=== PATIENT | male | born 1960 | race Caucasian/White ===

== ENCOUNTER 2019-06-24 10:57 | Inpatient (IN) | payer MEDICARE ==
[2019-06-24] MEDS ORDERED: Lorazepam PYXIS KEY ONE ×3 (10:59→13:11)
[2019-06-24] MEDS ORDERED: LORazepam INJ* 2 MG/ML 1 ML VIAL ONE ×5 (10:59→13:51)
[2019-06-24] MEDS ORDERED: Rocuronium* 10 MG/ML VIAL ONE (11:04)
[2019-06-24] MEDS ORDERED: Etomidate* 2 MG/ML 20 ML VIAL (40 MG) ONE (11:05)
[2019-06-24] MEDS ORDERED: fentaNYL* 50 MCG/ML 2 ML VIAL (100 MCG VIAL) IV SLOW PU ONE (11:15)
[2019-06-24] MEDS ORDERED: Midazolam* 1 MG/ML 5 ML VIAL (5 MG) IV SLOW PU ONE (11:15)
[2019-06-24 11:34] LABS: ABS Eosinophils 0.1 10^3/ul (0-0.6); ABS Lymphocytes 1.1 10^3/ul (1.0-4.8); ABS Monocytes 1.3 10^3/ul (0-0.8); ABS Neutrophils 8.7 10^3/ul (1.5-7.7); Eosinophil % 0.5 %; Hematocrit 45 % (42-52); Hemoglobin 14.9 g/dL (14.0-18.0); Lymphocyte % 9.8 %; Mean Corpuscular HGB Conc 33 g/dL (31-36); Mean Corpuscular Hemoglobin 30 pg (27-31); Mean Corpuscular Volume 90 fL (80-94); Mean Platelet Volume 7.9 fL (7.4-10.4); Platelet Count 291 10^3/uL (150-450); Red Blood Count 4.94 10^6 /uL (4.18-5.48); Red Cell Distribution Width 19 % (10-15); White Blood Count 11.2 10^3/uL (3.5-10.8)
[2019-06-24 11:52] LABS: ALT 19 U/L (7-52); AST 28 U/L (13-39); Albumin 3.9 g/dL (3.2-5.2); Albumin/Globulin Ratio 1.1 (1-3); Alkaline Phosphatase 103 U/L (34-104); Blood Urea Nitrogen 9 mg/dL (6-24); Calcium 9.6 mg/dL (8.6-10.3); Chloride 92 mmol/L (101-111); Cholesterol 146 mg/dL; EGFR African American 116.4 (>60); EGFR Non-African American 96.2 (>60); Globulin 3.6 g/dL (2-4); Glucose 184 mg/dL (70-100); HDL Cholesterol 67.1 mg/dL; LDL Cholesterol 63 mg/dL; Potassium 3.1 mmol/L (3.5-5.0); Total Protein 7.5 g/dL (6.4-8.9); Triglycerides 78 mg/dL
[2019-06-24 11:53] LABS: Activated Partial Thrombo Time 33.5 seconds (26.0-38.0); INR 1.09 (0.82-1.09)
[2019-06-24 12:00] LABS: Sodium 129 mmol/L (135-145)
[2019-06-24] MEDS ORDERED: Midazolam IV for DRIP* 100 MG in NS 0.9% 100 ML* 80 ML IV SCH ×2 (12:00→14:20)
[2019-06-24] MEDS ORDERED: KCL 20 MEQ/100 ML IVPREMIX* 20 MEQ/100 ML BAG IV ONE (12:00)
[2019-06-24] MEDS ORDERED: fentaNYL INFUSION 50 MCG/ML* 2,500 MCG/50 ML BAG IV SCH ×2 (12:00)
[2019-06-24 12:02] LABS: Anion Gap 23 mmol/L (2-11); CO2 Carbon Dioxide 14 mmol/L (22-32); Troponin I 0.04 ng/mL (<0.04)
[2019-06-24] MEDS ORDERED: NS 0.9% IV ONE (12:15)
--- NOTE | 2019-06-24 13:13 | ED ---
Neurological HPI - HPI Summary HPI Summary: The pt is a 58 yr old male presenting to [facility] vis EMS c/o seizure beginning [address] [employer]. Per the EMS, the pt fell at home at 0950, became unresponsive, and had a seizure. Per the the pt had not spoken for the whole day yesterday. He also seized while in the EMS on the way to the ED, for which 5mg versed was given by EMS. Pt had a seizure at bedside. LEVEL 5 CAVEAT. Pt cannot provide full history due to active seizure and unresponsiveness in the ED. - History of Current Complaint Chief Complaint: EDSeizure Stated Complaint: STROKE PER EMS Time Seen by Provider: 06/24/19 11:09 Hx Obtained From: EMS Hx From Patient Unobtainable Due To: Other - LEVEL 5 CAVEAT. Active seizure in the ED. Onset/Duration: Sudden Onset, Started hours ago, Still Present Timing: Sudden Onset Seizure Severity: Moderate Number of Seizures: 3 Pain Intensity: 0 Seizure Character: Generalized Aggravating: Unknown Alleviating: Unknown Associated Signs and Symptoms: Positive: Seizure - Seizure at home after fall @ 0950, seizure in the EMS, and seizure again in the ED., Incontinent Bladder/ Bowel - Allergy/Home Medications Allergies/Adverse Reactions: Allergies Allergy/AdvReac Type Severity Reaction Status Date / Time Penicillins Allergy Rash Verified 06/24/19 13:44 Home Medications: Home Medications Albuterol 2.5MG/3ML (0.083%)* [Ventolin 2.5 MG/3 ML NEB.ZULLY*] 2.5 mg INH Q6H PRN 06/24/19 [History Confirmed 06/24/19] Albuterol inh POWDER (NF) [Proair Respiclick] 2 puff INH Q4HR PRN 06/24/19 [ History Confirmed 06/24/19] Fluticasone-Salmeterol 250-50* [Advair Diskus 250-50*] 1 puff INH BID 06/24/19 [ History Confirmed 06/24/19] Furosemide TAB* [Lasix TAB*] 40 mg PO BID 06/24/19 [History Confirmed 06/24/19] Hydrocortisone 2.5% CREAM(NF) 1 applic TOPICAL TID PRN 06/24/19 [History Confirmed 06/24/19] Tiotropium [place] [Spiriva Respimat] 4 gm INH DAILY 06/24/19 [History Confirmed 06/24/19] clonazePAM TAB(*) [KlonoPIN TAB(*)] 1 mg PO TID PRN 06/24/19 [History Confirmed 06/24/19] oxyCODONE SR TAB(*) [Oxycontin 40 mg (*)] 80 mg PO Q12HR 06/24/19 [History Confirmed 06/24/19] PMH/Surg Hx/FS Hx/Imm Hx Previously Healthy: No - Level 5 Caveat. Sensory History: Denies: Hx Legally Blind, Hx Deafness Opthamlomology History: Denies: Hx Legally Blind EENT History: Denies: Hx Deafness Neurological History: Reports: Hx Seizures Infectious Disease History: No Infectious Disease History: Denies: Traveled Outside the [place] in Last 30 Days - Family History Family History: LEVEL 5 CAVEAT: Pt is unresponsive and unable to give hx. - Social History Alcohol Use: unk: LEVEL 5 CAVEAT Smoking Status (MU): Unknown if Ever Smoked - LEVEL 5 CAVEAT Review of Systems Positive: Other - Positive - incontinent bowel Neurological: Other - Positive - Seizure All Other Systems Reviewed And Are Negative: No - Comments Additional Review of Systems Comments: LEVEL 5 CAVEAT Physical Exam - Summary Physical Exam Summary: Constitutional: Well-developed, Well-nourished, Alert. (-) Distressed Skin: Warm, Dry HENT: Normocephalic; Atraumatic Eyes: Conjunctiva normal, eyes twitching, pupils are 4mm and fixed Neck: Musculoskeletal ROM normal neck. (-) JVD, (-) Stridor, (-) Tracheal deviation, neck is supple, no JVD. Cardio: Rhythm regular, rate normal, Heart sounds normal; Intact distal pulses; The pedal pulses are 2+ and symmetric. Radial pulses are 2+ and symmetric. (-) Murmur Pulmonary/Chest wall: Effort normal. (-) Respiratory distress, (-) Wheezes, (-) Rales, lungs are clear bilaterally Abd: Soft, (-) tenderness, (-) Distension, (-) Guarding, (-) Rebound, periumbilical hernia, Musculoskeletal: Extremeties have edema bilaterally Lymph: (-) Cervical adenopathy Neuro: un-responsive to painful or external stimuli, is moving all extremities un-purposefully, eyes open/close spontaneously, GCS of 8 (See scale) Psych: Mood and affect minimally responsive Triage Information Reviewed: Yes Vital Signs On Initial Exam: Initial Vitals Temp Pulse Resp BP Pulse Ox 98.9 F 100 0 158/81 100 06/24/19 11:01 06/24/19 11:01 06/24/19 11:01 06/24/19 11:01 06/24/19 11:01 Vital Signs Reviewed: Yes Completion Of Physical Exam Limited Due To: Level 5 - Lanny Coma Scale Best Eye Response: 4 - Spontaneous Best Motor Response: 1 - None Best Verbal Response: 3 - Inappropriate Words Coma Scale Total: 8 Procedures - Intubation Intubation Method: orotracheal Tube Size (cm): 7.5 Medications: Versed - and fentanyl Breath Sounds after Intubation: equal Intubation Complications: no complications Post Intubation Xray: Yes Diagnostics - Vital Signs Vital Signs Temp Pulse Resp BP Pulse Ox 06/24/19 13:02 20 06/24/19 12:01 105 97 06/24/19 11:46 109 191/107 96 06/24/19 11:42 108 98 06/24/19 11:26 97 185/99 97 06/24/19 11:01 98.9 F 100 0 158/81 100 - Laboratory Lab Results: Lab Results 06/24/19 06/24/19 06/24/19 Range/Units 11:05 11:05 11:05 WBC 11.2 H (3.5-10.8) 10^3/uL RBC 4.94 (4.18-5.48) 10^6 /uL Hgb 14.9 (14.0-18.0) g/dL Hct 45 (42-52) % MCV 90 (80-94) fL MCH 30 (27-31) pg MCHC 33 (31-36) g/dL RDW 19 H (10-15) % Plt Count 291 (150-450) 10^3/uL MPV 7.9 (7.4-10.4) fL Neut % (Auto) 77.7 % Lymph % (Auto) 9.8 % Lyon % (Auto) 11.8 % Eos % (Auto) 0.5 % Baso % (Auto) 0.2 % Absolute Neuts (auto) 8.7 H (1.5-7.7) 10^3/ul Absolute Lymphs (auto) 1.1 (1.0-4.8) 10^3/ul Absolute Monos (auto) 1.3 H (0-0.8) 10^3/ul Absolute Eos (auto) 0.1 (0-0.6) 10^3/ul Absolute Basos (auto) 0.0 (0-0.2) 10^3/ul Absolute Nucleated RBC 0.0 10^3/ul Nucleated RBC % 0.0 INR (Anticoag Therapy) 1.09 (0.82-1.09) APTT 33.5 (26.0-38.0) seconds Patient Temperature ABG pH (7.35-7.45) ABG pH (Temp Correct) ABG pCO2 (35-45) mmHg ABG pCO2 (Temp Corrct ABG pO2 (80-100) mmHg ABG pO2 (Temp Correct ABG HCO3 (19-31) mmol/L ABG O2 Saturation (94.0-98.0) % ABG Base Excess (-2.0-2.0) mmol/L Respiration Rate O2 Delivery Device Ventilator Type Vent Mode FiO2 Inspiratory Time PEEP Pressure Support Pressure Control EPAP IPAP BiPAP Sodium 129 L (135-145) mmol/L Potassium 3.1 L (3.5-5.0) mmol/L Chloride 92 L (101-111) mmol/L Carbon Dioxide 14 L* (22-32) mmol/L Anion Gap 23 H (2-11) mmol/L BUN 9 (6-24) mg/dL Creatinine 0.82 (0.67-1.17) mg/dL Est GFR ( Amer) 116.4 (>60) Est GFR (Non-Af Amer) 96.2 (>60) BUN/Creatinine Ratio 11.0 (8-20) Glucose 184 H (70-100) mg/dL Lactic Acid (0.5-2.0) mmol/L Calcium 9.6 (8.6-10.3) mg/dL Total Bilirubin 0.90 (0.2-1.0) mg/dL AST 28 (13-39) U/L ALT 19 (7-52) U/L Alkaline Phosphatase 103 (34-104) U/L Troponin I 0.04 H* (<0.04) ng/mL Total Protein 7.5 (6.4-8.9) g/dL Albumin 3.9 (3.2-5.2) g/dL Globulin 3.6 (2-4) g/dL Albumin/Globulin Ratio 1.1 (1-3) Triglycerides 78 mg/dL Cholesterol 146 mg/dL LDL Cholesterol 63 mg/dL HDL Cholesterol 67.1 mg/dL 06/24/19 06/24/19 Range/Units 11:05 11:36 WBC (3.5-10.8) 10^3/uL RBC (4.18-5.48) 10^6 /uL Hgb (14.0-18.0) g/dL Hct (42-52) % MCV (80-94) fL MCH (27-31) pg MCHC (31-36) g/dL RDW (10-15) % Plt Count (150-450) 10^3/uL MPV (7.4-10.4) fL Neut % (Auto) % Lymph % (Auto) % Lyon % (Auto) % Eos % (Auto) % Baso % (Auto) % Absolute Neuts (auto) (1.5-7.7) 10^3/ul Absolute Lymphs (auto) (1.0-4.8) 10^3/ul Absolute Monos (auto) (0-0.8) 10^3/ul Absolute Eos (auto) (0-0.6) 10^3/ul Absolute Basos (auto) (0-0.2) 10^3/ul Absolute Nucleated RBC 10^3/ul Nucleated RBC % INR (Anticoag Therapy) (0.82-1.09) APTT (26.0-38.0) seconds Patient Temperature Not Reportable ABG pH 7.30 L (7.35-7.45) ABG pH (Temp Correct) Not Reportable ABG pCO2 56 H (35-45) mmHg ABG pCO2 (Temp Corrct Not Reportable ABG pO2 117 H (80-100) mmHg ABG pO2 (Temp Correct Not Reportable ABG HCO3 25.0 (19-31) mmol/L ABG O2 Saturation 99.4 H (94.0-98.0) % ABG Base Excess 0.1 (-2.0-2.0) mmol/L Respiration Rate 16 O2 Delivery Device Ventilator Ventilator Type 500 Vent Mode Cmv FiO2 80 Inspiratory Time 1.0 PEEP 5 Pressure Support Not Reportable Pressure Control Not Reportable EPAP Not Reportable IPAP Not Reportable BiPAP Not Reportable Sodium (135-145) mmol/L Potassium (3.5-5.0) mmol/L Chloride (101-111) mmol/L Carbon Dioxide (22-32) mmol/L Anion Gap (2-11) mmol/L BUN (6-24) mg/dL Creatinine (0.67-1.17) mg/dL Est GFR ( Amer) (>60) Est GFR (Non-Af Amer) (>60) BUN/Creatinine Ratio (8-20) Glucose (70-100) mg/dL Lactic Acid 9.2 H* (0.5-2.0) mmol/L Calcium (8.6-10.3) mg/dL Total Bilirubin (0.2-1.0) mg/dL AST (13-39) U/L ALT (7-52) U/L Alkaline Phosphatase (34-104) U/L Troponin I (<0.04) ng/mL Total Protein (6.4-8.9) g/dL Albumin (3.2-5.2) g/dL Globulin (2-4) g/dL Albumin/Globulin Ratio (1-3) Triglycerides mg/dL Cholesterol mg/dL LDL Cholesterol mg/dL HDL Cholesterol mg/dL Result Diagrams: 06/24/19 11:05 06/24/19 11:05 Lab Statement: Any lab studies that have been ordered have been reviewed, and results considered in the medical decision making process. - Radiology CXR Radiology Interpretation Completed By: Radiologist Summary of Radiographic Findings: 1. LIMITED STUDY. 2. LINES AND TUBES ABOVE. 3. NO ACTIVE CARDIOPULMONARY DISEASE. ED physician has reviewed this report. - CT Brain CT CT Interpretation Completed By: Radiologist Summary of CT Findings: No acute intracranial pathology. ED physician has reviewed this report. C-spine CT CT Interpretation Completed By: Radiologist Summary of CT Findings: 1. No fracture or traumatic malalignment of the cervical spine. 2. Unchanged 2 mm anterolisthesis of C3 on C4. 3. Varying degrees of multilevel spondylosis does not result in severe osseous encroachment spinal canal or neural foramina. ED physician has reviewed this report. - EKG 1138 Cardiac Rate: Tachycardia - 108bpm EKG Rhythm: Sinus Tachycardia ST Segment: Normal Ectopy: PVCs Summary of EKG Findings: EKG 1138 sinus tachycardia rate 108 nml AR prolonged QRS, incomplete RBBB. Nml QTc. STs and Ts are nml. Frequent PVCs. Nonspecific ekg. Course/Dx - Course Course Of Treatment: The pt is a 58 yr old male presenting to [facility] vis EMS c/o seizure beginning [address] [employer]. Per the EMS, the pt fell at home at 0950, became unresponsive, and had a seizure. He also seized while in the EMS on the way to the ED, for which 5mg Versed was given in the EMS. LEVEL 5 CAVEAT. Pt cannot provide full history due to active seizure in the ED. The physical exam was only notable for twitching eyes, un-responsive to painful or external stimuli, is moving all extremities un-purposefully, eyes open/close spontaneously, GCS of 8, mood and affect minimally responsive. Test results without significant abnormalities except for WBC @ 11.2, RDW @ 19, Absolute Neuts @ 8.7, Absolute monos @ 1.3, ABG pH @ 7.3, ABG pCO2 @ 56, ABG pO2 @ 117, ABG )2 @ 99.4, Sodium @ 129, Potassium @ 3.1, CO2 @ 14, Anion Gap @ 23, Glucose @ 184, Lactic Acid @ 9.2, and Troponin @ 0.04. A CXR reveals: 1. LIMITED STUDY. 2. LINES AND TUBES ABOVE. 3. NO ACTIVE CARDIOPULMONARY DISEASE. A Brain CT Reveals: No acute intracranial pathology. A C-spine CT reveals: 1. No fracture or traumatic malalignment of the cervical spine. 2. Unchanged 2 mm anterolisthesis of C3 on C4. 3. Varying degrees of multilevel spondylosis does not result in severe osseous encroachment spinal canal or neural foramina. An EKG reveals: EKG 1138 sinus tachycardia rate 108 nml AR prolonged QRS, incomplete RBBB. Nml QTc. STs and Ts are nml. Frequent PVCs. Nonspecific ekg. The pt was diagnosed with status epilepticus and alcohol withdrawal, and admitted to [facility]. - Diagnoses Provider Diagnoses: Status epilepticus, Alcohol withdrawal - Critical Care Time Critical Care Time: 75-104 min - 75 min Discharge - Sign-Out/Discharge Documenting (check all that apply): Patient Departure - Admit - Discharge Plan Condition: Stable Disposition: ADMITTED TO [facility] - Billing Disposition and Condition Condition: STABLE Disposition: Admitted to [facility] - Attestation Statements Document Initiated by Amayaibe: Yes Documenting Scribe: Earnest Bear Provider For Whom Pricilla is Documenting (Include Credential): Tosin Alcocer MD. Scribe Attestation: I, Earnest Bear, scribed for Tosin Mcduffie MD. on 06/24/19 at 1857. Scribe Documentation Reviewed: Yes Provider Attestation: The documentation as recorded by the scribe, Earnest Bear accurately reflects the service I personally performed and the decisions made by me, Tosin Alcocer MD. Status of Scribe Document: Viewed
[2019-06-24] MEDS ORDERED: Lorazepam PYXIS KEY PRN ×2 (13:14→14:24)
[2019-06-24] MEDS ORDERED: LORazepam INJ* 2 MG/ML 1 ML VIAL IV PUSH ONE ×4 (13:14→18:45)
[2019-06-24] MEDS: LORazepam INJ* 2 MG/ML 1 ML VIAL IV PUSH ONE ×3 (13:25→13:52)
[2019-06-24] MEDS ORDERED: Fosphenytoin(*) 1,500 MG in NS 0.9% 100 ML* 100 ML IVPB ONE (13:30)
[2019-06-24] MEDS ORDERED: Propofol* 100 ML ONE (13:50)
[2019-06-24 13:54] LABS: Acetaminophen < 15 mcg/mL; Alcohol < 10 mg/dL (<10); Salicylate < 2.50 mg/dL (<30)
--- NOTE | 2019-06-24 14:02 | CONS ---
NEUROLOGY CONSULTATION: ADDENDUM: DATE OF CONSULTATION: 06/24/19 REFERRING PROVIDER: Dr. Tadeo. The patient is in the emergency room, to be admitted to the intensive care unit. Quinten Lam started to have some seizures again and so he has been given some extra lorazepam. He is on midazolam and fentanyl. I have put in orders for a fosphenytoin load. TIME SPENT: Over 90 minutes were spent in the intensive care in direct care of Mr. Lam and in communication with his daughter and with the other providers, including Dr. Tadeo, involved in his care. [id number]/[facility] #: [id number] MTDD
--- NOTE | 2019-06-24 14:10 | CONS ---
ADDENDUM NOW INCLUDED ON THIS REPORT NEUROLOGY CONSULTATION: DATE OF CONSULT: 06/24/19 LOCATION: He is in the emergency room, to be admitted. REFERRING PROVIDER: Dr. Tadeo. CHIEF COMPLAINT: Seizures. HISTORY OF PRESENT ILLNESS: Quinten Lam is a 58-year-old man who was brought in by ambulance when his family called 911 because of seizures at home. He had observed seizures by the ambulance crew by verbal report and he was given 5 mg of Versed in the field. He was intubated either in the field or upon immediate arrival in the emergency room. He had another seizure in the emergency room and was given 2 mg of lorazepam. Subsequently, his daughter arrived and I was able to obtain history. He has no prior history of seizures. He has history of chronic neck and back pain and is on chronic opioid therapy. He was just recently started on a new extended release oxycodone by his pain paid search specialist. In addition, she says he is on lorazepam, she believes on a regular basis, although she does not know the dose, and she also says he is an active alcoholic. He has several inhalers for COPD. She says he started a new extended release oxycodone just a couple of days ago. She said yesterday when she was with him he was acting very confused. She said that her grandparents reported that last night he was "ranting and raving." Subsequently, this morning, he had his first seizure. PAST MEDICAL HISTORY: From the patient's daughter and minimal medical records in the EMR. There are 2 Quinten Lindo in the electronic medical record, 1 Quinten Lam and 1 Quinten Lam, but both with the same date. From reviewing those records, he was admitted for alcohol detox in 2004. He was evaluated for an enlarged liver. He has a history of chronic low back pain secondary to a work- related injury, prior back surgery, history of anxiety and depression, history of gastroesophageal reflux, history of COPD. MEDICATIONS: Medications at home which have not been validated include: 1. Clonazepam 1 mg p.o. t.i.d. as needed. 2. Furosemide 40 mg p.o. b.i.d. 3. Albuterol inhaler 2 puffs every 4 hours as needed. 4. Oxycodone SR 40 mg 2 tablets orally every 12 hours. ALLERGIES: There are no allergies recorded. SOCIAL HISTORY: He apparently lives with his parents. He according to his daughter still drinks alcohol. He used to smoke and I am not sure if he is still an active smoker. PHYSICAL EXAM: On examination several times in the emergency room, he is intubated and sedated initially. Over time, he starts to move his left hand and right leg. When I reevaluated him about an hour to an hour and 15 minutes after the initial evaluation, he was moving his arms and legs to some extent and subsequently was reaching up towards the ET tube. His background rhythm on his EEG at that point showed diffuse theta and beta rhythms fairly symmetrically , but not epileptiform discharges. I left the room and was called back and he was having generalized clonic jerking of his extremities with fairly continuous high voltage spikes with some high voltage delta activity superimposed. He stopped spontaneously and a Versed drip was started after 2 mg of IV lorazepam. At that point, he was again unresponsive. When examined earlier, he had normal pupillary responses reacting from about 4 down to 2.5 mm. His fundi showed sharp discs. There were no spontaneous eye movements and he was in a cervical collar and so I did not do vestibulo-ocular reflexes. He had no response to corneal stimulation, but he did have response to nasal tickle with some movement of his left hand. His limb tone was decreased. His facial musculature was symmetric. LABORATORY DATA: Notable for a CBC with a mildly elevated white blood cell count at 11.2 and otherwise a fairly unremarkable CBC. His INR is normal at 1.09 and PTT at 33.5. Arterial blood gas notable for pH 7.30, pCO2 56, pO2 117. His chemistry is notable for lactic acid of 9.2, glucose 184, carbon dioxide 14, anion gap 23, sodium of 129, and potassium of 3.1. His first troponin is elevated at 0.04. His liver enzymes are normal. IMPRESSION AND PLAN: Impression is that of new-onset seizures in a patient on multiple medications and active alcoholism. Currently, he is still having intermittent seizures and I put in orders for 1500 mg of IV fosphenytoin load. He just started a Versed drip and he is getting periodic doses of lorazepam. His initial EEG showed diffuse beta and theta rhythms, but then he had seizures with generalized high voltage spike and slow activity. Subsequently, he would have suppression of background rhythms and then diffuse slowing again. I will just load him with fosphenytoin at this point and see how he does. We will do periodic EEGs on him and currently we will leave the headset intact. I put in for a magnesium level on blood that is already drawn. He will need his electrolytes monitored and corrected. At some point, we may opt to get an MRI scan of his brain, but for now, the immediate need is cessation and control of all seizures. I will continue to follow him along with you. ADDENDUM: DATE OF CONSULTATION: 06/24/19 REFERRING PROVIDER: Dr. Tadeo. The patient is in the emergency room, to be admitted to the intensive care unit. Quinten Lam started to have some seizures again and so he has been given some extra lorazepam. He is on midazolam and fentanyl. I have put in orders for a fosphenytoin load. TIME SPENT: Over 90 minutes were spent in the intensive care in direct care of Mr. Lam and in communication with his daughter and with the other providers, including Dr. Tadeo, involved in his care. [id number]/[facility] #: [id number] - [id number]/[facility] #: [id number] HOME
[2019-06-24] MEDS ORDERED: Magnesium Sulfate 2 GM IV* 2 GM/50 ML BAG IVPB ONE (14:26)
[2019-06-24 14:52] LABS: Magnesium 1.7 mg/dL (1.9-2.7)
--- NOTE | 2019-06-24 14:58 | HP ---
H&P (Free Text) History and Physical: History and Physical -- Critical Care Limitations in history/physical: intubated HPI: 58y M w/pmhx of COPD, Alcohol abuse, CHF?, GERD, Anxiety/depression; patient brought in by EMS 06/24 after a fall and unresponsiveness at home. As per patients mother and daughter he was confused yesterday 06/23, not talking much, but awake and walking around. Today he was still disoriented appearing all day. Then in front of his mother he hit his head into a door and fell, not awake or repsonsive and appeared to be rigid. EMS called and on their arrival he started to awaken but they noted GTC seizures, given versed IV. On ER arrival he was poorly responsive, poor respiratory effort and so intubated for airway protection by physician. He had 2-3 more episodes of Generalized seizures , given ativan IV push, neurology ordered fosphenytoin IV load. He is intubated , breathing over the vent, noted to have 1 more seizure episode in front of me and broke with ativan, while EEG ongoing. Started on propofol infusion, already on fentnayl and versed infusions. Admitted to ICU. Noted to have started on a new longer acting opioid for back pain at home ~1-2 weeks back and had some spasms from it. ROS: ROS unable to obtain due to intubated/sedated state and due to change in mental status and respiratory failure PMHx: COPD, Alcohol abuse, CHF?, GERD, Anxiety/depression PSHx: back surgery Family History: unable to obtain Social History: Alcohol-active daily 12-24oz per day, Smoking-none, Drug use- none; Job-not working; family-lives with mother, has a daughter Allergies: Allergies Allergy/AdvReac Type Severity Reaction Status Date / Time Penicillins Allergy Rash Verified 06/24/19 13:44 Home Medications: Albuterol 2.5MG/3ML (0.083%)* [Ventolin 2.5 MG/3 ML NEB.ZULLY*] 2.5 mg INH Q6H PRN 06/24/19 [History Confirmed 06/24/19] Albuterol inh POWDER (NF) [Proair Respiclick] 2 puff INH Q4HR PRN 06/24/19 [ History Confirmed 06/24/19] Fluticasone-Salmeterol 250-50* [Advair Diskus 250-50*] 1 puff INH BID 06/24/19 [ History Confirmed 06/24/19] Furosemide TAB* [Lasix TAB*] 40 mg PO BID 06/24/19 [History Confirmed 06/24/19] Hydrocortisone 2.5% CREAM(NF) 1 applic TOPICAL TID PRN 06/24/19 [History Confirmed 06/24/19] Tiotropium [place] [Spiriva Respimat] 4 gm INH DAILY 06/24/19 [History Confirmed 06/24/19] clonazePAM TAB(*) [KlonoPIN TAB(*)] 1 mg PO TID PRN 06/24/19 [History Confirmed 06/24/19] oxyCODONE SR TAB(*) [Oxycontin 40 mg (*)] 80 mg PO Q12HR 06/24/19 [History Confirmed 06/24/19] Tele: NSR Vitals: Vital Signs Temp 98.1 F 06/24/19 16:00 Pulse 84 06/24/19 16:00 Resp 28 06/24/19 15:00 BP 136/74 06/24/19 16:00 Pulse Ox 92 06/24/19 16:00 Intake & Output 06/23/19 06/24/19 06/24/19 18:59 06:59 18:59 Output Total 525 Balance -525 Weight 125.6 kg Output: Loja 525 O2/Vent: AC 20/500/+8/100% Infusions: propofol, versed, NS Current Medications: Acetaminophen (Tylenol Adult Liq*) 650 mg PO Q4H PRN PRN Reason: fever or pain Albuterol (Ventolin 2.5 Mg/3 Ml Neb.Zully*) 2.5 mg INH Q4H PRN PRN Reason: SOB/WHEEZING Chlorhexidine Gluconate (Peridex Mouth Wash 0.12%*) 15 ml TOPICAL Q4H RONALDO Last Admin: 06/24/19 15:16 Dose: Not Given Famotidine (Pepcid Iv*) 20 mg IV SLOW PU BID RONALDO Folic Acid (Folvite Tab*) 1 mg FEED TUBE DAILY RONALDO Propofol (Diprivan*) 100 mls @ 20.412 mls/hr IV .(Initial Rate) RONALDO; Protocol Last Admin: 06/24/19 15:17 Dose: 20.5 mls/hr Midazolam HCl 100 mg/ Sodium (Chloride) 100 mls @ 2 mls/hr IV Q24H RONALDO; Protocol Last Admin: 06/24/19 15:18 Dose: Not Given Multivitamins 10 ml/ Potassium Chloride 60 meq/ Sodium Chloride 1,040 mls @ 100 mls/hr IV ONCE ONE Stop: 06/25/19 03:23 Last Admin: 06/24/19 15:27 Dose: 100 mls/hr Fosphenytoin Sodium 100 mg/ (Sodium Chloride) 52 mls @ 208 mls/hr IVPB Q8H RONALDO ; Protocol Ceftriaxone Sodium 2 gm/ (Sodium Chloride) 100 mls @ 200 mls/hr IVPB Q24H RONALDO Vancomycin HCl 1,500 mg/ (Sodium Chloride) 250 mls @ 166.667 mls/hr IVPB ONCE ONE; Protocol Stop: 06/24/19 16:44 Acyclovir Sodium 1,200 mg/ (Sodium Chloride) 274 mls @ 0 mls/hr IVPB Q8H RONALDO Vancomycin HCl 1,250 mg/ (Sodium Chloride) 250 mls @ 166.667 mls/hr IVPB Q12H RONALDO Miscellaneous (Ativan Pyxis [place]) 2 ea N/A Q2H PRN PRN Reason: SEIZURES Pharmacy Consult (Vancomycin Per Pharmacy*) 1 note FOLLOW UP .VANC PER PHARMACY RONALDO; Protocol Pharmacy Profile Note (Vancomycin Trough Check) 1 note FOLLOW UP 1630 ONE Stop: 06/25/19 16:31 Physical Exam: Constitutional: intubated, sedated, no distress, no diaphoresis Head: normocephalic, atraumatic Eyes: no pallor, no icterus ENT: moist mucous membranes Neck: soft, supple, no jvd CVS: normal rate, regular, no murmur Resp: bilateral air entry but distant breath sounds, no rhales, no wheeze, no rhonchi, no acc muscle use Abdomen/GI: soft, nondistended, BS+ Ext/Msk: warm, pulses+, no edema Skin: intact, warm Neuro: sedated, pupils bilaterally reactive Labs: Laboratory Results - last 24 hr 06/24/19 06/24/19 06/24/19 11:05 11:05 11:05 WBC 11.2 H RBC 4.94 Hgb 14.9 Hct 45 MCV 90 MCH 30 MCHC 33 RDW 19 H Plt Count 291 MPV 7.9 Neut % (Auto) 77.7 Lymph % (Auto) 9.8 [place] % (Auto) 11.8 Eos % (Auto) 0.5 Baso % (Auto) 0.2 Absolute Neuts (auto) 8.7 H Absolute Lymphs (auto) 1.1 Absolute Monos (auto) 1.3 H Absolute Eos (auto) 0.1 Absolute Basos (auto) 0.0 Absolute Nucleated RBC 0.0 Nucleated RBC % 0.0 INR (Anticoag Therapy) 1.09 APTT 33.5 Patient Temperature ABG pH ABG pH (Temp Correct) ABG pCO2 ABG pCO2 (Temp Corrct ABG pO2 ABG pO2 (Temp Correct ABG HCO3 ABG O2 Saturation ABG Base Excess Respiration Rate O2 Delivery Device Ventilator Type Vent Mode FiO2 Inspiratory Time PEEP Pressure Support Pressure Control EPAP IPAP BiPAP Sodium 129 L Potassium 3.1 L Chloride 92 L Carbon Dioxide 14 L* Anion Gap 23 H BUN 9 Creatinine 0.82 Est GFR ( Amer) 116.4 Est GFR (Non-Af Amer) 96.2 BUN/Creatinine Ratio 11.0 Glucose 184 H Serum Osmolality Lactic Acid Calcium 9.6 Magnesium 1.7 L Total Bilirubin 0.90 AST 28 ALT 19 Alkaline Phosphatase 103 Troponin I 0.04 H* Total Protein 7.5 Albumin 3.9 Globulin 3.6 Albumin/Globulin Ratio 1.1 Triglycerides 78 Cholesterol 146 LDL Cholesterol 63 HDL Cholesterol 67.1 TSH Cancelled Cortisol 34.53 Salicylates Acetaminophen Serum Alcohol 06/24/19 06/24/19 06/24/19 11:05 11:05 11:05 WBC RBC Hgb Hct MCV MCH MCHC RDW Plt Count MPV Neut % (Auto) Lymph % (Auto) Nicol[place] % (Auto) Eos % (Auto) Baso % (Auto) Absolute Neuts (auto) Absolute Lymphs (auto) Absolute Monos (auto) Absolute Eos (auto) Absolute Basos (auto) Absolute Nucleated RBC Nucleated RBC % INR (Anticoag Therapy) APTT Patient Temperature ABG pH ABG pH (Temp Correct) ABG pCO2 ABG pCO2 (Temp Corrct ABG pO2 ABG pO2 (Temp Correct ABG HCO3 ABG O2 Saturation ABG Base Excess Respiration Rate O2 Delivery Device Ventilator Type Vent Mode FiO2 Inspiratory Time PEEP Pressure Support Pressure Control EPAP IPAP BiPAP Sodium Potassium Chloride Carbon Dioxide Anion Gap BUN Creatinine Est GFR ( Amer) Est GFR (Non-Af Amer) BUN/Creatinine Ratio Glucose Serum Osmolality 276 Lactic Acid 9.2 H* Calcium Magnesium Total Bilirubin AST ALT Alkaline Phosphatase Troponin I Total Protein Albumin Globulin Albumin/Globulin Ratio Triglycerides Cholesterol LDL Cholesterol HDL Cholesterol TSH 1.50 Cortisol Salicylates < 2.50 Acetaminophen < 15 Serum Alcohol < 10 06/24/19 06/24/19 11:36 12:22 WBC RBC Hgb Hct MCV MCH MCHC RDW Plt Count MPV Neut % (Auto) Lymph % (Auto) [place] % (Auto) Eos % (Auto) Baso % (Auto) Absolute Neuts (auto) Absolute Lymphs (auto) Absolute Monos (auto) Absolute Eos (auto) Absolute Basos (auto) Absolute Nucleated RBC Nucleated RBC % INR (Anticoag Therapy) APTT Patient Temperature Not Reportable ABG pH 7.30 L ABG pH (Temp Correct) Not Reportable ABG pCO2 56 H ABG pCO2 (Temp Corrct Not Reportable ABG pO2 117 H ABG pO2 (Temp Correct Not Reportable ABG HCO3 25.0 ABG O2 Saturation 99.4 H ABG Base Excess 0.1 Respiration Rate 16 O2 Delivery Device Ventilator Ventilator Type 500 Vent Mode Cmv FiO2 80 Inspiratory Time 1.0 PEEP 5 Pressure Support Not Reportable Pressure Control Not Reportable EPAP Not Reportable IPAP Not Reportable BiPAP Not Reportable Sodium Potassium Chloride Carbon Dioxide Anion Gap BUN Creatinine Est GFR ( Amer) Est GFR (Non-Af Amer) BUN/Creatinine Ratio Glucose Serum Osmolality Lactic Acid Calcium Magnesium TNP Total Bilirubin AST ALT Alkaline Phosphatase Troponin I Total Protein Albumin Globulin Albumin/Globulin Ratio Triglycerides Cholesterol LDL Cholesterol HDL Cholesterol TSH Cortisol Salicylates Acetaminophen Serum Alcohol Imaging: CT brain 06/24 - no acute process noted CT neck 06/24 - no acute process CXR 06/24 - hyperinfalted appearing; ett high up, no infiltrates but ?left retrocardiac infiltrate may be present Assessment: 58y M w/pmhx of COPD, Alcohol abuse, CHF?, GERD, Anxiety/depression ; patient brought in by EMS 06/24 after a fall and unresponsiveness at home. As per patients mother and daughter he was confused yesterday 06/23, not talking much, but awake and walking around. Today he was still disoriented appearing all day. Then in front of his mother he hit his head into a door and fell, not awake or repsonsive and appeared to be rigid. EMS called and on their arrival he started to awaken but they noted GTC seizures, given versed IV. On ER arrival he was poorly responsive, poor respiratory effort and so intubated for airway protection by physician. He had 2-3 more episodes of Generalized seizures , given ativan IV push, neurology ordered fosphenytoin IV load. He is intubated , breathing over the vent, noted to have 1 more seizure episode in front of me and broke with ativan, while EEG ongoing. Started on propofol infusion, already on fentnayl and versed infusions. Admitted to ICU 06/24 - admitted, intubated -Status Epilepticus -Encephalopathy; r/o encephalitis/meningitis -acute hypoxic and hypercapneic respiratory failure; intubated 06/24 -r/o aspiration pneumonia of LLL -hyponatremia -metabolic acidosis h/o alcohol abuse Plan: Neuro- -progressive encephalopathy x 24-48 hours, then ?syncope with trauma or did he hit his head and then have seizure -CT brain neg for acute pathology -Status epilepticus, broke after multiple ativan, then fospheny, now on propofol and versed infusion -EEG in ER and ICU with no further seizures noted; but they were apperaing to start right hemisphere and then generalized. -MRI brain w/o contrast next 24 hours -no fever, wbc 11-12 only; given this sudden change, discussed with daughter about r/o for encephalitis/meningitis. Will start empiric CTX 2gm, acyclovir 1200mg q8h, vanco 1gm x1 now and then prep for diagnostic LP today, she agrees -[facility] deep sedation for now -cont phenytoin 100mg iv q8h tomorrow -ativan 2mg iv q2 prn for breakthru seizure -too early for alcohol withdrawal seizures and mother states last drink yesterday when symptoms already started; [facility] urine drug screen -administer thiamine 500mg IV x1 now; then will start 200mg IV daily tomorrow for 7 days -check ammonia level -asp prec, neurochecks q2h -Delirium prec; avoid BDZ CVS- -BP and HR stable -NS infusion -trend LA; elevated LA may be from seizures as well as hypoperfusion/resp failure -hold diuretics for now; follow BMP for Na level -Maintain MAP>65 Resp- -intubated for respiratory failure likley induced by seizures -now on AC 20/500/+08/1005 -CXR 06/24 with likely some LLL infiltrate noted -may need CT chest w/o contrast -IV abx CTX started -no wheezing -Wean Fio2 to keep sat>92% -Bronchodilators PRN, Aspiration prec, Pulmonary Toilet -VAP bundle ID- afebrile. wbc 11. LA 9 -posible aspiration givne LLL infiltrate from encephalopathy -plan for r/o of meningitis/enceph -start CTX 2gm daiily (day#1), acyclovir 1200mg iv q8h (day#1), vanco 1gm with pharmacy dosing (day#1) GI- -NPO -GI prophylaxis Renal- -normal Cr -IVF hydration -hyponatremia 129; but not markedly low; was on diuretics also for CHF -mild edema LE; hold IV diuretics; IVF NS infusion -check BMP at 8pm -Metabolic acidosis from elevated LA, likley from seizures -trend LA; IVF hydration -replete KCL IV 60meq in NS infusion bag -strict I/O, replete to keep K>4, Mg>2 -loja as indicated Heme- hg stable, plt stable Endo- Maintain BG<200, insulin protocol as needed Musculsk- pressure ulcer prophylaxis. Bedrest. Wounds- none Nutrition- NPO DVT prophylaxis: SCD; hold chemical for today GI prophylaxis: h2b Central Line: no Arterial Line: no Loja Cathetor: yes Disposition: Admit to ICU; expected LOS>2 midnights; Patient requires Critical Care/ICU for respiratory failure, intubated, status epilepticus Patient Clinical Status: guarded, critical Code Status: full code Total Critical Care time is 60 minutes, excluding procedures/teaching Rafael Lloyd MD Police Liaison Officer (Electronically Signed)
[2019-06-24] MEDS ORDERED: NS 0.9% ONE ×2 (15:00)
[2019-06-24] MEDS ORDERED: Thiamine INJ* 500 MG in NS 0.9% 250 ML* 250 ML IV ONE (15:00)
[2019-06-24] MEDS ORDERED: POTASSIUM CHLORIDE TPN ONE ×2 (15:00)
[2019-06-24] MEDS ORDERED: Vancomycin(*) 1,500 MG in NS 0.9% 250 ML* 250 ML IVPB ONE (15:15)
[2019-06-24] MEDS: Chlorhexidine MOUTHWASH 0.12%* 15 ML UDC TOPICAL SCH ×2 (15:16→21:36)
[2019-06-24] MEDS: Propofol* 100 ML IV SCH ×4 (15:17→22:46)
[2019-06-24] MEDS ORDERED: Folic Acid IV* 1 MG/0.2 ML SYRINGE IV PUSH ONE (16:00)
[2019-06-24] MEDS ORDERED: Vancomycin per Pharmacy* NOTE FOLLOW UP SCH (16:00)
[2019-06-24] MEDS ORDERED: cefTRIAXone(*) 2 GM in NS 0.9% 100 ML* 100 ML IVPB SCH (16:00)
[2019-06-24 16:37] LABS: Urine Appearance Clear; Urine Bacteria 1+ (Absent); Urine Bilirubin Negative (Negative); Urine Blood 3+ (Negative); Urine Color Yellow; Urine Glucose Negative (Negative); Urine Ketones Trace (Negative); Urine Nitrite Negative (Negative); Urine Protein 1+(30 mg/dL) (Negative); Urine Red Blood Cell 3+(>10/hpf) (Absent); Urine Specific Gravity 1.011 (1.010-1.030); Urine Urobilinogen Negative (Negative); Urine White Blood Cell Trace(0-5/hpf) (Absent)
[2019-06-24 16:52] LABS: Creatine Kinase 158 U/L (10-223)
[2019-06-24 16:54] LABS: Urine Potassium Concentration 27.7 mmol/L
[2019-06-24 16:56] LABS: Urine Benzodiazepine Screen Presumptive Positive (None Detect); Urine Opiates Screen None Detected (None Detect)
[2019-06-24] MEDS ORDERED: MULTIPLE VITAMIN IV ONE ×4 (17:00)
[2019-06-24] MEDS ORDERED: [UNRECOGNIZED DRUG - OTHER] IV ONE ×4 (17:00)
[2019-06-24] MEDS ORDERED: POTASSIUM CHLORIDE IV ONE ×4 (17:00)
[2019-06-24 17:36] LABS: Magnesium 1.7 mg/dL (1.9-2.7)
[2019-06-24] MEDS: Midazolam IV for DRIP* 100 MG in NS 0.9% 100 ML* 80 ML IV SCH (17:52)
[2019-06-24] MEDS: ACYCLOVIR IVPB SCH (18:44)
[2019-06-24] MEDS: NS 0.9% IVPB SCH (18:44)
[2019-06-24] MEDS ORDERED: Folic Acid TAB* 1 MG FEED TUBE SCH (19:00)
[2019-06-24 20:05] LABS: Blood Urea Nitrogen 6 mg/dL (6-24); CO2 Carbon Dioxide 23 mmol/L (22-32); Calcium 7.3 mg/dL (8.6-10.3); Chloride 103 mmol/L (101-111); EGFR African American 245.1 (>60); EGFR Non-African American 202.6 (>60); Glucose 108 mg/dL (70-100); Sodium 128 mmol/L (135-145)
[2019-06-24 20:07] LABS: Anion Gap 2 mmol/L (2-11)
[2019-06-24] MEDS ORDERED: Norepinephrine 16MCG/ML IVPRE* 4,000 MCG/250 ML BAG IV ONE (20:27)
--- NOTE | 2019-06-24 20:33 | OP ---
Operative Report - Blank - Operative Report Date of Operation: 06/24/19 Note: Central Line Procedure Note Indication: venous access Diagnosis: status epilepticus, shock Performed by: Rafael Lloyd MD Consent: Informed ; placed in bedside chart Risks of procedure were explained if possible, all risks of pain/discomfort, bleeding, infection, PTX, Hemotx, need for chest tube, air/wire embolism, vessel injury, , and failed procedure disclosed and understanding verbalized [place] Protocol: Time-out was performed and the correct patient and site were verified - Prior labs/history was reviewed prior to procedure - Full sterile precautions with chlorhexidine/full drapes/gowns/gloves utilized - Right Internal Jugular vein visualized with ultrasound - Vessel accessed under ultrasound guidance with return of nonpulsatile blood. A guidewire was passed into vessel and confirmed in vessel with ultrasound. 1 attempt was made to access vessel. Vessel was dilated and cathetor was passed over wire into vessel. All ports demonstrated good blood return and flushed. Catheter was sutured to site and dressing applied. Adequate hemostasis was achieved EBL <5 cc No immediate complications noted, patient tolerated procedure well. Post Procedure CXR: Pending Rafael Lloyd MD Awning Erector (Electronically Signed)
--- NOTE | 2019-06-24 21:35 | OP ---
Operative Report - Blank - Operative Report Date of Operation: 06/24/19 Note: Arterial Line Procedure Note Indication: frequent arterial blood gases , invasive hemodynamic monitoring Diagnosis: shock, respiratory failure Performed by: Rafael Lloyd MD Consent: Emergent [place] Protocol: Time-out was performed and the correct patient and site were verified - Prior labs/history was reviewed prior to procedure - Full sterile precautions with chlorhexidine/full drapes/gowns/gloves utilized - left radial artery visualized with US - Vessel accessed with return of pulsatile blood. One attempt was made to access vessel. A cathetor was threaded over wire into vessel. Good arterial waveform was observed on monitor. - Arterial Catheter was sutured to site; dressing applied to site. EBL <5 cc No immediate complications noted, patient tolerated procedure well. Rafael Lloyd MD Window Glazier Helper (Electronically Signed)
[2019-06-24] MEDS: Famotidine IV* 10 MG/ML 2 ML (20 mg) IV SLOW PU SCH (21:36)
[2019-06-24] MEDS: Folic Acid TAB* 1 MG FEED TUBE SCH (21:36)
--- NOTE | 2019-06-24 21:38 | OP ---
Operative Report - Blank - Operative Report Date of Operation: 06/24/19 Note: Lumbar Puncture Note Indication: encephalopathy, r/o meningitis/encephalitis Diagnosis: encephalopathy, status epilepticus Performed by: Dr Rafael Lloyd Consent: Informed ; placed in bedside chart Risk/Benefits of procedure explained [place] Protocol: Time-out was performed and the correct patient and site were verified -Previous imaging and lab work (coags/platelets), medications were reviewed. -Full sterile precautions with Chlorhexidine/full drapes/gowns/gloves were utilized. -Patient was positioned in right lateral decubitus position -Lower lumbar intervertebral space (L4-L5) was marked; noted to have previous upper lumbar surgical scare -SC lidocaine used for local anesthesia. -18 gauge needle was used to enter intervertebral space. Multiple attempts as well as a space higher to access spinal space but unable to even with entire needle through. He is a large person and so either altered surgical anatomy or body habitus has limited ability to get sample Will refer to IR tomorrow for Lumbar Puncture under fluoroscopy or CT guidance for sampling Patient tolerated procedure well, no immediate complications noted. EBL - none Rafael Lloyd MD Rehanger (Electronically Signed)
[2019-06-25] MEDS: Norepinephrine 16MCG/ML IVPRE* 4,000 MCG/250 ML BAG IV SCH ×3 (00:02→04:30)
[2019-06-25] MEDS: Vancomycin(*) 1,250 MG in NS 0.9% 250 ML* 250 ML IVPB SCH ×3 (00:04→22:47)
[2019-06-25] MEDS: NS 0.9% IVPB SCH ×3 (00:04→17:59)
[2019-06-25] MEDS: ACYCLOVIR IVPB SCH ×3 (00:04→17:59)
[2019-06-25] MEDS: Chlorhexidine MOUTHWASH 0.12%* 15 ML UDC TOPICAL SCH ×7 (00:16→23:22)
[2019-06-25] MEDS: Meropenem(*) 2 GM in NS 0.9% 100 ML* 100 ML IVPB SCH ×4 (00:17→23:21)
[2019-06-25] MEDS: Propofol* 100 ML IV SCH ×6 (01:42→22:10)
[2019-06-25] MEDS ORDERED: Vasopressin* 100 UNITS in D5W 250 ML BAG IV SCH (01:45)
[2019-06-25] MEDS: Albuterol 2.5 MG/3 ML NEB.SOL* (0.083%) INH PRN (01:46)
[2019-06-25 05:35] LABS: Hematocrit 49 % (42-52); Hemoglobin 15.5 g/dL (14.0-18.0); Mean Corpuscular HGB Conc 32 g/dL (31-36); Mean Corpuscular Hemoglobin 29 pg (27-31); Mean Corpuscular Volume 91 fL (80-94); Mean Platelet Volume 7.4 fL (7.4-10.4); Platelet Count 327 10^3/uL (150-450); Red Blood Count 5.33 10^6 /uL (4.18-5.48); Red Cell Distribution Width 19 % (10-15); White Blood Count 24.2 10^3/uL (3.5-10.8)
[2019-06-25] MEDS: FOSPHENYTOIN 100 MG IVPB SCH ×6 (05:47→22:44)
[2019-06-25] MEDS: INFUSION IVPB SCH ×6 (05:47→22:44)
[2019-06-25 05:51] LABS: Albumin 2.9 g/dL (3.2-5.2); BUN/Creatinine Ratio 9.5 (8-20); Calcium 7.6 mg/dL (8.6-10.3); EGFR African American 157.7 (>60); EGFR Non-African American 130.4 (>60); Indirect Bilirubin 0.4 mg/dL (0.3-1.0); Magnesium 1.6 mg/dL (1.9-2.7); Phosphorus 4.2 mg/dL (2.5-5.0); Potassium 4.2 mmol/L (3.5-5.0); Total Bilirubin 0.7 mg/dL (0.2-1.0); Total Protein 5.9 g/dL (6.4-8.9)
[2019-06-25] MEDS ORDERED: Phenytoin IV(*) 100 MG in NS 0.9% 50 ML* 18 ML IV SCH (06:00)
[2019-06-25] MEDS: Norepinephrine VIAL* 8 MG in NS 0.9% 500 ML* 492 ML IV SCH ×5 (06:43→23:19)
[2019-06-25] MEDS: Folic Acid TAB* 1 MG FEED TUBE SCH (08:33)
[2019-06-25] MEDS: Famotidine IV* 10 MG/ML 2 ML (20 mg) IV SLOW PU SCH ×2 (08:33→21:00)
[2019-06-25] MEDS: Midazolam IV for DRIP* 100 MG in NS 0.9% 100 ML* 80 ML IV SCH ×2 (08:55→14:50)
[2019-06-25] MEDS ORDERED: Magnesium Sulf 4 GM/100 ML IV* 4,000 MG/100 ML BAG IVPB ONE (09:00)
[2019-06-25] MEDS ORDERED: NS 0.45% 1000 ML BAG* 925 ML with Sodium Bicarbonate 8.4% IV* 75 MEQ IV SCH ×2 (11:00)
[2019-06-25] MEDS ORDERED: NS 0.9% 100 ML* 100 ML ONE (11:08)
--- NOTE | 2019-06-25 11:53 | PN ---
Progress Note - Progress Note Date of Service: 06/25/19 Note: Progress Note -- Critical Care 24 hour events -remains intubated -EEG on overnight but not recording; no further seizures noted after yesterday afternoon clinically or by EEG while i was in ICU -tmax 100 -drop in BP yesterday, required central line/art line; started levophed and more IVF boluses; overnight added vasopressin -increased fio2 and peep requirements on vent due to new left sided diffuse consolidation/pneumonia -remains on propofol and versed 5mg/hr infusions for sedation -no further ativan pushes given overnight; no visible seizures/spasms/shaking noted -Patients mother at bedside, updated progress and events Tele: NSR Vitals: Vital Signs Temp 99.3 F 06/25/19 11:20 Pulse 79 06/25/19 11:20 Resp 22 06/25/19 10:58 BP 119/74 06/25/19 11:15 Pulse Ox 94 06/25/19 11:20 Intake & Output 06/24/19 06/25/19 06/25/19 18:59 06:59 18:59 Intake Total 310 3519 Output Total 745 730 110 Balance -435 2789 -110 Weight 125.6 kg 129.818 kg Intake: IV Fluids 1406 ACYCLOVIR 250 FOSPHENYTOIN 52 MERREM 100 NS (0.9%) 754 Vanco 250 IVPB 310 NS (0.9%) 50 Vanco 260 Medicated IV 2022 LEVOPHED 832 banana bag 670 propofol 521 Tube Feeding Flush Amount 90 Output: Loja 745 730 110 O2/Vent: changed to PCV 22/+12/90%, pHigh 32; current TV ~700, peak pre 32, compliance ~50-55 Infusions: propofol 50, versed 2.5mg/hr, levophed, vasopressin, versed, 1/2 NS + 75meq bicarb Current Medications: Acetaminophen (Tylenol Adult Liq*) 650 mg PO Q4H PRN PRN Reason: fever or pain Albuterol (Ventolin 2.5 Mg/3 Ml Neb.Serenity*) 2.5 mg INH Q4H PRN PRN Reason: SOB/WHEEZING Last Admin: 06/25/19 01:46 Dose: 2.5 mg Chlorhexidine Gluconate (Peridex Mouth Wash 0.12%*) 15 ml TOPICAL Q4H [facility] Last Admin: 06/25/19 11:16 Dose: 15 ml Famotidine (Pepcid Iv*) 20 mg IV SLOW PU BID [facility] Last Admin: 06/25/19 08:33 Dose: 20 mg Folic Acid (Folvite Tab*) 1 mg FEED TUBE 0900 [facility] Last Admin: 06/25/19 08:33 Dose: 1 mg Propofol (Diprivan*) 100 mls @ 20.412 mls/hr IV .(Initial Rate) [facility]; Protocol Last Admin: 06/25/19 09:40 Dose: 34.2 mls/hr Fosphenytoin Sodium 100 mg/ (Sodium Chloride) 52 mls @ 208 mls/hr IVPB Q8H [facility] ; Protocol Last Admin: 06/25/19 05:47 Dose: 208 mls/hr Vancomycin HCl 1,250 mg/ (Sodium Chloride) 250 mls @ 166.667 mls/hr IVPB Q12H [facility] Last Admin: 06/25/19 00:04 Dose: 166.667 mls/hr Thiamine HCl 200 mg/ Sodium (Chloride) 102 mls @ 204 mls/hr IV Q24H [facility] Stop: 07/02/19 11:59 Last Admin: 06/25/19 12:05 Dose: 204 mls/hr Midazolam HCl 100 mg/ Sodium (Chloride) 100 mls @ 5 mls/hr IV Q20H [facility]; Protocol Last Admin: 06/25/19 08:55 Dose: 5 mls/hr Meropenem 2 gm/ Sodium (Chloride) 140 mls @ 280 mls/hr IVPB Q8H [facility]; Protocol Last Admin: 06/25/19 09:37 Dose: 280 mls/hr Vasopressin 100 units/ (Dextrose) 250 mls @ 6 mls/hr IV Q40H [facility]; Protocol Last Admin: 06/25/19 02:07 Dose: 6 mls/hr Norepinephrine Bitartrate 8 mg (/ Sodium Chloride) 500 mls @ 112.5 mls/hr IV Q4H [facility]; Protocol Last Admin: 06/25/19 11:17 Dose: Not Given Acyclovir Sodium 1,000 mg/ (Sodium Chloride) 270 mls @ 270 mls/hr IVPB Q8H [facility] Sodium Bicarbonate 75 meq/ (Sodium Chloride) 1,000 mls @ 75 mls/hr IV PER RATE [facility] Stop: 06/27/19 00:19 Miscellaneous (Ativan Pyxis Smith) 2 ea N/A Q2H PRN PRN Reason: SEIZURES Pharmacy Consult (Vancomycin Per Pharmacy*) 1 note FOLLOW UP .VANC PER PHARMACY [facility]; Protocol Pharmacy Profile Note (Vancomycin Trough Check) 1 note FOLLOW UP 1630 ONE Stop: 06/25/19 16:31 Physical Exam: Constitutional: intubated, sedated, no distress, no diaphoresis Head: normocephalic, atraumatic Eyes: no pallor, no icterus ENT: moist mucous membranes Neck: soft, supple, no jvd CVS: normal rate, regular, no murmur Resp: bilateral air entry but distant breath sounds, no rhales, no wheeze, no rhonchi, no acc muscle use Abdomen/GI: soft, nondistended, BS+ Ext/Msk: warm, pulses+, no edema Skin: intact, warm Neuro: sedated, pupils bilaterally reactive Labs: Laboratory Results - last 24 hr 06/24/19 06/24/19 06/24/19 11:05 11:05 11:05 WBC RBC Hgb Hct MCV MCH MCHC RDW Plt Count MPV Patient Temperature ABG pH ABG pH (Temp Correct) ABG pCO2 ABG pCO2 (Temp Corrct ABG pO2 ABG pO2 (Temp Correct ABG HCO3 ABG O2 Saturation ABG Base Excess Respiration Rate O2 Delivery Device Ventilator Type Vent Mode FiO2 Inspiratory Time PEEP Pressure Support Pressure Control EPAP IPAP BiPAP Sodium 129 L Potassium 3.1 L Chloride 92 L Carbon Dioxide 14 L* Anion Gap 23 H BUN 9 Creatinine 0.82 Est GFR ( Amer) 116.4 Est GFR (Non-Af Amer) 96.2 BUN/Creatinine Ratio 11.0 Glucose 184 H Hemoglobin A1c Serum Osmolality Lactic Acid 9.2 H* Calcium 9.6 Phosphorus Magnesium 1.7 L 1.7 L Total Bilirubin 0.90 Direct Bilirubin Indirect Bilirubin AST 28 ALT 19 Alkaline Phosphatase 103 Ammonia Total Creatine Kinase Troponin I 0.04 H* Total Protein 7.5 Albumin 3.9 Globulin 3.6 Albumin/Globulin Ratio 1.1 Triglycerides 78 Cholesterol 146 LDL Cholesterol 63 HDL Cholesterol 67.1 Vitamin B12 TSH Cancelled 1.50 Cortisol 34.53 Urine Color Urine Appearance Urine pH Ur Specific [place] Urine Protein Urine Ketones Urine Blood Urine Nitrate Urine Bilirubin Urine Urobilinogen Ur Leukocyte Esterase Urine WBC (Auto) Urine RBC (Auto) Urine Bacteria Urine Osmolality U Sodium Concentration Urine Potassium Urine Glucose Salicylates < 2.50 Urine Opiates Screen Acetaminophen < 15 Ur Barbiturates Screen Ur Phencyclidine Scrn Ur Amphetamines Screen U Benzodiazepines Scrn Urine Cocaine Screen U Cannabinoids Screen Serum Alcohol < 10 06/24/19 06/24/19 06/24/19 11:05 11:05 11:36 WBC RBC Hgb Hct MCV MCH MCHC RDW Plt Count MPV Patient Temperature Not Reportable ABG pH 7.30 L ABG pH (Temp Correct) Not Reportable ABG pCO2 56 H ABG pCO2 (Temp Corrct Not Reportable ABG pO2 117 H ABG pO2 (Temp Correct Not Reportable ABG HCO3 25.0 ABG O2 Saturation 99.4 H ABG Base Excess 0.1 Respiration Rate 16 O2 Delivery Device Ventilator Ventilator Type 500 Vent Mode Cmv FiO2 80 Inspiratory Time 1.0 PEEP 5 Pressure Support Not Reportable Pressure Control Not Reportable EPAP Not Reportable IPAP Not Reportable BiPAP Not Reportable Sodium Potassium Chloride Carbon Dioxide Anion Gap BUN Creatinine Est GFR ( Amer) Est GFR (Non-Af Amer) BUN/Creatinine Ratio Glucose Hemoglobin A1c 5.7 H Serum Osmolality 276 Lactic Acid Calcium Phosphorus Magnesium Total Bilirubin Direct Bilirubin Indirect Bilirubin AST ALT Alkaline Phosphatase Ammonia Total Creatine Kinase Troponin I Total Protein Albumin Globulin Albumin/Globulin Ratio Triglycerides Cholesterol LDL Cholesterol HDL Cholesterol Vitamin B12 TSH Cortisol Urine Color Urine Appearance Urine pH Ur Specific [place] Urine Protein Urine Ketones Urine Blood Urine Nitrate Urine Bilirubin Urine Urobilinogen Ur Leukocyte Esterase Urine WBC (Auto) Urine RBC (Auto) Urine Bacteria Urine Osmolality U Sodium Concentration Urine Potassium Urine Glucose Salicylates Urine Opiates Screen Acetaminophen Ur Barbiturates Screen Ur Phencyclidine Scrn Ur Amphetamines Screen U Benzodiazepines Scrn Urine Cocaine Screen U Cannabinoids Screen Serum Alcohol 06/24/19 06/24/19 06/24/19 12:22 15:07 15:07 WBC RBC Hgb Hct MCV MCH MCHC RDW Plt Count MPV Patient Temperature ABG pH ABG pH (Temp Correct) ABG pCO2 ABG pCO2 (Temp Corrct ABG pO2 ABG pO2 (Temp Correct ABG HCO3 ABG O2 Saturation ABG Base Excess Respiration Rate O2 Delivery Device Ventilator Type Vent Mode FiO2 Inspiratory Time PEEP Pressure Support Pressure Control EPAP IPAP BiPAP Sodium Potassium Chloride Carbon Dioxide Anion Gap BUN Creatinine Est GFR ( Amer) Est GFR (Non-Af Amer) BUN/Creatinine Ratio Glucose Hemoglobin A1c Serum Osmolality Lactic Acid Calcium Phosphorus Magnesium Cancelled Total Bilirubin Direct Bilirubin Indirect Bilirubin AST ALT Alkaline Phosphatase Ammonia Total Creatine Kinase Troponin I Total Protein Albumin Globulin Albumin/Globulin Ratio Triglycerides Cholesterol LDL Cholesterol HDL Cholesterol Vitamin B12 TSH Cortisol Urine Color Yellow Urine Appearance Clear Urine pH 5.0 Ur Specific [place] 1.011 Urine Protein 1+(30 mg/dl) A Urine Ketones Trace A Urine Blood 3+ A Urine Nitrate Negative Urine Bilirubin Negative Urine Urobilinogen Negative Ur Leukocyte Esterase Negative Urine WBC (Auto) Trace(0-5/hpf) Urine RBC (Auto) 3+(>10/hpf) A Urine Bacteria 1+ A Urine Osmolality U Sodium Concentration Urine Potassium Urine Glucose Negative Salicylates Urine Opiates Screen None detected Acetaminophen Ur Barbiturates Screen None detected Ur Phencyclidine Scrn None detected Ur Amphetamines Screen None detected U Benzodiazepines Scrn Presumptive positive A Urine Cocaine Screen None detected U Cannabinoids Screen None detected Serum Alcohol 06/24/19 06/24/19 06/24/19 15:07 15:07 15:57 WBC RBC Hgb Hct MCV MCH MCHC RDW Plt Count MPV Patient Temperature ABG pH ABG pH (Temp Correct) ABG pCO2 ABG pCO2 (Temp Corrct ABG pO2 ABG pO2 (Temp Correct ABG HCO3 ABG O2 Saturation ABG Base Excess Respiration Rate O2 Delivery Device Ventilator Type Vent Mode FiO2 Inspiratory Time PEEP Pressure Support Pressure Control EPAP IPAP BiPAP Sodium Potassium Chloride Carbon Dioxide Anion Gap BUN Creatinine Est GFR ( Amer) Est GFR (Non-Af Amer) BUN/Creatinine Ratio Glucose Hemoglobin A1c Serum Osmolality Lactic Acid Calcium Phosphorus Magnesium TNP Total Bilirubin Direct Bilirubin Indirect Bilirubin AST ALT Alkaline Phosphatase Ammonia Total Creatine Kinase 158 Troponin I Total Protein Albumin Globulin Albumin/Globulin Ratio Triglycerides Cholesterol LDL Cholesterol HDL Cholesterol Vitamin B12 > 1450 H TSH Cortisol Urine Color Urine Appearance Urine pH Ur Specific [place] Urine Protein Urine Ketones Urine Blood Urine Nitrate Urine Bilirubin Urine Urobilinogen Ur Leukocyte Esterase Urine WBC (Auto) Urine RBC (Auto) Urine Bacteria Urine Osmolality 443 U Sodium Concentration 114 Urine Potassium 27.7 Urine Glucose Salicylates Urine Opiates Screen Acetaminophen Ur Barbiturates Screen Ur Phencyclidine Scrn Ur Amphetamines Screen U Benzodiazepines Scrn Urine Cocaine Screen U Cannabinoids Screen Serum Alcohol 06/24/19 06/24/19 06/24/19 16:00 16:04 17:05 WBC RBC Hgb Hct MCV MCH MCHC RDW Plt Count MPV Patient Temperature Not Reportable ABG pH 7.36 ABG pH (Temp Correct) Not Reportable ABG pCO2 45 ABG pCO2 (Temp Corrct Not Reportable ABG pO2 103 H ABG pO2 (Temp Correct Not Reportable ABG HCO3 24.6 ABG O2 Saturation 98.6 H ABG Base Excess -0.4 Respiration Rate 20 O2 Delivery Device vent Ventilator Type 500 Vent Mode cmv FiO2 100 Inspiratory Time Not Reportable PEEP 10 Pressure Support Not Reportable Pressure Control Not Reportable EPAP Not Reportable IPAP Not Reportable BiPAP Not Reportable Sodium Potassium Chloride Carbon Dioxide Anion Gap BUN Creatinine Est GFR ( Amer) Est GFR (Non-Af Amer) BUN/Creatinine Ratio Glucose Hemoglobin A1c Serum Osmolality Lactic Acid 1.6 Calcium Phosphorus Magnesium Total Bilirubin Direct Bilirubin Indirect Bilirubin AST ALT Alkaline Phosphatase Ammonia TNP Total Creatine Kinase Troponin I Total Protein Albumin Globulin Albumin/Globulin Ratio Triglycerides Cholesterol LDL Cholesterol HDL Cholesterol Vitamin B12 TSH Cortisol Urine Color Urine Appearance Urine pH Ur Specific [place] Urine Protein Urine Ketones Urine Blood Urine Nitrate Urine Bilirubin Urine Urobilinogen Ur Leukocyte Esterase Urine WBC (Auto) Urine RBC (Auto) Urine Bacteria Urine Osmolality U Sodium Concentration Urine Potassium Urine Glucose Salicylates Urine Opiates Screen Acetaminophen Ur Barbiturates Screen Ur Phencyclidine Scrn Ur Amphetamines Screen U Benzodiazepines Scrn Urine Cocaine Screen U Cannabinoids Screen Serum Alcohol 06/24/19 06/24/19 06/24/19 17:24 17:24 19:45 WBC RBC Hgb Hct MCV MCH MCHC RDW Plt Count MPV Patient Temperature ABG pH ABG pH (Temp Correct) ABG pCO2 ABG pCO2 (Temp Corrct ABG pO2 ABG pO2 (Temp Correct ABG HCO3 ABG O2 Saturation ABG Base Excess Respiration Rate O2 Delivery Device Ventilator Type Vent Mode FiO2 Inspiratory Time PEEP Pressure Support Pressure Control EPAP IPAP BiPAP Sodium 128 L Potassium TNP Chloride 103 Carbon Dioxide 23 Anion Gap 2 BUN 6 Creatinine 0.43 L Est GFR ( Amer) 245.1 Est GFR (Non-Af Amer) 202.6 BUN/Creatinine Ratio 14.0 Glucose 108 H Hemoglobin A1c Serum Osmolality Lactic Acid Calcium 7.3 L Phosphorus Magnesium 3.9 H Total Bilirubin Direct Bilirubin Indirect Bilirubin AST ALT Alkaline Phosphatase Ammonia 45 Total Creatine Kinase Troponin I Total Protein Albumin Globulin Albumin/Globulin Ratio Triglycerides Cholesterol LDL Cholesterol HDL Cholesterol Vitamin B12 TSH Cortisol Urine Color Urine Appearance Urine pH Ur Specific [place] Urine Protein Urine Ketones Urine Blood Urine Nitrate Urine Bilirubin Urine Urobilinogen Ur Leukocyte Esterase Urine WBC (Auto) Urine RBC (Auto) Urine Bacteria Urine Osmolality U Sodium Concentration Urine Potassium Urine Glucose Salicylates Urine Opiates Screen Acetaminophen Ur Barbiturates Screen Ur Phencyclidine Scrn Ur Amphetamines Screen U Benzodiazepines Scrn Urine Cocaine Screen U Cannabinoids Screen Serum Alcohol 06/24/19 06/24/19 06/25/19 19:45 22:10 01:00 WBC RBC Hgb Hct MCV MCH MCHC RDW Plt Count MPV Patient Temperature 37.5 ABG pH 7.21 L ABG pH (Temp Correct) Not Reportable ABG pCO2 57 H ABG pCO2 (Temp Corrct Not Reportable ABG pO2 95 ABG pO2 (Temp Correct Not Reportable ABG HCO3 20.3 ABG O2 Saturation 97.0 ABG Base Excess -5.8 L Respiration Rate 20 O2 Delivery Device Ventilator Type 500 Vent Mode Apv FiO2 50 Inspiratory Time Not Reportable PEEP 12 Pressure Support Not Reportable Pressure Control Not Reportable EPAP Not Reportable IPAP Not Reportable BiPAP Not Reportable Sodium Potassium Chloride Carbon Dioxide Anion Gap BUN Creatinine Est GFR ( Amer) Est GFR (Non-Af Amer) BUN/Creatinine Ratio Glucose Hemoglobin A1c Serum Osmolality Lactic Acid 1.8 1.0 Calcium Phosphorus Magnesium Total Bilirubin Direct Bilirubin Indirect Bilirubin AST ALT Alkaline Phosphatase Ammonia Total Creatine Kinase Troponin I Total Protein Albumin Globulin Albumin/Globulin Ratio Triglycerides Cholesterol LDL Cholesterol HDL Cholesterol Vitamin B12 TSH Cortisol Urine Color Urine Appearance Urine pH Ur Specific [place] Urine Protein Urine Ketones Urine Blood Urine Nitrate Urine Bilirubin Urine Urobilinogen Ur Leukocyte Esterase Urine WBC (Auto) Urine RBC (Auto) Urine Bacteria Urine Osmolality U Sodium Concentration Urine Potassium Urine Glucose Salicylates Urine Opiates Screen Acetaminophen Ur Barbiturates Screen Ur Phencyclidine Scrn Ur Amphetamines Screen U Benzodiazepines Scrn Urine Cocaine Screen U Cannabinoids Screen Serum Alcohol 06/25/19 06/25/19 06/25/19 01:00 05:00 05:25 WBC RBC Hgb Hct MCV MCH MCHC RDW Plt Count MPV Patient Temperature Not Reportable Not Reportable ABG pH 7.20 L 7.20 L ABG pH (Temp Correct) Not Reportable Not Reportable ABG pCO2 56 H 52 H ABG pCO2 (Temp Corrct Not Reportable Not Reportable ABG pO2 105 H 203 H ABG pO2 (Temp Correct Not Reportable Not Reportable ABG HCO3 19.7 18.7 L ABG O2 Saturation 99.2 H 100.0 H ABG Base Excess -6.7 L -8.0 L Respiration Rate 26 26 O2 Delivery Device Ventilator Type 500 600 Vent Mode Not Reportable Not Reportable FiO2 90 90 Inspiratory Time Not Reportable Not Reportable PEEP 12 12 Pressure Support Not Reportable Not Reportable Pressure Control Not Reportable Not Reportable EPAP Not Reportable Not Reportable IPAP Not Reportable Not Reportable BiPAP Not Reportable Not Reportable Sodium 133 L Potassium 4.2 Chloride 104 Carbon Dioxide 20 L Anion Gap 9 BUN 6 Creatinine 0.63 L Est GFR ( Amer) 157.7 Est GFR (Non-Af Amer) 130.4 BUN/Creatinine Ratio 9.5 Glucose 140 H Hemoglobin A1c Serum Osmolality Lactic Acid Calcium 7.6 L Phosphorus 4.2 Magnesium 1.6 L Total Bilirubin 0.70 Direct Bilirubin 0.30 H Indirect Bilirubin 0.4 AST 26 ALT 16 Alkaline Phosphatase 92 Ammonia Total Creatine Kinase Troponin I Total Protein 5.9 L Albumin 2.9 L Globulin 3.0 Albumin/Globulin Ratio 1.0 Triglycerides Cholesterol LDL Cholesterol HDL Cholesterol Vitamin B12 TSH Cortisol Urine Color Urine Appearance Urine pH Ur Specific [place] Urine Protein Urine Ketones Urine Blood Urine Nitrate Urine Bilirubin Urine Urobilinogen Ur Leukocyte Esterase Urine WBC (Auto) Urine RBC (Auto) Urine Bacteria Urine Osmolality U Sodium Concentration Urine Potassium Urine Glucose Salicylates Urine Opiates Screen Acetaminophen Ur Barbiturates Screen Ur Phencyclidine Scrn Ur Amphetamines Screen U Benzodiazepines Scrn Urine Cocaine Screen U Cannabinoids Screen Serum Alcohol 06/25/19 06/25/19 05:25 10:24 WBC 24.2 H RBC 5.33 Hgb 15.5 Hct 49 MCV 91 MCH 29 MCHC 32 RDW 19 H Plt Count 327 MPV 7.4 Patient Temperature Not Reportable ABG pH 7.23 L ABG pH (Temp Correct) Not Reportable ABG pCO2 41 ABG pCO2 (Temp Corrct Not Reportable ABG pO2 204 H ABG pO2 (Temp Correct Not Reportable ABG HCO3 17.2 L ABG O2 Saturation 99.8 H ABG Base Excess -9.9 L Respiration Rate 22 O2 Delivery Device vent Ventilator Type Not Reportable Vent Mode pvc FiO2 80 Inspiratory Time Not Reportable PEEP 12 Pressure Support Not Reportable Pressure Control 32 EPAP Not Reportable IPAP Not Reportable BiPAP Not Reportable Sodium Potassium Chloride Carbon Dioxide Anion Gap BUN Creatinine Est GFR ( Amer) Est GFR (Non-Af Amer) BUN/Creatinine Ratio Glucose Hemoglobin A1c Serum Osmolality Lactic Acid Calcium Phosphorus Magnesium Total Bilirubin Direct Bilirubin Indirect Bilirubin AST ALT Alkaline Phosphatase Ammonia Total Creatine Kinase Troponin I Total Protein Albumin Globulin Albumin/Globulin Ratio Triglycerides Cholesterol LDL Cholesterol HDL Cholesterol Vitamin B12 TSH Cortisol Urine Color Urine Appearance Urine pH Ur Specific [place] Urine Protein Urine Ketones Urine Blood Urine Nitrate Urine Bilirubin Urine Urobilinogen Ur Leukocyte Esterase Urine WBC (Auto) Urine RBC (Auto) Urine Bacteria Urine Osmolality U Sodium Concentration Urine Potassium Urine Glucose Salicylates Urine Opiates Screen Acetaminophen Ur Barbiturates Screen Ur Phencyclidine Scrn Ur Amphetamines Screen U Benzodiazepines Scrn Urine Cocaine Screen U Cannabinoids Screen Serum Alcohol Imaging: CT brain 06/24 - no acute process noted CT neck 06/24 - no acute process CXR 06/24 - hyperinfalted appearing; ett high up, no infiltrates but ?left retrocardiac infiltrate may be present CXR reviewed CXR 06/25 - left sided diffuse consolidation+, RIJ TLC+, no ptx, ETT above judah Assessment: 58y M w/pmhx of COPD, Alcohol abuse, CHF?, GERD, Anxiety/depression ; patient brought in by EMS 06/24 after a fall and unresponsiveness at home. As per patients mother and daughter he was confused yesterday 06/23, not talking much, but awake and walking around. Today he was still disoriented appearing all day. Then in front of his mother he hit his head into a door and fell, not awake or repsonsive and appeared to be rigid. EMS called and on their arrival he started to awaken but they noted GTC seizures, given versed IV. On ER arrival he was poorly responsive, poor respiratory effort and so intubated for airway protection by physician. He had 2-3 more episodes of Generalized seizures , given ativan IV push, neurology ordered fosphenytoin IV load. He is intubated , breathing over the vent, noted to have 1 more seizure episode in front of me and broke with ativan, while EEG ongoing. Started on propofol infusion, already on fentnayl and versed infusions. Admitted to ICU 06/24 - admitted, intubated -Status Epilepticus -Acute Encephalopathy; r/o encephalitis/meningitis -acute hypoxic and hypercapneic respiratory failure; intubated 06/24 -Diffuse Left sided aspiration pneumonia -Severe Sepsis with SHock 2/2 to aspiration pneumonia -hyponatremia -metabolic acidosis h/o alcohol abuse Plan: Neuro- -progressive encephalopathy prior to admission; CT brain negative -?nonconvulsive partial vs absent seizures, then devloping to GTC and status on 06/24 -attempted LP by me 06/24 but unable to obtain sample; asked anesthesia today or may need IR if they cannot -Empiric Merrem/vanco/acyclovir coverage till LP done; overall suspicion is low for infectious etiology when discussed with neurology but we will be complete and rule out the possibility of this causing new onset seizures -needs MRI brain when able -no further clinical seizures or spikes noted; some burst suppression now on EEG -dec versed to 2.5, now holding -will start to cut back propofol later today -cont dilantin 100mg tid; check level tomorrow -ativan PRN for breakthru -last drink 06/23 when symptoms already started; not likely withdrawal; given sig alcohol history; started thiamine tx; already on sedation but will monitor for withdrawal if he is taken off prop/sedatives -ammonia normal 06/24 -asp prec, neurochecks q2h -Delirium prec; avoid BDZ CVS- -shock, suspect from SIRS/Sepsis from acute aspiration -on levo and vaso now; weaning down levo -4L+ in but made urine; some mild puffiness -start bicarb infusion for metabolic acidosis -holding diuretics -Titrate fio2 to Maintain MAP>65 Resp- -Intubated ; ABGs with mild resp adn developing metabolic acidosis -changed to PCV mode and tolerating better; peak pr 32, unable to obtain plateau ; peep 12 now, fiow weaning slowly -tx for metabolic acidosis now -CXR 06/25 with some improved left consolidation -pending sputum culture if able -IV abx for aspiration pneumonitis -no wheezing; holding off steroids -Wean Fio2 to keep sat>92% -Bronchodilators PRN, Aspiration prec, Pulmonary Toilet -VAP bundle ID- afebrile, tmax 100. wbc 11-24. LA normalized -CXR 06/24 and 06/25 with diffuse left consolidation -LP pending if able -sputum culture if able; other cultures pending -Aspiration pneumonitis and Meningitis/encephalitis coverage; changed CTX(1dose ) to Merrem (day#1), acyclovir 1000mg iv q8h (day#2), vanco 1gm with pharmacy dosing (day#2); re-eval abx if LP obtained for narrower coverage GI- -NPO; may start TF later today with jevity 1.2 at 10cc/hr -GI prophylaxis Renal- -normal Cr -mild metabolic acidosis; LA improved -started 1/2 NS + 75meq bicarb at 75cc/hr -K okay; replete MgSulfate 2gm IV x1 -Hyponatremia improved with NS infusion -holding diuretics -strict I/O, replete to keep K>4, Mg>2 -loja as indicated Heme- hg stable, plt stable -DVT proph with SCD; start chemical if no further procedures today Endo- Maintain BG<200, insulin protocol as needed Musculsk- pressure ulcer prophylaxis. Bedrest. Wounds- none Nutrition- NPO; TF later today DVT prophylaxis: SCD; hold chemical for today pending procedures GI prophylaxis: h2b Central Line: RIJ TLC 06/24 Arterial Line: Left Rad 06/24 Loja Cathetor: yes Disposition: Patient requires Critical Care/ICU for respiratory failure, intubated, status epilepticus for neurochecks, sedated and septic shock req pressors Patient Clinical Status: guarded, critical Code Status: full code Total Critical Care time is 60 minutes, excluding procedures/teaching Rafael Lloyd MD [employer] (Electronically Signed)
[2019-06-25] MEDS: THIAMINE IV SCH (12:05)
[2019-06-25] MEDS: NS 0.9% IV SCH (12:05)
[2019-06-25] MEDS: Sodium Bicarbonate 8.4% IV* 75 MEQ in NS 0.45% 1000 ML BAG* 925 ML IV SCH (13:50)
[2019-06-25] MEDS ORDERED: Vasopressin* 100 UNITS in D5W 250 ML BAG* 245 ML IV SCH (14:00)
[2019-06-25] MEDS: Heparin VIAL(*) 5000 UNITS/ML VIAL (FIVE THOUSAND) SUBCUT SCH ×2 (17:26→22:53)
[2019-06-26] MEDS: ACYCLOVIR IVPB SCH ×3 (00:25→17:46)
[2019-06-26] MEDS: NS 0.9% IVPB SCH ×3 (00:25→17:46)
[2019-06-26] MEDS: Chlorhexidine MOUTHWASH 0.12%* 15 ML UDC TOPICAL SCH ×6 (02:46→23:00)
[2019-06-26] MEDS: Sodium Bicarbonate 8.4% IV* 75 MEQ in NS 0.45% 1000 ML BAG* 925 ML IV SCH (02:46)
[2019-06-26] MEDS: Norepinephrine VIAL* 8 MG in NS 0.9% 500 ML* 492 ML IV SCH ×3 (03:09→10:39)
[2019-06-26 04:41] LABS: Hematocrit 41 % (42-52); Hemoglobin 13.4 g/dL (14.0-18.0); Mean Corpuscular HGB Conc 33 g/dL (31-36); Mean Corpuscular Hemoglobin 29 pg (27-31); Mean Corpuscular Volume 89 fL (80-94); Mean Platelet Volume 7.6 fL (7.4-10.4); Platelet Count 262 10^3/uL (150-450); Red Blood Count 4.61 10^6 /uL (4.18-5.48); Red Cell Distribution Width 19 % (10-15)
[2019-06-26 04:57] LABS: Activated Partial Thrombo Time 33.2 seconds (26.0-38.0); INR 1.17 (0.82-1.09)
[2019-06-26 05:01] LABS: Albumin 2.7 g/dL (3.2-5.2); BUN/Creatinine Ratio 17.9 (8-20); Calcium 7.5 mg/dL (8.6-10.3); EGFR African American 98.2 (>60); EGFR Non-African American 81.1 (>60); Globulin 2.6 g/dL (2-4); Indirect Bilirubin 0.3 mg/dL (0.3-1.0); Magnesium 2.4 mg/dL (1.9-2.7); Phosphorus 2.3 mg/dL (2.5-5.0); Potassium 3.8 mmol/L (3.5-5.0); Total Bilirubin 0.6 mg/dL (0.2-1.0); Total Protein 5.3 g/dL (6.4-8.9)
[2019-06-26 05:12] LABS: Vancomycin Random 18.9 mcg/mL
[2019-06-26] MEDS: INFUSION IVPB SCH ×6 (05:25→21:50)
[2019-06-26] MEDS: FOSPHENYTOIN 100 MG IVPB SCH ×6 (05:25→21:50)
[2019-06-26] MEDS ORDERED: Vancomycin Trough Check NOTE FOLLOW UP ONE (05:30)
[2019-06-26] MEDS: Vancomycin(*) 1,250 MG in NS 0.9% 250 ML* 250 ML IVPB SCH ×3 (06:18→23:00)
[2019-06-26] MEDS: Propofol* 100 ML IV SCH ×4 (07:28→20:42)
[2019-06-26] MEDS: Meropenem(*) 2 GM in NS 0.9% 100 ML* 100 ML IVPB SCH ×3 (08:01→23:44)
[2019-06-26] MEDS: Folic Acid TAB* 1 MG FEED TUBE SCH (08:01)
[2019-06-26] MEDS: Famotidine IV* 10 MG/ML 2 ML (20 mg) IV SLOW PU SCH ×2 (08:02→21:50)
[2019-06-26] MEDS ORDERED: Norepinephrine 16MCG/ML IVPRE* 4,000 MCG/250 ML BAG IV SCH (11:00)
[2019-06-26] MEDS: NS 0.9% IV SCH (12:17)
[2019-06-26] MEDS: THIAMINE IV SCH (12:17)
[2019-06-26] MEDS ORDERED: Potassium Phosphate IV* 30 MMOLE in NS 0.9% 250 ML* 250 ML IVPB ONE (12:34)
--- NOTE | 2019-06-26 13:01 | PN ---
Progress Note - Progress Note Date of Service: 06/26/19 Note: Progress Note -- Critical Care 24 hour events -taken off versed yesterday; overnight on 20 propofol only -off pressors this morning now -making urine -taken off prop at bedside with neuro and moving all ext but not lucid yet and following -remains on high peep and fio2 for aspiration pneumonia -afebrile Tele: NSR Vitals: Vital Signs Temp 98.6 F 06/26/19 10:15 Pulse 90 06/26/19 10:15 Resp 22 06/26/19 11:00 BP 108/59 06/26/19 10:00 Pulse Ox 95 06/26/19 10:15 Intake & Output 06/25/19 06/26/19 06/26/19 18:59 06:59 18:59 Intake Total 2211 2476 80 Output Total 327 460 284 Balance 1883 Weight 134.3 kg Intake: IV Fluids 1102 764 ACYCLOVIR 270 FOSPHENYTOIN 1102 104 MERREM 140 Vanco 250 IVPB 116 FOSPHENYTOIN 116 Medicated IV 993 1546 BICARB 922 LEVOPHED 615 466 propofol 299 158 vasopressin 79 IV Narcotic Infusion 6 Versed 6 Tube Feeding 160 Tube Feeding Flush Amount 80 Output: Urine 25 Ljoa 327 435 284 O2/Vent: PCV 22/+12/70%, pHigh 32; current TV ~750, peak pre 35 Infusions: propofol 10, levophed off, 1/2NS + 75meq bicarb Current Medications: Acetaminophen (Tylenol Adult Liq*) 650 mg PO Q4H PRN PRN Reason: fever or pain Albuterol (Ventolin 2.5 Mg/3 Ml Neb.Serenity*) 2.5 mg INH Q4H PRN PRN Reason: SOB/WHEEZING Last Admin: 06/25/19 01:46 Dose: 2.5 mg Chlorhexidine Gluconate (Peridex Mouth Wash 0.12%*) 15 ml TOPICAL Q4H [facility] Last Admin: 06/26/19 10:52 Dose: 15 ml Famotidine (Pepcid Iv*) 20 mg IV SLOW PU BID [facility] Last Admin: 06/26/19 08:02 Dose: 20 mg Folic Acid (Folvite Tab*) 1 mg FEED TUBE 0900 [facility] Last Admin: 06/26/19 08:01 Dose: 1 mg Fosphenytoin Sodium 100 mg/ (Sodium Chloride) 52 mls @ 208 mls/hr IVPB Q8H [facility] ; Protocol Last Admin: 06/26/19 05:25 Dose: 208 mls/hr Thiamine HCl 200 mg/ Sodium (Chloride) 102 mls @ 204 mls/hr IV Q24H [facility] Stop: 07/02/19 11:59 Last Admin: 06/26/19 12:17 Dose: 204 mls/hr Meropenem 2 gm/ Sodium (Chloride) 140 mls @ 280 mls/hr IVPB Q8H [facility]; Protocol Last Admin: 06/26/19 08:01 Dose: 280 mls/hr Acyclovir Sodium 1,000 mg/ (Sodium Chloride) 270 mls @ 270 mls/hr IVPB Q8H [facility] Last Admin: 06/26/19 09:14 Dose: 270 mls/hr Vancomycin HCl 1,250 mg/ (Sodium Chloride) 250 mls @ 166.667 mls/hr IVPB Q8H [facility] Last Admin: 06/26/19 06:18 Dose: 166.667 mls/hr Norepinephrine Bitartrate (Levophed 16 Mcg/Ml Premix*) 4,000 mcg in 250 mls @ 7.5 mls/hr IV .PER PROTOCOL [facility]; Protocol Last Admin: 06/26/19 10:51 Dose: 7.5 mls/hr Potassium Phosphate 30 mmole/ (Sodium Chloride) 260 mls @ 42 mls/hr IVPB ONCE ONE Stop: 06/26/19 18:45 Propofol (Diprivan*) 100 mls @ 6.804 mls/hr IV .(Initial Rate) [facility]; Protocol Miscellaneous (Ativan Pyxis Smith) 2 ea N/A Q2H PRN PRN Reason: SEIZURES Pharmacy Consult (Vancomycin Per Pharmacy*) 1 note FOLLOW UP .VANC PER PHARMACY [facility]; Protocol Pharmacy Profile Note (Vancomycin Trough Check) 1 note FOLLOW UP ONCE ONE Stop: 06/28/19 05:31 Physical Exam: Constitutional: intubated, sedated, opens eyes to verbal commands on less sedation this morning, restless when off sedation, no distress, no diaphoresis Head: normocephalic, atraumatic Eyes: no pallor, no icterus ENT: moist mucous membranes Neck: soft, supple, no jvd CVS: normal rate, regular, no murmur Resp: bilateral air entry but distant breath sounds, Left rhales+, no wheeze, no rhonchi, no acc muscle use Abdomen/GI: soft, nondistended, BS+ Ext/Msk: warm, pulses+, no edema Skin: intact, warm Neuro: sedated, pupils bilaterally reactive, moves all ext equally on sedation hold but not lucid/oriented/alert Labs: Laboratory Results - last 24 hr 06/25/19 06/26/19 06/26/19 19:55 00:35 04:19 WBC RBC Hgb Hct MCV MCH MCHC RDW Plt Count MPV INR (Anticoag Therapy) APTT Patient Temperature Not Reportable Not Reportable ABG pH 7.30 L 7.32 L ABG pH (Temp Correct) Not Reportable Not Reportable ABG pCO2 39 41 ABG pCO2 (Temp Corrct Not Reportable Not Reportable ABG pO2 74 L 140 H ABG pO2 (Temp Correct Not Reportable Not Reportable ABG HCO3 19.6 21.2 ABG O2 Saturation 96.7 100.0 H ABG Base Excess -6.7 L -4.8 L Respiration Rate 22 22 Ventilator Type Not Reportable Not Reportable Vent Mode pcv pcv FiO2 60 100 Inspiratory Time Not Reportable Not Reportable PEEP 12 12 Pressure Support Not Reportable Not Reportable Pressure Control 32 32 EPAP Not Reportable Not Reportable IPAP Not Reportable Not Reportable BiPAP Not Reportable Not Reportable Sodium 135 Potassium 3.8 Chloride 105 Carbon Dioxide 22 Anion Gap 8 BUN 17 Creatinine 0.95 Est GFR ( Amer) 98.2 Est GFR (Non-Af Amer) 81.1 BUN/Creatinine Ratio 17.9 Glucose 163 H Calcium 7.5 L Phosphorus 2.3 L Magnesium 2.4 Total Bilirubin 0.60 Direct Bilirubin 0.30 H Indirect Bilirubin 0.3 AST 16 ALT 14 Alkaline Phosphatase 95 Total Protein 5.3 L Albumin 2.7 L Globulin 2.6 Albumin/Globulin Ratio 1.0 Random Vancomycin 18.9 06/26/19 06/26/19 06/26/19 04:19 04:19 05:00 WBC 20.0 H RBC 4.61 Hgb 13.4 L Hct 41 L MCV 89 MCH 29 MCHC 33 RDW 19 H Plt Count 262 MPV 7.6 INR (Anticoag Therapy) 1.17 H APTT 33.2 Patient Temperature Not Reportable ABG pH 7.40 ABG pH (Temp Correct) Not Reportable ABG pCO2 34 L ABG pCO2 (Temp Corrct Not Reportable ABG pO2 79 L ABG pO2 (Temp Correct Not Reportable ABG HCO3 22.6 ABG O2 Saturation 98.7 H ABG Base Excess -3.0 L Respiration Rate 22 Ventilator Type Not Reportable Vent Mode pcv FiO2 80 Inspiratory Time Not Reportable PEEP 12 Pressure Support Not Reportable Pressure Control 32 EPAP Not Reportable IPAP Not Reportable BiPAP Not Reportable Sodium Potassium Chloride Carbon Dioxide Anion Gap BUN Creatinine Est GFR ( Amer) Est GFR (Non-Af Amer) BUN/Creatinine Ratio Glucose Calcium Phosphorus Magnesium Total Bilirubin Direct Bilirubin Indirect Bilirubin AST ALT Alkaline Phosphatase Total Protein Albumin Globulin Albumin/Globulin Ratio Random Vancomycin Imaging: CT brain 06/24 - no acute process noted CT neck 06/24 - no acute process CXR 06/24 - hyperinfalted appearing; ett high up, no infiltrates but ?left retrocardiac infiltrate may be present CXR reviewed CXR 06/25 - left sided diffuse consolidation+, RIJ TLC+, no ptx, ETT above judah Assessment: 58y M w/pmhx of COPD, Alcohol abuse, CHF?, GERD, Anxiety/depression ; patient brought in by EMS 06/24 after a fall and unresponsiveness at home. As per patients mother and daughter he was confused yesterday 06/23, not talking much, but awake and walking around. Today he was still disoriented appearing all day. Then in front of his mother he hit his head into a door and fell, not awake or repsonsive and appeared to be rigid. EMS called and on their arrival he started to awaken but they noted GTC seizures, given versed IV. On ER arrival he was poorly responsive, poor respiratory effort and so intubated for airway protection by physician. He had 2-3 more episodes of Generalized seizures , given ativan IV push, neurology ordered fosphenytoin IV load. He is intubated , breathing over the vent, noted to have 1 more seizure episode in front of me and broke with ativan, while EEG ongoing. Started on propofol infusion, already on fentnayl and versed infusions. Admitted to ICU 06/24 - admitted, intubated 06/24- admitted for status, prop/versed, intubated, fospheny; pressors for hypoxia, high fio2 and peep for aspiration pneumonia 06/25 - taken off versed, down on propofol 06/26 - sedation holiday, slow improvement; attempt MRI brain; off pressors -Status Epilepticus -Acute Encephalopathy -acute hypoxic and hypercapneic respiratory failure; intubated 06/24 -Diffuse Left sided aspiration pneumonia -Severe Sepsis with SHock 2/2 to aspiration pneumonia -hyponatremia -metabolic acidosis h/o alcohol abuse Plan: Neuro- -progressive encephalopathy prior to admission; CT brain negative -?nonconvulsive partial vs absent seizures, then devloping to GTC and status on 06/24 -attempted LP by me 06/24 but unable to obtain sample; discussed with neuro, low suspicion but if not waking will have anesthesia do LP today; they awaited to have culture neg first yesterday -MRI brain w/o contrast today if able since he is not able to be weaned yet from vent -Propofol 10 and increase as needed for MRI and continued weaning for neuro assessment -Empiric Merrem/vanco/acyclovir coverage -no further clinical seizures noted; EEG as needed -cont fosphenytoin 100mg q8h; check level today -ativan PRN for breakthru -last drink 06/23 when symptoms already started; not likely withdrawal; given sig alcohol history; started thiamine tx; already on sedation but will monitor for withdrawal if he is taken off prop/sedatives -asp prec, neurochecks q2h -Delirium prec; avoid BDZ CVS- -shock resolved, suspect from SIRS/Sepsis from acute aspiration; now off pressors -d/c IVF; lasix 20mg x1 later today -repelte K and Phos -Titrate pressors to Maintain MAP>65 Resp- -Intubated for airway protection and now severe aspiration pneumonitis -Tolerating PC mode well; on ; ABGs with mild resp adn developing metabolic acidosis -changed to PCV mode and tolerating better; PCV 22/+12/70%, pHigh 32; current TV ~700, peak pre 30 -ABG reviewed; still with PO2 on 70s; check repeat now -CXR tomorrow -pending sputum culture if able -IV abx for aspiration pneumonitis -no wheezing; holding off steroids -Wean Fio2 to keep sat>92% -Bronchodilators PRN, Aspiration prec, Pulmonary Toilet -VAP bundle ID- afebrile now . wbc 11-24-20. LA normalized -CXR 06/24 and 06/25 with diffuse left consolidation -LP may be held off -sputum culture if able -blood cx 1 of 2 sets; staph epi; likely contaminant -Aspiration pneumonitis and Meningitis/encephalitis coverage; Merrem (day#2), acyclovir 1000mg iv q8h (day#3), vanco 1gm with pharmacy dosing (day#3) GI- -Increase TF jevity 1.2 at 30cc/hr -GI prophylaxis Renal- -normal Cr -mild metabolic acidosis resolved; d/c bicarb infusion -Kphos 30mmol for K and phos replacement -Hyponatremia improved -may give lasix 20mg IV x1 later today -strict I/O, replete to keep K>4, Mg>2 -loja as indicated Heme- hg stable, plt stable -DVT proph with SCD; start chemical if no further procedures today Endo- Maintain BG<200, insulin protocol as needed Musculsk- pressure ulcer prophylaxis. Bedrest. Wounds- none Nutrition- TF jevity 1.2 to 30cc/hr DVT prophylaxis: SCD; start heparin sq today GI prophylaxis: h2b Central Line: RIJ TLC 06/24 Arterial Line: Left Rad 06/24 Loja Cathetor: yes Disposition: Patient requires Critical Care/ICU for respiratory failure, intubated, status epilepticus for neurochecks, and septic shock req pressors on /off Patient Clinical Status: guarded, critical Code Status: full code Total Critical Care time is 50 minutes, excluding procedures/teaching Rafael Lloyd MD Fisheries Technical Officer (Electronically Signed)
--- NOTE | 2019-06-26 14:55 | CONS ---
NEUROLOGY FOLLOWUP CONSULTATION: DATE OF FOLLOWUP: 06/26/19 LOCATION: He is an inpatient in ICU bed 8. COMMUNITY HEALTH NAVIGATOR: Dr. Lloyd. CHIEF COMPLAINT: Seizures. INTERVAL HISTORY: Since yesterday, Quinten has not had anymore clinical seizures. He is still intubated. His daughter, Ofelia, is at his bedside this afternoon. I also evaluated him early this morning at around 0830 hours. When propofol is decreased, he becomes responsive. He nodded to his daughter, Ofelia, when he was less sedated that he wanted to come off the ventilator. He apparently responded appropriately. However, he was trying to self-extubate himself and so sedation has been continued. Also, it is felt from a pulmonary standpoint that he is not able to come off ventilator yet. MEDICATIONS: Reviewed and he remains on: 1. Fosphenytoin 100 mg IV q.8 hours. 2. Meropenem 2 g IV q.8 hours. 3. Folic acid 1 mg daily per NG tube. 4. Acyclovir 1000 mg IV q.8 hours. 5. Famotidine 2 mg IV b.i.d. 6. Thiamine 200 mg IV q.24 hours. 7. Vancomycin 1250 mg IV q.8 hours. PHYSICAL EXAMINATION: On examination, he is sedated and intubated. Temperature most recently 98.6 by Bailey, blood pressure 90/51, heart rate 90. Heart tones are distant, but seem regular. Neck is supple. When he was less sedated earlier this morning, pupils reacted from 3 to 2 mm. There are no spontaneous eye movements and I did not do vestibuloocular reflexes. Facial grimace was symmetric. Muscle tone in the limbs was diminished. He had withdrawal to deep pain stimulation of all 4 limbs. He was reaching for the endotracheal tube as he became less sedated. Sedation was resumed. DIAGNOSTIC STUDIES/LAB DATA: Laboratory data includes a CBC today with a white blood cell count down a little bit to 20,000, hematocrit is down to 41, platelet count normal at 262,000. Chemistries today unremarkable, glucose 163. Phosphorus is down to 2.3 and calcium to 7.5. Albumin is down to 2.7. Liver enzymes are normal. Phenytoin level is pending. INR is up a little bit at 1.17. MRI of the brain is pending for later today. IMPRESSION: Impression is that of stable encephalopathy and seizures, currently under control. His last EEG did not show any epileptiform discharges. When he is less sedated, he is responding to questions and moving all limbs purposely. I believe it is felt by Dr. Lloyd that his pulmonary status is such that he requires continued intubation. The etiology of the seizures and encephalopathy was probably medications. His daughter, Ofelia, says she went back and looked at his pills and they were completely in disarray. He normally takes Klonopin 1 mg 3 times per day and has possibly stopped that or possibly mixed up other medications. I will check on his MRI after it is done today, I will continue phenytoin and we will make adjustments based on the level. I will continue to follow him along with you. [id number]/[facility] #: [id number] HOME
[2019-06-26 15:08] LABS: Phenytoin 7.4 mcg/mL (10-20)
[2019-06-26] MEDS: Heparin VIAL(*) 5000 UNITS/ML VIAL (FIVE THOUSAND) SUBCUT SCH (20:12)
--- NOTE | 2019-06-26 21:48 | EEG ---
ELECTROENCEPHALOGRAM REPORT: DATE OF STUDY: 06/25/19 DIRECT SERVICE PROFESSIONAL: Dr. Lloyd. LOCATION: He is in the emergency room to be admitted to the intensive care unit. CLINICAL PROBLEM: The patient presented on 06/24/19 with new onset seizures. The patient is on multiple medications and has a history of alcohol abuse disorder. MEDICATIONS: Include: 1. Propofol. 2. Lorazepam. 3. Vasopressin. 4. Versed. 5. Fosphenytoin. 6. Vancomycin. 7. Levophed. 8. Meropenem. 9. Acyclovir. REPORT: This 19-channel EEG is performed in the emergency room and also there is further recording done up in the intensive care unit. Background consist of disorganized mixed theta and alpha rhythms with intermittent bifrontal delta activity. Occasionally, there is focal slowing from the left frontal region independent of slowing from the right frontal region. The patient exhibits more generalized bifrontal slowing, which builds in amplitude and frequency until he has generalized convulsion with diffuse high voltage spikes and intermingled slow activity bilaterally. After about a 25-second ictal pattern, there is a suppression of background rhythms diffusely. Subsequently disorganized moderate voltage mixed theta, delta and alpha activity, again develops. There are occasionally bursts of higher voltage bifrontal or left frontal slow activity. The patient was given IV lorazepam 2 mg near the end of the convulsive event. He has another generalized convulsion approximately 40 minutes into recording, again consisting of high voltage spikes and interspersed slow activity with subsequent suppression of background rhythms. Near the end of the tracing, there is a more steady and symmetrical representation of moderate voltage mixed alpha and theta activity. INTERPRETATION: Abnormal EEG with disorganization of background rhythms as well as 2 ictal events consisting of generalized high voltage spikes and slow activity. There may be of left hemisphere predominance. This tracing is compatible with a convulsive disorder, which may have a left frontal focus, but appears to be either secondarily or primarily generalized otherwise. [id number]/[facility] #: [id number] [facility]
[2019-06-27] MEDS: Propofol* 100 ML IV SCH ×7 (00:31→21:40)
[2019-06-27] MEDS: ACYCLOVIR IVPB SCH ×4 (01:29→20:59)
[2019-06-27] MEDS: NS 0.9% IVPB SCH ×6 (01:29→21:48)
[2019-06-27] MEDS: fentaNYL* 50 MCG/ML 2 ML VIAL (100 MCG VIAL) IV SLOW PU PRN ×3 (02:24→18:19)
[2019-06-27] MEDS: Chlorhexidine MOUTHWASH 0.12%* 15 ML UDC TOPICAL SCH ×6 (03:04→23:41)
[2019-06-27] MEDS: Heparin VIAL(*) 5000 UNITS/ML VIAL (FIVE THOUSAND) SUBCUT SCH ×3 (03:04→17:37)
[2019-06-27] MEDS: INFUSION IVPB SCH ×2 (05:37)
[2019-06-27] MEDS: Vancomycin(*) 1,250 MG in NS 0.9% 250 ML* 250 ML IVPB SCH ×3 (05:37→21:49)
[2019-06-27] MEDS: FOSPHENYTOIN 100 MG IVPB SCH ×2 (05:37)
[2019-06-27 05:44] LABS: Hematocrit 35 % (42-52); Hemoglobin 11.7 g/dL (14.0-18.0); Mean Corpuscular HGB Conc 33 g/dL (31-36); Mean Corpuscular Hemoglobin 30 pg (27-31); Mean Corpuscular Volume 89 fL (80-94); Mean Platelet Volume 7.4 fL (7.4-10.4); Platelet Count 227 10^3/uL (150-450); Red Blood Count 3.94 10^6 /uL (4.18-5.48); Red Cell Distribution Width 19 % (10-15)
[2019-06-27 06:00] LABS: BUN/Creatinine Ratio 21.3 (8-20); Calcium 7.6 mg/dL (8.6-10.3); EGFR Non-African American 106.6 (>60); Magnesium 2.4 mg/dL (1.9-2.7); Phosphorus 1.8 mg/dL (2.5-5.0); Potassium 3.5 mmol/L (3.5-5.0)
[2019-06-27] MEDS: Meropenem(*) 2 GM in NS 0.9% 100 ML* 100 ML IVPB SCH ×3 (07:58→23:41)
[2019-06-27] MEDS: Famotidine IV* 10 MG/ML 2 ML (20 mg) IV SLOW PU SCH ×2 (08:04→21:09)
[2019-06-27] MEDS: Folic Acid TAB* 1 MG FEED TUBE SCH (08:10)
[2019-06-27] MEDS ORDERED: Potassium Phosphate IV* 30 MMOLE in NS 0.9% 250 ML* 250 ML IVPB ONE (09:30)
[2019-06-27] MEDS ORDERED: Fosphenytoin(*) 100 MG PE/2 ML VIAL IVPB ONE (10:42)
[2019-06-27] MEDS ORDERED: Furosemide IV* 10 MG/ML 2 ML VIAL (20 MG) IV ONE (10:49)
--- NOTE | 2019-06-27 10:50 | PN ---
Progress Note - Progress Note Date of Service: 06/27/19 Note: Progress Note -- Critical Care 24 hour events -afebrile, off pressors, HR stable/BP stable overnight -on propofol 20, opens eyes and can follow 1 or two commands, but gets very restless/agitated, so kept comfortable with propofol -still intubated on peep 12, 65% fio2 -making urine -minimla secretions from ett but thin/brown Tele: NSR Vitals: Vital Signs Temp 97.7 F 06/27/19 10:01 Pulse 65 06/27/19 10:01 Resp 18 06/27/19 10:01 BP 118/64 06/27/19 10:00 Pulse Ox 97 06/27/19 10:01 Intake & Output 06/26/19 06/27/19 06/27/19 18:59 06:59 18:59 Intake Total 80 3211 Output Total 649 690 290 Balance -569 2521 -290 Weight 135.6 kg Intake: IV Fluids 601 ACYCLOVIR 287 NS (0.9%) 199 Vanco 115 IVPB 991 ACYCLOVIR 280 FOSPHENYTOIN 55 KPhos 84 MERREM 149 Vanco 423 Medicated IV 1539 ABX w/NS 447 BICARB 581 propofol 511 Tube Feeding Flush Amount 80 80 Output: Loja 649 690 290 O2/Vent: PCV 18/+12/65%, pHigh 30; current TV ~600, peak pre 30 ; switched to AC 18/600/+12/65% for MRI brain Infusions: propofol 20, levophed off Current Medications: Acetaminophen (Tylenol Adult Liq*) 650 mg PO Q4H PRN PRN Reason: fever or pain Albuterol (Ventolin 2.5 Mg/3 Ml Neb.Serenity*) 2.5 mg INH Q4H PRN PRN Reason: SOB/WHEEZING Last Admin: 06/25/19 01:46 Dose: 2.5 mg Chlorhexidine Gluconate (Peridex Mouth Wash 0.12%*) 15 ml TOPICAL Q4H [facility] Last Admin: 06/27/19 08:11 Dose: 15 ml Famotidine (Pepcid Iv*) 20 mg IV SLOW PU BID [facility] Last Admin: 06/27/19 08:04 Dose: 20 mg Fentanyl Citrate (Fentanyl*) 25 mcg IV SLOW PU Q2H PRN PRN Reason: PAIN - MODERATE Last Admin: 06/27/19 07:28 Dose: 25 mcg Folic Acid (Folvite Tab*) 1 mg FEED TUBE 0900 [facility] Last Admin: 06/27/19 08:10 Dose: 1 mg Heparin Sodium (Porcine) (Heparin Vial(*)) 5,000 units SUBCUT Q8H [facility] Last Admin: 06/27/19 03:04 Dose: 5,000 units Thiamine HCl 200 mg/ Sodium (Chloride) 102 mls @ 204 mls/hr IV Q24H [facility] Stop: 07/02/19 11:59 Last Admin: 06/26/19 12:17 Dose: 204 mls/hr Meropenem 2 gm/ Sodium (Chloride) 140 mls @ 280 mls/hr IVPB Q8H [facility]; Protocol Last Admin: 06/27/19 07:58 Dose: 280 mls/hr Acyclovir Sodium 1,000 mg/ (Sodium Chloride) 270 mls @ 270 mls/hr IVPB Q8H [facility] Last Admin: 06/27/19 01:29 Dose: 270 mls/hr Vancomycin HCl 1,250 mg/ (Sodium Chloride) 250 mls @ 166.667 mls/hr IVPB Q8H [facility] Last Admin: 06/27/19 05:37 Dose: 166.667 mls/hr Norepinephrine Bitartrate (Levophed 16 Mcg/Ml Premix*) 4,000 mcg in 250 mls @ 7.5 mls/hr IV .PER PROTOCOL [facility]; Protocol Last Admin: 06/26/19 10:51 Dose: 7.5 mls/hr Propofol (Diprivan*) 100 mls @ 6.804 mls/hr IV .(Initial Rate) [facility]; Protocol Last Admin: 06/27/19 07:57 Dose: 49 mls/hr Potassium Phosphate 30 mmole/ (Sodium Chloride) 260 mls @ 42 mls/hr IVPB ONCE ONE Stop: 06/27/19 15:41 Fosphenytoin Sodium 150 mg/ (Sodium Chloride) 53 mls @ 208 mls/hr IVPB Q8H [facility] ; Protocol Miscellaneous (Ativan Pyxis Smith) 2 ea N/A Q2H PRN PRN Reason: SEIZURES Pharmacy Consult (Vancomycin Per Pharmacy*) 1 note FOLLOW UP .VANC PER PHARMACY [facility]; Protocol Pharmacy Profile Note (Vancomycin Trough Check) 1 note FOLLOW UP ONCE ONE Stop: 06/28/19 05:31 Physical Exam: Constitutional: intubated, sedated, opens eyes to verbal commands on less sedation, restless when off sedation, no distress, no diaphoresis Head: normocephalic, atraumatic Eyes: no pallor, no icterus ENT: moist mucous membranes Neck: soft, supple, no jvd CVS: normal rate, regular, no murmur Resp: bilateral air entry but distant breath sounds, Left rhonchi+, no wheeze, no acc muscle use Abdomen/GI: soft, nondistended, BS+ Ext/Msk: warm, pulses+, no edema Skin: intact, warm Neuro: sedated, pupils bilaterally reactive, moves all ext equally on sedation hold but not lucid/oriented/alert Labs: Laboratory Results - last 24 hr 06/26/19 06/26/19 06/27/19 04:19 17:11 05:30 WBC RBC Hgb Hct MCV MCH MCHC RDW Plt Count MPV Patient Temperature ABG pH 7.42 7.45 ABG pH (Temp Correct) ABG pCO2 39 37 ABG pCO2 (Temp Corrct ABG pO2 76 L 96 ABG pO2 (Temp Correct ABG HCO3 25.5 26.3 ABG O2 Saturation 97.2 99.3 H ABG Base Excess 0.8 1.8 Respiration Rate O2 Delivery Device Ventilator Type Vent Mode FiO2 Inspiratory Time PEEP Pressure Support Pressure Control EPAP IPAP BiPAP Sodium 135 Potassium 3.8 Chloride 105 Carbon Dioxide 22 Anion Gap 8 BUN 17 Creatinine 0.95 Est GFR ( Amer) 98.2 Est GFR (Non-Af Amer) 81.1 BUN/Creatinine Ratio 17.9 Glucose 163 H Calcium 7.5 L Phosphorus 2.3 L Magnesium 2.4 Total Bilirubin 0.60 Direct Bilirubin 0.30 H Indirect Bilirubin 0.3 AST 16 ALT 14 Alkaline Phosphatase 95 Total Protein 5.3 L Albumin 2.7 L Globulin 2.6 Albumin/Globulin Ratio 1.0 Random Vancomycin 18.9 Phenytoin 7.4 L 06/27/19 06/27/19 06/27/19 05:30 05:30 09:50 WBC 15.0 H RBC 3.94 L Hgb 11.7 L Hct 35 L MCV 89 MCH 30 MCHC 33 RDW 19 H Plt Count 227 MPV 7.4 Patient Temperature Not Reportable ABG pH 7.41 ABG pH (Temp Correct) Not Reportable ABG pCO2 35 ABG pCO2 (Temp Corrct Not Reportable ABG pO2 135 H ABG pO2 (Temp Correct Not Reportable ABG HCO3 23.5 ABG O2 Saturation 99.5 H ABG Base Excess -1.9 Respiration Rate 18 O2 Delivery Device vent Ventilator Type 600 Vent Mode cmv FiO2 65 Inspiratory Time Not Reportable PEEP 12 Pressure Support Not Reportable Pressure Control Not Reportable EPAP Not Reportable IPAP Not Reportable BiPAP Not Reportable Sodium 138 Potassium 3.5 Chloride 108 Carbon Dioxide 24 Anion Gap 6 BUN 16 Creatinine 0.75 Est GFR ( Amer) 129.0 Est GFR (Non-Af Amer) 106.6 BUN/Creatinine Ratio 21.3 H Glucose 99 Calcium 7.6 L Phosphorus 1.8 L Magnesium 2.4 Total Bilirubin Direct Bilirubin Indirect Bilirubin AST ALT Alkaline Phosphatase Total Protein Albumin Globulin Albumin/Globulin Ratio Random Vancomycin Phenytoin Imaging: CT brain 06/24 - no acute process noted CT neck 06/24 - no acute process CXR 06/24 - hyperinfalted appearing; ett high up, no infiltrates but ?left retrocardiac infiltrate may be present CXR reviewed CXR 06/25 - left sided diffuse consolidation+, RIJ TLC+, no ptx, ETT above judah Assessment: 58y M w/pmhx of COPD, Alcohol abuse, CHF?, GERD, Anxiety/depression ; patient brought in by EMS 06/24 after a fall and unresponsiveness at home. As per patients mother and daughter he was confused yesterday 06/23, not talking much, but awake and walking around. Today he was still disoriented appearing all day. Then in front of his mother he hit his head into a door and fell, not awake or repsonsive and appeared to be rigid. EMS called and on their arrival he started to awaken but they noted GTC seizures, given versed IV. On ER arrival he was poorly responsive, poor respiratory effort and so intubated for airway protection by physician. He had 2-3 more episodes of Generalized seizures , given ativan IV push, neurology ordered fosphenytoin IV load. He is intubated , breathing over the vent, noted to have 1 more seizure episode in front of me and broke with ativan, while EEG ongoing. Started on propofol infusion, already on fentnayl and versed infusions. Admitted to ICU 06/24- admitted for status, prop/versed, intubated, fospheny; pressors for hypoxia, high fio2 and peep for aspiration pneumonia 06/25 - taken off versed, down on propofol 06/26 - sedation holiday, slow improvement; off pressors -Status Epilepticus -Acute Encephalopathy -acute hypoxic and hypercapneic respiratory failure; intubated 06/24 -Diffuse Left sided aspiration pneumonia -Severe Sepsis with SHock 2/2 to aspiration pneumonia; shock resolved -hyponatremia -metabolic acidosis h/o alcohol abuse Plan: Neuro- -progressive encephalopathy prior to admission; CT brain negative -?nonconvulsive partial vs absent seizures, then devloping to GTC and status on 06/24 -discussed with neuro; hold off LP due to improvement -low dilantin level 7.4; additional 200mg fosphenytoin x1; increase fospheny 150mg IV q8h -MRI brain w/o contrast today -cont propofol to raas -3; bridge with precedex; no plan for extubation till improved resp status and less peep -Empiric Merrem/vanco/acyclovir coverage -no further clinical seizures noted -ativan PRN for breakthru -last drink 06/23 when symptoms already started; not likely withdrawal; given sig alcohol history; started thiamine tx; already on sedation but will monitor for withdrawal if he is taken off prop/sedatives -asp prec, neurochecks q2h -Delirium prec; avoid BDZ CVS- -shock resolved, suspect from SIRS/Sepsis from acute aspiration; off pressors -off ivf -Titrate pressors to Maintain MAP>65 Resp- -Intubated for airway protection and now severe aspiration pneumonitis -PCV 18/+12/65%, pHigh 30; current TV ~600, peak pre 30 -AC mode for MRI brain only, change back once in ICU -repeat ABG later today -CXR tomorrow -sputum cultrure -IV abx for aspiration pneumonitis -no wheezing -Wean Fio2 to keep sat>92% -Bronchodilators PRN, Aspiration prec, Pulmonary Toilet -VAP bundle ID- afebrile . wbc 11-24-20-15. -CXR 06/24 and 06/25 with diffuse left consolidation -LP held off -sputum culture if able -blood cx 1 of 2 sets; staph epi; likely contaminant -Aspiration pneumonitis and Meningitis/encephalitis coverage; Merrem (day#3), acyclovir 1000mg iv q8h (day#4), vanco 1gm with pharmacy dosing (day#4) GI- -TF jevity 1.2 at 30cc/hr -GI prophylaxis Renal- -normal Cr -metabolic acidosis resolved -off IVF -replete Kphos 30mmol and MgSulfate 2gm x1 -Hyponatremia improved -lasix 20mg IV x1 for positive balance -strict I/O, replete to keep K>4, Mg>2 -loja as indicated Heme- hg stable, plt stable -DVT proph with SCD; heparin sq Endo- Maintain BG<200, insulin protocol as needed Musculsk- pressure ulcer prophylaxis. Bedrest. Wounds- none Nutrition- TF jevity 1.2 to 30cc/hr DVT prophylaxis: SCD; heparin sq GI prophylaxis: h2b Central Line: RIJ TLC 06/24 Arterial Line: d/c'ed; replace later today if need be Loja Cathetor: yes Disposition: Patient requires Critical Care/ICU for respiratory failure, intubated, status epilepticus for neurochecks, and septic shock req pressors on /off Patient Clinical Status: guarded, critical Code Status: full code Total Critical Care time is 40 minutes, excluding procedures/teaching Rafael Lloyd MD Operator Control Room (Electronically Signed)
[2019-06-27] MEDS ORDERED: FOSPHENYTOIN IVPB ONE ×2 (11:00)
[2019-06-27] MEDS ORDERED: [UNRECOGNIZED DRUG - OTHER] IVPB ONE ×2 (11:00)
[2019-06-27] MEDS: THIAMINE IV SCH (13:55)
[2019-06-27] MEDS: NS 0.9% IV SCH (13:55)
[2019-06-27] MEDS: FOSPHENYTOIN IVPB SCH ×2 (14:52→21:48)
--- NOTE | 2019-06-27 16:44 | CONS ---
NEUROLOGY CONSULT FOLLOWUP NOTE: DATE OF FOLLOWUP: 06/27/19 LOCATION: He is in the ICU, bed 8. AERONAUTICAL ENGINEERING OFFICER: Dr. Lloyd. CHIEF COMPLAINT: Seizures. INTERVAL HISTORY: Since yesterday, Quinten has been maintained on sedation and intubated. He is requiring a fair amount of positive end-expiratory pressure and FiO2 to maintain oxygenation. When his sedation is lightened up, he does nod and indicate he wants to be extubated. MEDICATIONS: Reviewed and he is on: 1. Acyclovir 1000 mg IV q.8 hours. 2. Famotidine 20 mg IV b.i.d. 3. Folic acid 1 mg daily per feeding tube. 4. Fosphenytoin 150 mg IV q.8 hours. 5. Heparin 5000 units subcutaneous q.8 hours. 6. Meropenem 2 g IV q.8 hours. 7. Levophed. 8. Propofol infusion. 9. Thiamine 200 mg IV q.24 hours. 10. Vancomycin 1250 mg IV q.8 hours. PHYSICAL EXAM: He is sedated and intubated. Temperature by Bailye probe 97.2, blood pressure 135/78, heart rate is in the 60s and in sinus on the monitor. Oxygen saturation is 100% on 60% FiO2. Neurologically, pupils are about 2.5 mm and react to light at 2 mm. Eyes are divergent and there are no spontaneous eye movements. Earlier today, there was a brief nasal tickle response with symmetrical facial grimacing, but no corneal reflexes. I did not attempt to have his sedation decreased. There are no spontaneous movements. Muscle tone is diffusely decreased. LABORATORY DATA: Notable for a phenytoin level of 7.4 yesterday morning, dose has since been increased. Chemistries today are fairly stable, other than a drop in phosphorus to 1.8. Magnesium is up to normal at 2.4 and calcium is low at 7.6. Albumin yesterday was low at 2.7. CBC shows a drop in his white blood cell count this morning to 15 from 20 yesterday. Hemoglobin is down a little bit at 11.7 from 13.4 yesterday. Platelet count is normal. IMPRESSION AND PLAN: Impression is that of repetitive seizures, which have resolved. I suspect it is due to medication toxicities, unintentional misuse, and alcohol abuse. He had an MRI scan of the brain today, which I reviewed and which looks normal, other than some minor chronic white matter changes consistent with small-vessel disease. I agree with the increase in fosphenytoin. Once his lungs clear up, Dr. Lloyd plans to decrease his sedation and try to extubate him. At this point, he still requires intubation for his pulmonary status. Dr. John Ramires will be coming on service this evening and I will sign Mr. Lam's case over to him. [id number]/[facility] #: [id number] [facility]
[2019-06-27 19:03] LABS: Anaplasma phagocytophilum Negative (Negative); B. miyamotoi PCR, B Negative (Negative); Babesia divergens/MO-1 Negative (Negative); Babesia ducani Negative (Negative); Ehrlichia chaffeensis Negative (Negative); Ehrlichia ewingii/canis Negative (Negative); Ehrlichia muris eauclairensis Negative (Negative)
[2019-06-28] MEDS: fentaNYL* 50 MCG/ML 2 ML VIAL (100 MCG VIAL) IV SLOW PU PRN ×4 (00:06→17:11)
[2019-06-28] MEDS: Chlorhexidine MOUTHWASH 0.12%* 15 ML UDC TOPICAL SCH ×6 (02:00→22:48)
[2019-06-28] MEDS: Propofol* 100 ML IV SCH ×10 (02:01→23:23)
[2019-06-28] MEDS: Heparin VIAL(*) 5000 UNITS/ML VIAL (FIVE THOUSAND) SUBCUT SCH ×3 (02:01→17:11)
[2019-06-28] MEDS: ACYCLOVIR IVPB SCH ×3 (04:05→20:31)
[2019-06-28] MEDS: NS 0.9% IVPB SCH ×6 (04:05→22:31)
[2019-06-28 05:16] LABS: Hematocrit 35 % (42-52); Hemoglobin 11.7 g/dL (14.0-18.0); Mean Corpuscular HGB Conc 33 g/dL (31-36); Mean Corpuscular Hemoglobin 30 pg (27-31); Mean Corpuscular Volume 90 fL (80-94); Mean Platelet Volume 7.1 fL (7.4-10.4); Platelet Count 232 10^3/uL (150-450); Red Blood Count 3.92 10^6 /uL (4.18-5.48); Red Cell Distribution Width 19 % (10-15); White Blood Count 9.9 10^3/uL (3.5-10.8)
[2019-06-28] MEDS ORDERED: Vancomycin Trough Check NOTE FOLLOW UP ONE (05:30)
[2019-06-28 05:32] LABS: BUN/Creatinine Ratio 17.3 (8-20); EGFR Non-African American 106.6 (>60); Magnesium 2.1 mg/dL (1.9-2.7); Phosphorus 2.1 mg/dL (2.5-5.0); Potassium 3.3 mmol/L (3.5-5.0)
[2019-06-28 05:47] LABS: Vancomycin Trough 27.4 mcg/mL
[2019-06-28] MEDS: Vancomycin(*) 1,250 MG in NS 0.9% 250 ML* 250 ML IVPB SCH (05:52)
[2019-06-28] MEDS: FOSPHENYTOIN IVPB SCH ×3 (05:53→22:31)
[2019-06-28] MEDS ORDERED: Potassium Phosphate IV* 10 MMOLE in NS 0.9% 250 ML* 250 ML IVPB ONE (06:30)
[2019-06-28] MEDS: Folic Acid TAB* 1 MG FEED TUBE SCH (08:27)
[2019-06-28] MEDS: Famotidine IV* 10 MG/ML 2 ML (20 mg) IV SLOW PU SCH ×2 (08:27→20:28)
[2019-06-28] MEDS: Meropenem(*) 2 GM in NS 0.9% 100 ML* 100 ML IVPB SCH ×3 (09:03→23:16)
[2019-06-28] MEDS ORDERED: Potassium Phosphate IV* 15 MMOLE in NS 0.9% 250 ML* 250 ML IVPB ONE (09:28)
[2019-06-28] MEDS ORDERED: Magnesium Sulfate 2 GM IV* 2 GM/50 ML BAG IVPB ONE (09:28)
[2019-06-28] MEDS ORDERED: Potassium Chloride* LIQUID 20 MEQ/15 ML UDC PO ONE (09:59)
--- NOTE | 2019-06-28 10:15 | PN ---
Progress Note - Progress Note Date of Service: 06/28/19 Note: Progress Note -- Critical Care 24 hour events -afebrile, off pressors, HR stable/BP stable -on propofol 65, due to restless from vent/ett; otherwise noted to follow commands on lower doses -intubated on peep 12, 45% fio2; minimla secretions+ -making urine Tele: NSR Vitals: Vital Signs Temp 98.2 F 06/28/19 08:16 Pulse 72 06/28/19 08:16 Resp 20 06/28/19 08:55 BP 132/73 06/28/19 08:01 Pulse Ox 97 06/28/19 08:16 Intake & Output 06/27/19 06/28/19 06/28/19 18:59 06:59 18:59 Intake Total 857 3877 Output Total 1515 1050 250 Balance -658 2827 -250 Weight 135.8 kg Intake: IV Fluids 750 533 FOSPHENYTOIN 257 KPhos 493 278 NS (0.9%) 255 IVPB 107 1530 ACYCLOVIR 545 FOSPHENYTOIN 149 KPhos 107 MERREM 551 Vanco 285 Medicated IV 685 propofol 685 Tube Feeding 1129 Output: Loja 1515 1050 250 O2/Vent: AC 16/600/+12/45% Infusions: propofol 65, levophed off Current Medications: Acetaminophen (Tylenol Adult Liq*) 650 mg PO Q4H PRN PRN Reason: fever or pain Albuterol (Ventolin 2.5 Mg/3 Ml Neb.Serenity*) 2.5 mg INH Q4H PRN PRN Reason: SOB/WHEEZING Last Admin: 06/25/19 01:46 Dose: 2.5 mg Chlorhexidine Gluconate (Peridex Mouth Wash 0.12%*) 15 ml TOPICAL Q4H [facility] Last Admin: 06/28/19 05:53 Dose: 15 ml Famotidine (Pepcid Iv*) 20 mg IV SLOW PU BID [facility] Last Admin: 06/28/19 08:27 Dose: 20 mg Fentanyl Citrate (Fentanyl*) 25 mcg IV SLOW PU Q2H PRN PRN Reason: PAIN - MODERATE Last Admin: 06/28/19 08:55 Dose: 25 mcg Folic Acid (Folvite Tab*) 1 mg FEED TUBE 0900 [facility] Last Admin: 06/28/19 08:27 Dose: 1 mg Furosemide (Lasix Iv*) 40 mg IV ONCE ONE Stop: 06/28/19 12:01 Heparin Sodium (Porcine) (Heparin Vial(*)) 5,000 units SUBCUT Q8H [facility] Last Admin: 06/28/19 10:01 Dose: 5,000 units Thiamine HCl 200 mg/ Sodium (Chloride) 102 mls @ 204 mls/hr IV Q24H [facility] Stop: 07/02/19 11:59 Last Admin: 06/27/19 13:55 Dose: 204 mls/hr Meropenem 2 gm/ Sodium (Chloride) 140 mls @ 280 mls/hr IVPB Q8H [facility]; Protocol Last Admin: 06/28/19 09:03 Dose: 280 mls/hr Propofol (Diprivan*) 100 mls @ 6.804 mls/hr IV .(Initial Rate) [facility]; Protocol Last Admin: 06/28/19 09:57 Dose: 53 mls/hr Fosphenytoin Sodium 150 mg/ (Sodium Chloride) 53 mls @ 208 mls/hr IVPB Q8H [facility] ; Protocol Last Admin: 06/28/19 05:53 Dose: 208 mls/hr Acyclovir Sodium 1,000 mg/ (Sodium Chloride) 270 mls @ 270 mls/hr IVPB 0500, 1300,2100 [facility] Last Admin: 06/28/19 04:05 Dose: 270 mls/hr Magnesium Sulfate (Magnesium Sulfate 2 Gm Iv*) 2 gm in 50 mls @ 50 mls/hr IVPB ONCE ONE Stop: 06/28/19 10:27 Last Admin: 06/28/19 10:00 Dose: 50 mls/hr Potassium Chloride (Potassium Chloride 20 Meq/100 Ml Ivpremix*) 20 meq in 100 mls @ 50 mls/hr IV Q2H [facility] Stop: 06/28/19 13:59 Miscellaneous (Ativan Pyxis Smith) 2 ea N/A Q2H PRN PRN Reason: SEIZURES Pharmacy Consult (Vancomycin Per Pharmacy*) 1 note FOLLOW UP .VANC PER PHARMACY [facility]; Protocol Pharmacy Consult (Vancomycin Random Level*) 1 note FOLLOW UP 1300 ONE Stop: 06/28/19 13:01 Potassium Chloride (Potassium Chloride Liquid) 40 meq PO ONCE ONE Stop: 06/28/19 10:00 Physical Exam: Constitutional: intubated, sedated, restless when off sedation, no distress, no diaphoresis Head: normocephalic, atraumatic Eyes: no pallor, no icterus ENT: moist mucous membranes Neck: soft, supple, no jvd CVS: normal rate, regular, no murmur Resp: bilateral air entry but distant breath sounds, Left rhonchi+, no wheeze, no acc muscle use Abdomen/GI: soft, nondistended, BS+ Ext/Msk: warm, pulses+, no edema Skin: intact, warm Neuro: sedated, pupils bilaterally reactive, moves all ext equally on sedation hold but not lucid/oriented/alert Labs: Laboratory Results - last 24 hr 06/25/19 06/27/19 06/27/19 16:31 09:50 20:47 WBC RBC Hgb Hct MCV MCH MCHC RDW Plt Count MPV Patient Temperature Not Reportable ABG pH 7.41 7.41 ABG pH (Temp Correct) Not Reportable Not Reportable ABG pCO2 35 41 ABG pCO2 (Temp Corrct Not Reportable Not Reportable ABG pO2 135 H 109 H ABG pO2 (Temp Correct Not Reportable Not Reportable ABG HCO3 23.5 25.9 ABG O2 Saturation 99.5 H 99.6 H ABG Base Excess -1.9 1.2 Respiration Rate 18 O2 Delivery Device vent Ventilator Type 600 Vent Mode cmv FiO2 55 Inspiratory Time 0.8 PEEP 12 Pressure Support Not Reportable Pressure Control Not Reportable EPAP Not Reportable IPAP Not Reportable BiPAP Not Reportable Sodium Potassium Chloride Carbon Dioxide Anion Gap BUN Creatinine Est GFR ( Amer) Est GFR (Non-Af Amer) BUN/Creatinine Ratio Glucose Calcium Phosphorus Magnesium Vancomycin Trough Anaplasma DNA (PCR) Negative B. divergens/MO-1 PCR Negative Babesia duncani DNA PCR Negative Babesia microti DNA PCR Negative Borrelia miyamotoi (PCR) Negative E.chaffeensis DNA (PCR) Negative E. ewingii/canis (PCR) Negative E. muris-like DNA (PCR) Negative 06/28/19 06/28/19 06/28/19 05:02 05:02 05:02 WBC 9.9 RBC 3.92 L Hgb 11.7 L Hct 35 L MCV 90 MCH 30 MCHC 33 RDW 19 H Plt Count 232 MPV 7.1 L Patient Temperature ABG pH ABG pH (Temp Correct) ABG pCO2 ABG pCO2 (Temp Corrct ABG pO2 ABG pO2 (Temp Correct ABG HCO3 ABG O2 Saturation ABG Base Excess Respiration Rate O2 Delivery Device Ventilator Type Vent Mode FiO2 Inspiratory Time PEEP Pressure Support Pressure Control EPAP IPAP BiPAP Sodium 139 Potassium 3.3 L Chloride 108 Carbon Dioxide 27 Anion Gap 4 BUN 13 Creatinine 0.75 Est GFR ( Amer) 129.0 Est GFR (Non-Af Amer) 106.6 BUN/Creatinine Ratio 17.3 Glucose 107 H Calcium 8.0 L Phosphorus 2.1 L Magnesium 2.1 Vancomycin Trough 27.4 Anaplasma DNA (PCR) B. divergens/MO-1 PCR Babesia duncani DNA PCR Babesia microti DNA PCR Borrelia miyamotoi (PCR) E.chaffeensis DNA (PCR) E. ewingii/canis (PCR) E. muris-like DNA (PCR) 06/28/19 06:10 WBC RBC Hgb Hct MCV MCH MCHC RDW Plt Count MPV Patient Temperature Not Reportable ABG pH 7.43 ABG pH (Temp Correct) Not Reportable ABG pCO2 40 ABG pCO2 (Temp Corrct Not Reportable ABG pO2 73 L ABG pO2 (Temp Correct Not Reportable ABG HCO3 26.4 ABG O2 Saturation 96.5 ABG Base Excess 2.0 Respiration Rate 18 O2 Delivery Device vent Ventilator Type 600 Vent Mode apvcmv FiO2 45 Inspiratory Time Not Reportable PEEP 12 Pressure Support Not Reportable Pressure Control Not Reportable EPAP Not Reportable IPAP Not Reportable BiPAP Not Reportable Sodium Potassium Chloride Carbon Dioxide Anion Gap BUN Creatinine Est GFR ( Amer) Est GFR (Non-Af Amer) BUN/Creatinine Ratio Glucose Calcium Phosphorus Magnesium Vancomycin Trough Anaplasma DNA (PCR) B. divergens/MO-1 PCR Babesia duncani DNA PCR Babesia microti DNA PCR Borrelia miyamotoi (PCR) E.chaffeensis DNA (PCR) E. ewingii/canis (PCR) E. muris-like DNA (PCR) Imaging: CT brain 06/24 - no acute process noted CT neck 06/24 - no acute process CXR 06/24 - hyperinfalted appearing; ett high up, no infiltrates but ?left retrocardiac infiltrate may be present CXR reviewed CXR 06/25 - left sided diffuse consolidation+, RIJ TLC+, no ptx, ETT above judah MRI brain 06/27 - no acute abnormality cxr 06/27 - ett above judah, esophageal tube+; left side infiltrates slightly better; no ptx Assessment: 58y M w/pmhx of COPD, Alcohol abuse, CHF?, GERD, Anxiety/depression ; patient brought in by EMS 06/24 after a fall and unresponsiveness at home. As per patients mother and daughter he was confused yesterday 06/23, not talking much, but awake and walking around. Today he was still disoriented appearing all day. Then in front of his mother he hit his head into a door and fell, not awake or repsonsive and appeared to be rigid. EMS called and on their arrival he started to awaken but they noted GTC seizures, given versed IV. On ER arrival he was poorly responsive, poor respiratory effort and so intubated for airway protection by physician. He had 2-3 more episodes of Generalized seizures , given ativan IV push, neurology ordered fosphenytoin IV load. He is intubated , breathing over the vent, noted to have 1 more seizure episode in front of me and broke with ativan, while EEG ongoing. Started on propofol infusion, already on fentnayl and versed infusions. Admitted to ICU 06/24- admitted for status, prop/versed, intubated, fospheny; pressors for hypoxia, high fio2 and peep for aspiration pneumonia 06/25 - taken off versed, down on propofol 06/26 - sedation holiday; off pressors 06/27 - no change; MRI brain; follows commands; still on high peep 06/28 - decreasing vent support, sedation weaning as needed -Status Epilepticus -Acute Encephalopathy -acute hypoxic and hypercapneic respiratory failure; intubated 06/24 -Diffuse Left sided aspiration pneumonia -Severe Sepsis with SHock 2/2 to aspiration pneumonia; shock resolved -hyponatremia -metabolic acidosis h/o alcohol abuse Plan: Neuro- -progressive encephalopathy prior to admission; CT brain negative -?nonconvulsive partial vs absent seizures, then devloping to GTC and status on 06/24 -discussed with neuro; hold off LP at this time since he is improving -pending phenytoin level today -cont fospheny 150mg IV q8h; no further seizures noted -MRI brain 8/ without acute abnormality -cont propofol to raas -3 for comfort while resp status improves; will consider precedex bridge -Empiric Merrem/vanco/acyclovir coverage ; will plan for atleast 7 days of tx empiric -ativan PRN for breakthru -h/o alcohol withdrawal; may need to keep on some bdz post extubation, WAM but he is likely out of the window now and has been on sedatives the hwole time -asp prec, neurochecks as needed -Delirium prec; avoid BDZ CVS- -shock resolved, suspect from SIRS/Sepsis from acute aspiration -edema+; lasix 40mg IV x1 today -replete K and Mg -Maintain MAP>65 Resp- -Intubated for airway protection and now severe aspiration pneumonitis CXR 8/2 with some improvement -secretions mild -on AC 16/600/+12/45% ; dec peep to 10 now; ABG at 1pm -CXR tomorrow -IV abx for aspiration pneumonitis -no wheezing -Wean Fio2 to keep sat>92% -Bronchodilators PRN, Aspiration prec, Pulmonary Toilet -VAP bundle ID- afebrile . wbc [id number] -CXR 8/2 improving left infiltrates/consolidation -LP held off -sputum culture - stain with neutrophils but 1+ organisms -blood cx 1 of 2 sets; staph epi; likely contaminant -Aspiration pneumonitis and Meningitis/encephalitis coverage; Merrem (day#4), acyclovir 1000mg iv q8h (day#5), vanco 1gm with pharmacy dosing (day#5) GI- -TF jevity 1.2 at 30cc/hr; increase to 40 -GI prophylaxis Renal- -normal Cr -metabolic acidosis resolved -replete K IV and MgSulfate IV -lasix 40mg IV x1 today for edema -Hyponatremia improved -strict I/O, replete to keep K>4, Mg>2 -loja as indicated Heme- anemia; hgs 11-12s, plt stable -DVT proph with SCD; heparin sq Endo- Maintain BG<200, insulin protocol as needed Musculsk- pressure ulcer prophylaxis. Bedrest. Wounds- none Nutrition- TF jevity 1.2 to 40cc/hr DVT prophylaxis: SCD; heparin sq GI prophylaxis: h2b Central Line: RIJ TLC 06/24 Arterial Line: d/c'ed Loja Cathetor: yes Disposition: Patient requires Critical Care/ICU for respiratory failure, intubated, status epilepticus for neurochecks, aspiration pneumonia Patient Clinical Status: guarded, critical Code Status: full code Total Critical Care time is 40 minutes, excluding procedures/teaching Rafael Lloyd MD [employer] (Electronically Signed)
[2019-06-28] MEDS: NS 0.9% IV SCH (11:15)
[2019-06-28] MEDS: KCL 20 MEQ/100 ML IVPREMIX* 20 MEQ/100 ML BAG IV SCH ×3 (11:15→22:43)
[2019-06-28] MEDS: THIAMINE IV SCH (11:15)
[2019-06-28] MEDS ORDERED: Furosemide IV* 10 MG/ML VIAL (40 MG) IV ONE ×2 (12:00→19:40)
[2019-06-28 12:31] LABS: Phenytoin 7.2 mcg/mL (10-20)
[2019-06-28] MEDS ORDERED: Vancomycin Random Level* NOTE FOLLOW UP ONE (13:00)
[2019-06-28] MEDS: Vancomycin(*) 1,000 MG in NS 0.9% 250 ML* 250 ML IVPB SCH (18:08)
--- NOTE | 2019-06-28 19:43 | OP ---
Operative Report - Blank - Operative Report Date of Operation: 06/28/19 Note: Bronchoscopy with BAL - Procedure Note Indication: acute hypoxic respiratory failure, aspiration pneumonia, excess secretions Diagnosis: acute hypoxic respiratory failure, aspiration pneumonia Performed by: Dr Rafael Lloyd Consent: Informed ; placed in bedside chart Risk/Benefits of procedure explained. [place] Protocol: Time-out was performed and the correct patient and site were verified Prior labs/imaging reviewed before procedure. Patient oxygenated with 100% Fi02, placed on VC ventilation Patient already on propofol IV sedation Scope inserted via ETT tube through adapter. FINDINGS -ETT clear, in good position above judah -Excessive secretions bilaterally noted with multiple mucous plugs at lower lobes bilaterally -No endobronchial lesions noted in proximal segments. -BAL performed from AMY/LLL/RLL/RML/RUL segments with removall all mucous plugs Specimens: collected and sent for culture/analysis EBL: none significant Complications: No immediate complications during the procedure Rafael Lloyd MD [employer] Home [employer] (Electronically Signed)
[2019-06-28] MEDS: Acetylcysteine INHALATION SOL* 200 MG/ML NEB.SOLN 10 ML INH SCH (20:03)
[2019-06-28] MEDS: Albuterol 2.5 MG/3 ML NEB.SOL* (0.083%) INH PRN (20:03)
[2019-06-28] MEDS: Bisacodyl SUPP* 10 MG SUPP PR SCH (20:23)
[2019-06-28 20:39] LABS: BUN/Creatinine Ratio 16.2 (8-20); Calcium 8.3 mg/dL (8.6-10.3); EGFR Non-African American 108.3 (>60); Magnesium 2.1 mg/dL (1.9-2.7); Phosphorus 2.5 mg/dL (2.5-5.0); Potassium 3.7 mmol/L (3.5-5.0)
[2019-06-28] MEDS ORDERED: Magnesium Sulfate 2 GM IV (Premix) IVPB ONE (22:30)
[2019-06-28] MEDS: Dexmedetomidine* 1,000 MCG in NS 0.9% 250 ML* 240 ML IV SCH (23:12)
[2019-06-29] MEDS: Heparin VIAL(*) 5000 UNITS/ML VIAL (FIVE THOUSAND) SUBCUT SCH ×3 (01:00→17:19)
[2019-06-29] MEDS: KCL 20 MEQ/100 ML IVPREMIX* 20 MEQ/100 ML BAG IV SCH ×2 (01:00→03:13)
[2019-06-29] MEDS: Propofol* 100 ML IV SCH ×2 (01:17→04:14)
[2019-06-29] MEDS: Acetylcysteine INHALATION SOL* 200 MG/ML NEB.SOLN 10 ML INH SCH ×2 (02:48→07:39)
[2019-06-29] MEDS: Albuterol 2.5 MG/3 ML NEB.SOL* (0.083%) INH PRN ×2 (02:49→07:40)
[2019-06-29] MEDS: Chlorhexidine MOUTHWASH 0.12%* 15 ML UDC TOPICAL SCH ×4 (03:13→15:44)
[2019-06-29] MEDS: NS 0.9% IVPB SCH ×5 (05:01→22:12)
[2019-06-29] MEDS: FOSPHENYTOIN IVPB SCH ×2 (05:01→22:12)
[2019-06-29] MEDS: ACYCLOVIR IVPB SCH ×3 (05:02→20:22)
[2019-06-29] MEDS: Vancomycin(*) 1,000 MG in NS 0.9% 250 ML* 250 ML IVPB SCH ×2 (05:40→17:21)
[2019-06-29 05:42] LABS: Hematocrit 37 % (42-52); Hemoglobin 12.1 g/dL (14.0-18.0); Mean Corpuscular HGB Conc 33 g/dL (31-36); Mean Corpuscular Hemoglobin 29 pg (27-31); Mean Corpuscular Volume 90 fL (80-94); Mean Platelet Volume 7.2 fL (7.4-10.4); Platelet Count 250 10^3/uL (150-450); Red Blood Count 4.16 10^6 /uL (4.18-5.48); Red Cell Distribution Width 19 % (10-15); White Blood Count 8.4 10^3/uL (3.5-10.8)
[2019-06-29 06:03] LABS: BUN/Creatinine Ratio 16.4 (8-20); Calcium 8.3 mg/dL (8.6-10.3); EGFR African American 133.1 (>60); Magnesium 2.2 mg/dL (1.9-2.7); Phosphorus 2.8 mg/dL (2.5-5.0); Potassium 3.9 mmol/L (3.5-5.0)
[2019-06-29] MEDS: Meropenem(*) 2 GM in NS 0.9% 100 ML* 100 ML IVPB SCH ×3 (07:50→23:40)
[2019-06-29] MEDS ORDERED: NS 0.9% 500 ML* 500 ML IV ONE (08:00)
[2019-06-29] MEDS ORDERED: Norepinephrine 16MCG/ML IVPRE* 4,000 MCG/250 ML BAG IV SCH (08:00)
[2019-06-29] MEDS: Bisacodyl SUPP* 10 MG SUPP PR SCH (08:19)
[2019-06-29] MEDS: Famotidine IV* 10 MG/ML 2 ML (20 mg) IV SLOW PU SCH ×2 (08:20→20:22)
[2019-06-29] MEDS: Folic Acid TAB* 1 MG FEED TUBE SCH (08:20)
[2019-06-29] MEDS ORDERED: Potassium Chloride* LIQUID 20 MEQ/15 ML UDC PO ONE (09:24)
[2019-06-29] MEDS: fentaNYL* 50 MCG/ML 2 ML VIAL (100 MCG VIAL) IV SLOW PU PRN ×3 (11:00→20:37)
--- NOTE | 2019-06-29 11:49 | PN ---
Progress Note - Progress Note Date of Service: 06/29/19 Note: Progress Note -- Critical Care 24 hour events -afebrile, on and off pressors after diuresis -awake, alert, follows all commands; low dose propofol -on vent; stats 90s -s/p bronch 8/3 Tele: NSR Vitals: Vital Signs Temp 97.9 F 06/29/19 07:31 Pulse 60 06/29/19 07:31 Resp 25 06/29/19 06:00 BP 91/48 06/29/19 07:31 Pulse Ox 98 06/29/19 07:31 Intake & Output 06/28/19 06/29/19 06/29/19 18:59 06:59 18:59 Intake Total 1948 2881 Output Total 5035 2990 Balance -3087 -109 Weight 131 kg Intake: IV Fluids 90 155 NS (0.9%) 90 155 IVPB 1192 1462 ACYCLOVIR 285 431 FOSPHENYTOIN 125 KPhos 255 MERREM 265 248 PB - Magnesium Sulfate 60 61 PB - Thiamine 114 PB- KCL 213 325 Vanco 272 Medicated IV 402 780 CC - Dexmedetomidine/ 74 Precedex propofol 402 706 Tube Feeding 264 484 Output: Loja 5035 2990 O2/Vent: AC 16/600/+10/45% Infusions: propofol , levophed off Current Medications: Acetaminophen (Tylenol Adult Liq*) 650 mg PO Q4H PRN PRN Reason: fever or pain Acetylcysteine (Mucomyst Inhalation Serenity*) 400 mg INH Q6H [facility] Stop: 06/30/19 02:01 Last Admin: 06/29/19 07:39 Dose: 400 mg Albuterol (Ventolin 2.5 Mg/3 Ml Neb.Serenity*) 2.5 mg INH Q4H PRN PRN Reason: SOB/WHEEZING Last Admin: 06/29/19 07:40 Dose: 2.5 mg Bisacodyl (Dulcolax Supp*) 10 mg SD DAILY [facility] Stop: 06/30/19 09:01 Last Admin: 06/29/19 08:19 Dose: 10 mg Chlorhexidine Gluconate (Peridex Mouth Wash 0.12%*) 15 ml TOPICAL Q4H [facility] Last Admin: 06/29/19 06:00 Dose: 15 ml Famotidine (Pepcid Iv*) 20 mg IV SLOW PU BID [facility] Last Admin: 06/29/19 08:20 Dose: 20 mg Fentanyl Citrate (Fentanyl*) 25 mcg IV SLOW PU Q2H PRN PRN Reason: PAIN - MODERATE Last Admin: 06/28/19 17:11 Dose: 25 mcg Folic Acid (Folvite Tab*) 1 mg FEED TUBE 0900 [facility] Last Admin: 06/29/19 08:20 Dose: 1 mg Heparin Sodium (Porcine) (Heparin Vial(*)) 5,000 units SUBCUT Q8H [facility] Last Admin: 06/29/19 01:00 Dose: 5,000 units Thiamine HCl 200 mg/ Sodium (Chloride) 102 mls @ 204 mls/hr IV Q24H [facility] Stop: 07/02/19 11:59 Last Admin: 06/28/19 11:15 Dose: 204 mls/hr Meropenem 2 gm/ Sodium (Chloride) 140 mls @ 280 mls/hr IVPB Q8H [facility]; Protocol Last Admin: 06/29/19 07:50 Dose: 280 mls/hr Propofol (Diprivan*) 100 mls @ 6.804 mls/hr IV .(Initial Rate) [facility]; Protocol Last Admin: 06/29/19 04:14 Dose: 28.6 mls/hr Fosphenytoin Sodium 150 mg/ (Sodium Chloride) 53 mls @ 208 mls/hr IVPB Q8H [facility] ; Protocol Last Admin: 06/29/19 05:01 Dose: 208 mls/hr Acyclovir Sodium 1,000 mg/ (Sodium Chloride) 270 mls @ 270 mls/hr IVPB 0500, 1300,2100 [facility] Last Admin: 06/29/19 05:02 Dose: 270 mls/hr Vancomycin HCl 1,000 mg/ (Sodium Chloride) 250 mls @ 166.667 mls/hr IVPB Q12H [facility] Last Admin: 06/29/19 05:40 Dose: 166.667 mls/hr Norepinephrine Bitartrate (Levophed 16 Mcg/Ml Premix*) 4,000 mcg in 250 mls @ 18.75 mls/hr IV .PER RATE [facility]; Protocol Miscellaneous (Ativan Pyxis Smith) 2 ea N/A Q2H PRN PRN Reason: SEIZURES Pharmacy Consult (Vancomycin Per Pharmacy*) 1 note FOLLOW UP .VANC PER PHARMACY [facility]; Protocol Pharmacy Profile Note (Vancomycin Trough Check) 1 note FOLLOW UP 0600 ONE Stop: 06/30/19 06:01 Physical Exam: Constitutional: intubated, awake, alert, wants tube out , restless, no distress , no diaphoresis Head: normocephalic, atraumatic Eyes: no pallor, no icterus ENT: moist mucous membranes Neck: soft, supple, no jvd CVS: normal rate, regular, no murmur Resp: bilateral air entry but distant breath sounds, Left rhonchi+ mild, no wheeze, no acc muscle use Abdomen/GI: soft, nondistended, BS+ Ext/Msk: warm, pulses+, + edema Skin: intact, warm Neuro: awake, follows commands, pupils bilaterally reactive, moves all ext equally Labs: Laboratory Results - last 24 hr 06/28/19 06/28/19 06/28/19 05:02 12:50 13:20 WBC RBC Hgb Hct MCV MCH MCHC RDW Plt Count MPV Patient Temperature Not Reportable ABG pH 7.46 H ABG pH (Temp Correct) Not Reportable ABG pCO2 42 ABG pCO2 (Temp Corrct Not Reportable ABG pO2 75 L ABG pO2 (Temp Correct Not Reportable ABG HCO3 29.1 ABG O2 Saturation 97.5 ABG Base Excess 5.4 H Respiration Rate 16 O2 Delivery Device vent Ventilator Type 600 Vent Mode cmv FiO2 40 Inspiratory Time Not Reportable PEEP 10 Pressure Support Not Reportable Pressure Control Not Reportable EPAP Not Reportable IPAP Not Reportable BiPAP Not Reportable Sodium Potassium Chloride Carbon Dioxide Anion Gap BUN Creatinine Est GFR ( Amer) Est GFR (Non-Af Amer) BUN/Creatinine Ratio Glucose Calcium Phosphorus Magnesium Vancomycin Trough 27.4 Random Vancomycin 21.6 Phenytoin 7.2 L 06/28/19 06/29/19 06/29/19 20:16 05:20 05:20 WBC 8.4 RBC 4.16 L Hgb 12.1 L Hct 37 L MCV 90 MCH 29 MCHC 33 RDW 19 H Plt Count 250 MPV 7.2 L Patient Temperature ABG pH ABG pH (Temp Correct) ABG pCO2 ABG pCO2 (Temp Corrct ABG pO2 ABG pO2 (Temp Correct ABG HCO3 ABG O2 Saturation ABG Base Excess Respiration Rate O2 Delivery Device Ventilator Type Vent Mode FiO2 Inspiratory Time PEEP Pressure Support Pressure Control EPAP IPAP BiPAP Sodium 142 142 Potassium 3.7 3.9 Chloride 107 107 Carbon Dioxide 30 32 Anion Gap 5 3 BUN 12 12 Creatinine 0.74 0.73 Est GFR ( Amer) 131.0 133.1 Est GFR (Non-Af Amer) 108.3 110.0 BUN/Creatinine Ratio 16.2 16.4 Glucose 129 H 133 H Calcium 8.3 L 8.3 L Phosphorus 2.5 2.8 Magnesium 2.1 2.2 Vancomycin Trough Random Vancomycin Phenytoin 06/29/19 06:04 WBC RBC Hgb Hct MCV MCH MCHC RDW Plt Count MPV Patient Temperature Not Reportable ABG pH 7.46 H ABG pH (Temp Correct) Not Reportable ABG pCO2 44 ABG pCO2 (Temp Corrct Not Reportable ABG pO2 71 L ABG pO2 (Temp Correct Not Reportable ABG HCO3 30.0 ABG O2 Saturation 96.1 ABG Base Excess 6.6 H Respiration Rate 16 O2 Delivery Device vent Ventilator Type 600 Vent Mode cmv FiO2 40 Inspiratory Time Not Reportable PEEP 10 Pressure Support Not Reportable Pressure Control Not Reportable EPAP Not Reportable IPAP Not Reportable BiPAP Not Reportable Sodium Potassium Chloride Carbon Dioxide Anion Gap BUN Creatinine Est GFR ( Amer) Est GFR (Non-Af Amer) BUN/Creatinine Ratio Glucose Calcium Phosphorus Magnesium Vancomycin Trough Random Vancomycin Phenytoin Imaging: CT brain 06/24 - no acute process noted CT neck 06/24 - no acute process CXR 06/24 - hyperinfalted appearing; ett high up, no infiltrates but ?left retrocardiac infiltrate may be present CXR reviewed CXR 06/25 - left sided diffuse consolidation+, RIJ TLC+, no ptx, ETT above judah MRI brain 06/27 - no acute abnormality cxr 06/27 - ett above judah, esophageal tube+; left side infiltrates slightly better; no ptx cxr 06/29 - left > right infiltrates but stable/improved Assessment: 58y M w/pmhx of COPD, Alcohol abuse, CHF?, GERD, Anxiety/depression ; patient brought in by EMS 06/24 after a fall and unresponsiveness at home. As per patients mother and daughter he was confused yesterday 06/23, not talking much, but awake and walking around. Today he was still disoriented appearing all day. Then in front of his mother he hit his head into a door and fell, not awake or repsonsive and appeared to be rigid. EMS called and on their arrival he started to awaken but they noted GTC seizures, given versed IV. On ER arrival he was poorly responsive, poor respiratory effort and so intubated for airway protection by physician. He had 2-3 more episodes of Generalized seizures , given ativan IV push, neurology ordered fosphenytoin IV load. He is intubated , breathing over the vent, noted to have 1 more seizure episode in front of me and broke with ativan, while EEG ongoing. Started on propofol infusion, already on fentnayl and versed infusions. Admitted to ICU 06/24- admitted for status, prop/versed, intubated, fospheny; pressors for hypoxia, high fio2 and peep for aspiration pneumonia 06/25 - taken off versed, down on propofol 06/26 - sedation holiday; off pressors 06/27 - no change; MRI brain; follows commands; still on high peep 06/28 - decreasing vent support, sedation weaning as needed -Status Epilepticus -Acute Encephalopathy -acute hypoxic and hypercapneic respiratory failure; intubated 06/24 -Diffuse Left sided aspiration pneumonia -Severe Sepsis with SHock /2 to aspiration pneumonia; shock resolved -hyponatremia -metabolic acidosis h/o alcohol abuse Plan: Neuro- -progressive encephalopathy prior to admission; CT brain negative -?nonconvulsive partial vs absent seizures, then devloping to GTC and status on 06/24 -discussed with neuro; hold off LP at this time since he is improving -low pheny level 7; additional fospheny 200 x1, increas to 200 q8h -no further seizures noted -MRI brain 06/27 without acute abnormality -hold propofol; cont low dose precedex till extubated -Empiric Merrem/vanco/acyclovir coverage ; will plan for atleast 7 days of tx empiric -ativan PRN for breakthru -h/o alcohol withdrawal; may need to keep on some bdz post extubation, WAM but he is likely out of the window now and has been on sedatives the hwole time -asp prec, neurochecks as needed -Delirium prec; avoid BDZ CVS- -shock resolved, low BP post diurersis but responded to IVF bolus -start low dose lasix for diuresis today/tomorrow -replete K and Mg -Maintain MAP>65 Resp- -Intubated for airway protection and now severe aspiration pneumonitis -CXR 06/29 wtih improving infitlrates -s/p bronch 06/28 with mucous plugs removed -mild secretions only now -on AC 16/600/+10/40% ;' CPAP trial now -IV abx for aspiration pneumonitis -no wheezing -Wean Fio2 to keep sat>92% -Bronchodilators PRN, Aspiration prec, Pulmonary Toilet -VAP bundle ID- afebrile . wbc [id number] -CXR / improving left infiltrates/consolidation -LP held off -sputum culture - stain with neutrophils but 1+ organisms; staph -blood cx 1 of 2 sets; staph epi; likely contaminant -Aspiration pneumonitis and Meningitis/encephalitis coverage; Merrem (day#5), acyclovir 1000mg iv q8h (day#6), vanco 1gm with pharmacy dosing (day#5) GI- -TF jevity 1.2 at 40; hold for weaning -GI prophylaxis Renal- -normal Cr -metabolic acidosis resolved -diuretics at some point -Hyponatremia improved -strict I/O, replete to keep K>4, Mg>2 -loja as indicated Heme- anemia; hgs 11-12s, plt stable -DVT proph with SCD; heparin sq Endo- Maintain BG<200, insulin protocol as needed Musculsk- pressure ulcer prophylaxis. Bedrest. Wounds- none Nutrition- TF jevity 1.2 to 40cc/hr DVT prophylaxis: SCD; heparin sq GI prophylaxis: h2b Central Line: RIJ TLC 06/24 Arterial Line: d/c'ed Loja Cathetor: yes Disposition: Patient requires Critical Care/ICU for respiratory failure, intubated, status epilepticus for neurochecks, aspiration pneumonia Patient Clinical Status: guarded, critical Code Status: full code Total Critical Care time is 40 minutes, excluding procedures/teaching Rafael Lloyd MD [employer] (Electronically Signed)
[2019-06-29] MEDS ORDERED: NS 0.9% IVPB SCH (12:00)
[2019-06-29] MEDS ORDERED: Fosphenytoin(*) 400 MG in NS 0.9% 50 ML* 50 ML IVPB ONE (12:00)
[2019-06-29] MEDS ORDERED: FOSPHENYTOIN IVPB SCH (12:00)
--- NOTE | 2019-06-29 13:08 | PN ---
FOLLOWUP PROGRESS NOTE: DATE OF FOLLOWUP: 06/29/19 CURRENT LOCATION: ICU bed 8. 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 REASON FOR FOLLOWUP: Seizures. SUBJECTIVE: Overnight, the patient had no new issues. No further seizure activity. I did speak with Dr. Lloyd today and the nurse. He remains on propofol, but it has been decreased. He is also on Precedex now with the hope that he will be extubated soon. He had a bronchoscopy yesterday and Dr. Lloyd was able to remove multiple mucus plugs. He has been stable on the vent. He has been more awake. He does get agitated at times, pulls at his tubes. So, he has been kept comfortable on the medications, but he is following all commands, moving all extremities, responds to pain. Overall, he has been stable with no new issues. There has been no seizure activity reported. No stereotypical movements. MEDICATIONS: Currently, 1. Tylenol p.r.n. 2. Acetylcysteine/Mucomyst. 3. Acyclovir 1000 mg t.i.d. 4. Albuterol. 5. Dulcolax suppository. 6. Peridex mouth wash. 7. Pepcid IV. 8. Fentanyl 25 mcg q.2 hours p.r.n. for pain. 9. Folic acid. 10. Fosphenytoin 150 mg t.i.d. 11. Heparin, DVT prophylaxis. 12. Meropenem 2 g q.8 hours. 13. Ativan p.r.n. for seizures. 14. Norepinephrine as needed. 15. Propofol titration. 16. Thiamine. 17. Vancomycin. OBJECTIVE: Vital Signs: He has been afebrile; 97.9 currently, heart rate in the 50s to 60s, respiratory rate 19 to 28, blood pressures 79 to 91/51 to 48. Currently intubated. On examination, he is sedated. He is ventilated, comfortable in the hospital bed. He is clear to auscultation. I hear no significant rhonchi, wheezes, or crackles. Regular rhythm. Regular rate. No murmurs appreciated. Abdomen is distended, obese. Extremities: He has chronic venous changes in his legs with some 2+ edema in the arms and legs. On neurologic exam, he is sedated, but awakens. Propofol was reduced some and he does open his eyes. He is following commands. He gets agitated. He moves all extremities. He does move extremities to command as well and following some very simple commands. He withdraws to pain x4. He looks around. Pupils are equal, round, and reactive. I see no seizure- like activity. DIAGNOSTIC STUDIES/LAB DATA: Lab work today: White count of 8.4; which is improving, hemoglobin of 12.1, hematocrit of 37, platelet count of 250. Blood gases this morning, pH of 7.46, pCO2 of 44, pO2 of 71, O2 sat 96.1. His basic metabolic panel today significant for glucose of 133, calcium of 8.3. Previous vitamin B12 greater than 14.50. Previous TSH 1.50. Ammonia from 730 to 1945. His vancomycin level random yesterday 21.6. Dilantin level on 06/26/19 was 7.4. His dose was increased on 06/27/19 to 7.2 on Dilantin 150 mg t.i.d. His tick panel serum was negative. Studies: 1. A chest x-ray this morning showed overall improved aeration of the lungs. Mild left greater than right bibasilar airspace opacification. Supportive device is expected. 2. Brain MRI from 06/27/19, no acute intracranial abnormality. No clear epileptogenic focus, chronic vascular changes. 3. His EEG from 06/26/19 showed disorganization of the background rhythm as well as 2 ictal events consisting of generalized high-voltage spike and slow wave. There may be left hemispheric predominance. 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 ASSESSMENT AND PLAN: Mr. Lam is a 58-year-old gentleman who has a history of alcohol use, congestive heart failure, gastroesophageal reflux disease, chronic obstructive pulmonary disease, anxiety, depression who was found on 06/24/19 after a fall and unresponsive at home. Had been confused the day before. Remained disoriented on the day of admission. At one point, fell and hit his head and was unresponsive and was rigid. At that time, EMS was called and noted a generalized tonic-clonic seizure and was given IV Versed. He seemed to be postictal afterwards, but had several more episodes of generalized seizures and given Ativan. Fosphenytoin was ordered. He was intubated for airway protection. He had another seizure. EEG showed several seizures and he was started on propofol for additional sedation. Once he was started on Dilantin, he has had no further seizure activity. It was felt that he likely had an aspiration pneumonia as well. He has been hypoxic on pressors. Brain MRI showed no obvious acute changes. No evidence of stroke. It was felt that he likely developed a toxic metabolic encephalopathy, developed seizures, possibly nonconvulsive which is secondarily generalized. Since starting the Dilantin, he has been doing better. He is slowly waking up. He is responding. The plan at this point is to continue him on Dilantin. I am going to increase his dose, give him an extra dose of 200 now and then increase his dose to 200 mg IV t.i.d. of fosphenytoin and follow levels. I spoke with the ICU attending, who notes no further seizure activity. If there is something, he will continue to be monitored with frequent neuro checks. At this point, while there is some initial concern that he could have central nervous system infection, because he is improving, his white count has been normal, he has had no further seizure activity, it was felt that central nervous system infection was unlikely. Dr. Lloyd did attempt a lumbar puncture, but it was very difficult given his body habitus. The patient is now on broad coverage antibiotics including acyclovir for now and the plan is to treat him empirically for 7 days. We will continue to follow along. Once he wakes up, we will have a better idea of his complete neurologic status. For now, I defer to the investment specialist regarding his medical management. [id number]/[facility] #: [id number] [facility]
[2019-06-29] MEDS: THIAMINE IV SCH (14:32)
[2019-06-29] MEDS: NS 0.9% IV SCH (14:32)
[2019-06-29] MEDS: Dexmedetomidine* 1,000 MCG in NS 0.9% 250 ML* 240 ML IV SCH (16:13)
[2019-06-29] MEDS ORDERED: Lorazepam PYXIS KEY PRN (23:31)
[2019-06-29] MEDS: LORazepam INJ* 2 MG/ML 1 ML VIAL IV PUSH PRN (23:55)
[2019-06-30] MEDS: fentaNYL* 50 MCG/ML 2 ML VIAL (100 MCG VIAL) IV SLOW PU PRN ×2 (02:31→08:47)
[2019-06-30] MEDS: Heparin VIAL(*) 5000 UNITS/ML VIAL (FIVE THOUSAND) SUBCUT SCH ×3 (02:36→19:03)
[2019-06-30] MEDS: NS 0.9% IVPB SCH ×4 (04:36→21:20)
[2019-06-30] MEDS: ACYCLOVIR IVPB SCH (04:36)
[2019-06-30] MEDS: Dexmedetomidine* 1,000 MCG in NS 0.9% 250 ML* 240 ML IV SCH ×3 (04:41→23:44)
[2019-06-30 05:34] LABS: Hematocrit 38 % (42-52); Hemoglobin 12.7 g/dL (14.0-18.0); Mean Corpuscular HGB Conc 34 g/dL (31-36); Mean Corpuscular Hemoglobin 30 pg (27-31); Mean Corpuscular Volume 90 fL (80-94); Mean Platelet Volume 7.1 fL (7.4-10.4); Platelet Count 241 10^3/uL (150-450); Red Blood Count 4.22 10^6 /uL (4.18-5.48); Red Cell Distribution Width 19 % (10-15); White Blood Count 10.6 10^3/uL (3.5-10.8)
[2019-06-30 05:48] LABS: BUN/Creatinine Ratio 15.7 (8-20); Calcium 8.3 mg/dL (8.6-10.3); EGFR African American 139.7 (>60); EGFR Non-African American 115.4 (>60); Magnesium 1.6 mg/dL (1.9-2.7); Phosphorus 2.6 mg/dL (2.5-5.0); Potassium 3.3 mmol/L (3.5-5.0)
[2019-06-30 05:53] LABS: Vancomycin Trough 17.7 mcg/mL
[2019-06-30] MEDS ORDERED: Vancomycin Trough Check NOTE FOLLOW UP ONE (06:00)
[2019-06-30] MEDS: FOSPHENYTOIN IVPB SCH ×3 (06:15→21:20)
[2019-06-30] MEDS: Vancomycin(*) 1,000 MG in NS 0.9% 250 ML* 250 ML IVPB SCH (06:16)
[2019-06-30] MEDS: Meropenem(*) 2 GM in NS 0.9% 100 ML* 100 ML IVPB SCH ×2 (08:48→17:24)
[2019-06-30] MEDS: Bisacodyl SUPP* 10 MG SUPP PR SCH (08:48)
[2019-06-30] MEDS: Folic Acid TAB* 1 MG FEED TUBE SCH (08:49)
[2019-06-30] MEDS: Famotidine IV* 10 MG/ML 2 ML (20 mg) IV SLOW PU SCH ×2 (08:49→20:31)
[2019-06-30] MEDS: THIAMINE IV SCH (11:23)
[2019-06-30] MEDS: NS 0.9% IV SCH (11:23)
[2019-06-30] MEDS ORDERED: Magnesium Sulfate 4 GM IV IVPB ONE (12:00)
[2019-06-30] MEDS: KCL 20 MEQ/100 ML IVPREMIX* 20 MEQ/100 ML BAG IV SCH ×2 (12:29→14:43)
[2019-06-30] MEDS: LORazepam INJ* 2 MG/ML 1 ML VIAL IV PUSH PRN (12:37)
--- NOTE | 2019-06-30 14:06 | PN ---
Date of Service: 06/30/19 Critical Care Services: Tolerated extubation well. On HFNC on my arrival at bedside this AM. Vital Signs: Temp Pulse Resp BP SpO2 FiO2 38.2 C 92 21 148/77 93 80 06/30/19 12:45 06/30/19 12:45 06/30/19 12:45 06/30/19 12:00 06/30/19 12:45 06/30 08:04 Physical Exam: Gen: HEENT: Lungs: Cardiac: Abdomen: Extremities: Neuro: Fluid Balance (Past 24 Hours): I= O= Net Intake & Output 06/28/19 06/29/19 06/30/19 07/01/19 06:59 06:59 06:59 06:59 Intake Total 4734 4829 4855 Output Total 2565 8025 4615 1500 Balance 2169 -3196 240 -1500 Weight 135.8 kg 131 kg 133.5 kg Intake: IV Fluids 4661 631 4703 FOSPHENYTOIN 257 66 KPhos 771 NS (0.9%) 255 245 831 Vanco 250 IVPB 1637 2654 1638 ACYCLOVIR 545 716 842 FOSPHENYTOIN 149 125 77 KPhos 107 255 MERREM 551 513 289 NS (0.9%) 430 PB - Magnesium Sulfate 121 PB - Thiamine 114 PB- KCL 538 Vanco 285 272 Medicated IV 685 1182 590 CC - Dexmedetomidine/ 74 424 Precedex propofol 685 1108 166 Oral 1480 Tube Feeding 1129 748 Output: Bailey 2565 8025 4615 1500 Other: Date of Last Bowel 06/30/19 Movement # Bowel Movements 1 Estimated Stool Amount Small Small ADLs: Meal Record Start: 06/24/19 14: 03 Freq: Status: Active Protocol: Created 06/24/19 14:03 System (Rec: 06/24/19 14:03 System ICU-C06) Document 06/24/19 18:00 [id number] (Rec: 06/24/19 18:41 [id number] ICU-C06) Document 06/25/19 09:00 FPY5739 (Rec: 06/25/19 10:02 QMG5725 ICU-C06) Document 06/25/19 13:00 VEW8153 (Rec: 06/25/19 14:52 WWQ9355 ICU-M24) Document 06/25/19 18:00 JKE4535 (Rec: 06/25/19 18:06 LAR1628 ICU-M24) Intake and Output Start: 06/24/19 11: 27 Freq: Status: Active Protocol: Created 06/24/19 11:27 System (Rec: 06/24/19 11:27 System [id number]) Intake and Output Start: 06/24/19 14: 03 Freq: Q1HR Status: Active Protocol: Created 06/24/19 14:03 System (Rec: 06/24/19 14:03 System ICU-C06) Document 06/24/19 15:16 OCM0090 (Rec: 06/24/19 15:16 WVJ9872 ICU-M24) Document 06/24/19 16:00 EUP9278 (Rec: 06/24/19 16:13 WSG5685 ICU-M24) Document 06/24/19 17:00 IHY4239 (Rec: 06/24/19 17:15 RTW7694 ICU-M24) Document 06/24/19 17:57 UIG5617 (Rec: 06/24/19 17:57 NMM3412 ICU-C06) Document 06/24/19 19:00 WFB8876 (Rec: 06/24/19 19:18 WTC0200 ICU-M24) Document 06/24/19 20:00 MUP3424 (Rec: 06/24/19 20:57 HJW2221 ICU-M24) Document 06/24/19 20:57 KBA7661 (Rec: 06/24/19 20:58 WUH0985 ICU-M24) Document 06/24/19 22:00 PPO3947 (Rec: 06/24/19 22:18 BNK5511 ICU-M24) Document 06/24/19 23:00 ERI4412 (Rec: 06/24/19 23:23 DXI8847 ICU-C06) Document 06/25/19 00:00 MRJ4127 (Rec: 06/25/19 00:36 VCK7008 ICU-C06) Document 06/25/19 01:00 TEO2032 (Rec: 06/25/19 01:06 XUD6319 ICU-C06) Document 06/25/19 01:56 OOW8716 (Rec: 06/25/19 01:56 HGA2264 ICU-C06) Document 06/25/19 03:00 GNJ9787 (Rec: 06/25/19 03:05 BCN6928 ICU-M24) Document 06/25/19 04:00 IXI8485 (Rec: 06/25/19 04:09 AWN6269 ICU-M24) Document 06/25/19 04:57 PTE5274 (Rec: 06/25/19 04:57 JVK1487 ICU-C06) Document 06/25/19 06:00 PWJ7368 (Rec: 06/25/19 06:01 MHS3154 ICU-M24) Document 06/25/19 06:47 HHJ0900 (Rec: 06/25/19 06:47 HOW1230 ICU-M24) Document 06/25/19 08:00 UEQ5682 (Rec: 06/25/19 08:28 MLM1656 ICU-M24) Document 06/25/19 09:00 IYV2466 (Rec: 06/25/19 10:03 HHH5746 ICU-C06) Document 06/25/19 10:00 MLL9509 (Rec: 06/25/19 10:06 VRL9141 ICU-C06) Document 06/25/19 11:00 PCI7855 (Rec: 06/25/19 11:22 WGR1400 ICU-M24) Document 06/25/19 12:00 SFX7779 (Rec: 06/25/19 12:23 OWF0095 ICU-M24) Document 06/25/19 13:00 BEH1665 (Rec: 06/25/19 14:29 TQW5581 ICU-M24) Document 06/25/19 14:00 WEC2308 (Rec: 06/25/19 14:29 MNF8977 ICU-M24) Document 06/25/19 15:00 LWE4939 (Rec: 06/25/19 15:05 XMI4753 ICU-M24) Document 06/25/19 16:00 NNB0453 (Rec: 06/25/19 18:05 KYQ6394 ICU-M24) Document 06/25/19 17:00 CRF0202 (Rec: 06/25/19 18:05 KUC9208 ICU-M24) Document 06/25/19 18:00 NCB7985 (Rec: 06/25/19 18:05 BOK1286 ICU-M24) Document 06/25/19 19:00 PKH7460 (Rec: 06/25/19 20:09 AOF3779 ICU-C06) Document 06/25/19 20:00 LHD0203 (Rec: 06/25/19 20:10 VGN9201 ICU-C06) Document 06/25/19 21:00 ENP3701 (Rec: 06/25/19 21:10 SLZ4207 ICU-C06) Document 06/25/19 22:00 TPB6712 (Rec: 06/25/19 22:06 EDP7965 ICU-M24) Document 06/25/19 22:57 KTD3742 (Rec: 06/25/19 22:57 XIJ8927 ICU-M24) Document 06/26/19 00:00 NWS4546 (Rec: 06/26/19 00:08 NXW0855 ICU-C06) Document 06/26/19 01:00 AFE8672 (Rec: 06/26/19 01:31 MZH9064 ICU-C06) Document 06/26/19 01:55 YRC2375 (Rec: 06/26/19 01:55 JJB7787 ICU-C06) Document 06/26/19 02:47 VNX7480 (Rec: 06/26/19 02:47 LIK5299 ICU-M24) Document 06/26/19 04:00 NSY7510 (Rec: 06/26/19 04:24 NEF7929 ICU-C06) Document 06/26/19 04:58 APN2700 (Rec: 06/26/19 04:58 BVB1788 ICU-C06) Document 06/26/19 06:00 UZY4355 (Rec: 06/26/19 06:01 NWR1717 ICU-M24) Document 06/26/19 06:47 MFS0307 (Rec: 06/26/19 06:47 QLD2655 ICU-M24) Document 06/26/19 08:20 TQZ1325 (Rec: 06/26/19 08:42 BKE6726 ICU-C06) Document 06/26/19 09:00 LLE4869 (Rec: 06/26/19 11:15 HGW1595 ICU-C06) Document 06/26/19 10:00 HJN3610 (Rec: 06/26/19 11:15 PMC3460 ICU-C06) Document 06/26/19 11:00 XTP2975 (Rec: 06/26/19 11:15 LVM7394 ICU-C06) Document 06/26/19 12:00 JIU2012 (Rec: 06/26/19 12:04 AIR5296 ICU-C06) Document 06/26/19 13:00 SXX5729 (Rec: 06/26/19 13:28 VSM4415 ICU-M25) Document 06/26/19 14:00 INE6325 (Rec: 06/26/19 15:14 HNZ5052 ICU-C06) Document 06/26/19 15:00 NLH1036 (Rec: 06/26/19 15:14 ZFY5958 ICU-C06) Document 06/26/19 16:00 WXG2529 (Rec: 06/26/19 17:15 IOQ8472 ICU-C06) Document 06/26/19 17:00 CTE4714 (Rec: 06/26/19 17:15 GHH0945 ICU-C06) Document 06/26/19 18:00 IJF7079 (Rec: 06/26/19 19:34 YHX9397 ICU-C05) Document 06/26/19 20:00 BFT8331 (Rec: 06/26/19 20:03 MAO9922 ICU-M24) Document 06/26/19 21:00 ANM0193 (Rec: 06/26/19 21:42 KPE2907 ICU-M24) Document 06/26/19 22:00 JHZ7848 (Rec: 06/26/19 23:38 DAY2101 ICU-M24) Document 06/26/19 23:00 RQJ2435 (Rec: 06/26/19 23:39 BKS1245 ICU-M24) Document 06/27/19 00:00 RCY7724 (Rec: 06/27/19 01:20 SKT7040 ICU-M24) Document 06/27/19 02:00 YCJ2869 (Rec: 06/27/19 02:44 UZY8908 ICU-M24) Document 06/27/19 03:00 EKQ0845 (Rec: 06/27/19 03:03 IKC4756 ICU-M24) Document 06/27/19 03:57 KVZ5572 (Rec: 06/27/19 03:57 RPZ2562 ICU-M24) Document 06/27/19 05:00 ZJO7153 (Rec: 06/27/19 05:14 CYS7258 ICU-M24) Document 06/27/19 06:00 AEQ5170 (Rec: 06/27/19 06:17 XNT7497 ICU-M24) Document 06/27/19 07:00 VEJ0466 (Rec: 06/27/19 08:21 FDQ8532 ICU-C06) Document 06/27/19 08:00 HJV2112 (Rec: 06/27/19 08:32 NOR5777 ICU-C06) Document 06/27/19 09:00 HDS4526 (Rec: 06/27/19 10:08 MYJ2459 ICU-M24) Document 06/27/19 10:00 RRN8285 (Rec: 06/27/19 10:08 NAB8531 ICU-M24) Document 06/27/19 11:00 KFQ9901 (Rec: 06/27/19 14:06 HVK8396 ICU-M24) Document 06/27/19 12:00 RQE9412 (Rec: 06/27/19 14:11 OOA2987 ICU-M24) Document 06/27/19 13:00 QFV2521 (Rec: 06/27/19 14:11 QBY3677 ICU-M24) Document 06/27/19 14:00 KWH6830 (Rec: 06/27/19 14:11 NRN0782 ICU-M24) Document 06/27/19 14:56 NJD3513 (Rec: 06/27/19 14:56 WMZ1018 ICU-M24) Document 06/27/19 15:26 GMS2380 (Rec: 06/27/19 15:26 TCO0618 ICU-C06) Document 06/27/19 17:00 AMA5492 (Rec: 06/27/19 17:54 NKE2151 ICU-C06) Document 06/27/19 17:54 FTB3771 (Rec: 06/27/19 17:54 UKO5875 ICU-C06) Document 06/27/19 19:00 GUT8708 (Rec: 06/27/19 19:53 URH1311 ICU-M24) Document 06/27/19 19:54 BGA4218 (Rec: 06/27/19 19:55 LVH4957 ICU-M24) Document 06/27/19 22:00 GYD9491 (Rec: 06/27/19 22:04 LKY2407 ICU-M24) Document 06/27/19 23:00 DRU1923 (Rec: 06/27/19 23:17 GCF5628 ICU-M24) Document 06/28/19 00:00 RDX1436 (Rec: 06/28/19 00:17 MVI8902 ICU-M24) Document 06/28/19 01:00 EPY1919 (Rec: 06/28/19 01:09 EXD4844 ICU-C06) Document 06/28/19 02:00 QBX7363 (Rec: 06/28/19 02:08 KAM3468 ICU-M24) Document 06/28/19 03:00 ONW1987 (Rec: 06/28/19 03:05 WXA0778 ICU-C06) Document 06/28/19 04:00 RSQ9174 (Rec: 06/28/19 04:06 XAU3363 ICU-M24) Document 06/28/19 05:00 BZP1237 (Rec: 06/28/19 05:34 VVT8968 ICU-C06) Document 06/28/19 05:59 MFO1115 (Rec: 06/28/19 05:59 CZK6499 ICU-M24) Document 06/28/19 07:00 ZAR0623 (Rec: 06/28/19 08:22 VTQ1339 ICU-M24) Document 06/28/19 08:00 UPP4036 (Rec: 06/28/19 08:22 UVJ7963 ICU-M24) Document 06/28/19 08:58 KTZ8482 (Rec: 06/28/19 08:59 XJD6481 ICU-M24) Document 06/28/19 10:00 EEG0397 (Rec: 06/28/19 10:11 VBL5791 ICU-M24) Document 06/28/19 11:00 LBZ5424 (Rec: 06/28/19 11:14 TON0506 ICU-M24) Document 06/28/19 11:59 EPU6128 (Rec: 06/28/19 11:59 DQY9973 ICU-M24) Document 06/28/19 13:00 DDZ4423 (Rec: 06/28/19 13:31 ZUO4758 ICU-M24) Document 06/28/19 14:00 PSN7638 (Rec: 06/28/19 14:04 CJU3991 ICU-M24) Document 06/28/19 15:00 OWP1919 (Rec: 06/28/19 16:46 MVK9333 ICU-M24) Document 06/28/19 16:00 PTG8598 (Rec: 06/28/19 16:46 DKU6144 ICU-M24) Document 06/28/19 16:46 UNS8178 (Rec: 06/28/19 16:46 XGS6843 ICU-M24) Document 06/28/19 18:00 GVJ1008 (Rec: 06/28/19 18:13 ILH1210 ICU-M24) Document 06/28/19 18:56 LHQ5485 (Rec: 06/28/19 19:00 VET1016 ICU-M24) Co-Sign 06/28/19 18:56 ZJM3194 Document 06/28/19 20:00 SUZ7760 (Rec: 06/28/19 20:08 YZD6857 ICU-M24) Document 06/28/19 21:00 XEO1671 (Rec: 06/28/19 21:00 ABV0621 ICU-M24) Document 06/28/19 22:00 QYP0040 (Rec: 06/28/19 22:24 QRU5452 ICU-M24) Document 06/28/19 22:52 VXN4704 (Rec: 06/28/19 22:52 UHU0778 ICU-M24) Document 06/28/19 23:14 NNA9393 (Rec: 06/28/19 23:14 UIU4656 ICU-M24) Document 06/28/19 23:25 DMS8172 (Rec: 06/28/19 23:25 SNU2092 ICU-M24) Document 06/28/19 23:30 FXD5489 (Rec: 06/28/19 23:30 FXP2750 ICU-M24) Document 06/28/19 23:41 FAB9798 (Rec: 06/28/19 23:41 HUE3070 ICU-M24) Document 06/29/19 00:00 UKR7258 (Rec: 06/29/19 00:15 JEM1108 ICU-C06) Document 06/29/19 00:00 HOM5301 (Rec: 06/29/19 00:39 NWT2089 ICU-C06) Document 06/29/19 01:00 LMP9140 (Rec: 06/29/19 01:06 OZX9330 ICU-C06) Document 06/29/19 03:00 LFL8966 (Rec: 06/29/19 03:06 ZDP9758 ICU-C06) Document 06/29/19 03:33 CJU9047 (Rec: 06/29/19 03:34 BMN2611 ICU-M24) Document 06/29/19 04:00 QUZ8149 (Rec: 06/29/19 04:03 ZKJ4433 ICU-M24) Document 06/29/19 05:00 JHJ3399 (Rec: 06/29/19 05:14 FQW5190 ICU-M24) Document 06/29/19 06:00 TTG5159 (Rec: 06/29/19 06:01 XMO6797 ICU-M24) Document 06/29/19 07:00 XDT0872 (Rec: 06/29/19 11:53 FEG3261 ICU-M24) Document 06/29/19 08:00 CYF5751 (Rec: 06/29/19 11:53 EJJ1396 ICU-M24) Document 06/29/19 09:00 DJZ9834 (Rec: 06/29/19 11:53 ZFB5887 ICU-M24) Document 06/29/19 10:00 WUF6668 (Rec: 06/29/19 11:53 KMV9585 ICU-M24) Document 06/29/19 11:00 YED0784 (Rec: 06/29/19 11:53 FND3630 ICU-M24) Document 06/29/19 11:00 ZBF0982 (Rec: 06/29/19 14:12 KQA7747 ICU-C06) Document 06/29/19 12:00 LSM2372 (Rec: 06/29/19 13:56 MFR7937 ICU-M24) Document 06/29/19 12:00 NNG9735 (Rec: 06/29/19 14:12 TNG2792 ICU-C06) Document 06/29/19 13:00 CJX2083 (Rec: 06/29/19 13:56 SVO3840 ICU-M24) Document 06/29/19 13:00 UOT4570 (Rec: 06/29/19 14:12 VQE3577 ICU-C06) Document 06/29/19 13:56 HPZ7800 (Rec: 06/29/19 13:56 PEA3896 ICU-M24) Document 06/29/19 15:00 VMI5736 (Rec: 06/29/19 15:45 PHW9738 ICU-C06) Document 06/29/19 18:00 RZJ1512 (Rec: 06/29/19 18:22 GUE7048 ICU-M24) Document 06/29/19 21:00 JEA9065 (Rec: 06/29/19 21:13 AHW0561 ICU-C06) Document 06/29/19 22:00 PPM5914 (Rec: 06/29/19 22:14 QSN1270 ICU-M24) Document 06/29/19 22:54 KYS4814 (Rec: 06/29/19 22:54 FXY8365 ICU-C15) Document 06/29/19 23:03 ZXP2600 (Rec: 06/29/19 23:04 BWK8811 ICU-C06) Document 06/29/19 23:51 GCJ7929 (Rec: 06/29/19 23:51 QED9053 ICU-M24) Document 06/30/19 01:00 QSZ3997 (Rec: 06/30/19 01:21 JTH9905 ICU-C06) Document 06/30/19 02:00 IVA5593 (Rec: 06/30/19 02:24 TEH6101 ICU-M23) Document 06/30/19 03:00 VEC0611 (Rec: 06/30/19 03:12 KPS5113 ICU-C06) Document 06/30/19 05:00 XOW6664 (Rec: 06/30/19 05:03 JTZ7737 ICU-M24) Document 06/30/19 05:00 UQC3801 (Rec: 06/30/19 05:53 KCU7983 ICU-C06) Document 06/30/19 06:00 KKH9489 (Rec: 06/30/19 06:22 HWQ3574 ICU-M24) Document 06/30/19 07:00 GGW8493 (Rec: 06/30/19 08:52 QPX1982 ICU-M24) Document 06/30/19 08:00 OFD7159 (Rec: 06/30/19 08:52 LOB8482 ICU-M24) Document 06/30/19 09:42 LOV4319 (Rec: 06/30/19 09:42 POW9739 ICU-M24) Document 06/30/19 10:00 XVH7534 (Rec: 06/30/19 11:11 ZLS8275 ICU-C06) Document 06/30/19 11:00 HPH3777 (Rec: 06/30/19 11:11 PME9734 ICU-C06) Document 06/30/19 11:40 CQH4582 (Rec: 06/30/19 11:40 JXN6928 ICU-M24) Document 06/30/19 12:43 VLP4906 (Rec: 06/30/19 12:43 WWX7742 ICU-M24) Labs: Laboratory Results - last 24 hr 06/30/19 06/30/19 06/30/19 05:17 05:17 05:17 WBC 10.6 RBC 4.22 Hgb 12.7 L Hct 38 L MCV 90 MCH 30 MCHC 34 RDW 19 H Plt Count 241 MPV 7.1 L Sodium 140 Potassium 3.3 L Chloride 102 Carbon Dioxide 31 Anion Gap 7 BUN 11 Creatinine 0.70 Est GFR ( Amer) 139.7 Est GFR (Non-Af Amer) 115.4 BUN/Creatinine Ratio 15.7 Glucose 86 Calcium 8.3 L Phosphorus 2.6 Magnesium 1.6 L Vancomycin Trough 17.7 Phenytoin 9.0 L Studies: Imaging reviewed Nutrition: Swallow evaluation and hopefully take PO today. Impression: Acute hypoxic respiratory failure secondary to aspiration pneumonia in the setting of COPD and ETOH abuse +/- active seizure activity. Plan: Acute hypoxic respiratory failure - Improving, tolerated extubation well. HFNC on wean today, hope to get him to [facility]. Abx to complete 7 days of therapy for aspiration pneumonia. His nares are negative for MRSA, DC Vanco. No strong indication for Acyclovir, will DC as well. Both potentially nephrotoxic and little ongoing benefit at this time. Further, MRI negative for leptomeningeal enhancement. Continue COPD management and the balance of his medication regimen. Hoping to keep him on a PO and de-escalated narcotic regimen. OOB. PT.
[2019-06-30] MEDS: LORazepam PO 0-6 for WAM protocol PO SCH ×3 (16:27→22:34)
[2019-07-01] MEDS: Meropenem(*) 2 GM in NS 0.9% 100 ML* 100 ML IVPB SCH ×3 (01:03→16:33)
[2019-07-01] MEDS: LORazepam PO 0-6 for WAM protocol PO SCH (02:37)
[2019-07-01] MEDS: Heparin VIAL(*) 5000 UNITS/ML VIAL (FIVE THOUSAND) SUBCUT SCH ×4 (02:38→22:10)
[2019-07-01] MEDS: fentaNYL* 50 MCG/ML 2 ML VIAL (100 MCG VIAL) IV SLOW PU PRN ×2 (02:38→05:13)
[2019-07-01] MEDS: NS 0.9% IVPB SCH (05:26)
[2019-07-01] MEDS: FOSPHENYTOIN IVPB SCH (05:26)
[2019-07-01 06:15] LABS: Hematocrit 38 % (42-52); Hemoglobin 12.6 g/dL (14.0-18.0); Mean Corpuscular HGB Conc 33 g/dL (31-36); Mean Corpuscular Hemoglobin 29 pg (27-31); Mean Corpuscular Volume 89 fL (80-94); Mean Platelet Volume 7.2 fL (7.4-10.4); Platelet Count 256 10^3/uL (150-450); Red Blood Count 4.29 10^6 /uL (4.18-5.48); Red Cell Distribution Width 19 % (10-15); White Blood Count 8.4 10^3/uL (3.5-10.8)
[2019-07-01 06:18] LABS: Calcium 8.7 mg/dL (8.6-10.3); EGFR Non-African American 106.6 (>60); Potassium 3.1 mmol/L (3.5-5.0)
[2019-07-01] MEDS: Folic Acid TAB* 1 MG FEED TUBE SCH (09:26)
[2019-07-01] MEDS: Famotidine IV* 10 MG/ML 2 ML (20 mg) IV SLOW PU SCH (09:26)
[2019-07-01] MEDS: Dexmedetomidine* 1,000 MCG in NS 0.9% 250 ML* 240 ML IV SCH (10:33)
--- NOTE | 2019-07-01 10:53 | PN ---
Date of Service: 07/01/19 Critical Care Services: Uneventful night. OOB in chair on [place]. Ready for the floor. Vital Signs: Temp Pulse Resp BP SpO2 FiO2 38.0 C 97 26 170/88 92 80 07/01/19 09:45 07/01/19 10:02 07/01/19 10:02 07/01/19 10:02 07/01/19 10:02 06/30 08:04 Physical Exam: Gen: Awake and appropriate OOB in chair HEENT: NCAT, PERRL Lungs: Scant rhonchi that clear with cough Cardiac: S1S2 regular Abdomen: obese, soft, NT, ND, +BS Extremities: trace edema Neuro: Grossly non-focal Fluid Balance (Past 24 Hours): I= O= Net Intake & Output 06/29/19 06/30/19 07/01/19 07/02/19 06:59 06:59 06:59 06:59 Intake Total 4829 4855 907 0 Output Total 8025 4615 5069 800 Balance -3196 240 -4162 -800 Weight 131 kg 133.5 kg 128.9 kg Intake: IV Fluids 245 1147 133 FOSPHENYTOIN 66 NS (0.9%) 245 831 113 Vanco 250 20 IVPB 2654 1638 774 ACYCLOVIR 716 842 FOSPHENYTOIN 125 77 185 KPhos 255 MERREM 513 289 289 NS (0.9%) 430 PB - Magnesium Sulfate 121 100 PB - Thiamine 114 PB- KCL 538 200 Vanco 272 Medicated IV 1182 590 CC - Dexmedetomidine/ 74 424 Precedex propofol 1108 166 Oral 1480 0 Tube Feeding 748 Output: Bailey 8025 4615 5069 800 Other: Date of Last Bowel 06/30/19 07/01/19 Movement # Bowel Movements 1 1 Estimated Stool Amount Small Small Large ADLs: Meal Record Start: 06/24/19 14: 03 Freq: Status: Active Protocol: Created 06/24/19 14:03 System (Rec: 06/24/19 14:03 System ICU-C06) Document 06/24/19 18:00 MVW5685 (Rec: 06/24/19 18:41 IRV9685 ICU-C06) Document 06/25/19 09:00 DZD7576 (Rec: 06/25/19 10:02 NWH6568 ICU-C06) Document 06/25/19 13:00 MNH3685 (Rec: 06/25/19 14:52 YHH7277 ICU-M24) Document 06/25/19 18:00 PVD4284 (Rec: 06/25/19 18:06 WNG1531 ICU-M24) Intake and Output Start: 06/24/19 11: 27 Freq: Status: Complete Protocol: Created 06/24/19 11:27 System (Rec: 06/24/19 11:27 System [id number]-C14) Intake and Output Start: 06/24/19 14: 03 Freq: Q1HR Status: Inactive Protocol: Created 06/24/19 14:03 System (Rec: 06/24/19 14:03 System ICU-C06) Document 06/24/19 15:16 IZJ3732 (Rec: 06/24/19 15:16 EFI9403 ICU-M24) Document 06/24/19 16:00 QVG5228 (Rec: 06/24/19 16:13 SES7192 ICU-M24) Document 06/24/19 17:00 FDA7788 (Rec: 06/24/19 17:15 DQE4528 ICU-M24) Document 06/24/19 17:57 LGU7322 (Rec: 06/24/19 17:57 AWC9354 ICU-C06) Document 06/24/19 19:00 PPD2527 (Rec: 06/24/19 19:18 OSI2593 ICU-M24) Document 06/24/19 20:00 NMC8958 (Rec: 06/24/19 20:57 SLH2248 ICU-M24) Document 06/24/19 20:57 OXB8913 (Rec: 06/24/19 20:58 TRF4239 ICU-M24) Document 06/24/19 22:00 JMK7679 (Rec: 06/24/19 22:18 LWA1143 ICU-M24) Document 06/24/19 23:00 CSD5134 (Rec: 06/24/19 23:23 BQU5437 ICU-C06) Document 06/25/19 00:00 EAV6806 (Rec: 06/25/19 00:36 FYZ3727 ICU-C06) Document 06/25/19 01:00 YOK3313 (Rec: 06/25/19 01:06 GSE4116 ICU-C06) Document 06/25/19 01:56 VTC8574 (Rec: 06/25/19 01:56 XRM9021 ICU-C06) Document 06/25/19 03:00 AIT9030 (Rec: 06/25/19 03:05 OSK9827 ICU-M24) Document 06/25/19 04:00 JHY4707 (Rec: 06/25/19 04:09 KBH3001 ICU-M24) Document 06/25/19 04:57 SCB4215 (Rec: 06/25/19 04:57 TCJ1062 ICU-C06) Document 06/25/19 06:00 RYP5380 (Rec: 06/25/19 06:01 OSI9428 ICU-M24) Document 06/25/19 06:47 JES3449 (Rec: 06/25/19 06:47 LSJ7588 ICU-M24) Document 06/25/19 08:00 TTC6183 (Rec: 06/25/19 08:28 NPH3989 ICU-M24) Document 06/25/19 09:00 JEU5183 (Rec: 06/25/19 10:03 URA5569 ICU-C06) Document 06/25/19 10:00 DJD0555 (Rec: 06/25/19 10:06 GKJ4790 ICU-C06) Document 06/25/19 11:00 UFX9950 (Rec: 06/25/19 11:22 RMA4202 ICU-M24) Document 06/25/19 12:00 HHQ3057 (Rec: 06/25/19 12:23 KDA0862 ICU-M24) Document 06/25/19 13:00 ALI0118 (Rec: 06/25/19 14:29 EGU5534 ICU-M24) Document 06/25/19 14:00 NCH8300 (Rec: 06/25/19 14:29 HGL9754 ICU-M24) Document 06/25/19 15:00 UOL8529 (Rec: 06/25/19 15:05 LOO8757 ICU-M24) Document 06/25/19 16:00 YGL8364 (Rec: 06/25/19 18:05 BOS2066 ICU-M24) Document 06/25/19 17:00 GRJ9648 (Rec: 06/25/19 18:05 YWW1890 ICU-M24) Document 06/25/19 18:00 FAM8056 (Rec: 06/25/19 18:05 YYB2845 ICU-M24) Document 06/25/19 19:00 EOK1100 (Rec: 06/25/19 20:09 QRG1675 ICU-C06) Document 06/25/19 20:00 KTC6895 (Rec: 06/25/19 20:10 KSZ7965 ICU-C06) Document 06/25/19 21:00 WJJ9781 (Rec: 06/25/19 21:10 ZTQ3713 ICU-C06) Document 06/25/19 22:00 GBG1895 (Rec: 06/25/19 22:06 MMH8596 ICU-M24) Document 06/25/19 22:57 SYM0157 (Rec: 06/25/19 22:57 NKM1249 ICU-M24) Document 06/26/19 00:00 RJA5981 (Rec: 06/26/19 00:08 GOK7119 ICU-C06) Document 06/26/19 01:00 BQZ3945 (Rec: 06/26/19 01:31 QFG1508 ICU-C06) Document 06/26/19 01:55 CWL5718 (Rec: 06/26/19 01:55 SKB9659 ICU-C06) Document 06/26/19 02:47 EVM7368 (Rec: 06/26/19 02:47 HUK4644 ICU-M24) Document 06/26/19 04:00 QMS6669 (Rec: 06/26/19 04:24 ESX4935 ICU-C06) Document 06/26/19 04:58 SHE5176 (Rec: 06/26/19 04:58 SGH1387 ICU-C06) Document 06/26/19 06:00 HZY2711 (Rec: 06/26/19 06:01 MOA9661 ICU-M24) Document 06/26/19 06:47 HAK6454 (Rec: 06/26/19 06:47 VRM7277 ICU-M24) Document 06/26/19 08:20 YJU1606 (Rec: 06/26/19 08:42 UOM2229 ICU-C06) Document 06/26/19 09:00 PGR3792 (Rec: 06/26/19 11:15 NVG8658 ICU-C06) Document 06/26/19 10:00 TYQ2861 (Rec: 06/26/19 11:15 SEL3294 ICU-C06) Document 06/26/19 11:00 NIX9113 (Rec: 06/26/19 11:15 HUJ4035 ICU-C06) Document 06/26/19 12:00 KHD9961 (Rec: 06/26/19 12:04 DLT9939 ICU-C06) Document 06/26/19 13:00 WSE9907 (Rec: 06/26/19 13:28 KHA1926 ICU-M25) Document 06/26/19 14:00 DOV7247 (Rec: 06/26/19 15:14 MBM6598 ICU-C06) Document 06/26/19 15:00 LPH0694 (Rec: 06/26/19 15:14 MOT7233 ICU-C06) Document 06/26/19 16:00 EAH4785 (Rec: 06/26/19 17:15 GBZ8563 ICU-C06) Document 06/26/19 17:00 QRK0272 (Rec: 06/26/19 17:15 FHC7961 ICU-C06) Document 06/26/19 18:00 BWC4132 (Rec: 06/26/19 19:34 KDQ1334 ICU-C05) Document 06/26/19 20:00 SIC8036 (Rec: 06/26/19 20:03 ZKT1285 ICU-M24) Document 06/26/19 21:00 YKG8336 (Rec: 06/26/19 21:42 ZLT1978 ICU-M24) Document 06/26/19 22:00 CFN7964 (Rec: 06/26/19 23:38 ONJ6588 ICU-M24) Document 06/26/19 23:00 MCA0679 (Rec: 06/26/19 23:39 NKS7789 ICU-M24) Document 06/27/19 00:00 EVO1024 (Rec: 06/27/19 01:20 MTH9677 ICU-M24) Document 06/27/19 02:00 ZWN7519 (Rec: 06/27/19 02:44 BRN5317 ICU-M24) Document 06/27/19 03:00 EOL3247 (Rec: 06/27/19 03:03 QSS0900 ICU-M24) Document 06/27/19 03:57 ATL0659 (Rec: 06/27/19 03:57 GVK5141 ICU-M24) Document 06/27/19 05:00 IAT3071 (Rec: 06/27/19 05:14 CRX6317 ICU-M24) Document 06/27/19 06:00 KNQ2284 (Rec: 06/27/19 06:17 TIG5092 ICU-M24) Document 06/27/19 07:00 GDD8009 (Rec: 06/27/19 08:21 JFD9920 ICU-C06) Document 06/27/19 08:00 ZAE8824 (Rec: 06/27/19 08:32 SHV3988 ICU-C06) Document 06/27/19 09:00 TZF8965 (Rec: 06/27/19 10:08 CRI0550 ICU-M24) Document 06/27/19 10:00 ICH1454 (Rec: 06/27/19 10:08 ONL9421 ICU-M24) Document 06/27/19 11:00 JHR2372 (Rec: 06/27/19 14:06 PQW3207 ICU-M24) Document 06/27/19 12:00 ELT8263 (Rec: 06/27/19 14:11 HGK4624 ICU-M24) Document 06/27/19 13:00 TRV0281 (Rec: 06/27/19 14:11 GRS0920 ICU-M24) Document 06/27/19 14:00 QGM6532 (Rec: 06/27/19 14:11 RSS3133 ICU-M24) Document 06/27/19 14:56 EOL6832 (Rec: 06/27/19 14:56 PTP8488 ICU-M24) Document 06/27/19 15:26 PXI7717 (Rec: 06/27/19 15:26 QNU4021 ICU-C06) Document 06/27/19 17:00 TNB8824 (Rec: 06/27/19 17:54 HVR3510 ICU-C06) Document 06/27/19 17:54 KEM8619 (Rec: 06/27/19 17:54 YSE2256 ICU-C06) Document 06/27/19 19:00 WBW3270 (Rec: 06/27/19 19:53 OHV3274 ICU-M24) Document 06/27/19 19:54 AZN5778 (Rec: 06/27/19 19:55 SUQ1070 ICU-M24) Document 06/27/19 22:00 WTY5693 (Rec: 06/27/19 22:04 TOA7439 ICU-M24) Document 06/27/19 23:00 BTQ3371 (Rec: 06/27/19 23:17 DNP6961 ICU-M24) Document 06/28/19 00:00 UMP1576 (Rec: 06/28/19 00:17 QMG4448 ICU-M24) Document 06/28/19 01:00 PID6374 (Rec: 06/28/19 01:09 DNA9234 ICU-C06) Document 06/28/19 02:00 ZMA6865 (Rec: 06/28/19 02:08 LBP2685 ICU-M24) Document 06/28/19 03:00 OKH1629 (Rec: 06/28/19 03:05 KSW5311 ICU-C06) Document 06/28/19 04:00 NBZ5091 (Rec: 06/28/19 04:06 NNQ2560 ICU-M24) Document 06/28/19 05:00 OSH1111 (Rec: 06/28/19 05:34 WNO6537 ICU-C06) Document 06/28/19 05:59 BAK7018 (Rec: 06/28/19 05:59 FHV3594 ICU-M24) Document 06/28/19 07:00 ZXD6789 (Rec: 06/28/19 08:22 HFD0158 ICU-M24) Document 06/28/19 08:00 BUG7794 (Rec: 06/28/19 08:22 VWQ9732 ICU-M24) Document 06/28/19 08:58 FPZ4812 (Rec: 06/28/19 08:59 MXV5258 ICU-M24) Document 06/28/19 10:00 XYI9243 (Rec: 06/28/19 10:11 FNF6216 ICU-M24) Document 06/28/19 11:00 UEQ9821 (Rec: 06/28/19 11:14 VVX5971 ICU-M24) Document 06/28/19 11:59 SHF2752 (Rec: 06/28/19 11:59 QBA0451 ICU-M24) Document 06/28/19 13:00 EFT8032 (Rec: 06/28/19 13:31 NSY0485 ICU-M24) Document 06/28/19 14:00 BVR7150 (Rec: 06/28/19 14:04 UEP1242 ICU-M24) Document 06/28/19 15:00 CLG5421 (Rec: 06/28/19 16:46 HZE9535 ICU-M24) Document 06/28/19 16:00 ACC4487 (Rec: 06/28/19 16:46 NGH2371 ICU-M24) Document 06/28/19 16:46 PHV9237 (Rec: 06/28/19 16:46 JLC0880 ICU-M24) Document 06/28/19 18:00 CZS7497 (Rec: 06/28/19 18:13 JED5203 ICU-M24) Document 06/28/19 18:56 VFY3827 (Rec: 06/28/19 19:00 BZE6480 ICU-M24) Co-Sign 06/28/19 18:56 GGS6610 Document 06/28/19 20:00 YBS2506 (Rec: 06/28/19 20:08 LMQ1964 ICU-M24) Document 06/28/19 21:00 EZK2022 (Rec: 06/28/19 21:00 DOH1473 ICU-M24) Document 06/28/19 22:00 JXI9955 (Rec: 06/28/19 22:24 VLS4315 ICU-M24) Document 06/28/19 22:52 EYN6081 (Rec: 06/28/19 22:52 JTQ7142 ICU-M24) Document 06/28/19 23:14 JTN6971 (Rec: 06/28/19 23:14 NHX4580 ICU-M24) Document 06/28/19 23:25 IYZ8242 (Rec: 06/28/19 23:25 DGT7622 ICU-M24) Document 06/28/19 23:30 BVQ8605 (Rec: 06/28/19 23:30 VEE8017 ICU-M24) Document 06/28/19 23:41 XZQ9527 (Rec: 06/28/19 23:41 IFE5705 ICU-M24) Document 06/29/19 00:00 KNS6933 (Rec: 06/29/19 00:15 JMU2669 ICU-C06) Document 06/29/19 00:00 ITX0781 (Rec: 06/29/19 00:39 HER4633 ICU-C06) Document 06/29/19 01:00 OPF8176 (Rec: 06/29/19 01:06 DHT8547 ICU-C06) Document 06/29/19 03:00 ZYO0983 (Rec: 06/29/19 03:06 ZQZ4728 ICU-C06) Document 06/29/19 03:33 WMS5701 (Rec: 06/29/19 03:34 ZPD2039 ICU-M24) Document 06/29/19 04:00 NBK3464 (Rec: 06/29/19 04:03 KDV2555 ICU-M24) Document 06/29/19 05:00 GZD6906 (Rec: 06/29/19 05:14 DXQ5353 ICU-M24) Document 06/29/19 06:00 QIH5189 (Rec: 06/29/19 06:01 MCV1553 ICU-M24) Document 06/29/19 07:00 YTR5591 (Rec: 06/29/19 11:53 FAO0231 ICU-M24) Document 06/29/19 08:00 IOR0708 (Rec: 06/29/19 11:53 MVE1084 ICU-M24) Document 06/29/19 09:00 XIN4624 (Rec: 06/29/19 11:53 IZK2194 ICU-M24) Document 06/29/19 10:00 SMT0981 (Rec: 06/29/19 11:53 CUI1858 ICU-M24) Document 06/29/19 11:00 MLK4908 (Rec: 06/29/19 11:53 PJQ6992 ICU-M24) Document 06/29/19 11:00 ARU7655 (Rec: 06/29/19 14:12 UME4253 ICU-C06) Document 06/29/19 12:00 YSI6950 (Rec: 06/29/19 13:56 SCX9947 ICU-M24) Document 06/29/19 12:00 DDH8940 (Rec: 06/29/19 14:12 TQK5972 ICU-C06) Document 06/29/19 13:00 XPB4126 (Rec: 06/29/19 13:56 KYJ7264 ICU-M24) Document 06/29/19 13:00 VHZ3647 (Rec: 06/29/19 14:12 QOD2809 ICU-C06) Document 06/29/19 13:56 LQY0150 (Rec: 06/29/19 13:56 GDU2792 ICU-M24) Document 06/29/19 15:00 XYT7530 (Rec: 06/29/19 15:45 QLH9938 ICU-C06) Document 06/29/19 18:00 UDB6113 (Rec: 06/29/19 18:22 DFL4718 ICU-M24) Document 06/29/19 21:00 OEG4585 (Rec: 06/29/19 21:13 PRJ9534 ICU-C06) Document 06/29/19 22:00 RSC1375 (Rec: 06/29/19 22:14 YRM6050 ICU-M24) Document 06/29/19 22:54 ODQ3090 (Rec: 06/29/19 22:54 UGR0455 ICU-C15) Document 06/29/19 23:03 IZX3226 (Rec: 06/29/19 23:04 ABW3066 ICU-C06) Document 06/29/19 23:51 PRZ7314 (Rec: 06/29/19 23:51 AUL0398 ICU-M24) Document 06/30/19 01:00 ZZD8976 (Rec: 06/30/19 01:21 SDQ9757 ICU-C06) Document 06/30/19 02:00 ZPM6658 (Rec: 06/30/19 02:24 FPZ2303 ICU-M23) Document 06/30/19 03:00 DHF2067 (Rec: 06/30/19 03:12 AFE7427 ICU-C06) Document 06/30/19 05:00 IZB6675 (Rec: 06/30/19 05:03 KTY8626 ICU-M24) Document 06/30/19 05:00 IFD8855 (Rec: 06/30/19 05:53 FMJ4217 ICU-C06) Document 06/30/19 06:00 FCI9970 (Rec: 06/30/19 06:22 YTJ7455 ICU-M24) Document 06/30/19 07:00 AMF9195 (Rec: 06/30/19 08:52 GBS1422 ICU-M24) Document 06/30/19 08:00 UVT8589 (Rec: 06/30/19 08:52 TVQ0740 ICU-M24) Document 06/30/19 09:42 STM1024 (Rec: 06/30/19 09:42 EQN7750 ICU-M24) Document 06/30/19 10:00 FYS1894 (Rec: 06/30/19 11:11 DYE3120 ICU-C06) Document 06/30/19 11:00 THU5793 (Rec: 06/30/19 11:11 PXC5670 ICU-C06) Document 06/30/19 11:40 LYK1735 (Rec: 06/30/19 11:40 QAR4912 ICU-M24) Document 06/30/19 12:43 BDC8101 (Rec: 06/30/19 12:43 URT6007 ICU-M24) Document 06/30/19 13:00 JMN5355 (Rec: 06/30/19 14:19 FJK2269 ICU-C06) Document 06/30/19 14:00 WTG8601 (Rec: 06/30/19 14:19 ZVM5306 ICU-C06) Document 06/30/19 15:00 VJD7335 (Rec: 06/30/19 15:07 RYX9643 ICU-C06) Document 06/30/19 16:00 BZL7977 (Rec: 06/30/19 16:52 IWU7737 ICU-C06) Document 06/30/19 17:00 FPB8000 (Rec: 06/30/19 17:30 NCF4352 ICU-M24) Document 06/30/19 18:00 BQJ8546 (Rec: 06/30/19 18:08 FCM6534 ICU-C06) Document 06/30/19 20:00 NRW8573 (Rec: 06/30/19 20:22 ZCF4827 ICU-M24) Document 06/30/19 21:00 MBQ0258 (Rec: 06/30/19 21:14 UUD4791 ICU-M24) Document 06/30/19 22:00 XTS4441 (Rec: 06/30/19 22:28 NEB9656 ICU-M24) Document 07/01/19 00:00 YWO5213 (Rec: 07/01/19 00:36 QRM3509 ICU-M35) Document 07/01/19 01:00 ASI9370 (Rec: 07/01/19 01:09 ELJ8381 ICU-M24) Document 07/01/19 02:00 ILP1495 (Rec: 07/01/19 02:29 AEM1715 ICU-M24) Document 07/01/19 03:00 FPG2159 (Rec: 07/01/19 03:14 QXP0940 ICU-M35) Document 07/01/19 04:00 ODI2273 (Rec: 07/01/19 05:31 OBB9145 ICU-M24) Document 07/01/19 05:31 LQL6810 (Rec: 07/01/19 05:32 NMT5192 ICU-M24) Document 07/01/19 06:00 KVK2645 (Rec: 07/01/19 06:15 STK5987 ICU-M35) Document 07/01/19 07:00 KBH6538 (Rec: 07/01/19 07:38 YFH2839 ICU-C12) Document 07/01/19 08:00 MWL4616 (Rec: 07/01/19 10:02 GWZ4253 ICU-C12) Document 07/01/19 09:00 CMN3933 (Rec: 07/01/19 10:02 JEZ5180 ICU-C12) Document 07/01/19 10:00 AQU3385 (Rec: 07/01/19 10:02 YDH6580 ICU-C12) Document 07/01/19 10:00 SOT0645 (Rec: 07/01/19 10:03 PLB3563 ICU-C12) Document 07/01/19 10:35 UZC0151 (Rec: 07/01/19 10:36 BJW3038 ICU-C12) Labs: Laboratory Results - last 24 hr 07/01/19 07/01/19 05:24 05:24 WBC 8.4 RBC 4.29 Hgb 12.6 L Hct 38 L MCV 89 MCH 29 MCHC 33 RDW 19 H Plt Count 256 MPV 7.2 L Sodium 139 Potassium 3.1 L Chloride 99 L Carbon Dioxide 34 H Anion Gap 6 BUN 12 Creatinine 0.75 Est GFR ( Amer) 129.0 Est GFR (Non-Af Amer) 106.6 BUN/Creatinine Ratio 16.0 Glucose 93 Calcium 8.7 Phosphorus 3.0 Magnesium 2.0 Nutrition: Taking PO with good glycemic control. Impression: Improving respiratory failure and resolved pneumonia. Plan: 58 y/o male PMH COPD, ETOH, CHF, GERD admitted with Acute hypoxic respiratory failure secondary to aspiration pneumonia in the setting of status epilepticus. He was treated for pneumonia and seizures. 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 No LP. MRI brain OK. Meropenem completes today and then no Abx on board. He was extubated 06/29 and is OOB x 2 days with serially improving encephalopathy and respiratory status. remains on [place] at 10L. Participating with PT. Removing TLC with PIV in place. Medically clear for transfer to the floor.
[2019-07-01] MEDS: NS 0.9% IV SCH (11:52)
[2019-07-01] MEDS: THIAMINE IV SCH (11:52)
[2019-07-01] MEDS: Acetaminophen ADULT LIQ* 650 MG/20.3 ML UDC PO PRN (16:33)
[2019-07-01] MEDS ORDERED: Ketorolac INJ* 15 MG/ML 1 ML VIAL IV PUSH ONE (18:21)
[2019-07-01] MEDS ORDERED: Phenytoin CAP(*) 100 MG CAP.ER PO SCH (21:00)
[2019-07-01] MEDS: Phenytoin CAP(*) 100 MG CAP.ER PO SCH (22:11)
[2019-07-01] MEDS: Potassium Chlor TAB* 20 MEQ TAB.ER PO SCH (22:11)
[2019-07-01] MEDS: clonazePAM TAB(*) 1 MG PO PRN (22:11)
[2019-07-01] MEDS: oxyCODONE SR TAB(*) 40 MG TAB.SR PO SCH (22:12)
[2019-07-02] MEDS ORDERED: Benzonatate CAP* 100 MG PO PRN (03:35)
[2019-07-02 05:03] LABS: Hematocrit 38 % (42-52); Hemoglobin 12.6 g/dL (14.0-18.0); Mean Corpuscular HGB Conc 33 g/dL (31-36); Mean Corpuscular Hemoglobin 29 pg (27-31); Mean Corpuscular Volume 89 fL (80-94); Mean Platelet Volume 6.9 fL (7.4-10.4); Platelet Count 239 10^3/uL (150-450); Red Blood Count 4.31 10^6 /uL (4.18-5.48); Red Cell Distribution Width 19 % (10-15); White Blood Count 7.9 10^3/uL (3.5-10.8)
[2019-07-02 05:15] LABS: BUN/Creatinine Ratio 15.7 (8-20); Calcium 8.5 mg/dL (8.6-10.3); EGFR African American 139.7 (>60); EGFR Non-African American 115.4 (>60); Magnesium 1.8 mg/dL (1.9-2.7); Phosphorus 2.6 mg/dL (2.5-5.0); Potassium 2.9 mmol/L (3.5-5.0)
[2019-07-02] MEDS: Heparin VIAL(*) 5000 UNITS/ML VIAL (FIVE THOUSAND) SUBCUT SCH ×3 (05:46→20:56)
--- NOTE | 2019-07-02 08:50 | PN ---
Subjective Date of Service: 07/02/19 Interval History: Mr. Lam had an uneventful night. This morning his only complaint is that he hasn't been able to sleep. He has a cough that continues to be productive of thick sputum, no pain, no further seizures. He does not think he has been out of bed yet. He cannot recall any events of this hospitalization or events leading up to it. He does think he takes clonazepam at home and when I ask if he ran out recently , he says yes but then changes his mind and thinks he had them. He denies any history of any seizure disorder in his life. Objective Active Medications: Acetaminophen (Tylenol Adult Liq*) 650 mg PO Q4H PRN PRN Reason: fever or pain Last Admin: 07/01/19 16:33 Dose: 650 mg Albuterol (Ventolin 2.5 Mg/3 Ml Neb.Serenity*) 2.5 mg INH Q4H PRN PRN Reason: SOB/WHEEZING Last Admin: 06/29/19 07:40 Dose: 2.5 mg Benzonatate (Tessalon Cap*) 200 mg PO Q8H PRN PRN Reason: COUGH Clonazepam (Klonopin Tab(*)) 1 mg PO TID PRN PRN Reason: ANXIETY Last Admin: 07/01/19 22:11 Dose: 1 mg Famotidine (Pepcid Tab*) 20 mg PO DAILY [facility] Heparin Sodium (Porcine) (Heparin Vial(*)) 5,000 units SUBCUT Q8HR [facility] Last Admin: 07/02/19 05:46 Dose: 5,000 units Potassium Chloride (Potassium Chloride 20 Meq/100 Ml Ivpremix*) 20 meq in 100 mls @ 50 mls/hr IV Q2H [facility] Stop: 07/02/19 12:59 Lorazepam (Ativan Tab(*)) 0 - 6 mg PO .PER WAM [employer]AM[employer]ERS [facility]; Protocol Last Admin: 07/01/19 02:37 Dose: 2 mg Oxycodone HCl (Oxycontin(*)) 80 mg PO Q12HR [facility] Last Admin: 07/01/19 22:12 Dose: 80 mg Phenytoin Sodium (Dilantin Cap(*)) 300 mg PO BEDTIME RONALDO Last Admin: 07/01/19 22:11 Dose: 300 mg Potassium Chloride (Klor Con Er Tab*) 20 meq PO BID [facility] Last Admin: 07/01/19 22:11 Dose: 20 meq Vital Signs - 8 hr 07/02/19 07/02/19 07/02/19 01:00 02:00 03:00 Temperature Pulse Rate 84 86 Respiratory 19 22 23 Rate Blood Pressure 141/86 161/81 (mmHg) O2 Sat by Pulse 97 98 Oximetry 07/02/19 07/02/19 07/02/19 03:01 03:59 04:00 Temperature 98.5 F Pulse Rate 90 90 Respiratory 24 22 Rate Blood Pressure 150/100 149/89 (mmHg) O2 Sat by Pulse 97 98 Oximetry 07/02/19 07/02/19 07/02/19 04:01 05:00 06:00 Temperature Pulse Rate 91 86 94 Respiratory 16 25 23 Rate Blood Pressure 152/96 (mmHg) O2 Sat by Pulse 98 97 93 Oximetry 07/02/19 07/02/19 07/02/19 06:01 07:00 07:33 Temperature 98.8 F Pulse Rate 92 92 Respiratory 17 23 Rate Blood Pressure 150/91 153/94 (mmHg) O2 Sat by Pulse 92 99 Oximetry Oxygen Devices in Use Now: High Flow Nasal Cannula Appearance: alert, slow to respond but otherwise responds appropriately to questions and follows commands Eyes: No Scleral Icterus Ears/Nose/Mouth/Throat: - - dry mucosa Neck: NL Appearance and Movements; NL JVP Respiratory: - - diffusely rhonchorous; R>L Cardiovascular: NL Sounds; No Murmurs; No JVD Abdominal: - - umbilical hernia Lymphatic: No Cervical Adenopathy Extremities: No Edema Skin: - - chronic appearing venous stasis changes b/l shins. abrasion L knee. Neurological: NL Muscle Strength and Tone Result Diagrams: 07/02/19 04:50 07/02/19 04:50 Additional Lab and Data: Lab Results 06/24/19 06/24/19 06/24/19 Range/Units 11:05 11:05 11:05 WBC 11.2 H (3.5-10.8) 10^3/uL RBC 4.94 (4.18-5.48) 10^6 /uL Hgb 14.9 (14.0-18.0) g/dL Hct 45 (42-52) % MCV 90 (80-94) fL MCH 30 (27-31) pg MCHC 33 (31-36) g/dL RDW 19 H (10-15) % Plt Count 291 (150-450) 10^3/uL MPV 7.9 (7.4-10.4) fL Neut % (Auto) 77.7 % Lymph % (Auto) 9.8 % Haskell % (Auto) 11.8 % Eos % (Auto) 0.5 % Baso % (Auto) 0.2 % Absolute Neuts (auto) 8.7 H (1.5-7.7) 10^3/ul Absolute Lymphs (auto) 1.1 (1.0-4.8) 10^3/ul Absolute Monos (auto) 1.3 H (0-0.8) 10^3/ul Absolute Eos (auto) 0.1 (0-0.6) 10^3/ul Absolute Basos (auto) 0.0 (0-0.2) 10^3/ul Absolute Nucleated RBC 0.0 10^3/ul Nucleated RBC % 0.0 INR (Anticoag Therapy) 1.09 (0.82-1.09) APTT 33.5 (26.0-38.0) seconds Patient Temperature ABG pH (7.35-7.45) ABG pH (Temp Correct) ABG pCO2 (35-45) mmHg ABG pCO2 (Temp Corrct ABG pO2 (80-100) mmHg ABG pO2 (Temp Correct ABG HCO3 (19-31) mmol/L ABG O2 Saturation (94.0-98.0) % ABG Base Excess (-2.0-2.0) mmol/L Respiration Rate O2 Delivery Device Ventilator Type Vent Mode FiO2 Inspiratory Time PEEP Pressure Support Pressure Control EPAP IPAP BiPAP Sodium 129 L (135-145) mmol/L Potassium 3.1 L (3.5-5.0) mmol/L Chloride 92 L (101-111) mmol/L Carbon Dioxide 14 L* (22-32) mmol/L Anion Gap 23 H (2-11) mmol/L BUN 9 (6-24) mg/dL Creatinine 0.82 (0.67-1.17) mg/dL Est GFR ( Amer) 116.4 (>60) Est GFR (Non-Af Amer) 96.2 (>60) BUN/Creatinine Ratio 11.0 (8-20) Glucose 184 H (70-100) mg/dL Lactic Acid (0.5-2.0) mmol/L Calcium 9.6 (8.6-10.3) mg/dL Total Bilirubin 0.90 (0.2-1.0) mg/dL AST 28 (13-39) U/L ALT 19 (7-52) U/L Alkaline Phosphatase 103 (34-104) U/L Troponin I 0.04 H* (<0.04) ng/mL Total Protein 7.5 (6.4-8.9) g/dL Albumin 3.9 (3.2-5.2) g/dL Globulin 3.6 (2-4) g/dL Albumin/Globulin Ratio 1.1 (1-3) Triglycerides 78 mg/dL Cholesterol 146 mg/dL LDL Cholesterol 63 mg/dL HDL Cholesterol 67.1 mg/dL 06/24/19 06/24/19 Range/Units 11:05 11:36 WBC (3.5-10.8) 10^3/uL RBC (4.18-5.48) 10^6 /uL Hgb (14.0-18.0) g/dL Hct (42-52) % MCV (80-94) fL MCH (27-31) pg MCHC (31-36) g/dL RDW (10-15) % Plt Count (150-450) 10^3/uL MPV (7.4-10.4) fL Neut % (Auto) % Lymph % (Auto) % Haskell % (Auto) % Eos % (Auto) % Baso % (Auto) % Absolute Neuts (auto) (1.5-7.7) 10^3/ul Absolute Lymphs (auto) (1.0-4.8) 10^3/ul Absolute Monos (auto) (0-0.8) 10^3/ul Absolute Eos (auto) (0-0.6) 10^3/ul Absolute Basos (auto) (0-0.2) 10^3/ul Absolute Nucleated RBC 10^3/ul Nucleated RBC % INR (Anticoag Therapy) (0.82-1.09) APTT (26.0-38.0) seconds Patient Temperature Not Reportable ABG pH 7.30 L (7.35-7.45) ABG pH (Temp Correct) Not Reportable ABG pCO2 56 H (35-45) mmHg ABG pCO2 (Temp Corrct Not Reportable ABG pO2 117 H (80-100) mmHg ABG pO2 (Temp Correct Not Reportable ABG HCO3 25.0 (19-31) mmol/L ABG O2 Saturation 99.4 H (94.0-98.0) % ABG Base Excess 0.1 (-2.0-2.0) mmol/L Respiration Rate 16 O2 Delivery Device Ventilator Ventilator Type 500 Vent Mode Cmv FiO2 80 Inspiratory Time 1.0 PEEP 5 Pressure Support Not Reportable Pressure Control Not Reportable EPAP Not Reportable IPAP Not Reportable BiPAP Not Reportable Sodium (135-145) mmol/L Potassium (3.5-5.0) mmol/L Chloride (101-111) mmol/L Carbon Dioxide (22-32) mmol/L Anion Gap (2-11) mmol/L BUN (6-24) mg/dL Creatinine (0.67-1.17) mg/dL Est GFR ( Amer) (>60) Est GFR (Non-Af Amer) (>60) BUN/Creatinine Ratio (8-20) Glucose (70-100) mg/dL Lactic Acid 9.2 H* (0.5-2.0) mmol/L Calcium (8.6-10.3) mg/dL Total Bilirubin (0.2-1.0) mg/dL AST (13-39) U/L ALT (7-52) U/L Alkaline Phosphatase (34-104) U/L Troponin I (<0.04) ng/mL Total Protein (6.4-8.9) g/dL Albumin (3.2-5.2) g/dL Globulin (2-4) g/dL Albumin/Globulin Ratio (1-3) Triglycerides mg/dL Cholesterol mg/dL LDL Cholesterol mg/dL HDL Cholesterol mg/dL Microbiology and Other Data: Microbiology 06/28/19 19:46 Gram Stain - Final Sputum Trach Sputum Culture - Final No Growth Day 2 No Normal Respiratory [place] 06/28/19 00:00 Gram Stain - Final Sputum Sputum Culture - Final Staphylococcus Aureus YEAST 06/24/19 15:03 Aerobic Blood Culture - Final Blood Venous Staphylococcus Epidermidis Anaerobic Blood Culture - Final No Growth Day 5 Blood MRSA/MSSA (PCR) - Final Mrsa Negative S.aureus Negative 06/24/19 12:08 Aerobic Blood Culture - Final Blood Venous No Growth Day 5 Anaerobic Blood Culture - Final Not Reportable 06/27/19 09:40 Gram Stain - Final Sputum Sputum Culture - Final Normal [place] 06/24/19 15:07 Urine Culture - Final Urine No Growth (<1,000 CFU/mL) 06/24/19 15:59 Nasal Screen MRSA (PCR) - Final Nasal Mrsa Not Detected Assess/Plan/Problems-Billing Assessment: This is a 58 year old man with history of COPD, alcohol use, chronic pain syndrome, and anxiety on clonazepam who presented to the ED on 06/24 with delirium and seizures, then with status epilepticus complicated by aspiration pneumonia. - Patient Problems (1) Status epilepticus Current Visit: Yes Status: Acute Code(s): G40.901 - EPILEPSY, UNSP, NOT INTRACTABLE, WITH STATUS EPILEPTICUS SNOMED Code(s): 981449269 Comment: new onset seizures with unclear provoking cause--there is some question about whether he ran out of his benzodiazepines, but says he had not stopped drinking alcohol (about 6 beers/day) MRI showed no focus No evidence of certified master safecracker infection continue phenytoin, will ask neuro to re-eval (2) Pneumonia Current Visit: Yes Status: Acute Code(s): J18.9 - PNEUMONIA, UNSPECIFIED ORGANISM SNOMED Code(s): 193059900 Comment: today is day 7/7 of meropenem sputum culture grew staph aureus and yeast (3) Acute respiratory failure with hypoxia Current Visit: Yes Status: Acute Code(s): J96.01 - ACUTE RESPIRATORY FAILURE WITH HYPOXIA SNOMED Code(s): 11449729 Comment: improving, weaning O2 (4) Alcohol abuse Current Visit: Yes Status: Acute Code(s): F10.10 - ALCOHOL ABUSE, UNCOMPLICATED SNOMED Code(s): 99597006 Comment: on [facility] protocol--last dose was yesterday
[2019-07-02] MEDS: KCL 20 MEQ/100 ML IVPREMIX* 20 MEQ/100 ML BAG IV SCH ×2 (09:04→11:24)
[2019-07-02] MEDS: oxyCODONE SR TAB(*) 40 MG TAB.SR PO SCH ×2 (09:05→20:56)
[2019-07-02] MEDS: Famotidine TAB* 20 MG PO SCH (09:17)
[2019-07-02] MEDS: Potassium Chlor TAB* 20 MEQ TAB.ER PO SCH ×2 (09:18→20:56)
[2019-07-02] MEDS: clonazePAM TAB(*) 1 MG PO PRN ×2 (14:25→23:25)
[2019-07-02] MEDS ORDERED: Potassium Chloride* LIQUID 20 MEQ/15 ML UDC PO ONE (15:15)
[2019-07-02] MEDS: Acetaminophen ADULT LIQ* 650 MG/20.3 ML UDC PO PRN (17:38)
[2019-07-02] MEDS: Phenytoin CAP(*) 100 MG CAP.ER PO SCH (20:56)
[2019-07-03] MEDS: Heparin VIAL(*) 5000 UNITS/ML VIAL (FIVE THOUSAND) SUBCUT SCH ×3 (06:10→22:42)
[2019-07-03 06:51] LABS: Hematocrit 37 % (42-52); Hemoglobin 12.5 g/dL (14.0-18.0); Mean Corpuscular HGB Conc 34 g/dL (31-36); Mean Corpuscular Hemoglobin 30 pg (27-31); Mean Corpuscular Volume 88 fL (80-94); Mean Platelet Volume 7.2 fL (7.4-10.4); Platelet Count 249 10^3/uL (150-450); Red Blood Count 4.19 10^6 /uL (4.18-5.48); Red Cell Distribution Width 18 % (10-15); White Blood Count 7.2 10^3/uL (3.5-10.8)
[2019-07-03 07:13] LABS: Calcium 8.4 mg/dL (8.6-10.3); EGFR Non-African American 106.6 (>60); Magnesium 1.8 mg/dL (1.9-2.7); Potassium 3.1 mmol/L (3.5-5.0)
[2019-07-03] MEDS: clonazePAM TAB(*) 1 MG PO PRN ×2 (09:04→20:34)
[2019-07-03] MEDS: Potassium Chlor TAB* 20 MEQ TAB.ER PO SCH ×2 (09:04→20:34)
[2019-07-03] MEDS: oxyCODONE SR TAB(*) 40 MG TAB.SR PO SCH ×2 (09:04→20:34)
[2019-07-03] MEDS: Famotidine TAB* 20 MG PO SCH (09:04)
--- NOTE | 2019-07-03 12:42 | PN ---
Subjective Date of Service: 07/03/19 Length of Stay: 9 Days Neurology is following for seizures. Interval History: Mr. Lam is a 58-year-old man with history of questionable alcohol abuse ( although he denied that to the examiner today), CHF, GERD, COPD, anxiety and depression who was found on 06/24/2019 after a fall and unresponsive state at home. He was witnessed to have generalized tonic-clonic seizures by EMS and was given IV Versed. He was intubated as he had more seizure episodes while hospitalized. He was loaded with fosphenytoin. He was kept on Dilantin. Since then, he has not had any seizures. The cause of the seizure is unclear but it was felt to be related to medication effect or withdrawal. The patient had a recorded generalized tonic-clonic seizure on EEG on 06/24/2019. He had a brain MRI 06/27/2019 that showed no acute intracranial abnormalities. The patient was extubated on 06/30/2019 and transferred to the medical floor on 07/01/2019. Today, the patient stated that he feels tired and fatigued. He has trouble moving around in bed. He denied any focal weakness. He denied any swallowing difficulty. He has no headache or visual disturbance. He feels worn out from the recent ICU stay. Review of Systems: Denied CP, SOB, or palpitations. Objective Active Medications: Acetaminophen (Tylenol Adult Liq*) 650 mg PO Q4H PRN PRN Reason: fever or pain Last Admin: 07/02/19 17:38 Dose: 650 mg Albuterol (Ventolin 2.5 Mg/3 Ml Neb.Serenity*) 2.5 mg INH Q4H PRN PRN Reason: SOB/WHEEZING Last Admin: 06/29/19 07:40 Dose: 2.5 mg Benzonatate (Tessalon Cap*) 200 mg PO Q8H PRN PRN Reason: COUGH Clonazepam (Klonopin Tab(*)) 1 mg PO TID PRN PRN Reason: ANXIETY Last Admin: 07/03/19 09:04 Dose: 1 mg Famotidine (Pepcid Tab*) 20 mg PO DAILY [facility] Last Admin: 07/03/19 09:04 Dose: 20 mg Heparin Sodium (Porcine) (Heparin Vial(*)) 5,000 units SUBCUT Q8HR [facility] Last Admin: 07/03/19 06:10 Dose: 5,000 units Lorazepam (Ativan Tab(*)) 0 - 6 mg PO .PER [facility]; Protocol Last Admin: 07/01/19 02:37 Dose: 2 mg Oxycodone HCl (Oxycontin(*)) 80 mg PO Q12HR [facility] Last Admin: 07/03/19 09:04 Dose: 80 mg Phenytoin Sodium (Dilantin Cap(*)) 300 mg PO BEDTIME [facility] Last Admin: 07/02/19 20:56 Dose: 300 mg Potassium Chloride (Klor Con Er Tab*) 20 meq PO BID [facility] Last Admin: 07/03/19 09:04 Dose: 20 meq Vital Signs 07/02/19 07/03/19 07/03/19 23:25 02:06 07:36 Temperature 97.6 F Pulse Rate 86 Respiratory 22 20 24 Rate Blood Pressure 138/64 (mmHg) O2 Sat by Pulse 97 Oximetry 07/03/19 07/03/19 07/03/19 08:00 09:04 10:30 Temperature 97.9 F Pulse Rate 86 Respiratory 16 22 12 Rate Blood Pressure 162/84 (mmHg) O2 Sat by Pulse 97 Oximetry Intake and Output Last 24 Hours 07/01/19 07/02/19 07/03/19 07/04/19 06:59 06:59 06:59 06:59 Intake Total 907 1000 590 120 Output Total 5069 4075 925 Balance -4162 -3075 -335 120 Weight 284 lb 2.813 oz Intake: IV Fluids 133 190 NS (0.9%) 113 PB - Thiamine 135 PB- KCL 55 Vanco 20 IVPB 774 FOSPHENYTOIN 185 MERREM 289 PB - Magnesium Sulfate 100 PB- KCL 200 Oral 1000 400 120 Output: Urine 3275 925 Bailey 5069 800 Other: Estimated Void Large Date of Last Bowel 07/01/19 Movement # Bowel Movements 1 0 Estimated Stool Amount Small Large Oxygen Devices in Use Now: High Flow Nasal Cannula Neurology Exam: General: Ill appearing disheveled man in no acute distress. HEENT: Normocephelic/atraumatic, sclera anicteric, mucous membranes moist Neck: Supple Chest: Clear to auscultation bilaterally Cardiovascular: Regular rate and rhythm without murmurs, rubs, gallops Extremities: No clubbing, cyanosis, or edema Neurological Findings: Awake, alert, and oriented to person, place (hospital), and time. Speech: fluent without dysarthria, repetition intact Cranial Nerve: PERRL, EOM intact, no facial asymmetry Motor: moves all extremities to command Sensation: intact to LT/PP bilaterally upper and lower extremities Deep Tendon Reflex: trace throughout Finger to nose, rapid alternating movements intact without tremor, no dysdiadochokinesia Gait: n/a Result Diagrams: 07/03/19 06:15 07/03/19 06:15 Additional Lab and Data: Lab Results 06/24/19 06/24/19 06/24/19 Range/Units 11:05 11:05 11:05 WBC 11.2 H (3.5-10.8) 10^3/uL RBC 4.94 (4.18-5.48) 10^6 /uL Hgb 14.9 (14.0-18.0) g/dL Hct 45 (42-52) % MCV 90 (80-94) fL MCH 30 (27-31) pg MCHC 33 (31-36) g/dL RDW 19 H (10-15) % Plt Count 291 (150-450) 10^3/uL MPV 7.9 (7.4-10.4) fL Neut % (Auto) 77.7 % Lymph % (Auto) 9.8 % Long % (Auto) 11.8 % Eos % (Auto) 0.5 % Baso % (Auto) 0.2 % Absolute Neuts (auto) 8.7 H (1.5-7.7) 10^3/ul Absolute Lymphs (auto) 1.1 (1.0-4.8) 10^3/ul Absolute Monos (auto) 1.3 H (0-0.8) 10^3/ul Absolute Eos (auto) 0.1 (0-0.6) 10^3/ul Absolute Basos (auto) 0.0 (0-0.2) 10^3/ul Absolute Nucleated RBC 0.0 10^3/ul Nucleated RBC % 0.0 INR (Anticoag Therapy) 1.09 (0.82-1.09) APTT 33.5 (26.0-38.0) seconds Patient Temperature ABG pH (7.35-7.45) ABG pH (Temp Correct) ABG pCO2 (35-45) mmHg ABG pCO2 (Temp Corrct ABG pO2 (80-100) mmHg ABG pO2 (Temp Correct ABG HCO3 (19-31) mmol/L ABG O2 Saturation (94.0-98.0) % ABG Base Excess (-2.0-2.0) mmol/L Respiration Rate O2 Delivery Device Ventilator Type Vent Mode FiO2 Inspiratory Time PEEP Pressure Support Pressure Control EPAP IPAP BiPAP Sodium 129 L (135-145) mmol/L Potassium 3.1 L (3.5-5.0) mmol/L Chloride 92 L (101-111) mmol/L Carbon Dioxide 14 L* (22-32) mmol/L Anion Gap 23 H (2-11) mmol/L BUN 9 (6-24) mg/dL Creatinine 0.82 (0.67-1.17) mg/dL Est GFR ( Amer) 116.4 (>60) Est GFR (Non-Af Amer) 96.2 (>60) BUN/Creatinine Ratio 11.0 (8-20) Glucose 184 H (70-100) mg/dL Lactic Acid (0.5-2.0) mmol/L Calcium 9.6 (8.6-10.3) mg/dL Total Bilirubin 0.90 (0.2-1.0) mg/dL AST 28 (13-39) U/L ALT 19 (7-52) U/L Alkaline Phosphatase 103 (34-104) U/L Troponin I 0.04 H* (<0.04) ng/mL Total Protein 7.5 (6.4-8.9) g/dL Albumin 3.9 (3.2-5.2) g/dL Globulin 3.6 (2-4) g/dL Albumin/Globulin Ratio 1.1 (1-3) Triglycerides 78 mg/dL Cholesterol 146 mg/dL LDL Cholesterol 63 mg/dL HDL Cholesterol 67.1 mg/dL 06/24/19 06/24/19 Range/Units 11:05 11:36 WBC (3.5-10.8) 10^3/uL RBC (4.18-5.48) 10^6 /uL Hgb (14.0-18.0) g/dL Hct (42-52) % MCV (80-94) fL MCH (27-31) pg MCHC (31-36) g/dL RDW (10-15) % Plt Count (150-450) 10^3/uL MPV (7.4-10.4) fL Neut % (Auto) % Lymph % (Auto) % Long % (Auto) % Eos % (Auto) % Baso % (Auto) % Absolute Neuts (auto) (1.5-7.7) 10^3/ul Absolute Lymphs (auto) (1.0-4.8) 10^3/ul Absolute Monos (auto) (0-0.8) 10^3/ul Absolute Eos (auto) (0-0.6) 10^3/ul Absolute Basos (auto) (0-0.2) 10^3/ul Absolute Nucleated RBC 10^3/ul Nucleated RBC % INR (Anticoag Therapy) (0.82-1.09) APTT (26.0-38.0) seconds Patient Temperature Not Reportable ABG pH 7.30 L (7.35-7.45) ABG pH (Temp Correct) Not Reportable ABG pCO2 56 H (35-45) mmHg ABG pCO2 (Temp Corrct Not Reportable ABG pO2 117 H (80-100) mmHg ABG pO2 (Temp Correct Not Reportable ABG HCO3 25.0 (19-31) mmol/L ABG O2 Saturation 99.4 H (94.0-98.0) % ABG Base Excess 0.1 (-2.0-2.0) mmol/L Respiration Rate 16 O2 Delivery Device Ventilator Ventilator Type 500 Vent Mode Cmv FiO2 80 Inspiratory Time 1.0 PEEP 5 Pressure Support Not Reportable Pressure Control Not Reportable EPAP Not Reportable IPAP Not Reportable BiPAP Not Reportable Sodium (135-145) mmol/L Potassium (3.5-5.0) mmol/L Chloride (101-111) mmol/L Carbon Dioxide (22-32) mmol/L Anion Gap (2-11) mmol/L BUN (6-24) mg/dL Creatinine (0.67-1.17) mg/dL Est GFR ( Amer) (>60) Est GFR (Non-Af Amer) (>60) BUN/Creatinine Ratio (8-20) Glucose (70-100) mg/dL Lactic Acid 9.2 H* (0.5-2.0) mmol/L Calcium (8.6-10.3) mg/dL Total Bilirubin (0.2-1.0) mg/dL AST (13-39) U/L ALT (7-52) U/L Alkaline Phosphatase (34-104) U/L Troponin I (<0.04) ng/mL Total Protein (6.4-8.9) g/dL Albumin (3.2-5.2) g/dL Globulin (2-4) g/dL Albumin/Globulin Ratio (1-3) Triglycerides mg/dL Cholesterol mg/dL LDL Cholesterol mg/dL HDL Cholesterol mg/dL Microbiology and Other Data: Microbiology 06/28/19 19:46 Gram Stain - Final Sputum Trach Sputum Culture - Final No Growth Day 2 No Normal Respiratory Brook 06/28/19 00:00 Gram Stain - Final Sputum Sputum Culture - Final Staphylococcus Aureus YEAST 06/24/19 15:03 Aerobic Blood Culture - Final Blood Venous Staphylococcus Epidermidis Anaerobic Blood Culture - Final No Growth Day 5 Blood MRSA/MSSA (PCR) - Final Mrsa Negative S.aureus Negative 06/24/19 12:08 Aerobic Blood Culture - Final Blood Venous No Growth Day 5 Anaerobic Blood Culture - Final Not Reportable 06/27/19 09:40 Gram Stain - Final Sputum Sputum Culture - Final Normal Brook 06/24/19 15:07 Urine Culture - Final Urine No Growth (<1,000 CFU/mL) 06/24/19 15:59 Nasal Screen MRSA (PCR) - Final Nasal Mrsa Not Detected Assessment/Plan 1. Generalized convulsive tonic-clonic seizure: - Etiology is unclear by presumably related to medication toxicity or withdrawal. He denied any alcohol use. - Continue phenytoin 300 mg nightly. - Obtain a total phenytoin level tonight before the phenytoin dose (ordered) - Continue seizure precautions - Discussed driving restriction with the patient today. He should be seizure free for at least 6 months on anti-seizure medication before operating any heavy machinery. 2. Generalized fatigue: could be due to prolonged hospitalization and intubation. TSH and B12 are normal. Recommend PT. He may need STR. We will sign off. I will follow-up with the phenytoin level and make further recommendations if needed. Please contact us for any questions or concerns.
--- NOTE | 2019-07-03 18:20 | PN ---
Subjective Date of Service: 07/03/19 Interval History: Quinten feels "okay" this morning. He doens't think he got out of bed yesterday but there is a walker wiht a gait belt at [facility]. He has no shortness of breath but says his cough persists. Afebrile. Objective Active Medications: Acetaminophen (Tylenol Adult Liq*) 650 mg PO Q4H PRN PRN Reason: fever or pain Last Admin: 07/02/19 17:38 Dose: 650 mg Albuterol (Ventolin 2.5 Mg/3 Ml Neb.Serenity*) 2.5 mg INH Q4H PRN PRN Reason: SOB/WHEEZING Last Admin: 06/29/19 07:40 Dose: 2.5 mg Benzonatate (Tessalon Cap*) 200 mg PO Q8H PRN PRN Reason: COUGH Clonazepam (Klonopin Tab(*)) 1 mg PO TID PRN PRN Reason: ANXIETY Last Admin: 07/03/19 09:04 Dose: 1 mg Famotidine (Pepcid Tab*) 20 mg PO DAILY [facility] Last Admin: 07/03/19 09:04 Dose: 20 mg Heparin Sodium (Porcine) (Heparin Vial(*)) 5,000 units SUBCUT Q8HR [facility] Last Admin: 07/03/19 14:57 Dose: 5,000 units Lorazepam (Ativan Tab(*)) 0 - 6 mg PO .PER [facility]; Protocol Last Admin: 07/01/19 02:37 Dose: 2 mg Oxycodone HCl (Oxycontin(*)) 80 mg PO Q12HR [facility] Last Admin: 07/03/19 09:04 Dose: 80 mg Phenytoin Sodium (Dilantin Cap(*)) 300 mg PO BEDTIME [facility] Last Admin: 07/02/19 20:56 Dose: 300 mg Potassium Chloride (Klor Con Er Tab*) 20 meq PO BID [facility] Last Admin: 07/03/19 09:04 Dose: 20 meq Vital Signs - 8 hr 07/03/19 07/03/19 07/03/19 10:30 12:16 16:00 Temperature 97.9 F 98.3 F 98.6 F Pulse Rate 86 98 81 Respiratory 12 12 18 Rate Blood Pressure 162/84 135/89 146/87 (mmHg) O2 Sat by Pulse 97 100 98 Oximetry Oxygen Devices in Use Now: High Flow Nasal Cannula Appearance: alert, tired appearing Eyes: No Scleral Icterus Ears/Nose/Mouth/Throat: NL Teeth, Lips, Gums Neck: NL Appearance and Movements; NL JVP Respiratory: Symmetrical Chest Expansion and Respiratory Effort, Clear to Auscultation Cardiovascular: NL Sounds; No Murmurs; No JVD Abdominal: NL Sounds; No Tenderness; No Distention Lymphatic: No Cervical Adenopathy Extremities: No Edema Skin: No Rash or Ulcers Neurological: Alert and Oriented x 3 Result Diagrams: 07/03/19 06:15 07/03/19 06:15 Additional Lab and Data: Lab Results 06/24/19 06/24/19 06/24/19 Range/Units 11:05 11:05 11:05 WBC 11.2 H (3.5-10.8) 10^3/uL RBC 4.94 (4.18-5.48) 10^6 /uL Hgb 14.9 (14.0-18.0) g/dL Hct 45 (42-52) % MCV 90 (80-94) fL MCH 30 (27-31) pg MCHC 33 (31-36) g/dL RDW 19 H (10-15) % Plt Count 291 (150-450) 10^3/uL MPV 7.9 (7.4-10.4) fL Neut % (Auto) 77.7 % Lymph % (Auto) 9.8 % Nelson % (Auto) 11.8 % Eos % (Auto) 0.5 % Baso % (Auto) 0.2 % Absolute Neuts (auto) 8.7 H (1.5-7.7) 10^3/ul Absolute Lymphs (auto) 1.1 (1.0-4.8) 10^3/ul Absolute Monos (auto) 1.3 H (0-0.8) 10^3/ul Absolute Eos (auto) 0.1 (0-0.6) 10^3/ul Absolute Basos (auto) 0.0 (0-0.2) 10^3/ul Absolute Nucleated RBC 0.0 10^3/ul Nucleated RBC % 0.0 INR (Anticoag Therapy) 1.09 (0.82-1.09) APTT 33.5 (26.0-38.0) seconds Patient Temperature ABG pH (7.35-7.45) ABG pH (Temp Correct) ABG pCO2 (35-45) mmHg ABG pCO2 (Temp Corrct ABG pO2 (80-100) mmHg ABG pO2 (Temp Correct ABG HCO3 (19-31) mmol/L ABG O2 Saturation (94.0-98.0) % ABG Base Excess (-2.0-2.0) mmol/L Respiration Rate O2 Delivery Device Ventilator Type Vent Mode FiO2 Inspiratory Time PEEP Pressure Support Pressure Control EPAP IPAP BiPAP Sodium 129 L (135-145) mmol/L Potassium 3.1 L (3.5-5.0) mmol/L Chloride 92 L (101-111) mmol/L Carbon Dioxide 14 L* (22-32) mmol/L Anion Gap 23 H (2-11) mmol/L BUN 9 (6-24) mg/dL Creatinine 0.82 (0.67-1.17) mg/dL Est GFR ( Amer) 116.4 (>60) Est GFR (Non-Af Amer) 96.2 (>60) BUN/Creatinine Ratio 11.0 (8-20) Glucose 184 H (70-100) mg/dL Lactic Acid (0.5-2.0) mmol/L Calcium 9.6 (8.6-10.3) mg/dL Total Bilirubin 0.90 (0.2-1.0) mg/dL AST 28 (13-39) U/L ALT 19 (7-52) U/L Alkaline Phosphatase 103 (34-104) U/L Troponin I 0.04 H* (<0.04) ng/mL Total Protein 7.5 (6.4-8.9) g/dL Albumin 3.9 (3.2-5.2) g/dL Globulin 3.6 (2-4) g/dL Albumin/Globulin Ratio 1.1 (1-3) Triglycerides 78 mg/dL Cholesterol 146 mg/dL LDL Cholesterol 63 mg/dL HDL Cholesterol 67.1 mg/dL 06/24/19 06/24/19 Range/Units 11:05 11:36 WBC (3.5-10.8) 10^3/uL RBC (4.18-5.48) 10^6 /uL Hgb (14.0-18.0) g/dL Hct (42-52) % MCV (80-94) fL MCH (27-31) pg MCHC (31-36) g/dL RDW (10-15) % Plt Count (150-450) 10^3/uL MPV (7.4-10.4) fL Neut % (Auto) % Lymph % (Auto) % Nelson % (Auto) % Eos % (Auto) % Baso % (Auto) % Absolute Neuts (auto) (1.5-7.7) 10^3/ul Absolute Lymphs (auto) (1.0-4.8) 10^3/ul Absolute Monos (auto) (0-0.8) 10^3/ul Absolute Eos (auto) (0-0.6) 10^3/ul Absolute Basos (auto) (0-0.2) 10^3/ul Absolute Nucleated RBC 10^3/ul Nucleated RBC % INR (Anticoag Therapy) (0.82-1.09) APTT (26.0-38.0) seconds Patient Temperature Not Reportable ABG pH 7.30 L (7.35-7.45) ABG pH (Temp Correct) Not Reportable ABG pCO2 56 H (35-45) mmHg ABG pCO2 (Temp Corrct Not Reportable ABG pO2 117 H (80-100) mmHg ABG pO2 (Temp Correct Not Reportable ABG HCO3 25.0 (19-31) mmol/L ABG O2 Saturation 99.4 H (94.0-98.0) % ABG Base Excess 0.1 (-2.0-2.0) mmol/L Respiration Rate 16 O2 Delivery Device Ventilator Ventilator Type 500 Vent Mode Cmv FiO2 80 Inspiratory Time 1.0 PEEP 5 Pressure Support Not Reportable Pressure Control Not Reportable EPAP Not Reportable IPAP Not Reportable BiPAP Not Reportable Sodium (135-145) mmol/L Potassium (3.5-5.0) mmol/L Chloride (101-111) mmol/L Carbon Dioxide (22-32) mmol/L Anion Gap (2-11) mmol/L BUN (6-24) mg/dL Creatinine (0.67-1.17) mg/dL Est GFR ( Amer) (>60) Est GFR (Non-Af Amer) (>60) BUN/Creatinine Ratio (8-20) Glucose (70-100) mg/dL Lactic Acid 9.2 H* (0.5-2.0) mmol/L Calcium (8.6-10.3) mg/dL Total Bilirubin (0.2-1.0) mg/dL AST (13-39) U/L ALT (7-52) U/L Alkaline Phosphatase (34-104) U/L Troponin I (<0.04) ng/mL Total Protein (6.4-8.9) g/dL Albumin (3.2-5.2) g/dL Globulin (2-4) g/dL Albumin/Globulin Ratio (1-3) Triglycerides mg/dL Cholesterol mg/dL LDL Cholesterol mg/dL HDL Cholesterol mg/dL Microbiology and Other Data: Microbiology 06/28/19 19:46 Gram Stain - Final Sputum Trach Sputum Culture - Final No Growth Day 2 No Normal Respiratory Brook 06/28/19 00:00 Gram Stain - Final Sputum Sputum Culture - Final Staphylococcus Aureus YEAST 06/24/19 15:03 Aerobic Blood Culture - Final Blood Venous Staphylococcus Epidermidis Anaerobic Blood Culture - Final No Growth Day 5 Blood MRSA/MSSA (PCR) - Final Mrsa Negative S.aureus Negative 06/24/19 12:08 Aerobic Blood Culture - Final Blood Venous No Growth Day 5 Anaerobic Blood Culture - Final Not Reportable 06/27/19 09:40 Gram Stain - Final Sputum Sputum Culture - Final Normal Brook 06/24/19 15:07 Urine Culture - Final Urine No Growth (<1,000 CFU/mL) 06/24/19 15:59 Nasal Screen MRSA (PCR) - Final Nasal Mrsa Not Detected Assess/Plan/Problems-Billing This is a 58 year old man with history of etoh use and chronic pain syndrome who presented to [facility] ED with a first time seizure, then went in to status epilepticus complicated by aspiration pneumonia and requiring intubation. 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, check level (2) Pneumonia Current Visit: Yes Status: Acute Code(s): J18.9 - PNEUMONIA, UNSPECIFIED ORGANISM SNOMED Code(s): 363644837 Comment: s/p 7 days of meropenem repeat cxr today sputum culture grew staph aureus and yeast (3) Acute respiratory failure with hypoxia Current Visit: Yes Status: Acute Code(s): J96.01 - ACUTE RESPIRATORY FAILURE WITH HYPOXIA SNOMED Code(s): 55004251 Comment: improving, wean O2 today (4) Alcohol abuse Current Visit: Yes Status: Acute Code(s): F10.10 - ALCOHOL ABUSE, UNCOMPLICATED SNOMED Code(s): 35917160 Comment: on [facility] protocol--last dose was yesterday can DC now
[2019-07-03] MEDS: Phenytoin CAP(*) 100 MG CAP.ER PO SCH (20:33)
[2019-07-04] MEDS: Heparin VIAL(*) 5000 UNITS/ML VIAL (FIVE THOUSAND) SUBCUT SCH ×3 (05:35→22:27)
[2019-07-04] MEDS ORDERED: Al Hydrox/Mg Hydrox/Simet LIQ* 30 ML UDC PO PRN (07:39)
[2019-07-04] MEDS: Potassium Chlor TAB* 20 MEQ TAB.ER PO SCH ×2 (09:24→22:27)
[2019-07-04] MEDS: oxyCODONE SR TAB(*) 40 MG TAB.SR PO SCH ×2 (09:24→22:27)
[2019-07-04] MEDS: Famotidine TAB* 20 MG PO SCH (09:24)
[2019-07-04 14:41] LABS: BUN/Creatinine Ratio 15.2 (8-20); Calcium 8.7 mg/dL (8.6-10.3); EGFR African American 121.5 (>60); EGFR Non-African American 100.4 (>60); Potassium 3.2 mmol/L (3.5-5.0)
--- NOTE | 2019-07-04 15:34 | PN ---
Subjective Date of Service: 07/04/19 Length of Stay: 10 Days Neurology is following for seizures. Interval History: He has not had any seizures overnight. He is much more awake and has normal strength. He feels sad and distressed that he will need rehabilitation. He reports that he has not had anything cigarets for more than 10 days. Review of Systems: Denied CP, SOB, or palpitations. Objective Active Medications: Acetaminophen (Tylenol Adult Liq*) 650 mg PO Q4H PRN PRN Reason: fever or pain Last Admin: 07/02/19 17:38 Dose: 650 mg Al Hydrox/Mg Hydrox/Simethicone (Maalox Plus*) 30 ml PO Q4H PRN PRN Reason: NOT STATED Last Admin: 07/04/19 07:54 Dose: 30 ml Albuterol (Ventolin 2.5 Mg/3 Ml Neb.Serenity*) 2.5 mg INH Q4H PRN PRN Reason: SOB/WHEEZING Last Admin: 06/29/19 07:40 Dose: 2.5 mg Benzonatate (Tessalon Cap*) 200 mg PO Q8H PRN PRN Reason: COUGH Clonazepam (Klonopin Tab(*)) 1 mg PO TID PRN PRN Reason: ANXIETY Last Admin: 07/03/19 20:34 Dose: 1 mg Famotidine (Pepcid Tab*) 20 mg PO DAILY [facility] Last Admin: 07/04/19 09:24 Dose: 20 mg Heparin Sodium (Porcine) (Heparin Vial(*)) 5,000 units SUBCUT Q8HR [facility] Last Admin: 07/04/19 05:35 Dose: 5,000 units Lorazepam (Ativan Tab(*)) 0 - 6 mg PO .PER [place] [employer]AMETERS [facility]; Protocol Last Admin: 07/01/19 02:37 Dose: 2 mg Oxycodone HCl (Oxycontin(*)) 80 mg PO Q12HR [facility] Last Admin: 07/04/19 09:24 Dose: 80 mg Phenytoin Sodium (Dilantin Cap(*)) 400 mg PO BEDTIME [facility] Polyethylene Glycol/Electrolytes (Miralax*) 17 gm PO 0800,2100 [facility] Potassium Chloride (Klor Con Er Tab*) 20 meq PO BID [facility] Last Admin: 07/04/19 09:24 Dose: 20 meq Vital Signs 07/03/19 07/03/1907/03/19 16:00 20:00 20:34 Temperature 98.6 F 98.1 F Pulse Rate 81 92 Respiratory 18 16 18 Rate Blood Pressure 146/87 161/87 (mmHg) O2 Sat by Pulse 98 91 Oximetry 07/03/19 07/03/19 07/04/19 22:35 23:21 04:00 Temperature 98.2 F Pulse Rate 92 Respiratory 20 20 20 Rate Blood Pressure 148/72 (mmHg) O2 Sat by Pulse 92 Oximetry 07/04/19 07/04/19 07/04/19 07:49 08:00 09:24 Temperature 98.5 F Pulse Rate 92 Respiratory 12 18 20 Rate Blood Pressure 143/77 (mmHg) O2 Sat by Pulse 93 Oximetry 07/04/19 11:21 Temperature 98.4 F Pulse Rate 104 Respiratory 17 Rate Blood Pressure 142/96 (mmHg) O2 Sat by Pulse 90 Oximetry Intake and Output Last 24 Hours 07/02/19 07/03/19 07/04/19 07/05/19 06:59 06:59 06:59 06:59 Intake Total 1000 590 650 480 Output Total 4075 925 1600 Balance -3073 -335 -950 480 Intake: IV Fluids 190 PB - Thiamine 135 PB- KCL 55 Oral 1000 400 650 480 Output: Urine 3275 925 1600 Bailey 800 Other: Estimated Void Large Date of Last Bowel 07/01/19 Movement # Bowel Movements 1 0 0 0 Estimated Stool Amount Large # Voids 0 Oxygen Devices in Use Now: High Flow Nasal Cannula Neurology Exam: General: Well nourished, well developed, and in no acute distress HEENT: Normocephelic/atraumatic, sclera anicteric, mucous membranes moist Neck: Supple Chest: Clear to auscultation bilaterally Cardiovascular: Regular rate and rhythm without murmurs, rubs, gallops Extremities: No clubbing, cyanosis, or edema Neurological Findings: Awake, alert, and oriented to person, place, and time. Speech: fluent without dysarthria, repetition intact Cranial Nerve: PERRL, EOM intact, VFF, no nystagmus, face symmetric bilaterally , Motor: s/s throughout, proximal and distal extremities x4 tone/bulk normal Sensation: intact to LT/PP bilaterally upper and lower extremities Deep Tendon Reflex: trace symmetric in the upper/lower extremities, Babinski - down going Finger to nose, rapid alternating movements intact without tremor, no dysdiadochokinesia Result Diagrams: 07/03/19 06:15 07/04/19 13:32 Additional Lab and Data: Lab Results 06/24/19 06/24/19 06/24/19 Range/Units 11:05 11:05 11:05 WBC 11.2 H (3.5-10.8) 10^3/uL RBC 4.94 (4.18-5.48) 10^6 /uL Hgb 14.9 (14.0-18.0) g/dL Hct 45 (42-52) % MCV 90 (80-94) fL MCH 30 (27-31) pg MCHC 33 (31-36) g/dL RDW 19 H (10-15) % Plt Count 291 (150-450) 10^3/uL MPV 7.9 (7.4-10.4) fL Neut % (Auto) 77.7 % Lymph % (Auto) 9.8 % Patrick % (Auto) 11.8 % Eos % (Auto) 0.5 % Baso % (Auto) 0.2 % Absolute Neuts (auto) 8.7 H (1.5-7.7) 10^3/ul Absolute Lymphs (auto) 1.1 (1.0-4.8) 10^3/ul Absolute Monos (auto) 1.3 H (0-0.8) 10^3/ul Absolute Eos (auto) 0.1 (0-0.6) 10^3/ul Absolute Basos (auto) 0.0 (0-0.2) 10^3/ul Absolute Nucleated RBC 0.0 10^3/ul Nucleated RBC % 0.0 INR (Anticoag Therapy) 1.09 (0.82-1.09) APTT 33.5 (26.0-38.0) seconds Patient Temperature ABG pH (7.35-7.45) ABG pH (Temp Correct) ABG pCO2 (35-45) mmHg ABG pCO2 (Temp Corrct ABG pO2 (80-100) mmHg ABG pO2 (Temp Correct ABG HCO3 (19-31) mmol/L ABG O2 Saturation (94.0-98.0) % ABG Base Excess (-2.0-2.0) mmol/L Respiration Rate O2 Delivery Device Ventilator Type Vent Mode FiO2 Inspiratory Time PEEP Pressure Support Pressure Control EPAP IPAP BiPAP Sodium 129 L (135-145) mmol/L Potassium 3.1 L (3.5-5.0) mmol/L Chloride 92 L (101-111) mmol/L Carbon Dioxide 14 L* (22-32) mmol/L Anion Gap 23 H (2-11) mmol/L BUN 9 (6-24) mg/dL Creatinine 0.82 (0.67-1.17) mg/dL Est GFR ( Amer) 116.4 (>60) Est GFR (Non-Af Amer) 96.2 (>60) BUN/Creatinine Ratio 11.0 (8-20) Glucose 184 H (70-100) mg/dL Lactic Acid (0.5-2.0) mmol/L Calcium 9.6 (8.6-10.3) mg/dL Total Bilirubin 0.90 (0.2-1.0) mg/dL AST 28 (13-39) U/L ALT 19 (7-52) U/L Alkaline Phosphatase 103 (34-104) U/L Troponin I 0.04 H* (<0.04) ng/mL Total Protein 7.5 (6.4-8.9) g/dL Albumin 3.9 (3.2-5.2) g/dL Globulin 3.6 (2-4) g/dL Albumin/Globulin Ratio 1.1 (1-3) Triglycerides 78 mg/dL Cholesterol 146 mg/dL LDL Cholesterol 63 mg/dL HDL Cholesterol 67.1 mg/dL 06/24/19 06/24/19 Range/Units 11:05 11:36 WBC (3.5-10.8) 10^3/uL RBC (4.18-5.48) 10^6 /uL Hgb (14.0-18.0) g/dL Hct (42-52) % MCV (80-94) fL MCH (27-31) pg MCHC (31-36) g/dL RDW (10-15) % Plt Count (150-450) 10^3/uL MPV (7.4-10.4) fL Neut % (Auto) % Lymph % (Auto) % Patrick % (Auto) % Eos % (Auto) % Baso % (Auto) % Absolute Neuts (auto) (1.5-7.7) 10^3/ul Absolute Lymphs (auto) (1.0-4.8) 10^3/ul Absolute Monos (auto) (0-0.8) 10^3/ul Absolute Eos (auto) (0-0.6) 10^3/ul Absolute Basos (auto) (0-0.2) 10^3/ul Absolute Nucleated RBC 10^3/ul Nucleated RBC % INR (Anticoag Therapy) (0.82-1.09) APTT (26.0-38.0) seconds Patient Temperature Not Reportable ABG pH 7.30 L (7.35-7.45) ABG pH (Temp Correct) Not Reportable ABG pCO2 56 H (35-45) mmHg ABG pCO2 (Temp Corrct Not Reportable ABG pO2 117 H (80-100) mmHg ABG pO2 (Temp Correct Not Reportable ABG HCO3 25.0 (19-31) mmol/L ABG O2 Saturation 99.4 H (94.0-98.0) % ABG Base Excess 0.1 (-2.0-2.0) mmol/L Respiration Rate 16 O2 Delivery Device Ventilator Ventilator Type 500 Vent Mode Cmv FiO2 80 Inspiratory Time 1.0 PEEP 5 Pressure Support Not Reportable Pressure Control Not Reportable EPAP Not Reportable IPAP Not Reportable BiPAP Not Reportable Sodium (135-145) mmol/L Potassium (3.5-5.0) mmol/L Chloride (101-111) mmol/L Carbon Dioxide (22-32) mmol/L Anion Gap (2-11) mmol/L BUN (6-24) mg/dL Creatinine (0.67-1.17) mg/dL Est GFR ( Amer) (>60) Est GFR (Non-Af Amer) (>60) BUN/Creatinine Ratio (8-20) Glucose (70-100) mg/dL Lactic Acid 9.2 H* (0.5-2.0) mmol/L Calcium (8.6-10.3) mg/dL Total Bilirubin (0.2-1.0) mg/dL AST (13-39) U/L ALT (7-52) U/L Alkaline Phosphatase (34-104) U/L Troponin I (<0.04) ng/mL Total Protein (6.4-8.9) g/dL Albumin (3.2-5.2) g/dL Globulin (2-4) g/dL Albumin/Globulin Ratio (1-3) Triglycerides mg/dL Cholesterol mg/dL LDL Cholesterol mg/dL HDL Cholesterol mg/dL Microbiology and Other Data: Microbiology 06/28/19 19:46 Gram Stain - Final Sputum Trach Sputum Culture - Final No Growth Day 2 No Normal Respiratory Brook 06/28/19 00:00 Gram Stain - Final Sputum Sputum Culture - Final Staphylococcus Aureus YEAST 06/24/19 15:03 Aerobic Blood Culture - Final Blood Venous Staphylococcus Epidermidis Anaerobic Blood Culture - Final No Growth Day 5 Blood MRSA/MSSA (PCR) - Final Mrsa Negative S.aureus Negative 06/24/19 12:08 Aerobic Blood Culture - Final Blood Venous No Growth Day 5 Anaerobic Blood Culture - Final Not Reportable 06/27/19 09:40 Gram Stain - Final Sputum Sputum Culture - Final Normal Brook 06/24/19 15:07 Urine Culture - Final Urine No Growth (<1,000 CFU/mL) 06/24/19 15:59 Nasal Screen MRSA (PCR) - Final Nasal Mrsa Not Detected Assessment/Plan 1. Generalized convulsive tonic-clonic seizure: - resolved. - Etiology is unclear by presumably related to medication toxicity or withdrawal. - Increased phenytoin to 400 mg nightly due to low total level of 6.9. Corrected phenytoin level based on his albumin is 8 (still subtherapeutic). No need for a repeat level at this time. - Follow-up with Dr. Ramires in 4-6 weeks. - Continue seizure precautions - Discussed driving restriction with the patient today. He should be seizure free for at least 6 months on anti-seizure medication before operating any heavy machinery. Neurology will sign off but please contact us for any questions or concerns.
--- NOTE | 2019-07-04 16:25 | PN ---
Subjective Date of Service: 07/04/19 Interval History: No overnight events, Quinten feels okay today. He feels a little constipated but this is not unusual for him. He has no shortness of breath or cough and his nurse has been able to wean his o2 down to room air Objective Active Medications: Acetaminophen (Tylenol Adult Liq*) 650 mg PO Q4H PRN PRN Reason: fever or pain Last Admin: 07/02/19 17:38 Dose: 650 mg Al Hydrox/Mg Hydrox/Simethicone (Maalox Plus*) 30 ml PO Q4H PRN PRN Reason: NOT STATED Last Admin: 07/04/19 07:54 Dose: 30 ml Albuterol (Ventolin 2.5 Mg/3 Ml Neb.Serenity*) 2.5 mg INH Q4H PRN PRN Reason: SOB/WHEEZING Last Admin: 06/29/19 07:40 Dose: 2.5 mg Benzonatate (Tessalon Cap*) 200 mg PO Q8H PRN PRN Reason: COUGH Clonazepam (Klonopin Tab(*)) 1 mg PO TID PRN PRN Reason: ANXIETY Last Admin: 07/03/19 20:34 Dose: 1 mg Famotidine (Pepcid Tab*) 20 mg PO DAILY [facility] Last Admin: 07/04/19 09:24 Dose: 20 mg Heparin Sodium (Porcine) (Heparin Vial(*)) 5,000 units SUBCUT Q8HR [facility] Last Admin: 07/04/19 14:30 Dose: 5,000 units Lorazepam (Ativan Tab(*)) 0 - 6 mg PO .PER [facility]; Protocol Last Admin: 07/01/19 02:37 Dose: 2 mg Oxycodone HCl (Oxycontin(*)) 80 mg PO Q12HR [facility] Last Admin: 07/04/19 09:24 Dose: 80 mg Phenytoin Sodium (Dilantin Cap(*)) 400 mg PO BEDTIME [facility] Polyethylene Glycol/Electrolytes (Miralax*) 17 gm PO 0800,2100 [facility] Potassium Chloride (Klor Con Er Tab*) 40 meq PO BID [facility] Vital Signs - 8 hr 07/04/19 07/04/19 09:24 11:21 Temperature 98.4 F Pulse Rate 104 Respiratory 20 17 Rate Blood Pressure 142/96 (mmHg) O2 Sat by Pulse 90 Oximetry Oxygen Devices in Use Now: Nasal Cannula Appearance: alert, no distress, blunted affect, comfortable Eyes: No Scleral Icterus Ears/Nose/Mouth/Throat: NL Teeth, Lips, Gums Neck: NL Appearance and Movements; NL JVP Respiratory: Symmetrical Chest Expansion and Respiratory Effort, - - few rhonchi Cardiovascular: NL Sounds; No Murmurs; No JVD, RRR Abdominal: - - umbilical hernia Extremities: - - venous stasis changes b/l Skin: No Rash or Ulcers Neurological: Alert and Oriented x 3 Result Diagrams: 07/03/19 06:15 07/04/19 13:32 Additional Lab and Data: Lab Results 06/24/19 06/24/19 06/24/19 Range/Units 11:05 11:05 11:05 WBC 11.2 H (3.5-10.8) 10^3/uL RBC 4.94 (4.18-5.48) 10^6 /uL Hgb 14.9 (14.0-18.0) g/dL Hct 45 (42-52) % MCV 90 (80-94) fL MCH 30 (27-31) pg MCHC 33 (31-36) g/dL RDW 19 H (10-15) % Plt Count 291 (150-450) 10^3/uL MPV 7.9 (7.4-10.4) fL Neut % (Auto) 77.7 % Lymph % (Auto) 9.8 % [place] % (Auto) 11.8 % Eos % (Auto) 0.5 % Baso % (Auto) 0.2 % Absolute Neuts (auto) 8.7 H (1.5-7.7) 10^3/ul Absolute Lymphs (auto) 1.1 (1.0-4.8) 10^3/ul Absolute Monos (auto) 1.3 H (0-0.8) 10^3/ul Absolute Eos (auto) 0.1 (0-0.6) 10^3/ul Absolute Basos (auto) 0.0 (0-0.2) 10^3/ul Absolute Nucleated RBC 0.0 10^3/ul Nucleated RBC % 0.0 INR (Anticoag Therapy) 1.09 (0.82-1.09) APTT 33.5 (26.0-38.0) seconds Patient Temperature ABG pH (7.35-7.45) ABG pH (Temp Correct) ABG pCO2 (35-45) mmHg ABG pCO2 (Temp Corrct ABG pO2 (80-100) mmHg ABG pO2 (Temp Correct ABG HCO3 (19-31) mmol/L ABG O2 Saturation (94.0-98.0) % ABG Base Excess (-2.0-2.0) mmol/L Respiration Rate O2 Delivery Device Ventilator Type Vent Mode FiO2 Inspiratory Time PEEP Pressure Support Pressure Control EPAP IPAP BiPAP Sodium 129 L (135-145) mmol/L Potassium 3.1 L (3.5-5.0) mmol/L Chloride 92 L (101-111) mmol/L Carbon Dioxide 14 L* (22-32) mmol/L Anion Gap 23 H (2-11) mmol/L BUN 9 (6-24) mg/dL Creatinine 0.82 (0.67-1.17) mg/dL Est GFR ( Amer) 116.4 (>60) Est GFR (Non-Af Amer) 96.2 (>60) BUN/Creatinine Ratio 11.0 (8-20) Glucose 184 H (70-100) mg/dL Lactic Acid (0.5-2.0) mmol/L Calcium 9.6 (8.6-10.3) mg/dL Total Bilirubin 0.90 (0.2-1.0) mg/dL AST 28 (13-39) U/L ALT 19 (7-52) U/L Alkaline Phosphatase 103 (34-104) U/L Troponin I 0.04 H* (<0.04) ng/mL Total Protein 7.5 (6.4-8.9) g/dL Albumin 3.9 (3.2-5.2) g/dL Globulin 3.6 (2-4) g/dL Albumin/Globulin Ratio 1.1 (1-3) Triglycerides 78 mg/dL Cholesterol 146 mg/dL LDL Cholesterol 63 mg/dL HDL Cholesterol 67.1 mg/dL 06/24/19 06/24/19 Range/Units 11:05 11:36 WBC (3.5-10.8) 10^3/uL RBC (4.18-5.48) 10^6 /uL Hgb (14.0-18.0) g/dL Hct (42-52) % MCV (80-94) fL MCH (27-31) pg MCHC (31-36) g/dL RDW (10-15) % Plt Count (150-450) 10^3/uL MPV (7.4-10.4) fL Neut % (Auto) % Lymph % (Auto) % [place] % (Auto) % Eos % (Auto) % Baso % (Auto) % Absolute Neuts (auto) (1.5-7.7) 10^3/ul Absolute Lymphs (auto) (1.0-4.8) 10^3/ul Absolute Monos (auto) (0-0.8) 10^3/ul Absolute Eos (auto) (0-0.6) 10^3/ul Absolute Basos (auto) (0-0.2) 10^3/ul Absolute Nucleated RBC 10^3/ul Nucleated RBC % INR (Anticoag Therapy) (0.82-1.09) APTT (26.0-38.0) seconds Patient Temperature Not Reportable ABG pH 7.30 L (7.35-7.45) ABG pH (Temp Correct) Not Reportable ABG pCO2 56 H (35-45) mmHg ABG pCO2 (Temp Corrct Not Reportable ABG pO2 117 H (80-100) mmHg ABG pO2 (Temp Correct Not Reportable ABG HCO3 25.0 (19-31) mmol/L ABG O2 Saturation 99.4 H (94.0-98.0) % ABG Base Excess 0.1 (-2.0-2.0) mmol/L Respiration Rate 16 O2 Delivery Device Ventilator Ventilator Type 500 Vent Mode Cmv FiO2 80 Inspiratory Time 1.0 PEEP 5 Pressure Support Not Reportable Pressure Control Not Reportable EPAP Not Reportable IPAP Not Reportable BiPAP Not Reportable Sodium (135-145) mmol/L Potassium (3.5-5.0) mmol/L Chloride (101-111) mmol/L Carbon Dioxide (22-32) mmol/L Anion Gap (2-11) mmol/L BUN (6-24) mg/dL Creatinine (0.67-1.17) mg/dL Est GFR ( Amer) (>60) Est GFR (Non-Af Amer) (>60) BUN/Creatinine Ratio (8-20) Glucose (70-100) mg/dL Lactic Acid 9.2 H* (0.5-2.0) mmol/L Calcium (8.6-10.3) mg/dL Total Bilirubin (0.2-1.0) mg/dL AST (13-39) U/L ALT (7-52) U/L Alkaline Phosphatase (34-104) U/L Troponin I (<0.04) ng/mL Total Protein (6.4-8.9) g/dL Albumin (3.2-5.2) g/dL Globulin (2-4) g/dL Albumin/Globulin Ratio (1-3) Triglycerides mg/dL Cholesterol mg/dL LDL Cholesterol mg/dL HDL Cholesterol mg/dL Microbiology and Other Data: Microbiology 06/28/19 19:46 Gram Stain - Final Sputum Trach Sputum Culture - Final No Growth Day 2 No Normal Respiratory Brook 06/28/19 00:00 Gram Stain - Final Sputum Sputum Culture - Final Staphylococcus Aureus YEAST 06/24/19 15:03 Aerobic Blood Culture - Final Blood Venous Staphylococcus Epidermidis Anaerobic Blood Culture - Final No Growth Day 5 Blood MRSA/MSSA (PCR) - Final Mrsa Negative S.aureus Negative 06/24/19 12:08 Aerobic Blood Culture - Final Blood Venous No Growth Day 5 Anaerobic Blood Culture - Final Not Reportable 06/27/19 09:40 Gram Stain - Final Sputum Sputum Culture - Final Normal Brook 06/24/19 15:07 Urine Culture - Final Urine No Growth (<1,000 CFU/mL) 06/24/19 15:59 Nasal Screen MRSA (PCR) - Final Nasal Mrsa Not Detected Assess/Plan/Problems-Billing 58 year old man with history of chronic pain and anxiety presented to the ED with seizure, had status epilepticus, and aspiration pneumonia, had VDRF, now doing well and ready for discharge. - Patient Problems (1) Status epilepticus Current Visit: Yes Status: Acute Code(s): G40.901 - EPILEPSY, UNSP, NOT INTRACTABLE, WITH STATUS EPILEPTICUS SNOMED Code(s): 481459925 Comment: new onset seizures with unclear provoking cause--there is some question about whether he ran out of his benzodiazepines, but says he had not stopped drinking alcohol (about 6 beers/day) MRI showed no focus No evidence of sane nurse infection continue phenytoin, check level; Saada following (2) Pneumonia Current Visit: Yes Status: Acute Code(s): J18.9 - PNEUMONIA, UNSPECIFIED ORGANISM SNOMED Code(s): 683960872 Comment: s/p 7 days of meropenem repeat cxr yesterday improved sputum culture grew staph aureus and yeast (3) Acute respiratory failure with hypoxia Current Visit: Yes Status: Acute Code(s): J96.01 - ACUTE RESPIRATORY FAILURE WITH HYPOXIA SNOMED Code(s): 00665180 Comment: resolved, will need to check amb O2 prior to dc (4) Alcohol abuse Current Visit: Yes Status: Acute Code(s): F10.10 - ALCOHOL ABUSE, UNCOMPLICATED SNOMED Code(s): 61727290 Comment: no current withdrawal
[2019-07-04] MEDS: Albuterol 2.5 MG/3 ML NEB.SOL* (0.083%) INH PRN (18:17)
[2019-07-04] MEDS ORDERED: Phenytoin CAP(*) 100 MG CAP.ER PO SCH (21:00)
[2019-07-04] MEDS: Polyethylene Glycol 3350* 17 GM PACKET PO SCH (22:27)
[2019-07-05] MEDS: Heparin VIAL(*) 5000 UNITS/ML VIAL (FIVE THOUSAND) SUBCUT SCH ×2 (05:55→15:19)
[2019-07-05] MEDS: Albuterol 2.5 MG/3 ML NEB.SOL* (0.083%) INH PRN (09:11)
[2019-07-05] MEDS: Polyethylene Glycol 3350* 17 GM PACKET PO SCH (10:05)
[2019-07-05] MEDS: oxyCODONE SR TAB(*) 40 MG TAB.SR PO SCH (10:06)
[2019-07-05] MEDS: Famotidine TAB* 20 MG PO SCH (10:06)
[2019-07-05] MEDS: Potassium Chlor TAB* 20 MEQ TAB.ER PO SCH (10:06)
[2019-07-05 13:02] VITALS: BP 163/90
--- NOTE | 2019-07-05 18:00 | DS ---
CC: GAURAV Mensah * DISCHARGE SUMMARY: DATE OF ADMISSION: 06/24/19 DATE OF DISCHARGE: 07/05/19 PRIMARY CARE PROVIDER: GAURAV Mensah PRINCIPAL DISCHARGE DIAGNOSES: 1. Status epilepticus. 2. Vent-dependent respiratory failure. 3. Aspiration pneumonia. 4. Acute hypoxic respiratory failure. 5. Alcohol abuse. 6. Hypokalemia. 7. Deconditioning. 8. Chronic pain syndrome. MEDICATIONS: 1. Albuterol 2 puffs inhaled q.4 p.r.n. wheezing. 2. Advair 250/50 one puff inhaled b.i.d. 3. Klonopin 1 mg t.i.d. p.r.n. anxiety. 4. Lasix 40 mg b.i.d. 5. Spiriva 4 g inhaled daily. 6. Phenytoin 400 mg q.h.s. 7. KCl 20 mEq daily. 8. Xtampza ER 36 mg t.i.d. PHYSICAL EXAMINATION: Temperature 98.4; heart rate 84; respiratory rate 18; pulse ox 94% on room air at rest, 80% with ambulation and when placed back on 2 L 94%. General: Alert, well-appearing man who appears older than his stated age. He is resting comfortably and in no distress. He is using no accessory respiratory muscles and is able to speak in full sentences. HEENT: Pupils are equal, round, and reactive to light. His oral mucosa is moist. Neck: No JVP. No adenopathy. Chest: He is in a regular rate and rhythm with no murmurs. His lungs are clear bilaterally. Abdomen is soft, nontender, nondistended. He has an umbilical hernia. No CVA tenderness. Extremities: He has bilateral chronic venous stasis skin changes on the shins with trace edema. Neurologic: He is oriented x3. His strength is 5/5 in all extremities. His gait is steady with a walker. HOSPITAL COURSE BY PROBLEM: 1. Status epilepticus. Mr. Lam has no history of seizure disorder and was found to be confused by his family at home and had a seizure and was found to have several more seizures in the emergency department despite benzodiazepines. Neurology was consulted and loaded him with fosphenytoin. He required intubation for airway protection in the emergency department and he was admitted to the ICU on a propofol drip. The etiology of his status epilepticus remains somewhat unclear, though Neurology is suspecting most likely related to alcohol withdrawal versus Klonopin withdrawal. His daughter explained that he is prescribed Klonopin which has been verified, but that his medications were not properly organized. He also had further neurologic workup including a CT and MRI which were unremarkable. An LP was attempted, but was unable to be obtained. He received 6 days of acyclovir empirically, but this was discontinued. Neurology continued to follow him and recommended phenytoin. He is being discharged on phenytoin 400 mg q.h.s. and close followup with Neurology. 2. Vent-dependent respiratory failure. He was intubated in the emergency department when he was found to be in status epilepticus and later was found to be continually hypoxic, which was thought to be related to aspiration pneumonia. He was able to be extubated on 06/30/19 and was weaned down high- flow nasal cannula. 3. Aspiration pneumonia. He was covered with 7 days of meropenem. His sputum culture grew Staph aureus. 4. Acute hypoxic respiratory failure. His oxygen requirement was able to be weaned to room air at rest; however, he does require oxygen when he ambulates. This was arranged for him at the time of discharge and he understands that he must wear it anytime he is walking and may remove it at rest. His most recent chest x- ray was done on 07/03/19, which showed improving airspace disease since his last x- ray. 5. Alcohol abuse. This may have contributed to his seizures. He was on a propofol drip in the ICU and then he was transitioned back to his home dose of Klonopin. He was counseled on alcohol cessation, especially in combination with his home benzos and narcotics. 6. Hypokalemia. He is being discharged on 20 mEq of potassium daily and this should be followed up as an outpatient. 7. Deconditioning. He was evaluated by Physical Therapy and was recommended for short-term rehab; however, he adamantly refused short-term rehab. He was offered several rehab facilities by our rn case manager; however, he declines and wishes to go to Physical Therapy near his home. He understands the risks of going home without physical therapy as we have recommended. 8. Chronic pain syndrome. He gets pain medications from Dr. Larson and he was most recently prescribed Xtampza and he may continue this upon discharge. DISCHARGE INSTRUCTIONS: Mr. Lam is being discharged on 07/05/19 to his home despite our strong urging that he should to go to short-term rehab. He is to follow up with Dr. Ramires of Neurology in 4 weeks. He is to follow up with his primary care physician at [facility] within 1 week. CONDITION AT THE TIME OF DISCHARGE: Fair. DISPOSITION: He is being discharged to home with his brother. [id number]/CPS #: [id number] HOME
== END 2019-07-05 15:35 | disposition home or self-care (01) | DRG 100 ==
LOC: EDBD → ED 10:57 → MERGE 10:57 → ICU 14:02 → MED 07-02 15:43
PROVIDERS: ADMIT Internal Medicine Critical Care Medicine; ATTEND Internal Medicine
PROC: 0BH17EZ Insertion of Endotracheal Airway into Trachea, Via Natural or Artificial Opening (ICD-10-PCS; principal; 2019-06-24)
PROC: 00JU3ZZ Inspection of Spinal Canal, Percutaneous Approach (ICD-10-PCS; 2019-06-24)
PROC: 03HY32Z Insertion of Monitoring Device into Upper Artery, Percutaneous Approach (ICD-10-PCS; 2019-06-24)
PROC: 4A133B1 Monitoring of Arterial Pressure, Peripheral, Percutaneous Approach (ICD-10-PCS; 2019-06-24)
PROC: 4A133J1 Monitoring of Arterial Pulse, Peripheral, Percutaneous Approach (ICD-10-PCS; 2019-06-24)
PROC: 05HM33Z Insertion of Infusion Device into Right Internal Jugular Vein, Percutaneous Approach (ICD-10-PCS; 2019-06-24)
PROC: 5A1955Z Respiratory Ventilation, Greater than 96 Consecutive Hours (ICD-10-PCS; 2019-06-24)
PROC: 4A00X4Z Measurement of Central Nervous Electrical Activity, External Approach (ICD-10-PCS; 2019-06-25)
PROC: 0B9J7ZX Drainage of Left Lower Lung Lobe, Via Natural or Artificial Opening, Diagnostic (ICD-10-PCS; 2019-06-28)
PROC: 0B9C7ZX Drainage of Right Upper Lung Lobe, Via Natural or Artificial Opening, Diagnostic (ICD-10-PCS; 2019-06-28)
PROC: 0B9G7ZX Drainage of Left Upper Lung Lobe, Via Natural or Artificial Opening, Diagnostic (ICD-10-PCS; 2019-06-28)
PROC: 0B9D7ZX Drainage of Right Middle Lung Lobe, Via Natural or Artificial Opening, Diagnostic (ICD-10-PCS; 2019-06-28)
PROC: 0B9F7ZX Drainage of Right Lower Lung Lobe, Via Natural or Artificial Opening, Diagnostic (ICD-10-PCS; 2019-06-28)
DX: G40.401 Other generalized epilepsy and epileptic syndromes, not intractable, with status epilepticus (principal); J69.0 Pneumonitis due to inhalation of food and vomit; J96.01 Acute respiratory failure with hypoxia; J96.02 Acute respiratory failure with hypercapnia; A41.9 Sepsis, unspecified organism; R65.21 Severe sepsis with septic shock; R40.2312 Coma scale, best motor response, none, at arrival to emergency department; G93.40 Encephalopathy, unspecified; E87.1 Hypo-osmolality and hyponatremia; E87.2 Acidosis; Z88.0 Allergy status to penicillin; J44.9 Chronic obstructive pulmonary disease, unspecified; I50.9 Heart failure, unspecified; K21.9 Gastro-esophageal reflux disease without esophagitis; F10.10 Alcohol abuse, uncomplicated; E87.6 Hypokalemia; G89.4 Chronic pain syndrome; F41.9 Anxiety disorder, unspecified; F32.9 Major depressive disorder, single episode, unspecified; R40.2142 Coma scale, eyes open, spontaneous, at arrival to emergency department; R40.2232 Coma scale, best verbal response, inappropriate words, at arrival to emergency department; K59.00 Constipation, unspecified
CPT/HCPCS: 31624; 36415; 36600; 70030; 70450; 70551; 71045; 72125; 74018; 80048; 80053; 80061; 80076; 80185; 80202; 80307; 80320; 80329; 81003; 81015; 82140; 82533; 82550; 82607; 82803; 83036; 83605; 83735; 83930; 83935; 84100; 84133; 84300; 84443; 84484; 85025; 85027; 85610; 85730; 87040; 87070; 87077; 87086; 87150; 87186; 87205; 87641; 87798; 93005; 94003; 94640; 95812; 95822; 99285; A9270-GY; G0480; G8978-GP-CK; G8978-GP-CL; G8979-GP-CI; J0133; J0696; J1644; J1885; J1940; J2060; J2250; J2270; J2704; J3010; J3370; J3411; J3475; J3480; Q2009

== ENCOUNTER 2019-08-23 09:35 | Inpatient (IN) | payer MEDICARE ==
--- OUTSIDE RECORDS SUMMARY | 2019-08-23 09:53 | XMS REPORT | Continuity of Care Document ---
:1960 External Reference #:[id number] Author Name Leopoldo Ashford M.D. (transmitted by agent of provider Brea Chacon) Address [address] [facility] [address] [facility], [place] [address] Care Team Providers Name Role Phone Sage Larson DO - Interventional Care Team Information Power Tool Repair Technician Pain Medicine Abi Shaver DO - Hospitalist Care Team Information Power Tool Repair Technician [phone] Problems Description No Information Available Social History Type Date Description Comments Sex Unknown ETOH Use Denies alcohol use Tobacco Use Start: Unknown Light tobacco smoker (10 or fewer cigarettes/day) Smoking Status Reviewed: 07/22/19 Light tobacco smoker (10 or fewer cigarettes/day) Allergies, Adverse Reactions, Alerts Active Allergies Reaction Severity Comments Date Xtampza 07/22/2019 Penicillin 07/22/2019 Amoxicillin 07/22/2019 Medications Active Medications SIG Qnty Indications Ordering Date Provider Gabapentin 1 po qhs for 1 wk 90caps M54.2 Leopoldo Acuna 07/22/2019 300mg then 1 bid for 1 Nori Ashford Capsules wk then 1 tid Phenytoin Sodium 4 by mouth daily 120caps Leopoldo Acuna 07/15/2019 Extended at bedtime Nori Ashford 100mg Capsules Pepcid take one Unknown 20mg Tablets capsule/tablet daily by mouth Klonopin 1 by mouth three Unknown 1mg Tablets times a day prn Benzonatate one by mouth Unknown 200mg every 8 hours as Capsules needed for cough Albuterol Sulfate 1 unit dose via Unknown nebulizer every 4 (2.5mg/3ML) 0.083% hours as needed Nebulizer Acetaminophen every 4 hours prn Unknown fever or pain 650mg/20.3ML Solution Miralax 17 grams by mouth Unknown Powder every day as needed Potassium Chloride mix one packet Unknown daily in beverage 20Meq Packet of choice and drink Advair Diskus inhale one puff Unknown by mouth twice a 100-50mcg/Dose day Aerosol Spiriva Respimat 1 puff by mouth Unknown every day 1.25mcg/Act Aerosol Immunizations Description No Information Available Vital Signs Date Vital Result Comment 07/22/2019 10:48am Height 74 inches 6'2" Weight 231.00 lb Heart Rate 86 /min BP Systolic 110 mmHg BP Diastolic 82 mmHg BMI (Body Mass Index) 29.7 kg/m2 Results Description No Information Available Procedures Date Code Description Status 06/28/2019 15686 Bronchoscopy With Bronchial Alveolar Lavage Completed 06/24/2019 30001 Spinal Puncture, Lumbar Diagnostic Completed 06/24/2019 09581 Arterial Line Completed 06/24/2019 48093 Arterial Line Completed 06/24/2019 78742 Insert Non-Tunneled Venous Catether Completed 06/24/2019 44517 Insert Non-Tunneled Venous Catether Completed 05/09/2010 [id number] Mammogram Completed Medical Devices Description No Information Available Encounters Type Date Location Provider Dx Diagnosis Office Visit 07/04/2019 [facility] Abi Shaver, G40.901 Epilepsy, unsp, 3:40p Assoc,pc DO not intractable, Hospitalists with status epilepticus J18.9 Pneumonia, unspecified organism J96.01 Acute respiratory failure with hypoxia F10.10 Alcohol abuse, uncomplicated Office Visit 07/03/2019 [facility] Abi G40.901 Epilepsy, unsp, 3:39p Assoc,pc Senner, DO not intractable, Hospitalists with status epilepticus J18.9 Pneumonia, unspecified organism J96.01 Acute respiratory failure with hypoxia F10.10 Alcohol abuse, uncomplicated Office Visit 07/02/2019 [facility] Abi G40.901 Epilepsy, unsp, 9:54a Assoc,pc Senner, DO not intractable, Hospitalists with status epilepticus J18.9 Pneumonia, unspecified organism J96.01 Acute respiratory failure with hypoxia F10.10 Alcohol abuse, uncomplicated Assessments Date Code Description Provider 07/22/2019 R56.9 Unspecified convulsions Leopoldo Ashford M.D. 07/22/2019 M54.2 Cervicalgia Leopoldo Ashford M.D. 07/22/2019 R53.1 Weakness Leopoldo Ashford M.D. 07/04/2019 G40.901 Epilepsy, unspecified, not intractable, Abi Senner, DO with status epilepticus 07/04/2019 J18.9 Pneumonia, unspecified organism Abi Senner, DO 07/04/2019 J96.01 Acute respiratory failure with hypoxia Abi Senner, DO 07/04/2019 F10.10 Alcohol abuse, uncomplicated Abi Senner, DO 07/03/2019 G40.901 Epilepsy, unspecified, not intractable, Abi Senner, DO with status epilepticus 07/03/2019 J18.9 Pneumonia, unspecified organism Abi Senner, DO 07/03/2019 J96.01 Acute respiratory failure with hypoxia Abi Senner, DO 07/03/2019 F10.10 Alcohol abuse, uncomplicated Abi Senner, DO 07/02/2019 G40.901 Epilepsy, unspecified, not intractable, Abi Senner, DO with status epilepticus 07/02/2019 J18.9 Pneumonia, unspecified organism Abi Senner, DO 07/02/2019 J96.01 Acute respiratory failure with hypoxia Abi Senner, DO 07/02/2019 F10.10 Alcohol abuse, uncomplicated Abi Senner, DO 07/01/2019 J96.01 Acute respiratory failure with hypoxia Wing Arias M.D. 07/01/2019 G93.40 Encephalopathy, unspecified Wing Arias M.D. 06/30/2019 J69.0 Pneumonitis due to inhalation of food and Wing Arias M.D. vomit 06/30/2019 J96.01 Acute respiratory failure with hypoxia Wing Arias M.D. 06/30/2019 G40.901 Epilepsy, unspecified, not intractable, Wing Arias M.D. with status epilepticus 06/29/2019 J96.01 Acute respiratory failure with hypoxia Rafael Lloyd MD 06/29/2019 J96.02 Acute respiratory failure with hypercapnia Rafael Lloyd MD 06/29/2019 J69.0 Pneumonitis due to inhalation of food and Rafael Lloyd MD vomit 06/29/2019 G40.901 Epilepsy, unspecified, not intractable, Rafael Lloyd MD with status epilepticus 06/29/2019 G93.40 Encephalopathy, unspecified Rafael Lloyd MD 06/29/2019 E87.1 Hypo-osmolality and hyponatremia Rafael Lloyd MD 06/28/2019 J96.01 Acute respiratory failure with hypoxia Rafael Lloyd MD 06/28/2019 J96.02 Acute respiratory failure with hypercapnia Rafael Lloyd MD 06/28/2019 J69.0 Pneumonitis due to inhalation of food and Rafael Lloyd MD vomit 06/28/2019 G40.901 Epilepsy, unspecified, not intractable, Rafael Lloyd MD with status epilepticus 06/28/2019 G93.40 Nazanin, unspecified Rafael Lloyd MD 06/28/2019 E87.1 Hypo-osmolality and hyponatremia Rafael Lloyd MD 06/27/2019 J96.01 Acute respiratory failure with hypoxia Rafael Lloyd MD 06/27/2019 J96.02 Acute respiratory failure with hypercapnia Rafael Lloyd MD 06/27/2019 J69.0 Pneumonitis due to inhalation of food and Rafael Lloyd MD vomit 06/27/2019 G40.901 Epilepsy, unspecified, not intractable, Rafael Lloyd MD with status epilepticus 06/27/2019 G93.40 Encephalopathy, unspecified Rafael Lloyd MD 06/27/2019 E87.1 Hypo-osmolality and hyponatremia Rafael Lloyd MD 06/26/2019 J96.01 Acute respiratory failure with hypoxia Rafael Lloyd MD 06/26/2019 J96.02 Acute respiratory failure with hypercapnia Rafael Lloyd MD 06/26/2019 J69.0 Pneumonitis due to inhalation of food and Rafael Lloyd MD vomit 06/26/2019 G40.901 Epilepsy, unspecified, not intractable, Rafeal Lloyd MD with status epilepticus 06/26/2019 G93.40 Encephalopathy, unspecified Rafael Lloyd MD 06/26/2019 E87.1 Hypo-osmolality and hyponatremia Rafael Lloyd MD 06/26/2019 E87.2 Acidosis Rafael Lloyd MD 06/25/2019 J96.01 Acute respiratory failure with hypoxia Rafael Lloyd MD 06/25/2019 J96.02 Acute respiratory failure with hypercapnia Rafael Lloyd MD 06/25/2019 R65.21 Severe sepsis with septic shock Rafael Lloyd MD 06/25/2019 G40.901 Epilepsy, unspecified, not intractable, Rafael Lloyd MD with status epilepticus 06/25/2019 G93.40 Encephalopathy, unspecified Rafael Lloyd MD 06/25/2019 E87.1 Hypo-osmolality and hyponatremia Rafael Lloyd MD 06/25/2019 E87.2 Acidosis Rafael Lloyd MD 06/24/2019 J96.01 Acute respiratory failure with hypoxia Rafael Lloyd MD 06/24/2019 J96.02 Acute respiratory failure with hypercapnia Rafael Lloyd MD 06/24/2019 G40.901 Epilepsy, unspecified, not intractable, Rafael Lloyd MD with status epilepticus 06/24/2019 G93.40 Encephalopathy, unspecified Rafael Lloyd MD 06/24/2019 E87.1 Hypo-osmolality and hyponatremia Rafael Lloyd MD 06/24/2019 E87.2 Acidosis Rafael Lloyd MD Plan of Treatment Future Appointment(s):08/26/2019 11:00 am - Sesar Toledo NP at [facility]07/22/2019 - Leopoldo Ashford M.D.R56.9 Unspecified convulsionsNew Orders:EEG, Routine, Ordered: 07/22/19Referral:Abi Shaver DO, HospitalistFollow up:DMV form 3-4 weeks with EricRecommendations:You must notify the DMV that you have had a seizure and can not drive for 6 months from your last seizure and until cleared by the DM54.2 CervicalgiaNew Medication: Gabapentin 300 mg - 1 po qhs for 1 wk then 1 bid for 1 wk then 1 tidNew Xrays: MRI Cervical Spine Wo, Ordered: 07/22/19New Therapy:Physical DuhnkxnG46.1 Weakness Functional Status Description No Information Available Mental Status Description No Information Available Referrals Refer to Reason for Referral Status Appt Date Abi Shaver DO Primary care, multiple medical problems Created [address] [place] [address] [place] [address] [phone]
--- OUTSIDE RECORDS SUMMARY | 2019-08-23 09:53 | XMS REPORT | Continuity of Care Document ---
:1960 External Reference #:[id number] Author Name Mayte Francisco Care Team Providers Name Role Phone Sage Larson DO Care Team Information Adjunct English Instructor Unavailable Payers Date Identification Numbers Payment Provider Subscriber Effective: 2001 Policy Number: [id number] [place] Quinten Lam Onset: 2001 Group Number: [id number] [id number] PayID: [id number] [place] [address] Policy Number: [id number] [employer] Quinten Lam Group Number: [id number] [facility] PayID: [id number] [place] [address] Social History Type Date Description Comments Sex Unknown Procedures Date Code Description Status 05/09/2010 [id number] Mammogram Completed Encounters Type Date Location Provider Dx Diagnosis Office Visit 01/13/2009 [facility] 722.83 Postlaminectomy 11:20a [facility] Syndrome Lumbar [place] Office Visit 07/29/2008 [facility] 722.83 Postlaminectomy 11:00a [facility] M.[facility] 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
--- OUTSIDE RECORDS SUMMARY | 2019-08-23 09:53 | XMS REPORT | Continuity of Care Document ---
:1960 External Reference #:[id number] Author Name Leopoldo Ashford M.D. (transmitted by agent of provider Brea Chacon) Address [address] [facility], [place] [address] Care Team Providers Name Role Phone Sage Larson DO - Interventional Care Team Information Professional Golf Tournament Player [phone] Pain Medicine Abi Shaver DO - Hospitalist Care Team Information Professional Golf Tournament Player Problems Description No Information Available Social History [...] Available Procedures Date Code Description Status 06/28/2019 28015 Bronchoscopy With Bronchial Alveolar Lavage Completed 06/24/2019 91543 Spinal Puncture, Lumbar Diagnostic Completed 06/24/2019 78104 Arterial Line Completed 06/24/2019 51629 Arterial Line Completed 06/24/2019 44514 Insert Non-Tunneled Venous Catether Completed 06/24/2019 65062 Insert Non-Tunneled Venous Catether Completed 05/09/2010 [id number] Mammogram Completed Medical Devices Description No Information Available Encounters Type Date Location Provider Dx Diagnosis Office Visit 07/04/2019 [facility] Abi Shaver, G40.901 Epilepsy, unsp, 3:40p Assoc,pc DO not intractable, Hospitalists with status epilepticus J18.9 Pneumonia, unspecified organism J96.01 Acute respiratory failure with hypoxia F10.10 Alcohol abuse, uncomplicated Office Visit 07/03/2019 [facility] Abi G40.901 Epilepsy, unsp, 3:39p Assoc,pc Senner, DO not intractable, Hospitalists with status epilepticus J18.9 Pneumonia, unspecified organism J96.01 Acute respiratory failure with hypoxia F10.10 Alcohol abuse, uncomplicated Office Visit 07/02/2019 [facility] Abi G40.901 Epilepsy, unsp, 9:54a [...] vomit 06/26/2019 G40.901 Epilepsy, unspecified, not intractable, Rafael Lloyd MD with status epilepticus 06/26/2019 G93.40 [...] J96.02 Acute respiratory failure with hypercapnia Rafael Llody MD 06/24/2019 G40.901 Epilepsy, unspecified, not intractable, Rafael Lloyd MD with status epilepticus 06/24/2019 G93.40 Encephalopathy, unspecified Rafael Lloyd MD 06/24/2019 E87.1 Hypo-osmolality and hyponatremia Rafael Lloyd MD 06/24/2019 E87.2 Acidosis Rafael Lloyd MD Plan of Treatment Future Appointment(s):08/26/2019 11:00 am - Sesar Toledo NP at [facility]07/22/2019 - Leopoldo Ashford M.D.R56.9 Unspecified convulsionsNew Orders:EEG, [...] MRI Cervical Spine Wo, Ordered: 07/22/19New Therapy:Physical ZyqjdfyH85.1 Weakness Functional Status Description No Information Available Mental Status Description No Information Available Referrals Refer to Reason for Referral Status Appt Date Abi Shaver DO Primary care, multiple medical problems Created [address] [place] [address] [place] [address] [phone]
[2019-08-23] MEDS ORDERED: Ondansetron INJ* 2 MG/ML VIAL IV ONE (10:14)
[2019-08-23] MEDS ORDERED: Morphine 4 MG/ML VIAL (1 ml) 4 MG/ML VIAL IV ONE (10:14)
[2019-08-23] MEDS ORDERED: LORazepam INJ* 2 MG/ML 1 ML VIAL IV PUSH ONE (10:28)
[2019-08-23] MEDS ORDERED: HYDROmorphone INJ1* 1 MG/ML SYRINGE IV ONE (10:28)
[2019-08-23] MEDS ORDERED: Lorazepam PYXIS KEY PRN (10:28)
[2019-08-23] MEDS ORDERED: Lorazepam PYXIS KEY ONE (10:36)
--- NOTE | 2019-08-23 11:05 | ED ---
Abdominal Pain/Male - HPI Summary HPI Summary: Patient is a 58-year-old male who presents emergency department for severe abdominal pain and bulging mass since 0 200 today. Patient states he has had an umbilical hernia for about 7 years always protrudes. Patient states it typically does not give him any pain. Patient states that bulging increased last night and pain became severe. Associated symptoms of nausea. Denies chest pain, shortness of breath, vomiting, fever. Symptoms are moderate in severity. No current modifying factors. - History of Current Complaint Chief Complaint: EDAbdPain Stated Complaint: HERNIA PAIN PER PT Time Seen by Provider: 08/23/19 10:11 Hx Obtained From: Patient Pain Intensity: 10 - Allergies/Home Medications Allergies/Adverse Reactions: Allergies Allergy/AdvReac Type Severity Reaction Status Date / Time Penicillins Allergy Rash Verified 08/23/19 09:40 Home Medications: Home Medications Gabapentin 900 mg PO BEDTIME 08/23/19 [History Confirmed 08/23/19] PMH/Surg Hx/FS Hx/Imm Hx Previously Healthy: Yes Endocrine/Hematology History: Reports: Hx Diabetes - BORDERLINE-NO MEDS Cardiovascular History: Reports: Hx Congestive Heart Failure Denies: Hx Hypertension, Hx Pacemaker/ICD Respiratory History: Reports: Hx Chronic Obstructive Pulmonary Disease (COPD) GI History: Reports: Hx Gastroesophageal Reflux Disease History: Denies: Hx Renal Disease Sensory History: Denies: Hx Contacts or Glasses, Hx Legally Blind, Hx Deafness, Hx Hearing Aid Opthamlomology History: Denies: Hx Contacts or Glasses, Hx Legally Blind Neurological History: Reports: Hx Seizures Psychiatric History: Reports: Hx Anxiety, Hx Depression, Hx Substance Abuse - etoh Denies: Hx Panic Disorder - Surgical History Surgery Procedure, Year, and Place: LUMBAR SPINE SURGURY APPROX 1989 [facility]. VEIN REPLACE IN LEFT ARM Infectious Disease History: No Infectious Disease History: Denies: Traveled Outside the [place] in Last 30 Days - Family History Known Family History: Positive: Other - LEVEL 5 CAVEAT Family History: LEVEL 5 CAVEAT: Pt is unresponsive and unable to give hx. - Social History Alcohol Use: None Alcohol Amount: ETOH abuse noted in H&P but daughter cannot specify Substance Use Type: Reports: None Substance Use Comment - Amount & Last Used: Drug use per H&P, but daughter cannot report Smoking Status (MU): Heavy Every Day Tobacco Smoker Review of Systems Constitutional: Negative Cardiovascular: Negative Respiratory: Negative Positive: Abdominal Pain, Nausea All Other Systems Reviewed And Are Negative: Yes Physical Exam Triage Information Reviewed: Yes Vital Signs On Initial Exam: Initial Vitals Temp Pulse Resp BP Pulse Ox 98.0 F 94 18 122/71 94 08/23/19 09:37 08/23/19 09:37 08/23/19 09:37 08/23/19 09:37 08/23/19 09:37 Vital Signs Reviewed: Yes Appearance: Positive: Pain Distress - Pt. lying on stretcher wincing in pain. Daughter present. Skin: Positive: Warm, Dry Head/Face: Positive: Normal Head/Face Inspection Eyes: Positive: Normal, EOMI Neck: Positive: Supple Abdomen Description: Positive: Other: - Obese. Large umbilical hernia noted. Minimal discoloration. Extremely tender to touch. Neurological: Positive: Normal, CN Intact II-III Psychiatric: Positive: Affect/Mood Appropriate Diagnostics - Vital Signs Vital Signs Temp Pulse Resp BP Pulse Ox 08/23/19 10:42 24 08/23/19 10:41 24 08/23/19 10:19 18 08/23/19 10:03 83 13 131/98 95 08/23/19 10:02 84 15 86 08/23/19 09:37 98.0 F 94 18 122/71 94 - Laboratory Result Diagrams: 08/23/19 11:32 08/23/19 11:32 Lab Statement: Any lab studies that have been ordered have been reviewed, and results considered in the medical decision making process. Abdominal Pain Male Course/Dx - Course Course Of Treatment: Patient presenting with concerns of strangulating umbilical hernia. He is afebrile. Patient was initially given a dose of IV morphine but pain was too great to attempt reduction. Patient then given a dose of hydromorphone and Ativan. I attempted to reduce hernia and was able to reduce part of hernia but moved in pain and it came back out. 1055: Case discussed with on-call surgery, Dr. Rowe, who saw patient in the emergency department. She initially planned to take him to the OR but due to lack of availability she requested conscious sedation in the ER for reduction. Please see Dr. Cain's proceed from no and Dr. shah procedure note for further information regarding procedural sedation and hernia reduction. After reduction patient feeling much better. CT per radiology: IMPRESSION: 1. FAT- CONTAINING UMBILICAL HERNIA. 2. ATHEROSCLEROSIS. 3. DIFFUSE FATTY ATROPHY OF THE MUSCULATURE. Pt. will be admitted to Dr. Rowe's service for further care. - Diagnoses Differential Diagnosis/HQI/PQRI: Bowel Obstruction, Ischemic Bowel Provider Diagnoses: Umbilical hernia Discharge ED - Sign-Out/Discharge Documenting (check all that apply): Patient Departure Patient Received Moderate/Deep Sedation with Procedure: No - Discharge Plan Condition: Stable Disposition: ADMITTED TO [facility] Patient Education Materials: Procedural Sedation (ED) Referrals: Xochitl Schofield [Primary Care Provider] - - Billing Disposition and Condition Condition: STABLE Disposition: Admitted to [facility]
[2019-08-23 11:38] LABS: Hematocrit 37 % (42-52); Hemoglobin 12.6 g/dL (14.0-18.0); Mean Corpuscular HGB Conc 34 g/dL (31-36); Mean Corpuscular Hemoglobin 31 pg (27-31); Mean Corpuscular Volume 91 fL (80-94); Mean Platelet Volume 6.7 fL (7.4-10.4); Platelet Count 311 10^3/uL (150-450); Red Blood Count 4.07 10^6 /uL (4.18-5.48); Red Cell Distribution Width 17 % (10-15); White Blood Count 7.8 10^3/uL (3.5-10.8)
[2019-08-23] MEDS ORDERED: fentaNYL* 50 MCG/ML 2 ML VIAL (100 MCG VIAL) IV SLOW PU ONE (11:46)
[2019-08-23] MEDS ORDERED: Midazolam* 1 MG/ML 10 ML VIAL (10 MG) IV ONE (11:46)
[2019-08-23 11:55] LABS: Albumin 3.7 g/dL (3.2-5.2); Albumin/Globulin Ratio 1.2 (1-3); BUN/Creatinine Ratio 7.8 (8-20); C Reactive Protein 15.98 mg/L (<8.01); Calcium 9.2 mg/dL (8.6-10.3); EGFR African American 104.5 (>60); EGFR Non-African American 86.4 (>60); Globulin 3.1 g/dL (2-4); Potassium 3.6 mmol/L (3.5-5.0); Total Bilirubin 0.5 mg/dL (0.2-1.0); Total Protein 6.8 g/dL (6.4-8.9)
[2019-08-23] MEDS ORDERED: Rocuronium* 10 MG/ML VIAL ONE (12:24)
[2019-08-23] MEDS ORDERED: fentaNYL* 50 MCG/ML 5 ML VIAL (250 MCG VIAL) ONE (12:24)
[2019-08-23] MEDS ORDERED: KETAMINE HCL* 50 MG/ML 10 ML VIAL ONE (12:25)
[2019-08-23] MEDS ORDERED: Midazolam* 1 MG/ML 5 ML VIAL (5 MG) ONE (12:25)
[2019-08-23 12:31] LABS: ABS Basophils 0.1 10^3/ul (0-0.2); ABS Eosinophils 0.1 10^3/ul (0-0.6); ABS Lymphocytes 1.5 10^3/ul (1.0-4.8); ABS Monocytes 0.6 10^3/ul (0-0.8); ABS Neutrophils 5.5 10^3/ul (1.5-7.7); Eosinophil % 1.9 %; Lymphocyte % 19.5 %
--- NOTE | 2019-08-23 12:37 | ED ---
Progress - Progress Note Progress Note: Conscious Sedation Procedure Note Course/Dx - Course Course Of Treatment: I gave approximately 20 minutes of conscious sedation while Dr. Rowe reduced his incarcerated hernia. He was a Mallampati 2 with mild systemic illness. He was given a total of 75 g of fentanyl and 10 mg of Versed. Moderate sedation was obtained and Dr. Rowe reduced his hernia. He woke up fine and was admitted to the hospital. - Diagnoses Provider Diagnoses: Umbilical hernia Discharge ED - Sign-Out/Discharge Documenting (check all that apply): Patient Departure Patient Received Moderate/Deep Sedation with Procedure: Yes - Discharge Plan Condition: Stable Disposition: ADMITTED TO [facility] Patient Education Materials: Procedural Sedation (ED) Referrals: Xochitl Schofield [Primary Care Provider] - - Billing Disposition and Condition Condition: STABLE Disposition: Admitted to [facility] - Attestation Statements Document Initiated by Ashleye: Yes Documenting Scribe: Sofie Rodríguez Provider For Whom Ashleye is Documenting (Include Credential): Morgan Cain MD Scribe Attestation: Sofie Shore, scribed for Morgan Cain MD on 08/23/19 at 1804. Scribe Documentation Reviewed: Yes Provider Attestation: The documentation as recorded by the Sofie ryan accurately reflects the service I personally performed and the decisions made by me, Morgan Cain MD Status of Scribe Document: Viewed
[2019-08-23] MEDS ORDERED: Iohexol 300* (CONTRAST) 10 ML SDV IV ONE (13:23)
[2019-08-23] MEDS ORDERED: Ketorolac INJ* 30 MG/ML 1 ML VIAL IV PRN (13:48)
[2019-08-23] MEDS ORDERED: Albuterol 2.5 MG/3 ML NEB.SOL* (0.083%) INH PRN (13:54)
[2019-08-23] MEDS ORDERED: Albuterol HFA INHALER* 8 gm MDI INH PRN (13:54)
[2019-08-23] MEDS ORDERED: clonazePAM TAB(*) 1 MG PO PRN (13:54)
[2019-08-23] MEDS: oxyCODONE/Acetamin 5/325 MG* TAB PO PRN ×2 (14:25→20:16)
--- NOTE | 2019-08-23 15:45 | HP ---
HISTORY AND PHYSICAL: DATE OF ADMISSION: 08/23/19 SERVICE: General Surgery. ATTENDING SURGEON: Tia Rowe MD REASON FOR ADMISSION: Incarcerated umbilical hernia. HISTORY OF PRESENT ILLNESS: Mr. Lam is a 58-year-old male with a history of alcohol abuse, chornic back pain and who is a smoker, who presented to the emergency room with an incarcerated umbilical hernia. The patient notes that he has had this umbilical hernia for 10 to 15 years, he says that it always protrudes out of his umbilicus. He was seen by a surgeon several years ago in [place] to discuss doing a surgical repair; however, he declined doing this and has been managing it without difficulty. He says that he was in his normal state of health yesterday, but in the middle of the night he woke up with sudden abdominal pain. His hernia was tender to touch. He also had some nausea and vomited at home. Given these symptoms, he presented to the emergency room for evaluation. Currently, the patient says that he is having abdominal pain, but denies having any fevers. He does not know when he last had flatus. He has only been able to drink a little bit of liquid today. PAST MEDICAL HISTORY: History of borderline diabetes, history of alcohol abuse , history of epilepsy (the patient says that he only had a seizure after taking a certain medication), chronic back pain. PAST SURGICAL HISTORY: Back surgery. No history of abdominal surgery. MEDICATIONS: 1. Gabapentin 900 mg p.o. at bedtime. 2. Phenytoin 400 mg p.o. at bedtime. 3. Hydrocortisone 2.5% cream topical as needed. 4. Lasix 40 mg p.o. b.i.d. 5. Advair 1 puff inhaled b.i.d. p.r.n. 6. Albuterol 2 puffs inhaled q.4 hours p.r.n. 7. Clonazepam 1 mg p.o. t.i.d. p.r.n. 8. Tiotropium 4 mg inhaled daily. 9. Potassium chloride 20 mg p.o. daily. ALLERGIES: PENICILLIN. FAMILY HISTORY: Noncontributory. SOCIAL HISTORY: The patient is a former heavy alcohol drinker. Per his daughter, he would drink up to 30 beers a day. She said that he did quit about 2 months ago. He is also a current 1 pack per day smoker. REVIEW OF SYSTEMS: Negative except for abdominal pain, nausea and emesis. PHYSICAL EXAMINATION GENERAL: He is a man who appears to be slightly older than his stated age, lying uncomfortably in bed, gripping his abdomen and appearing somewhat uncomfortable. VITAL SIGNS: Temperature is 98, pulse is 68, respiratory rate is 16, O2 sat is 100% O2 on room air, blood pressure is 111/68. HEENT: Normocephalic, atraumatic. RESPIRATORY: Clear to auscultation bilaterally. CARDIOVASCULAR: Regular rate and rhythm. ABDOMEN: Soft. Tender at the umbilicus with a moderate sized umbilical hernia with some mild erythema above the umbilicus. Tender with attempted reduction. EXTREMITIES: Edema in the left lower extremity. DIAGNOSTIC STUDIES/LAB DATA: Labs: White blood cell count is 7.8, hemoglobin is 12.6, hematocrit is 37. Sodium is 135, potassium is 3.6, chloride is 100, CO2 is 28, BUN 7, creatinine is 0.9, glucose is 116, calcium is 9.2. Total bilirubin is 0.5, AST is 16, ALT is 10, alkaline phosphatase is 163, CRP is 16. Imaging: CT abdomen and pelvis post hernia reduction shows fat containing umbilical hernia. ASSESSMENT AND PLAN: Mr. Lam is a 58-year-old gentleman with a history of alcohol abuse, who presented to the emergency room with an acutely incarcerated umbilical hernia. Given that the patient had too much pain for the umbilical hernia to be reduced while awake, he underwent conscious sedation by Dr. Cain from the emergency room. I was able to reduce the hernia without much difficulty. Once the hernia was entirely reduced, there was a palpable abdominal wall defect of approximately 1 to 2 cm just on his umbilicus. The CT scan postreduction did show the fat containing hernia, but no bowel within the hernia because it had already been reduced. There was no evidence of obstruction either on a CT scan and no fluid. After successful reduction, I discussed with the patient and his daughter that it would be preferable if he had an umbilical hernia repair done within the next several weeks, The patient' s daughter strongly wished that he undergo surgery while an inpatient given that previously he was noncompliant with undergoing surgery. I will admit the patient for observation post reduction of the incarcerated hernia. I will place him on a clear liquid diet and advance this tomorrow if he is doing well. He does not need any additional IV fluids or antibiotics. I will also recheck his labs tomorrow. If the patient agrees, we will take him to the operating room on Sunday for an open umbilical hernia repair with Dr. Cain. [id number]/[facility] #: [id number] MTDYadi
[2019-08-23] MEDS: Ondansetron INJ* 2 MG/ML VIAL IV PRN ×2 (16:44→21:27)
[2019-08-23] MEDS: Mometasone/Formoter 200/5 MDI INH SCH (19:35)
[2019-08-23] MEDS: Phenytoin CAP(*) 100 MG CAP.ER PO SCH (20:16)
[2019-08-23] MEDS: Furosemide TAB* 40 MG PO SCH (20:18)
[2019-08-23] MEDS: Gabapentin CAP(*) 300 MG PO SCH (20:18)
[2019-08-24] MEDS: oxyCODONE/Acetamin 5/325 MG* TAB PO PRN ×4 (03:32→19:00)
[2019-08-24] MEDS: Ondansetron INJ* 2 MG/ML VIAL IV PRN ×4 (04:31→17:39)
[2019-08-24 05:30] LABS: ABS Basophils 0.1 10^3/ul (0-0.2); ABS Eosinophils 0.2 10^3/ul (0-0.6); ABS Lymphocytes 1.9 10^3/ul (1.0-4.8); ABS Monocytes 0.5 10^3/ul (0-0.8); ABS Neutrophils 2.8 10^3/ul (1.5-7.7); Eosinophil % 4.3 %; Hematocrit 32 % (42-52); Lymphocyte % 34.5 %; Mean Corpuscular HGB Conc 35 g/dL (31-36); Mean Corpuscular Hemoglobin 32 pg (27-31); Mean Corpuscular Volume 91 fL (80-94); Mean Platelet Volume 6.9 fL (7.4-10.4); Nucleated Red Blood Cells % 0.1; Platelet Count 289 10^3/uL (150-450); Red Cell Distribution Width 17 % (10-15); White Blood Count 5.4 10^3/uL (3.5-10.8)
[2019-08-24 05:49] LABS: Calcium 8.5 mg/dL (8.6-10.3); EGFR African American 113.2 (>60); EGFR Non-African American 93.5 (>60); Potassium 3.3 mmol/L (3.5-5.0)
[2019-08-24] MEDS: SPIRIVA Respimat* (tiotropium) 2.5 mcg/inh Inhaler INH SCH (08:47)
[2019-08-24] MEDS: Mometasone/Formoter 200/5 MDI INH SCH ×2 (08:47→19:40)
[2019-08-24] MEDS: Potassium Chlor TAB* 20 MEQ TAB.ER PO SCH (08:48)
[2019-08-24] MEDS: Furosemide TAB* 40 MG PO SCH ×2 (08:49→22:01)
--- NOTE | 2019-08-24 14:18 | PN ---
Progress Note - Progress Note Date of Service: 08/24/19 Note: Surgery Progress Note * This note reflects examination of patient earlier this morning, at approximately 10am S: Patient feels much better than yesterday in the ED. The acute pain is gone. He has some dull soreness and abdominal pain that radiates to the right abdomen. He has been tolerated a clear diet. No emesis. He has been passing gas and having liquid bowel movements (chronic since at home). O: Vital Signs - 24 hr 08/23/19 08/23/19 08/23/19 14:25 14:38 15:00 Temperature Pulse Rate 75 68 Respiratory 18 Rate Blood Pressure 117/76 (mmHg) O2 Sat by Pulse 93 94 Oximetry 08/23/19 08/23/19 08/23/19 15:19 15:43 15:46 Temperature 97.1 F 97.1 F Pulse Rate 84 Respiratory 18 18 Rate Blood Pressure 117/76 (mmHg) O2 Sat by Pulse 94 Oximetry 08/23/19 08/23/19 08/23/19 16:01 16:08 16:26 Temperature 97.5 F 97.5 F Pulse Rate 70 70 Respiratory 18 18 18 Rate Blood Pressure 127/82 127/82 (mmHg) O2 Sat by Pulse 100 100 Oximetry 08/23/19 08/23/19 08/23/19 19:57 20:16 20:18 Temperature 98.7 F Pulse Rate 60 Respiratory 19 16 16 Rate Blood Pressure 136/76 (mmHg) O2 Sat by Pulse 99 Oximetry 08/23/19 08/23/19 08/23/19 20:23 23:34 23:58 Temperature Pulse Rate 68 Respiratory 16 16 16 Rate Blood Pressure 107/66 (mmHg) O2 Sat by Pulse 95 Oximetry 08/24/19 08/24/19 08/24/19 03:32 03:35 06:23 Temperature 97.5 F Pulse Rate 75 Respiratory 16 18 16 Rate Blood Pressure 121/65 (mmHg) O2 Sat by Pulse 95 Oximetry 08/24/19 08/24/19 08/24/19 07:35 08:00 08:49 Temperature 97.6 F Pulse Rate 60 Respiratory 18 18 18 Rate Blood Pressure 132/74 (mmHg) O2 Sat by Pulse 97 Oximetry 08/24/19 08/24/19 10:34 13:15 Temperature Pulse Rate Respiratory 18 18 Rate Blood Pressure (mmHg) O2 Sat by Pulse Oximetry Laboratory Results - last 24 hr 08/24/19 08/24/19 04:50 04:50 WBC 5.4 RBC 3.50 L Hgb 11.0 L Hct 32 L MCV 91 MCH 32 H MCHC 35 RDW 17 H Plt Count 289 MPV 6.9 L Neut % (Auto) 50.8 Lymph % (Auto) 34.5 Charles % (Auto) 9.2 Eos % (Auto) 4.3 Baso % (Auto) 1.2 Absolute Neuts (auto) 2.8 Absolute Lymphs (auto) 1.9 Absolute Monos (auto) 0.5 Absolute Eos (auto) 0.2 Absolute Basos (auto) 0.1 Absolute Nucleated RBC 0.0 Nucleated RBC % 0.1 Sodium 134 L Potassium 3.3 L Chloride 101 Carbon Dioxide 28 Anion Gap 5 BUN 5 L Creatinine 0.84 Est GFR ( Amer) 113.2 Est GFR (Non-Af Amer) 93.5 BUN/Creatinine Ratio 6.0 L Glucose 88 Calcium 8.5 L Intake & Output 08/23/19 08/24/19 08/24/19 22:59 06:59 14:59 Intake Total 840 600 480 Output Total 750 400 Balance 90 600 80 Weight 225 lb Intake: Oral 840 600 480 Output: Urine 750 400 Other: Estimated Void Medium # Voids 1 Abdomen: soft, minimally tender around the umbilicus, umbilical hernia is still present as it normally is, however, was reducible in the ED, no distension A/P: 58 M with history of previous ETOH abuse, presented with incarcerated umbilical hernia yesterday in ED that was reduced after patient received conscious sedation, doing well. - Patient still feeling much better since reduction of hernia in ED. - Advance to soft diet - NPO and IVF after midnight - OR with Dr. Cain 08/25 for open umbilical hernia repair with mesh. I did inform patient about this and he agrees, although he very much wishes to leave the hospital as soon as possible.
[2019-08-24] MEDS: Phenytoin CAP(*) 100 MG CAP.ER PO SCH (22:01)
[2019-08-24] MEDS: Gabapentin CAP(*) 300 MG PO SCH (22:01)
[2019-08-24] MEDS ORDERED: Lactated Ringers 1000 ML Bag* 1,000 ML IV ONE (23:58)
[2019-08-25] MEDS: SPIRIVA Respimat* (tiotropium) 2.5 mcg/inh Inhaler INH SCH (08:02)
[2019-08-25] MEDS: Mometasone/Formoter 200/5 MDI INH SCH (08:02)
[2019-08-25] MEDS: Potassium Chlor TAB* 20 MEQ TAB.ER PO SCH (09:16)
[2019-08-25] MEDS: Furosemide TAB* 40 MG PO SCH (09:16)
--- NOTE | 2019-08-25 09:34 | PN ---
Progress Note - Progress Note Date of Service: 08/25/19 Note: Surgery Progress Note S: Patient has no new complaints. He had some abdominal pain with trying to eat yesterday. He still has soreness over his umbilicus. He has been passing flatus. He visited his mother on the 4th floor yesterday; she is currently an in patient. O: Vital Signs: Temp Pulse Resp BP Pulse Ox 98.5 F 77 16 141/70 98 08/25/19 07:24 08/25/19 08:03 08/25/19 08:03 08/25/19 07:24 08/25/19 08:03 Laboratory Last Values WBC 5.4 10^3/uL (3.5-10.8) 08/24/19 04:50 RBC 3.50 10^6 /uL (4.18-5.48) L 08/24/19 04:50 Hgb 11.0 g/dL (14.0-18.0) L 08/24/19 04:50 Hct 32 % (42-52) L 08/24/19 04:50 MCV 91 fL (80-94) 08/24/19 04:50 MCH 32 pg (27-31) H 08/24/19 04:50 MCHC 35 g/dL (31-36) 08/24/19 04:50 RDW 17 % (10-15) H 08/24/19 04:50 Plt Count 289 10^3/uL (150-450) 08/24/19 04:50 MPV 6.9 fL (7.4-10.4) L 08/24/19 04:50 Neut % (Auto) 50.8 % 08/24/19 04:50 Lymph % (Auto) 34.5 % 08/24/19 04:50 [place] % (Auto) 9.2 % 08/24/19 04:50 Eos % (Auto) 4.3 % 08/24/19 04:50 Baso % (Auto) 1.2 % 08/24/19 04:50 Absolute Neuts (auto) 2.8 10^3/ul (1.5-7.7) 08/24/19 04:50 Absolute Lymphs (auto) 1.9 10^3/ul (1.0-4.8) 08/24/19 04:50 Absolute Monos (auto) 0.5 10^3/ul (0-0.8) 08/24/19 04:50 Absolute Eos (auto) 0.2 10^3/ul (0-0.6) 08/24/19 04:50 Absolute Basos (auto) 0.1 10^3/ul (0-0.2) 08/24/19 04:50 Absolute Nucleated RBC 0.0 10^3/ul 08/24/19 04:50 Immature Gran % 1.0 % (0-9) 08/23/19 11:32 Neutrophils % 72.0 % 08/23/19 11:32 Lymphocytes % 18.0 % 08/23/19 11:32 Reactive Lymphs % 2.0 % (0-6) 08/23/19 11:32 Monocytes % 6.0 % 08/23/19 11:32 Basophils % 1.0 % 08/23/19 11:32 Myelocytes % 1.0 % (0-1) 08/23/19 11:32 Nucleated RBC % 0.1 08/24/19 04:50 Normal RBC Morphology Normal (Normal) 08/23/19 11:32 Anisocytosis 1+ 08/23/19 11:32 Sodium 134 mmol/L (135-145) L 08/24/19 04:50 Potassium 3.3 mmol/L (3.5-5.0) L 08/24/19 04:50 Chloride 101 mmol/L (101-111) 08/24/19 04:50 Carbon Dioxide 28 mmol/L (22-32) 08/24/19 04:50 Anion Gap 5 mmol/L (2-11) 08/24/19 04:50 BUN 5 mg/dL (6-24) L 08/24/19 04:50 Creatinine 0.84 mg/dL (0.67-1.17) 08/24/19 04:50 Est GFR ( Amer) 113.2 (>60) 08/24/19 04:50 Est GFR (Non-Af Amer) 93.5 (>60) 08/24/19 04:50 BUN/Creatinine Ratio 6.0 (8-20) L 08/24/19 04:50 Glucose 88 mg/dL (70-100) 08/24/19 04:50 Lactic Acid 1.1 mmol/L (0.5-2.0) 08/23/19 11:32 Calcium 8.5 mg/dL (8.6-10.3) L 08/24/19 04:50 Total Bilirubin 0.50 mg/dL (0.2-1.0) 08/23/19 11:32 AST 16 U/L (13-39) 08/23/19 11:32 ALT 10 U/L (7-52) 08/23/19 11:32 Alkaline Phosphatase 163 U/L (34-104) H 08/23/19 11:32 C-Reactive Protein 15.98 mg/L (<8.01) H 08/23/19 11:32 Total Protein 6.8 g/dL (6.4-8.9) 08/23/19 11:32 Albumin 3.7 g/dL (3.2-5.2) 08/23/19 11:32 Globulin 3.1 g/dL (2-4) 08/23/19 11:32 Albumin/Globulin Ratio 1.2 (1-3) 08/23/19 11:32 Intake & Output 08/24/19 08/25/19 08/25/19 22:59 06:59 14:59 Intake Total 820 0 Output Total 1250 900 625 Balance -430 900 -625 Weight 225 lb Intake: Oral 820 0 Output: Urine 1250 900 625 Other: # Bowel Movements 0 Physical exam: Abdomen- soft, minimally tender around umbilicus, umbilical hernia present A/P: 58 M with incarcerated umbilical hernia, s/p reduction in ED. - OR today for open umbilical hernia repair with Dr. Cain
--- NOTE | 2019-08-25 10:34 | PN ---
Progress Note - Progress Note Date of Service: 08/25/19 SOAP: Subjective: Patient seen and examined Chart reviewed CT reviewed Care discussed with Dr. Rowe He has had longstanding primary umbilical hernia for many years-to ER on Sunday with tender, firm mass and had incarcerated umbilical hernia reduced with IV sedation. CT shows fat containing umbilical hernia, no obstruction. He has had abdominal pain since-increased pain after drinking water yesterday. No N/V, passing flatus On exam, he has tender, not-completely reducible umbilical hernia. Not able to appreciate fascial edges. No overlying skin changes. Due to the fact that he has continued discomfort and pain after eating, plan is for surgical repair of umbilical hernia today. Plan: Ope repair with mesh of umbilical hernia. The procedure was discussed with the patient, and the risks of, but not limited to, of bleeding, infection, abscess, injury to peritoneal and retroperitoneal structures, the use of mesh that will remain permanently in position, hernia recurrence, discomfort and the risks of anesthesia were all explained. He gives his consent to proceed.
[2019-08-25] MEDS ORDERED: Buffered Lidocaine 1% SYRIN* 1 ML/SYRINGE INTRADERM ONE (10:42)
[2019-08-25] MEDS ORDERED: Lactated Ringers 1000 ML Bag* 1,000 ML IV SCH ×2 (11:00→15:30)
[2019-08-25] MEDS ORDERED: Clindamycin 900 MG/D5W BAG(*) 900 MG/50 ML BAG IVPB ONE (12:11)
[2019-08-25] MEDS ORDERED: Midazolam* 1 MG/ML 2 ML VIAL (2 MG) ONE (12:13)
[2019-08-25] MEDS ORDERED: fentaNYL* 50 MCG/ML 2 ML VIAL (100 MCG VIAL) ONE ×2 (12:13→14:19)
[2019-08-25] MEDS ORDERED: Famotidine IV* 10 MG/ML 2 ML (20 mg) ONE (12:51)
[2019-08-25] MEDS ORDERED: Bupivacaine 0.25% W/EPI* 10 ML SDV ONE ×2 (13:01)
[2019-08-25] MEDS ORDERED: Bupivacaine 0.5%* 50 ML MDV VIAL ONE (13:01)
[2019-08-25] MEDS ORDERED: Dexamethasone IV* 4 MG/ML 1 ML (4 MG) ONE (13:04)
[2019-08-25] MEDS ORDERED: Succinylcholine* 20 MG/ML 10 ML VIAL ONE (13:04)
[2019-08-25] MEDS ORDERED: Lidocaine 2% PF * 5 ML VIAL ONE (13:04)
[2019-08-25] MEDS ORDERED: Propofol* 10 MG/ML 20 ML BTL ONE (13:04)
[2019-08-25] MEDS ORDERED: Cisatracurium* 2 MG/ML MDV 5 ML ONE (13:05)
[2019-08-25] MEDS ORDERED: EPHEDrine (Pressors)* 50 MG/ML VIAL ONE (13:39)
[2019-08-25] MEDS ORDERED: fentaNYL* 50 MCG/ML 2 ML VIAL (100 MCG VIAL) IV PRN (13:42)
[2019-08-25] MEDS ORDERED: Naloxone* 0.4 MG/ML 1 ML VIAL IV PRN (13:42)
[2019-08-25] MEDS ORDERED: HYDROcodone/ACETAMIN 5-325 MG* 1 TAB PO PRN (13:42)
[2019-08-25] MEDS ORDERED: DiMENhydriNATE IV* 50 MG/ML VIAL IV PUSH PRN (13:42)
[2019-08-25] MEDS ORDERED: diPHENhydraMINE IV* 50 MG/ML 1 ml VIAL (BENADRYL) IV PRN (13:42)
[2019-08-25] MEDS ORDERED: Levalbuterol 0.63MG/3ML NEB* UNIT OF USE INH PRN ×2 (13:42→15:30)
[2019-08-25] MEDS ORDERED: Ketorolac INJ* 30 MG/ML 1 ML VIAL ONE (14:25)
[2019-08-25] MEDS ORDERED: oxyCODONE/Acetamin 5/325 MG* TAB PO PRN (15:30)
[2019-08-25] MEDS ORDERED: Acetaminophen TAB* 325 MG PO PRN (15:30)
--- NOTE | 2019-08-25 15:31 | OP ---
Operative Report - Detailed - Operation Details Date of Operation: 08/25/19 Date of : 1960 Surgeon(s): Dr. Cain Lion Trainer(s): MANOJ Brannon Anesthesiologist(s): Dr Ho Anesthesia: GET Pre-Op Diagnosis: Umbilical Hernia Post-Op Diagnosis: Umbilical Hernia Planned Operative Procedure(s): Open Repair of Umbilical Hernia with mesh Estimated Blood Loss: minimal IV Fluids: 700cc crystaloid
[2019-08-25 17:26] VITALS: BP 131/60
--- NOTE | 2019-08-25 22:54 | OP ---
DATE OF OPERATION: 08/25/19 - ROOM #338 DATE OF : 58 SURGEON: Jamison Cain MD CATEGORY SPECIALIST: BERNA Gallagher ANESTHESIOLOGIST: Dr. Ho. ANESTHESIA: General with local. PRE-OP DIAGNOSIS: Incarcerated umbilical hernia. POST-OP DIAGNOSIS: Incarcerated umbilical hernia with omental fat incarceration. OPERATIVE PROCEDURE: Open repair with mesh of an incarcerated primary umbilical hernia. ESTIMATED BLOOD LOSS: Minimal. IV FLUIDS: 800 cc of crystalloid. SPECIMEN: None. WOUND CLASSIFICATION: I. COMPLICATIONS: None. DRAINS: None. DESCRIPTION OF PROCEDURE: Written informed consent was obtained. The abdomen was marked with indelible ink and preoperative antibiotics were administered. The patient was taken to the operating room and placed in the supine position. Sequential compression devices and a warming blanket were applied. General anesthesia was administered. The abdomen was prepped and draped in the usual sterile fashion. Time-out verification was completed. Initially a 0.5% Marcaine was infiltrated extensively in the periumbilical area and a semicircular incision was made just below the umbilicus at the midline and carried down to the midline fascia. We were able to identify the inferior border of the fascial defect and using a combination of sharp and blunt dissection, I was able to encircle the hernia sac and extended up into the subcutaneous space and then an one-quarter inch [place] drain was then placed to encircle the entire umbilical stalk. The overlying redundant umbilical skin was then excised off a rather large hernia sac. It extended up through a fascial defect, which was approximately 3 cm in size. This was quite adherent and scarred, but once this was complete, we were able to identify the entire sac as well as the fascial defect as described above. I did enter the hernia sac and this was opened. This contained a large amount of omentum, which was scarred to the inner side of the peritoneum and this was taken down sharply and the omentum was placed into the abdominal cavity and then proceeded to develop the preperitoneal space directly behind the midline fascia in preparation for placing the mesh. Once this was completed, I excised over the redundant peritoneum and this was closed with a running locked 3-0 Vicryl suture and placed back within the abdominal cavity. I then placed an 8.4 cm diameter Bard dual-coated mesh into the preperitoneal space in the appropriate orientation. It was sutured to the other side of the fascia with four separate 0 Vicryl horizontal mattress sutures. The straps were then cut. The mesh sat nicely without wrinkling and had generous overlap of the hernia defect. The cahto fascia was then closed in a transverse orientation with interrupted 0 Ethibond sutures. The wound was irrigated. Hemostasis was ensured. The wound was then closed in layers of 3-0 and 4-0 Vicryl suture. Skin glue was placed and a compressive dressing to maintain some light pressure over the umbilical skin was placed. An occlusive dressing was then placed over this. The patient tolerated the procedure well and was taken to recovery room in stable condition. [id number]/[facility] #: [id number] HOME
--- NOTE | 2019-08-26 15:18 | DS ---
AMENDED REPORT NOW INCLUDES DESIGNATED COSIGNER DISCHARGE SUMMARY: DATE OF ADMISSION: 08/23/19 DATE OF DISCHARGE: 08/25/19 SURGEON: Dr. Jmaison Cain.* (DICTATED BY BERNA ANTUNEZ) DIAGNOSIS ON ADMISSION: Incarcerated umbilical hernia. DIAGNOSIS ON DISCHARGE: Status post open repair of incarcerated umbilical hernia with mesh. REASON FOR ADMISSION: Umbilical hernia. HOSPITAL COURSE: The patient was seen in the emergency department and the hernia was reduced. The patient was then admitted to the floor for observation and then taken to the operating room on 08/25/[address] Cain for open repair of umbilical hernia with mesh. The patient tolerated the procedure well , was then transferred to the recovery room and then returned to the surgical care unit for postoperative observation for pain. Later on, on 08/25/19, the patient was comfortable, pain well controlled, and he wished to be discharged home. On physical exam, chest was clear to ascultation, heart rate was regular, abdomen was non distended, dressing were clean dry and intact, Patient was seen by Dr Cain and requested discharge. He was discharged home in stable condition with his daughter. Discharge instructions given regarding his diet, his medications, activity and for followup at the office. The patient understood these things well. All questions were answered. DISCHARGE CONDITION: The patient was discharged home in stable condition in the company of his daughter on 08/25/19. BERNA ANTUNEZ [id number]/[facility] #: [id number] [facility]
== END 2019-08-25 18:00 | disposition home or self-care (01) | DRG 355 ==
LOC: ED 09:35 → SSU 13:48
PROVIDERS: ADMIT Surgery; ATTEND Surgery
PROC: 0WUF0JZ Supplement Abdominal Wall with Synthetic Substitute, Open Approach (ICD-10-PCS; principal; 2019-08-25 17:00)
DX: K42.0 Umbilical hernia with obstruction, without gangrene (principal); G89.29 Other chronic pain; G40.909 Epilepsy, unspecified, not intractable, without status epilepticus; M54.9 Dorsalgia, unspecified; F17.210 Nicotine dependence, cigarettes, uncomplicated; I50.9 Heart failure, unspecified; J44.9 Chronic obstructive pulmonary disease, unspecified; K21.9 Gastro-esophageal reflux disease without esophagitis; F41.9 Anxiety disorder, unspecified; F32.9 Major depressive disorder, single episode, unspecified; R73.03 Prediabetes; Z88.0 Allergy status to penicillin; Z23 Encounter for immunization
CPT/HCPCS: 36415; 74177; 80048; 80053; 83605; 85025; 85060; 86140; 94640; 96374; 96375; 99283; A9270-GY; C1781; J0330; J1100; J1170; J1885; J2060; J2250; J2270; J2405; J2704; J3010; J3490; J3535; Q9967

== ENCOUNTER 2019-11-12 14:09 | Emergency (ER) | payer MEDICARE ==
--- NOTE | 2019-11-12 14:25 | ED ---
Palpitations / Dysrhythmia - HPI Summary HPI Summary: The patient is a 59 y/o M presenting to [facility] with a chief complaint of possible new onset atrial fibrillation concern from PCP today although patient is asymptomatic. Patient reports he went to his PCP today for a checkup and had an EKG taken that the provider read as afib. He has mild edema in the BLE. He denies any CP, palpitations, dizziness, SOB, diarrhea, or vomiting. He is not in any pain and feels well in the ED. Cardiac history includes CHF, placed on Lasix. Exercises regularly. PMHx: COPD, GERD, borderline DM with neuropathy, arthritis, anxiety. Heavy every day cigarette smoker, previous EtOH abuse, no substance use. Medications reviewed. Allergies noted. - History of Current Complaint Chief Complaint: EDDysrhythmPalp Time Seen by Provider: 11/12/19 14:16 Hx Obtained From: Patient Onset/Duration: Other - patient not experiencing symptoms Severity Currently: None Aggravating: Nothing Alleviating: Nothing Associated Signs & Symptoms: Negative - Allergy/Home Medications Allergies/Adverse Reactions: Allergies Allergy/AdvReac Type Severity Reaction Status Date / Time Penicillins Allergy Rash Verified 08/23/19 09:40 PMH/Surg Hx/FS Hx/Imm Hx Endocrine/Hematology History: Reports: Hx Diabetes - BORDERLINE-NO MEDS Cardiovascular History: Reports: Hx Congestive Heart Failure Denies: Hx Hypertension, Hx Pacemaker/ICD Respiratory History: Reports: Hx Chronic Obstructive Pulmonary Disease (COPD), Hx Seasonal Allergies Denies: Hx Asthma, Hx Lung Cancer - family hx GI History: Reports: Hx Gastroesophageal Reflux Disease History: Denies: Hx Renal Disease Musculoskeletal History: Reports: Hx Arthritis, Hx Back Problems Sensory History: Denies: Hx Contacts or Glasses, Hx Legally Blind, Hx Deafness, Hx Hearing Aid Opthamlomology History: Denies: Hx Contacts or Glasses, Hx Legally Blind Neurological History: Reports: Hx Nerve Disease - Neuropathy, Hx Seizures, Other Neuro Impairments/Disorders - 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 VEIN REPLACE IN LEFT ARM Hx Anesthesia Reactions: No Infectious Disease History: No Infectious Disease History: Denies: Traveled Outside the [place] in Last 30 Days - Family History Known Family History: Negative: Hypertension - Social History Alcohol Use: Denied currently, hx of ETOH use Alcohol Amount: ETOH abuse noted in H&P but daughter cannot specify Hx Substance Use: No Substance Use Type: Reports: None Substance Use Comment - Amount & Last Used: Drug use per H&P, but daughter cannot report Hx Tobacco Use: Yes Smoking Status (MU): Heavy Every Day Tobacco Smoker Type: Cigarettes Review of Systems Negative: Palpitations, Chest Pain Negative: Shortness Of Breath Negative: Vomiting, Diarrhea Positive: Edema Neurological: Other - Negative: dizziness All Other Systems Reviewed And Are Negative: Yes Physical Exam - Summary Physical Exam Summary: Constitutional: Well-developed, Well-nourished, Alert. (-) Distressed Skin: Warm, Dry HENT: Normocephalic; Atraumatic Eyes: Conjunctiva normal Neck: Musculoskeletal ROM normal neck. (-) JVD, (-) Stridor, (-) Tracheal deviation Cardio: Rhythm regular, rate normal, Heart sounds normal; Intact distal pulses; Radial pulses are 2+ and symmetric. (-) Murmur Pulmonary/Chest wall: Effort normal. (-) Respiratory distress, (-) Wheezes, (-) Rales Abd: Soft, (-) tenderness, (-) Distension, (-) Guarding, (-) Rebound Musculoskeletal: (+) 1+ Pitting edema bilaterally Lymph: (-) Cervical adenopathy Neuro: Alert, Oriented x3 Psych: Mood and affect Normal Triage Information Reviewed: Yes Vital Signs On Initial Exam: Initial Vitals Temp Pulse Resp BP Pulse Ox 97.1 F 79 16 142/89 98 11/12/19 14:10 11/12/19 14:10 11/12/19 14:10 11/12/19 14:10 11/12/19 14:10 Vital Signs Reviewed: Yes Procedures - Sedation Patient Received Moderate/Deep Sedation with Procedure: No Diagnostics - Vital Signs Vital Signs Temp Pulse Resp BP Pulse Ox 11/12/19 14:10 97.1 F 79 16 142/89 98 - Laboratory Result Diagrams: 11/12/19 15:24 11/12/19 15:24 Lab Statement: Any lab studies that have been ordered have been reviewed, and results considered in the medical decision making process. - EKG 1418 Cardiac Rate: Other Rate - 74 bpm Summary of EKG Findings: An EKG at 1418 reveals sinus arrhythmia at 74 bpm. No obvious ischemic changes. ED jankian has reviewed and interpreted this EKG. Re-Evaluation - Re-Evaluation First Eval Re-Evaluation Time: 16:15 Comment: We discussed results thus far and plan for further treatment. Second Eval Re-Evaluation Time: 18:15 Change: Improved Comment: We discussed results and plan for discharge. Course/Dx - Course Course Of Treatment: Patient is here possible new onset A. fib. Patient EKG performed as an outpatient which showed a lot of baseline artifact and was nearly unreadable. The EKG did not show any obvious evidence of A. fib. Patient's sinus arrhythmia. Patient had blood or performed showed hypomagnesemia and hypokalemia. Patient was given 2 g of IV magnesium, 20 mEq of IV potassium, and 40 mg of by mouth potassium. Given patient's asymptomatic nature he was discharged with by mouth magnesium and potassium - Diagnoses Provider Diagnoses: Sinus arrhythmia, Hypomagnesemia, Hypokalemia Discharge ED - Sign-Out/Discharge Documenting (check all that apply): Patient Departure - Patient will be discharged home. - Discharge Plan Condition: Stable Disposition: HOME Prescriptions: Magnesium 30 mg PO QAM 30 Days #30 tablet Potassium Chlor TAB* [Potassium Chlor TAB 20 MEQ*] 40 meq PO DAILY 30 Days #30 tab.er Patient Education Materials: Hypokalemia (ED), Hypomagnesemia (ED) Referrals: Xochitl Schofield [Primary Care Provider] - 3 Days Additional Instructions: Please take magnesium and sodium as prescribed. Follow up with your primary care provider in 1-3 days to have your labs rechecked. Return to the emergency department for any new or worsening symptoms. - Billing Disposition and Condition Condition: STABLE Disposition: Home - Attestation Statements Document Initiated by Amayaibe: Yes Documenting Scribe: Ellie Chanel Provider For Whom Pricilla is Documenting (Include Credential): Dr. Celso Brito MD Scribe Attestation: Ellie Shore, thomased for Dr. Celso Brito MD on 11/12/19 at 2104. Scribe Documentation Reviewed: Yes Provider Attestation: The documentation as recorded by the Ellie ryan accurately reflects the service I personally performed and the decisions made by me, Dr. Celso Brito MD Status of Scribe Document: Viewed
[2019-11-12 15:35] LABS: ABS Basophils 0.1 10^3/ul (0-0.2); ABS Eosinophils 0.2 10^3/ul (0-0.6); ABS Lymphocytes 2.1 10^3/ul (1.0-4.8); ABS Monocytes 0.7 10^3/ul (0-0.8); ABS Neutrophils 4.7 10^3/ul (1.5-7.7); Eosinophil % 2.1 %; Hematocrit 40 % (42-52); Hemoglobin 14.3 g/dL (14.0-18.0); Lymphocyte % 26.9 %; Mean Corpuscular HGB Conc 36 g/dL (31-36); Mean Corpuscular Hemoglobin 33 pg (27-31); Mean Corpuscular Volume 94 fL (80-94); Mean Platelet Volume 6.8 fL (7.4-10.4); Nucleated Red Blood Cells % 0.1; Platelet Count 422 10^3/uL (150-450); Red Blood Count 4.28 10^6 /uL (4.18-5.48); Red Cell Distribution Width 17 % (10-15); White Blood Count 7.6 10^3/uL (3.5-10.8)
[2019-11-12 15:49] LABS: BUN/Creatinine Ratio 9.3 (8-20); Calcium 7.8 mg/dL (8.6-10.3); EGFR African American 95.5 (>60); EGFR Non-African American 78.9 (>60); Magnesium 1.2 mg/dL (1.9-2.7)
[2019-11-12 15:51] LABS: Potassium 2.7 mmol/L (3.5-5.0)
[2019-11-12] MEDS ORDERED: Magnesium Sulfate 2 GM IV* 2 GM/50 ML BAG IVPB ONE (16:13)
[2019-11-12] MEDS ORDERED: KCL 20 MEQ/100 ML IVPREMIX* 20 MEQ/100 ML BAG IV ONE (16:14)
[2019-11-12] MEDS ORDERED: Potassium Chlor TAB* 20 MEQ TAB.ER PO ONE (16:14)
[2019-11-12] MEDS ORDERED: LORazepam TAB(*) 1 MG PO ONE (16:31)
[2019-11-12 18:42] VITALS: BP 145/86
== END 2019-11-12 18:41 | disposition home or self-care (01) ==
LOC: ED 14:09
DX: I49.9 Cardiac arrhythmia, unspecified (principal); E83.42 Hypomagnesemia; E87.6 Hypokalemia; I50.9 Heart failure, unspecified; J44.9 Chronic obstructive pulmonary disease, unspecified; K21.9 Gastro-esophageal reflux disease without esophagitis; F41.9 Anxiety disorder, unspecified; F32.9 Major depressive disorder, single episode, unspecified; F17.210 Nicotine dependence, cigarettes, uncomplicated; Z88.0 Allergy status to penicillin
CPT/HCPCS: 36415; 80048; 83735; 83880; 85025; 93005; 96365; 99283; A9270-GY; J3475; J3480

== ENCOUNTER 2020-10-18 18:31 | Inpatient (IN) ==
[2020-10-18 20:11] LABS: ABS Basophils 0.1 10^3/ul (0-0.2); ABS Eosinophils 0.1 10^3/ul (0-0.6); ABS Lymphocytes 1.2 10^3/ul (1.0-4.8); ABS Monocytes 0.9 10^3/ul (0-0.8); ABS Neutrophils 5.1 10^3/ul (1.5-7.7); Eosinophil % 1.5 %; Hematocrit 34 % (42-52); Lymphocyte % 16.6 %; Mean Corpuscular HGB Conc 32 g/dL (31-36); Mean Corpuscular Hemoglobin 25 pg (27-31); Mean Corpuscular Volume 78 fL (80-94); Mean Platelet Volume 6.9 fL (7.4-10.4); Platelet Count 294 10^3/uL (150-450); Red Cell Distribution Width 18 % (10-15); White Blood Count 7.4 10^3/uL (3.5-10.8)
[2020-10-18 20:30] LABS: ALT 9 U/L (7-52); AST 14 U/L (13-39); Albumin 3.6 g/dL (3.2-5.2); Albumin/Globulin Ratio 1.2 (1-3); Alkaline Phosphatase 100 U/L (34-104); Anion Gap 6 mmol/L (2-11); BUN/Creatinine Ratio 12.2 (8-20); Blood Urea Nitrogen 11 mg/dL (6-24); C Reactive Protein 42.86 mg/L (<8.01); CO2 Carbon Dioxide 35 mmol/L (22-32); Calcium 8.8 mg/dL (8.6-10.3); Chloride 83 mmol/L (101-111); EGFR African American 103.8 (>60); EGFR Non-African American 85.8 (>60); Globulin 2.9 g/dL (2-4); Glucose 106 mg/dL (70-100); Magnesium 1.4 mg/dL (1.9-2.7); Potassium 3.5 mmol/L (3.5-5.0); Sodium 124 mmol/L (135-145); Total Protein 6.5 g/dL (6.4-8.9)
[2020-10-18 20:34] LABS: Troponin I 0.03 ng/mL (<0.03)
[2020-10-18] MEDS ORDERED: Clindamycin 600 MG/D5W BAG 600 MG/50 ML BAG IV ONE (21:00)
[2020-10-18] MEDS ORDERED: NS 0.9% 250 ml 250 ML IV ONE (21:04)
[2020-10-18] MEDS ORDERED: Vancomycin 1,500 MG in NS 0.9% 250 ml 250 ML IVPB ONE (21:05)
[2020-10-18] MEDS ORDERED: Cefepime 2 GM in Dextrose 2 GM/50 ML BAG IV ONE (21:05)
[2020-10-18 21:35] LABS: Erythrocyte Sed Rate 15 mm/Hr (0-19)
[2020-10-18] MEDS ORDERED: Lidocaine/Epineph/Tetraca GEL 3 ML GEL IN SYR TOPICAL ONE (21:52)
[2020-10-18] MEDS ORDERED: Tetan/Diph/Pertus SYR(Tdap) 0.5 ML SYR(BOOSTRIX) use SYR contains LATEX IM ONE (21:52)
[2020-10-18] MEDS ORDERED: Albuterol/Ipratropium NEB.SOL (2.5/0.5 MG) 3 ML NEB.SOLN INH PRN (23:38)
[2020-10-18] MEDS ORDERED: KCL 20 MEQ/100 ML IVPREMIX 20 MEQ/100 ML BAG IV ONE (23:43)
[2020-10-18] MEDS ORDERED: Magnesium Sulf 4 GM/100 ML IV 4,000 MG/100 ML BAG IVPB ONE (23:43)
[2020-10-18] MEDS: Heparin 5000 UNITS/ML 1 mL VIAL SUBCUT SCH (23:57)
[2020-10-19] MEDS: Heparin 5000 UNITS/ML 1 mL VIAL SUBCUT SCH ×3 (00:31→15:27)
[2020-10-19] MEDS: Furosemide 40 mg/4 ml IV VIAL IV SLOW PU SCH ×2 (00:32→09:05)
[2020-10-19] MEDS ORDERED: Cefepime 2 GM in Dextrose 2 GM/50 ML BAG IV SCH (02:00)
[2020-10-19] MEDS ORDERED: Vancomycin per Pharmacy 1 EA NOTE FOLLOW UP SCH (02:00)
[2020-10-19] MEDS ORDERED: Dextrose 50% Syringe 50 ml 25 GM/50 ML SYRINGE IV PUSH PRN (02:32)
[2020-10-19] MEDS: metroNIDAZOLE IV 500 MG/100ML 500 MG/100 ML BAG IVPB SCH ×3 (03:53→18:09)
[2020-10-19 04:19] LABS: Urine Appearance Clear; Urine Bilirubin Negative (Negative); Urine Blood Negative (Negative); Urine Color Straw; Urine Glucose Negative (Negative); Urine Ketones Negative (Negative); Urine Nitrite Negative (Negative); Urine Protein Negative (Negative); Urine Specific Gravity 1.002 (1.010-1.030); Urine Urobilinogen Negative (Negative)
[2020-10-19 06:22] LABS: ABS Basophils 0.1 10^3/ul (0-0.2); ABS Eosinophils 0.2 10^3/ul (0-0.6); ABS Monocytes 0.8 10^3/ul (0-0.8); Hematocrit 31 % (42-52); Hemoglobin 10.1 g/dL (14.0-18.0); Lymphocyte % 20.6 %; Mean Corpuscular HGB Conc 32 g/dL (31-36); Mean Corpuscular Hemoglobin 25 pg (27-31); Mean Corpuscular Volume 78 fL (80-94); Nucleated Red Blood Cells % 0.1; Platelet Count 242 10^3/uL (150-450); Red Blood Count 4.03 10^6 /uL (4.18-5.48); Red Cell Distribution Width 18 % (10-15)
[2020-10-19 06:43] LABS: Anion Gap 6 mmol/L (2-11); BUN/Creatinine Ratio 11.7 (8-20); Blood Urea Nitrogen 9 mg/dL (6-24); CO2 Carbon Dioxide 35 mmol/L (22-32); Calcium 8.2 mg/dL (8.6-10.3); Chloride 88 mmol/L (101-111); EGFR African American 124.3 (>60); EGFR Non-African American 102.7 (>60); Glucose 96 mg/dL (70-100); Potassium 3.3 mmol/L (3.5-5.0); Sodium 129 mmol/L (135-145)
[2020-10-19] MEDS: Tiotropium Brom/Olodaterol MDI INH SCH (07:21)
[2020-10-19] MEDS: Mometasone 220 MCG MDI INH SCH (07:21)
[2020-10-19] MEDS ORDERED: Potassium Chlor 20 meq TAB.ER PO ONE (08:26)
[2020-10-19] MEDS ORDERED: Potassium Chlor 10 meq TAB PO ONE (08:35)
[2020-10-19 08:58] LABS: Magnesium 1.9 mg/dL (1.9-2.7)
[2020-10-19 09:37] LABS: Total Iron Binding Capacity 459 mcg/dL (250-450); Transferrin 328 mg/dL (203-362)
[2020-10-19 09:39] LABS: % Iron Saturation 4 % (15-55); Iron < 20 ug/dL (50-212); Unsaturated Iron Binding < 444 ug/dL
[2020-10-19 09:58] LABS: Ferritin 12.6 ng/mL (24-336)
[2020-10-19] MEDS: Cefepime 2 GM in Dextrose 2 GM/50 ML BAG IV SCH ×2 (10:28→22:20)
[2020-10-19] MEDS ORDERED: Perflutren Lipid Microsphere 3 ML VIAL ONE (12:24)
[2020-10-19] MEDS: Vancomycin 1,750 MG in NS 0.9% 500 ml BAG 500 ML IVPB SCH ×2 (12:48→23:34)
[2020-10-19] MEDS: Benzocaine/Menthol LOZ PO PRN (15:27)
[2020-10-19] MEDS: Nicotine PATCH 21 MG/24 HR PATCH TRANSDERM SCH (15:27)
[2020-10-20] MEDS: Heparin 5000 UNITS/ML 1 mL VIAL SUBCUT SCH ×4 (00:14→23:21)
[2020-10-20] MEDS: Benzocaine/Menthol LOZ PO PRN (00:18)
[2020-10-20] MEDS: metroNIDAZOLE IV 500 MG/100ML 500 MG/100 ML BAG IVPB SCH ×3 (02:26→20:47)
[2020-10-20 06:25] LABS: ABS Basophils 0.1 10^3/ul (0-0.2); ABS Eosinophils 0.2 10^3/ul (0-0.6); ABS Monocytes 0.8 10^3/ul (0-0.8); ABS Neutrophils 2.5 10^3/ul (1.5-7.7); Eosinophil % 3.4 %; Hematocrit 32 % (42-52); Hemoglobin 10.1 g/dL (14.0-18.0); Lymphocyte % 21.4 %; Mean Corpuscular HGB Conc 32 g/dL (31-36); Mean Corpuscular Hemoglobin 25 pg (27-31); Mean Corpuscular Volume 78 fL (80-94); Mean Platelet Volume 6.9 fL (7.4-10.4); Nucleated Red Blood Cells % 0.1; Platelet Count 247 10^3/uL (150-450); Red Blood Count 4.06 10^6 /uL (4.18-5.48); Red Cell Distribution Width 19 % (10-15); White Blood Count 4.5 10^3/uL (3.5-10.8)
[2020-10-20 06:40] LABS: Calcium 8.6 mg/dL (8.6-10.3); EGFR African American 132.2 (>60); EGFR Non-African American 109.2 (>60); Potassium 3.6 mmol/L (3.5-5.0)
[2020-10-20] MEDS: Mometasone 220 MCG MDI INH SCH (07:59)
[2020-10-20] MEDS: Tiotropium Brom/Olodaterol MDI INH SCH (08:00)
[2020-10-20] MEDS ORDERED: Influenza VAC *QUAD* 2020-21* 0.5 ML SYRINGE IM ONE (09:00)
[2020-10-20] MEDS ORDERED: Vancomycin Trough Check NOTE FOLLOW UP ONE (09:30)
[2020-10-20] MEDS: Furosemide 40 mg/4 ml IV VIAL IV SLOW PU SCH (10:03)
[2020-10-20] MEDS: Nicotine PATCH 21 MG/24 HR PATCH TRANSDERM SCH (12:17)
[2020-10-20] MEDS: Cefepime 2 GM in Dextrose 2 GM/50 ML BAG IV SCH ×2 (12:18→22:34)
[2020-10-20] MEDS: Vancomycin 1,750 MG in NS 0.9% 500 ml BAG 500 ML IVPB SCH ×2 (12:19→23:22)
[2020-10-20] MEDS ORDERED: Iohexol 350 (CONTRAST) 500 ML MDV IV ONE (13:58)
[2020-10-21] MEDS: metroNIDAZOLE IV 500 MG/100ML 500 MG/100 ML BAG IVPB SCH ×4 (02:00→23:01)
[2020-10-21 06:19] LABS: Hematocrit 30 % (42-52); Hemoglobin 9.6 g/dL (14.0-18.0); Mean Corpuscular HGB Conc 32 g/dL (31-36); Mean Corpuscular Hemoglobin 25 pg (27-31); Mean Corpuscular Volume 78 fL (80-94); Mean Platelet Volume 6.6 fL (7.4-10.4); Platelet Count 223 10^3/uL (150-450); Red Cell Distribution Width 18 % (10-15); White Blood Count 4.6 10^3/uL (3.5-10.8)
[2020-10-21 06:34] LABS: BUN/Creatinine Ratio 9.6 (8-20); Calcium 8.4 mg/dL (8.6-10.3); EGFR Non-African American 94.2 (>60); Magnesium 1.6 mg/dL (1.9-2.7); Potassium 3.5 mmol/L (3.5-5.0)
[2020-10-21] MEDS: Mometasone 220 MCG MDI INH SCH (07:05)
[2020-10-21 07:16] LABS: ABS Basophils 0.1 10^3/ul (0-0.2); ABS Eosinophils 0.2 10^3/ul (0-0.6); ABS Lymphocytes 1.1 10^3/ul (1.0-4.8); ABS Monocytes 0.7 10^3/ul (0-0.8); ABS Neutrophils 2.5 10^3/ul (1.5-7.7); Eosinophil % 4.7 %; Lymphocyte % 24.1 %
[2020-10-21] MEDS ORDERED: Magnesium Sulf 4 GM/100 ML IV 4,000 MG/100 ML BAG IVPB ONE (07:22)
[2020-10-21] MEDS ORDERED: Potassium Chlor 20 meq TAB.ER PO ONE (08:30)
[2020-10-21] MEDS: Tiotropium Brom/Olodaterol MDI INH SCH (08:45)
[2020-10-21] MEDS: Heparin 5000 UNITS/ML 1 mL VIAL SUBCUT SCH ×3 (08:54→23:51)
[2020-10-21] MEDS: Nicotine PATCH 21 MG/24 HR PATCH TRANSDERM SCH (10:19)
[2020-10-21] MEDS: Cefepime 2 GM in Dextrose 2 GM/50 ML BAG IV SCH ×2 (10:21→21:45)
[2020-10-21] MEDS: Vancomycin 1,750 MG in NS 0.9% 500 ml BAG 500 ML IVPB SCH ×2 (12:08→21:37)
[2020-10-22 05:51] LABS: BUN/Creatinine Ratio 8.6 (8-20); Calcium 8.2 mg/dL (8.6-10.3); EGFR African American 117.2 (>60); EGFR Non-African American 96.9 (>60); Potassium 3.6 mmol/L (3.5-5.0)
[2020-10-22] MEDS: metroNIDAZOLE IV 500 MG/100ML 500 MG/100 ML BAG IVPB SCH ×3 (06:00→23:18)
[2020-10-22] MEDS: Tiotropium Brom/Olodaterol MDI INH SCH ×2 (07:18→10:39)
[2020-10-22] MEDS: Mometasone 220 MCG MDI INH SCH ×2 (07:18→10:39)
[2020-10-22 08:20] LABS: Magnesium 1.9 mg/dL (1.9-2.7)
[2020-10-22] MEDS: Heparin 5000 UNITS/ML 1 mL VIAL SUBCUT SCH ×3 (09:25→22:22)
[2020-10-22] MEDS: Nicotine PATCH 21 MG/24 HR PATCH TRANSDERM SCH (09:29)
[2020-10-22] MEDS: Cefepime 2 GM in Dextrose 2 GM/50 ML BAG IV SCH ×2 (09:29→22:20)
[2020-10-22] MEDS ORDERED: Vancomycin Trough Check NOTE FOLLOW UP ONE (09:30)
[2020-10-22] MEDS: Vancomycin 1,750 MG in NS 0.9% 500 ml BAG 500 ML IVPB SCH (11:18)
[2020-10-22] MEDS: Albuterol/Ipratropium NEB.SOL (2.5/0.5 MG) 3 ML NEB.SOLN INH SCH ×2 (14:41→19:48)
[2020-10-23] MEDS ORDERED: Vancomycin Random Level NOTE FOLLOW UP ONE (06:00)
[2020-10-23] MEDS: metroNIDAZOLE IV 500 MG/100ML 500 MG/100 ML BAG IVPB SCH ×4 (06:19→23:29)
[2020-10-23] MEDS: Albuterol/Ipratropium NEB.SOL (2.5/0.5 MG) 3 ML NEB.SOLN INH SCH ×4 (07:18→19:59)
[2020-10-23] MEDS: Mometasone 220 MCG MDI INH SCH ×2 (07:18→10:03)
[2020-10-23] MEDS: Tiotropium Brom/Olodaterol MDI INH SCH ×2 (07:18→10:03)
[2020-10-23] MEDS: Heparin 5000 UNITS/ML 1 mL VIAL SUBCUT SCH ×2 (08:07→15:41)
[2020-10-23] MEDS: Nicotine PATCH 21 MG/24 HR PATCH TRANSDERM SCH (08:13)
[2020-10-23] MEDS: Vancomycin 1,250 MG in NS 0.9% 250 ml 250 ML IVPB SCH ×2 (08:22→20:34)
[2020-10-23] MEDS: Cefepime 2 GM in Dextrose 2 GM/50 ML BAG IV SCH ×3 (11:31→22:25)
[2020-10-23 20:00] LABS: ABS Basophils 0.1 10^3/ul (0-0.2); ABS Eosinophils 0.3 10^3/ul (0-0.6); ABS Lymphocytes 1.3 10^3/ul (1.0-4.8); ABS Monocytes 0.9 10^3/ul (0-0.8); Eosinophil % 4.7 %; Hematocrit 33 % (42-52); Hemoglobin 10.3 g/dL (14.0-18.0); Lymphocyte % 23.9 %; Mean Corpuscular HGB Conc 32 g/dL (31-36); Mean Corpuscular Hemoglobin 24 pg (27-31); Mean Corpuscular Volume 77 fL (80-94); Mean Platelet Volume 6.7 fL (7.4-10.4); Platelet Count 257 10^3/uL (150-450); Red Blood Count 4.23 10^6 /uL (4.18-5.48); Red Cell Distribution Width 18 % (10-15); White Blood Count 5.5 10^3/uL (3.5-10.8)
[2020-10-23 20:21] LABS: BUN/Creatinine Ratio 8.1 (8-20); Calcium 8.8 mg/dL (8.6-10.3); EGFR African American 109.4 (>60); EGFR Non-African American 90.4 (>60); Potassium 3.6 mmol/L (3.5-5.0)
[2020-10-23 20:24] LABS: Troponin I 0.02 ng/mL (<0.03)
[2020-10-23] MEDS ORDERED: Cefepime 2 GM in Dextrose 2 GM/50 ML BAG IV SCH (23:30)
[2020-10-24] MEDS: Heparin 5000 UNITS/ML 1 mL VIAL SUBCUT SCH ×3 (00:40→16:11)
[2020-10-24 04:44] LABS: ABS Basophils 0.1 10^3/ul (0-0.2); ABS Eosinophils 0.2 10^3/ul (0-0.6); ABS Lymphocytes 1.2 10^3/ul (1.0-4.8); ABS Monocytes 0.7 10^3/ul (0-0.8); ABS Neutrophils 2.4 10^3/ul (1.5-7.7); Eosinophil % 5.2 %; Hematocrit 30 % (42-52); Hemoglobin 9.4 g/dL (14.0-18.0); Mean Corpuscular HGB Conc 32 g/dL (31-36); Mean Corpuscular Hemoglobin 25 pg (27-31); Mean Corpuscular Volume 77 fL (80-94); Mean Platelet Volume 6.6 fL (7.4-10.4); Platelet Count 218 10^3/uL (150-450); Red Blood Count 3.83 10^6 /uL (4.18-5.48); Red Cell Distribution Width 18 % (10-15); White Blood Count 4.7 10^3/uL (3.5-10.8)
[2020-10-24 05:02] LABS: BUN/Creatinine Ratio 8.9 (8-20); Calcium 8.7 mg/dL (8.6-10.3); EGFR African American 120.7 (>60); EGFR Non-African American 99.7 (>60); Potassium 3.7 mmol/L (3.5-5.0)
[2020-10-24] MEDS: Mometasone 220 MCG MDI INH SCH (08:01)
[2020-10-24] MEDS: Albuterol/Ipratropium NEB.SOL (2.5/0.5 MG) 3 ML NEB.SOLN INH SCH ×4 (08:01→19:37)
[2020-10-24] MEDS: Tiotropium Brom/Olodaterol MDI INH SCH (08:02)
[2020-10-24] MEDS: metroNIDAZOLE IV 500 MG/100ML 500 MG/100 ML BAG IVPB SCH ×2 (08:15→16:11)
[2020-10-24] MEDS: Nicotine PATCH 21 MG/24 HR PATCH TRANSDERM SCH (08:15)
[2020-10-24] MEDS: Vancomycin 1,250 MG in NS 0.9% 250 ml 250 ML IVPB SCH ×2 (10:04→21:37)
[2020-10-24] MEDS: Cefepime 2 GM in Dextrose 2 GM/50 ML BAG IV SCH (12:48)
[2020-10-24 23:33] LABS: ABS Basophils 0.1 10^3/ul (0-0.2); ABS Eosinophils 0.3 10^3/ul (0-0.6); ABS Lymphocytes 1.3 10^3/ul (1.0-4.8); ABS Monocytes 0.7 10^3/ul (0-0.8); ABS Neutrophils 2.3 10^3/ul (1.5-7.7); Eosinophil % 5.3 %; Hematocrit 30 % (42-52); Hemoglobin 9.6 g/dL (14.0-18.0); Lymphocyte % 27.8 %; Mean Corpuscular HGB Conc 32 g/dL (31-36); Mean Corpuscular Hemoglobin 24 pg (27-31); Mean Corpuscular Volume 77 fL (80-94); Mean Platelet Volume 6.7 fL (7.4-10.4); Platelet Count 215 10^3/uL (150-450); Red Blood Count 3.91 10^6 /uL (4.18-5.48); Red Cell Distribution Width 18 % (10-15); White Blood Count 4.8 10^3/uL (3.5-10.8)
[2020-10-24 23:40] LABS: INR 1.22 (0.82-1.09)
[2020-10-24 23:50] LABS: Albumin 3.1 g/dL (3.2-5.2); Albumin/Globulin Ratio 1.1 (1-3); BUN/Creatinine Ratio 8.4 (8-20); Calcium 8.8 mg/dL (8.6-10.3); EGFR Non-African American 94.2 (>60); Globulin 2.7 g/dL (2-4); Potassium 3.3 mmol/L (3.5-5.0); Total Bilirubin 0.7 mg/dL (0.2-1.0); Total Protein 5.8 g/dL (6.4-8.9)
[2020-10-25] MEDS ORDERED: Potassium Chlor 20 meq TAB.ER PO ONE ×2 (00:15→07:13)
[2020-10-25] MEDS ORDERED: Furosemide 40 mg/4 ml IV VIAL IV ONE (00:16)
[2020-10-25] MEDS ORDERED: Iodixanol (CONTRAST) 320 MG/ML 100 ML SDV IV ONE (00:27)
[2020-10-25] MEDS: Heparin 5000 UNITS/ML 1 mL VIAL SUBCUT SCH ×3 (01:07→16:12)
[2020-10-25] MEDS: metroNIDAZOLE IV 500 MG/100ML 500 MG/100 ML BAG IVPB SCH ×2 (01:16→10:28)
[2020-10-25] MEDS: Cefepime 2 GM in Dextrose 2 GM/50 ML BAG IV SCH ×2 (03:19→12:21)
[2020-10-25 06:43] LABS: ABS Basophils 0.1 10^3/ul (0-0.2); ABS Eosinophils 0.3 10^3/ul (0-0.6); ABS Monocytes 0.8 10^3/ul (0-0.8); ABS Neutrophils 2.6 10^3/ul (1.5-7.7); Eosinophil % 5.8 %; Hematocrit 30 % (42-52); Hemoglobin 9.3 g/dL (14.0-18.0); Lymphocyte % 20.8 %; Mean Corpuscular HGB Conc 32 g/dL (31-36); Mean Corpuscular Hemoglobin 25 pg (27-31); Mean Corpuscular Volume 77 fL (80-94); Mean Platelet Volume 6.6 fL (7.4-10.4); Platelet Count 217 10^3/uL (150-450); Red Blood Count 3.82 10^6 /uL (4.18-5.48); Red Cell Distribution Width 19 % (10-15); White Blood Count 4.7 10^3/uL (3.5-10.8)
[2020-10-25] MEDS: Albuterol/Ipratropium NEB.SOL (2.5/0.5 MG) 3 ML NEB.SOLN INH SCH ×4 (07:02→19:17)
[2020-10-25 07:03] LABS: BUN/Creatinine Ratio 8.8 (8-20); Calcium 8.5 mg/dL (8.6-10.3); EGFR African American 118.9 (>60); EGFR Non-African American 98.3 (>60); Magnesium 1.5 mg/dL (1.9-2.7); Potassium 3.7 mmol/L (3.5-5.0)
[2020-10-25] MEDS: Tiotropium Brom/Olodaterol MDI INH SCH (07:12)
[2020-10-25] MEDS: Mometasone 220 MCG MDI INH SCH (07:14)
[2020-10-25] MEDS ORDERED: Vancomycin Trough Check NOTE FOLLOW UP ONE (07:30)
[2020-10-25] MEDS ORDERED: Magnesium Sulfate IV 3 GM in NS 0.9% 100 ml BAG 100 ML IVPB ONE (07:30)
[2020-10-25 07:47] LABS: EGFR African American 115.6 (>60); EGFR Non-African American 95.5 (>60)
[2020-10-25] MEDS: Nicotine PATCH 21 MG/24 HR PATCH TRANSDERM SCH (08:02)
[2020-10-25] MEDS: Vancomycin 1,250 MG in NS 0.9% 250 ml 250 ML IVPB SCH ×2 (10:10→19:12)
[2020-10-25] MEDS ORDERED: metroNIDAZOLE IV 500 MG/100ML 500 MG/100 ML BAG IVPB SCH (12:00)
[2020-10-25 13:42] LABS: C Reactive Protein 11.98 mg/L (<8.01)
[2020-10-25] MEDS: cefTRIAXone 2 GM ADDV.VIAL 2 GM in NS 0.9% 100 ml BAG 100 ML IV SCH (22:15)
[2020-10-25 22:46] LABS: BUN/Creatinine Ratio 7.6 (8-20); Calcium 8.7 mg/dL (8.6-10.3); EGFR African American 120.7 (>60); EGFR Non-African American 99.7 (>60); Magnesium 1.6 mg/dL (1.9-2.7); Potassium 3.5 mmol/L (3.5-5.0)
[2020-10-26 04:00] LABS: ABS Basophils 0.2 10^3/ul (0-0.2); ABS Eosinophils 0.4 10^3/ul (0-0.6); ABS Lymphocytes 1.4 10^3/ul (1.0-4.8); ABS Monocytes 0.9 10^3/ul (0-0.8); ABS Neutrophils 2.8 10^3/ul (1.5-7.7); Eosinophil % 6.4 %; Hematocrit 30 % (42-52); Hemoglobin 9.5 g/dL (14.0-18.0); Lymphocyte % 24.9 %; Mean Corpuscular HGB Conc 32 g/dL (31-36); Mean Corpuscular Hemoglobin 24 pg (27-31); Mean Corpuscular Volume 77 fL (80-94); Mean Platelet Volume 6.5 fL (7.4-10.4); Platelet Count 235 10^3/uL (150-450); Red Cell Distribution Width 19 % (10-15); White Blood Count 5.6 10^3/uL (3.5-10.8)
[2020-10-26 04:05] LABS: INR 1.21 (0.82-1.09)
[2020-10-26 04:17] LABS: BUN/Creatinine Ratio 8.1 (8-20); Calcium 8.8 mg/dL (8.6-10.3); EGFR African American 130.1 (>60); EGFR Non-African American 107.5 (>60); Potassium 3.6 mmol/L (3.5-5.0)
[2020-10-26] MEDS: Albuterol/Ipratropium NEB.SOL (2.5/0.5 MG) 3 ML NEB.SOLN INH SCH (08:11)
[2020-10-26] MEDS: Tiotropium Brom/Olodaterol MDI INH SCH (08:17)
[2020-10-26] MEDS: Mometasone 220 MCG MDI INH SCH (08:17)
[2020-10-26] MEDS ORDERED: Albuterol/Ipratropium NEB.SOL (2.5/0.5 MG) 3 ML NEB.SOLN INH PRN (08:20)
[2020-10-26] MEDS: Vancomycin 1,250 MG in NS 0.9% 250 ml 250 ML IVPB SCH ×2 (08:41→20:17)
[2020-10-26] MEDS: Nicotine PATCH 21 MG/24 HR PATCH TRANSDERM SCH (08:54)
[2020-10-26] MEDS ORDERED: Magnesium Sulf 4 GM/100 ML IV 4,000 MG/100 ML BAG IVPB ONE (09:00)
[2020-10-26] MEDS ORDERED: Naloxone 0.4 mg VIAL 0.4 mg/ml 1 ml VIAL IV PRN (13:04)
[2020-10-26] MEDS ORDERED: Lidocaine 1% VIAL 10 MG/ML VIAL ONE (13:08)
[2020-10-26] MEDS ORDERED: fentaNYL 100 mcg/2 ml 50 MCG/ML VIAL ONE (13:38)
[2020-10-26] MEDS ORDERED: Lidocaine 2% PF 5 ML VIAL ONE (13:39)
[2020-10-26] MEDS ORDERED: Propofol 10 MG/ML 20 ML BTL ONE (13:53)
[2020-10-26] MEDS: cefTRIAXone 2 GM ADDV.VIAL 2 GM in NS 0.9% 100 ml BAG 100 ML IV SCH (22:30)
[2020-10-26 22:45] LABS: ABS Basophils 0.1 10^3/ul (0-0.2); ABS Eosinophils 0.2 10^3/ul (0-0.6); ABS Lymphocytes 1.4 10^3/ul (1.0-4.8); ABS Monocytes 0.9 10^3/ul (0-0.8); ABS Neutrophils 3.3 10^3/ul (1.5-7.7); Eosinophil % 4.1 %; Hematocrit 30 % (42-52); Hemoglobin 9.5 g/dL (14.0-18.0); Lymphocyte % 22.6 %; Mean Corpuscular HGB Conc 31 g/dL (31-36); Mean Corpuscular Hemoglobin 25 pg (27-31); Mean Corpuscular Volume 78 fL (80-94); Mean Platelet Volume 6.8 fL (7.4-10.4); Platelet Count 234 10^3/uL (150-450); Red Blood Count 3.88 10^6 /uL (4.18-5.48); Red Cell Distribution Width 19 % (10-15)
[2020-10-26 22:54] LABS: Activated Partial Thrombo Time 31.8 seconds (26.0-38.0); INR 1.15 (0.82-1.09)
[2020-10-26 23:04] LABS: EGFR African American 128.1 (>60); EGFR Non-African American 105.9 (>60)
[2020-10-26] MEDS: Heparin 5000 UNITS/ML 1 mL VIAL SUBCUT SCH (23:29)
[2020-10-27] MEDS: Heparin 5000 UNITS/ML 1 mL VIAL SUBCUT SCH (04:54)
[2020-10-27 05:15] LABS: Hematocrit 30 % (42-52); Hemoglobin 9.5 g/dL (14.0-18.0); Mean Corpuscular HGB Conc 32 g/dL (31-36); Mean Corpuscular Hemoglobin 25 pg (27-31); Mean Corpuscular Volume 78 fL (80-94); Platelet Count 230 10^3/uL (150-450); Red Blood Count 3.83 10^6 /uL (4.18-5.48); Red Cell Distribution Width 19 % (10-15); White Blood Count 5.8 10^3/uL (3.5-10.8)
[2020-10-27 05:36] LABS: BUN/Creatinine Ratio 6.9 (8-20); Calcium 8.6 mg/dL (8.6-10.3); EGFR African American 134.3 (>60); Magnesium 1.9 mg/dL (1.9-2.7); Potassium 3.7 mmol/L (3.5-5.0)
[2020-10-27] MEDS: Tiotropium Brom/Olodaterol MDI INH SCH (07:30)
[2020-10-27] MEDS: Mometasone 220 MCG MDI INH SCH (07:31)
[2020-10-27] MEDS: Vancomycin 1,250 MG in NS 0.9% 250 ml 250 ML IVPB SCH (08:12)
[2020-10-27] MEDS: Nicotine PATCH 21 MG/24 HR PATCH TRANSDERM SCH (08:14)
[2020-10-27 12:50] VITALS: BP 148/92
[2020-10-28] MEDS ORDERED: Vancomycin Trough Check NOTE FOLLOW UP ONE (07:30)
== END 2020-10-27 12:30 | disposition home or self-care (01) | DRG 616 ==
LOC: ED 18:31 → MED 18:31 → SSU 10-23 12:05 → ICU 10-24 23:29
PROVIDERS: ADMIT Internal Medicine; ATTEND Internal Medicine

== ENCOUNTER 2021-01-01 14:38 | Inpatient (IN) ==
[2021-01-01 16:07] LABS: INR 1.4 (0.82-1.09)
[2021-01-01 16:09] LABS: ABS Eosinophils 0.2 10^3/ul (0-0.6); ABS Monocytes 1.1 10^3/ul (0-0.8); ABS Neutrophils 5.4 10^3/ul (1.5-7.7); Eosinophil % 2.3 %; Hematocrit 37 % (42-52); Hemoglobin 11.7 g/dL (14.0-18.0); Mean Corpuscular HGB Conc 31 g/dL (31-36); Mean Corpuscular Hemoglobin 24 pg (27-31); Mean Corpuscular Volume 75 fL (80-94); Mean Platelet Volume 7.3 fL (7.4-10.4); Nucleated Red Blood Cells % 0.5; Platelet Count 312 10^3/uL (150-450); Red Blood Count 4.99 10^6 /uL (4.18-5.48); Red Cell Distribution Width 20 % (10-15); White Blood Count 7.7 10^3/uL (3.5-10.8)
[2021-01-01 16:22] LABS: ALT 316 U/L (7-52); AST 121 U/L (13-39); Acetaminophen < 15 mcg/mL; Albumin 3.6 g/dL (3.2-5.2); Alcohol, S < 10 mg/dL (<10); Alkaline Phosphatase 119 U/L (34-104); Anion Gap 7 mmol/L (2-11); BUN/Creatinine Ratio 25.5 (8-20); Blood Urea Nitrogen 27 mg/dL (6-24); CO2 Carbon Dioxide 31 mmol/L (22-32); Chloride 83 mmol/L (101-111); EGFR African American 85.9 (>60); Globulin 3.7 g/dL (2-4); Glucose 109 mg/dL (70-100); Lipase 10 U/L (11.0-82.0); Magnesium 1.6 mg/dL (1.9-2.7); Potassium 4.9 mmol/L (3.5-5.0); Sodium 121 mmol/L (135-145); Total Protein 7.3 g/dL (6.4-8.9)
[2021-01-01 16:54] LABS: Urine Appearance Clear; Urine Bilirubin Negative (Negative); Urine Blood 1+ (Negative); Urine Color Yellow; Urine Glucose Negative (Negative); Urine Ketones Negative (Negative); Urine Nitrite Negative (Negative); Urine Protein 1+(30 mg/dL) (Negative); Urine Specific Gravity 1.008 (1.010-1.030); Urine Urobilinogen Negative (Negative)
[2021-01-01 16:55] LABS: Urine Bacteria Absent (Absent); Urine Red Blood Cell Trace(0-2/hpf) (Absent); Urine Squamous Epithelial Cell Present (Absent); Urine White Blood Cell Trace(0-5/hpf) (Absent)
[2021-01-01 17:38] LABS: Hepatitis B Surface Antigen Nonreactive (Nonreactive)
[2021-01-01 17:43] LABS: Hepatitis A Ab IgM Negative (Negative)
[2021-01-01 17:44] LABS: Hepatitis B Core IgM Nonreactive (Nonreactive)
[2021-01-01] MEDS ORDERED: Albuterol/Ipratropium NEB.SOL (2.5/0.5 MG) 3 ML NEB.SOLN INH PRN (17:45)
[2021-01-01] MEDS ORDERED: Magnesium Sulfate 2 gm BAG 2 GM/50 ML BAG IVPB ONE (17:45)
[2021-01-01] MEDS ORDERED: Furosemide 40 mg/4 ml IV VIAL IV SLOW PU ONE (17:55)
[2021-01-01 17:56] LABS: Hepatitis C Antibody Negative (Negative)
[2021-01-01] MEDS ORDERED: Furosemide 40 mg/4 ml IV VIAL IV SCH (18:00)
[2021-01-01] MEDS ORDERED: Calcium Carb (TUMS) 500 mg CHEW TAB PO PRN (18:24)
[2021-01-01] MEDS ORDERED: Albuterol/Ipratropium NEB.SOL (2.5/0.5 MG) 3 ML NEB.SOLN INH SCH (19:00)
[2021-01-01] MEDS: Albuterol/Ipratropium NEB.SOL (2.5/0.5 MG) 3 ML NEB.SOLN INH PRN (21:00)
[2021-01-01] MEDS: Heparin 5000 UNITS/ML 1 mL VIAL SUBCUT SCH (21:02)
[2021-01-02] MEDS: Albuterol/Ipratropium NEB.SOL (2.5/0.5 MG) 3 ML NEB.SOLN INH PRN ×2 (04:53→19:43)
[2021-01-02] MEDS: Heparin 5000 UNITS/ML 1 mL VIAL SUBCUT SCH ×3 (05:23→20:23)
[2021-01-02] MEDS: SPIRIVA Respimat (tiotropium) 2.5 mcg/inh Inhaler INH SCH (08:39)
[2021-01-02] MEDS: Mometasone/Formoter 200/5 MDI INH SCH ×2 (08:39→19:37)
[2021-01-02] MEDS: Albuterol HFA INHALER 8 gm MDI INH PRN (08:39)
[2021-01-02 08:49] LABS: ABS Basophils 0.1 10^3/ul (0-0.2); ABS Eosinophils 0.2 10^3/ul (0-0.6); ABS Lymphocytes 1.4 10^3/ul (1.0-4.8); ABS Neutrophils 2.9 10^3/ul (1.5-7.7); Eosinophil % 4.1 %; Hematocrit 35 % (42-52); Hemoglobin 11.2 g/dL (14.0-18.0); Lymphocyte % 24.9 %; Mean Corpuscular HGB Conc 32 g/dL (31-36); Mean Corpuscular Hemoglobin 24 pg (27-31); Mean Corpuscular Volume 75 fL (80-94); Mean Platelet Volume 7.3 fL (7.4-10.4); Nucleated Red Blood Cells % 0.4; Platelet Count 285 10^3/uL (150-450); Red Blood Count 4.71 10^6 /uL (4.18-5.48); Red Cell Distribution Width 20 % (10-15); White Blood Count 5.6 10^3/uL (3.5-10.8)
[2021-01-02] MEDS: Nicotine PATCH 21 MG/24 HR PATCH TRANSDERM SCH (08:54)
[2021-01-02] MEDS: Multivitamins/Minerals TAB PO SCH (08:59)
[2021-01-02] MEDS: Cholecalciferol (VIT D3) 400 units TAB PO SCH (08:59)
[2021-01-02 09:04] LABS: Albumin 3.2 g/dL (3.2-5.2); Albumin/Globulin Ratio 0.9 (1-3); BUN/Creatinine Ratio 24.7 (8-20); Calcium 8.6 mg/dL (8.6-10.3); EGFR African American 110.9 (>60); EGFR Non-African American 91.6 (>60); Globulin 3.4 g/dL (2-4); Indirect Bilirubin 0.6 mg/dL (0.3-1.0); Total Bilirubin 0.9 mg/dL (0.2-1.0); Total Protein 6.6 g/dL (6.4-8.9)
[2021-01-02] MEDS: Fluticasone NASAL SPRAY 50MCG 16 gm SPRAY BTL INTRANASAL SCH (10:17)
[2021-01-02] MEDS ORDERED: Furosemide 40 mg/4 ml IV VIAL IV SLOW PU ONE (10:22)
[2021-01-03] MEDS: Heparin 5000 UNITS/ML 1 mL VIAL SUBCUT SCH (05:00)
[2021-01-03] MEDS: Nicotine PATCH 21 MG/24 HR PATCH TRANSDERM SCH (08:25)
[2021-01-03] MEDS: Cholecalciferol (VIT D3) 400 units TAB PO SCH (08:28)
[2021-01-03] MEDS: Multivitamins/Minerals TAB PO SCH (08:29)
[2021-01-03] MEDS: Mometasone/Formoter 200/5 MDI INH SCH (08:34)
[2021-01-03] MEDS: SPIRIVA Respimat (tiotropium) 2.5 mcg/inh Inhaler INH SCH (08:34)
[2021-01-03] MEDS: Albuterol HFA INHALER 8 gm MDI INH PRN (08:35)
[2021-01-03 08:39] LABS: Albumin 3.1 g/dL (3.2-5.2); BUN/Creatinine Ratio 18.3 (8-20); Calcium 8.3 mg/dL (8.6-10.3); EGFR African American 99.9 (>60); EGFR Non-African American 82.6 (>60); Potassium 4.3 mmol/L (3.5-5.0); Total Bilirubin 0.8 mg/dL (0.2-1.0); Total Protein 6.1 g/dL (6.4-8.9)
[2021-01-03] MEDS: Fluticasone NASAL SPRAY 50MCG 16 gm SPRAY BTL INTRANASAL SCH (08:59)
[2021-01-03 11:09] VITALS: BP 127/74
== END 2021-01-03 13:00 | disposition home or self-care (01) | DRG 292 ==
LOC: ED 14:38 → MEDTELE 18:18
PROVIDERS: ADMIT Internal Medicine; ATTEND Internal Medicine

== ENCOUNTER 2021-01-28 23:55 | Inpatient (IN) ==
[2021-01-29] MEDS ORDERED: LORazepam 2 mg VIAL 1 ml IV ONE (00:06)
[2021-01-29] MEDS ORDERED: levETIRAcetam 1000MG IVPREMIX 1,000 MG/100 ML BAG IVPB ONE (00:06)
[2021-01-29 01:20] LABS: ABS Basophils 0.1 10^3/ul (0-0.2); ABS Lymphocytes 0.9 10^3/ul (1.0-4.8); ABS Monocytes 0.8 10^3/ul (0-0.8); ABS Neutrophils 5.1 10^3/ul (1.5-7.7); Eosinophil % 0.5 %; Hematocrit 36 % (42-52); Mean Corpuscular HGB Conc 33 g/dL (31-36); Mean Corpuscular Hemoglobin 24 pg (27-31); Mean Corpuscular Volume 73 fL (80-94); Mean Platelet Volume 6.4 fL (7.4-10.4); Platelet Count 330 10^3/uL (150-450); Red Blood Count 5.01 10^6 /uL (4.18-5.48); Red Cell Distribution Width 20 % (10-15); White Blood Count 6.9 10^3/uL (3.5-10.8)
[2021-01-29] MEDS ORDERED: Lorazepam PYXIS KEY ONE (01:20)
[2021-01-29 01:23] LABS: INR 1.28 (0.82-1.09)
[2021-01-29 01:35] LABS: ALT 13 U/L (7-52); AST 29 U/L (13-39); Albumin 3.3 g/dL (3.2-5.2); Albumin/Globulin Ratio 0.9 (1-3); Alcohol, S < 10 mg/dL (<10); Alkaline Phosphatase 97 U/L (34-104); BUN/Creatinine Ratio 16.3 (8-20); Blood Urea Nitrogen 21 mg/dL (6-24); Chloride 72 mmol/L (101-111); EGFR African American 68.5 (>60); EGFR Non-African American 56.6 (>60); Globulin 3.7 g/dL (2-4); Glucose 112 mg/dL (70-100); Magnesium 1.6 mg/dL (1.9-2.7); Sodium 122 mmol/L (135-145)
[2021-01-29 01:37] LABS: Anion Gap 9 mmol/L (2-11); CO2 Carbon Dioxide 41 mmol/L (22-32); Potassium 2.3 mmol/L (3.5-5.0)
[2021-01-29] MEDS ORDERED: Potassium Chlor 10 meq TAB PO ONE (01:38)
[2021-01-29 01:49] LABS: TSH Ultra Thyroid Stim Horm 1.44 mcIU/mL (0.34-5.60)
[2021-01-29] MEDS ORDERED: NS 0.9% 1000 ml BAG 1,000 ML IV ONE (01:54)
[2021-01-29] MEDS ORDERED: Albuterol HFA INHALER 8 gm MDI INH PRN (03:44)
[2021-01-29] MEDS ORDERED: Albuterol/Ipratropium NEB.SOL (2.5/0.5 MG) 3 ML NEB.SOLN INH PRN (03:44)
[2021-01-29] MEDS ORDERED: Magnesium Sulfate 2 gm BAG 2 GM/50 ML BAG IVPB ONE (03:52)
[2021-01-29] MEDS: KCL 20 MEQ/100 ML IVPREMIX 20 MEQ/100 ML BAG IV SCH ×4 (03:56→13:08)
[2021-01-29] MEDS ORDERED: LORazepam 2 mg VIAL 1 ml IV PUSH PRN (04:59)
[2021-01-29] MEDS ORDERED: Lorazepam PYXIS KEY PRN (04:59)
[2021-01-29] MEDS ORDERED: NS 0.9% 1000 ml BAG 1,000 ML IV SCH ×2 (05:15→15:15)
[2021-01-29 06:09] LABS: Vitamin B12 > 1450 pg/mL (180-914)
[2021-01-29 06:34] LABS: Urine Appearance Clear; Urine Bilirubin Negative (Negative); Urine Blood 3+ (Negative); Urine Color Yellow; Urine Glucose Negative (Negative); Urine Ketones Negative (Negative); Urine Nitrite Negative (Negative); Urine Protein Negative (Negative); Urine Specific Gravity 1.004 (1.010-1.030); Urine Urobilinogen Negative (Negative)
[2021-01-29 06:37] LABS: Urine Bacteria Absent (Absent); Urine Red Blood Cell 2+(6-10/hpf) (Absent); Urine Squamous Epithelial Cell Present (Absent); Urine White Blood Cell Trace(0-5/hpf) (Absent)
[2021-01-29 06:45] LABS: BUN/Creatinine Ratio 15.5 (8-20); Calcium 9.1 mg/dL (8.6-10.3); EGFR African American 77.4 (>60); Magnesium 1.7 mg/dL (1.9-2.7)
[2021-01-29 07:01] LABS: Urine Benzodiazepine Screen None Detected (None Detect); Urine Cannabinoids Screen None Detected (None Detect); Urine Opiates Screen Presumptive Positive (None Detect)
[2021-01-29 07:01] LABS: Potassium 2.5 mmol/L (3.5-5.0)
[2021-01-29] MEDS: Enoxaparin 40 MG/0.4 ML SYR SUBCUT SCH (08:16)
[2021-01-29] MEDS: Mometasone/Formoter 200/5 MDI INH SCH ×2 (08:52→20:47)
[2021-01-29 15:43] LABS: BUN/Creatinine Ratio 15.8 (8-20); Calcium 8.6 mg/dL (8.6-10.3); EGFR African American 97.5 (>60); EGFR Non-African American 80.6 (>60); Magnesium 1.9 mg/dL (1.9-2.7); Potassium 2.8 mmol/L (3.5-5.0)
[2021-01-29] MEDS ORDERED: Potassium Chlor 20 meq TAB.ER PO ONE (16:43)
[2021-01-29] MEDS: cefTRIAXone 1 gm/50 mL NS BAG 1 GM/50 ML BAG IVPB SCH (17:55)
[2021-01-29] MEDS: metroNIDAZOLE IV 500 MG/100ML 500 MG/100 ML BAG IVPB SCH (19:02)
[2021-01-30] MEDS: metroNIDAZOLE IV 500 MG/100ML 500 MG/100 ML BAG IVPB SCH ×3 (00:51→17:59)
[2021-01-30 06:06] LABS: Hematocrit 34 % (42-52); Hemoglobin 10.7 g/dL (14.0-18.0); Mean Corpuscular HGB Conc 32 g/dL (31-36); Mean Corpuscular Hemoglobin 24 pg (27-31); Mean Corpuscular Volume 74 fL (80-94); Mean Platelet Volume 6.8 fL (7.4-10.4); Platelet Count 309 10^3/uL (150-450); Red Blood Count 4.55 10^6 /uL (4.18-5.48); Red Cell Distribution Width 20 % (10-15); White Blood Count 6.2 10^3/uL (3.5-10.8)
[2021-01-30 06:23] LABS: Albumin 3.1 g/dL (3.2-5.2); BUN/Creatinine Ratio 17.3 (8-20); Calcium 8.7 mg/dL (8.6-10.3); EGFR African American 117.2 (>60); EGFR Non-African American 96.9 (>60); Globulin 3.1 g/dL (2-4); Magnesium 1.8 mg/dL (1.9-2.7); Total Bilirubin 0.9 mg/dL (0.2-1.0); Total Protein 6.2 g/dL (6.4-8.9)
[2021-01-30 06:32] LABS: Potassium 2.7 mmol/L (3.5-5.0)
[2021-01-30] MEDS ORDERED: Potassium Chlor 20 meq TAB.ER PO ONE ×2 (06:38→12:00)
[2021-01-30] MEDS ORDERED: Magnesium Sulfate 2 gm BAG 2 GM/50 ML BAG IVPB ONE (07:05)
[2021-01-30] MEDS: Nicotine PATCH 21 MG/24 HR PATCH TRANSDERM SCH (08:25)
[2021-01-30] MEDS: Enoxaparin 40 MG/0.4 ML SYR SUBCUT SCH (08:27)
[2021-01-30] MEDS: Mometasone/Formoter 200/5 MDI INH SCH ×2 (08:39→20:27)
[2021-01-30] MEDS ORDERED: NS 0.9% 1000 ml BAG 1,000 ML IV SCH (10:30)
[2021-01-30] MEDS: Nicotine GUM 4MG FRUIT FLAVOR PO PRN ×2 (11:06→20:12)
[2021-01-30] MEDS: KCL 20 MEQ/100 ML IVPREMIX 20 MEQ/100 ML BAG IV SCH ×2 (11:09→14:03)
[2021-01-30] MEDS: Clotrimazole 1% CREAM 30 gm TOPICAL SCH ×2 (14:03→20:15)
[2021-01-30 14:38] LABS: Anion Gap 7 mmol/L (2-11); BUN/Creatinine Ratio 14.4 (8-20); Blood Urea Nitrogen 13 mg/dL (6-24); CO2 Carbon Dioxide 36 mmol/L (22-32); Calcium 8.8 mg/dL (8.6-10.3); Chloride 82 mmol/L (101-111); EGFR African American 103.8 (>60); EGFR Non-African American 85.8 (>60); Glucose 93 mg/dL (70-100); Potassium 3.3 mmol/L (3.5-5.0); Sodium 125 mmol/L (135-145)
[2021-01-30] MEDS: cefTRIAXone 1 gm/50 mL NS BAG 1 GM/50 ML BAG IVPB SCH (17:00)
[2021-01-30 17:41] LABS: % Iron Saturation 7 % (15-55); Iron 35 ug/dL (50-212); Total Iron Binding Capacity 482 mcg/dL (250-450); Transferrin 344 mg/dL (203-362); Unsaturated Iron Binding < 467 ug/dL
[2021-01-30 18:01] LABS: Ferritin 28.4 ng/mL (24-336)
[2021-01-31] MEDS: metroNIDAZOLE IV 500 MG/100ML 500 MG/100 ML BAG IVPB SCH ×2 (00:25→11:52)
[2021-01-31 05:08] LABS: ABS Eosinophils 0.2 10^3/ul (0-0.6); ABS Monocytes 0.8 10^3/ul (0-0.8); ABS Neutrophils 3.5 10^3/ul (1.5-7.7); Eosinophil % 3.7 %; Hematocrit 34 % (42-52); Hemoglobin 10.9 g/dL (14.0-18.0); Mean Corpuscular HGB Conc 32 g/dL (31-36); Mean Corpuscular Hemoglobin 24 pg (27-31); Mean Corpuscular Volume 73 fL (80-94); Mean Platelet Volume 6.8 fL (7.4-10.4); Nucleated Red Blood Cells % 0.1; Platelet Count 321 10^3/uL (150-450); Red Blood Count 4.59 10^6 /uL (4.18-5.48); Red Cell Distribution Width 20 % (10-15); White Blood Count 6.6 10^3/uL (3.5-10.8)
[2021-01-31 05:18] LABS: Calcium 8.5 mg/dL (8.6-10.3); EGFR African American 109.4 (>60); EGFR Non-African American 90.4 (>60); Magnesium 1.6 mg/dL (1.9-2.7); Potassium 3.5 mmol/L (3.5-5.0)
[2021-01-31] MEDS ORDERED: Magnesium Sulfate IV 3 GM in NS 0.9% 100 ml BAG 100 ML IVPB ONE (06:44)
[2021-01-31] MEDS: Mometasone/Formoter 200/5 MDI INH SCH (08:07)
[2021-01-31] MEDS ORDERED: Potassium Chlor 20 meq TAB.ER PO ONE (08:29)
[2021-01-31] MEDS: Clotrimazole 1% CREAM 30 gm TOPICAL SCH (08:30)
[2021-01-31] MEDS: Nicotine PATCH 21 MG/24 HR PATCH TRANSDERM SCH (08:30)
[2021-01-31] MEDS: Enoxaparin 40 MG/0.4 ML SYR SUBCUT SCH (08:32)
[2021-01-31] MEDS ORDERED: Morphine ER 15 mg TAB ** extended release PO SCH (10:00)
[2021-01-31 13:12] VITALS: BP 109/57
== END 2021-01-31 14:00 | disposition left against medical advice (07) | DRG 100 ==
LOC: ED 23:55 → MEDTELE 01-29 03:40
PROVIDERS: ADMIT Student in an Organized Health Care Education/Training Program; ATTEND Internal Medicine

== ENCOUNTER 2021-08-05 15:41 | Inpatient (IN) ==
[2021-08-05 17:14] LABS: ABS Basophils 0.1 10^3/ul (0-0.2); ABS Eosinophils 0.2 10^3/ul (0-0.6); ABS Lymphocytes 1.1 10^3/ul (1.0-4.8); ABS Monocytes 0.7 10^3/ul (0-0.8); ABS Neutrophils 2.6 10^3/ul (1.5-7.7); Eosinophil % 4.3 %; Hematocrit 33 % (42-52); Hemoglobin 10.3 g/dL (14.0-18.0); Lymphocyte % 23.7 %; Mean Corpuscular HGB Conc 31 g/dL (31-36); Mean Corpuscular Hemoglobin 23 pg (27-31); Mean Corpuscular Volume 73 fL (80-94); Mean Platelet Volume 6.9 fL (7.4-10.4); Nucleated Red Blood Cells % 0.1; Platelet Count 227 10^3/uL (150-450); Red Blood Count 4.54 10^6 /uL (4.18-5.48); Red Cell Distribution Width 21 % (10-15); White Blood Count 4.7 10^3/uL (3.5-10.8)
[2021-08-05 17:31] LABS: Albumin 3.4 g/dL (3.2-5.2); Albumin/Globulin Ratio 0.9 (1-3); Anion Gap 6 mmol/L (2-11); Blood Urea Nitrogen 15 mg/dL (6-24); CO2 Carbon Dioxide 35 mmol/L (22-32); Calcium 8.6 mg/dL (8.6-10.3); Chloride 87 mmol/L (101-111); EGFR African American 84.1 (>60); EGFR Non-African American 69.5 (>60); Globulin 3.6 g/dL (2-4); Glucose 126 mg/dL (70-100); Potassium 4.2 mmol/L (3.5-5.0); Sodium 128 mmol/L (135-145)
[2021-08-05 17:32] LABS: ALT 8 U/L (7-52); AST 19 U/L (13-39); Alkaline Phosphatase 129 U/L (35-149)
[2021-08-05 17:34] LABS: Troponin I 0.04 ng/mL (<0.03)
[2021-08-05] MEDS ORDERED: Furosemide 20 mg/2 ml IV VIAL IV SLOW PU ONE (20:04)
[2021-08-05 20:54] LABS: Troponin I 0.03 ng/mL (<0.03)
[2021-08-05] MEDS ORDERED: Albuterol/Ipratropium NEB.SOL (2.5/0.5 MG) 3 ML NEB.SOLN INH PRN (21:37)
[2021-08-05 22:29] LABS: Rapid COVID-19 Molecular Undetected (Undetected)
[2021-08-05 22:53] LABS: Urine Appearance Clear; Urine Bilirubin Negative (Negative); Urine Blood Negative (Negative); Urine Color Yellow; Urine Glucose Negative (Negative); Urine Ketones Negative (Negative); Urine Nitrite Negative (Negative); Urine Protein Negative (Negative); Urine Specific Gravity 1.009 (1.002-1.030); Urine Urobilinogen Negative (Negative)
[2021-08-05] MEDS ORDERED: Nicotine PATCH 21 MG/24 HR PATCH TRANSDERM SCH (23:45)
[2021-08-05] MEDS: Enoxaparin 40 MG/0.4 ML SYR SUBCUT SCH (23:55)
[2021-08-05] MEDS: Nicotine PATCH 21 MG/24 HR PATCH TRANSDERM SCH (23:55)
[2021-08-06 06:15] LABS: ABS Basophils 0.1 10^3/ul (0-0.2); ABS Eosinophils 0.3 10^3/ul (0-0.6); ABS Lymphocytes 1.4 10^3/ul (1.0-4.8); ABS Monocytes 1.1 10^3/ul (0-0.8); ABS Neutrophils 2.2 10^3/ul (1.5-7.7); Eosinophil % 5.3 %; Hematocrit 32 % (42-52); Hemoglobin 9.9 g/dL (14.0-18.0); Lymphocyte % 28.6 %; Mean Corpuscular HGB Conc 31 g/dL (31-36); Mean Corpuscular Hemoglobin 23 pg (27-31); Mean Corpuscular Volume 73 fL (80-94); Mean Platelet Volume 7.1 fL (7.4-10.4); Nucleated Red Blood Cells % 0.1; Platelet Count 200 10^3/uL (150-450); Red Blood Count 4.33 10^6 /uL (4.18-5.48); Red Cell Distribution Width 21 % (10-15); White Blood Count 5.1 10^3/uL (3.5-10.8)
[2021-08-06 06:28] LABS: Calcium 8.5 mg/dL (8.6-10.3); EGFR African American 95.2 (>60); EGFR Non-African American 78.7 (>60); Potassium 3.7 mmol/L (3.5-5.0)
[2021-08-06] MEDS: Furosemide 100 mg/10 ml IV VIAL IV SCH (08:12)
[2021-08-06] MEDS: Cholecalciferol (VIT D3) 400 units TAB PO SCH (08:13)
[2021-08-06] MEDS: Nicotine Lozenge mini 2 MG LOZNG.MINI MT PRN (08:13)
[2021-08-06] MEDS: Potassium Chlor 20 meq TAB.ER PO SCH (08:14)
[2021-08-06] MEDS: Enoxaparin 40 MG/0.4 ML SYR SUBCUT SCH (20:57)
[2021-08-07] MEDS ORDERED: Lidocaine 2% JELLY 6 ML TOPICAL ONE (02:52)
[2021-08-07 05:36] LABS: ABS Basophils 0.1 10^3/ul (0-0.2); ABS Eosinophils 0.2 10^3/ul (0-0.6); ABS Lymphocytes 1.2 10^3/ul (1.0-4.8); ABS Monocytes 0.8 10^3/ul (0-0.8); ABS Neutrophils 2.4 10^3/ul (1.5-7.7); Eosinophil % 4.6 %; Hematocrit 28 % (42-52); Hemoglobin 8.8 g/dL (14.0-18.0); Mean Corpuscular HGB Conc 31 g/dL (31-36); Mean Corpuscular Hemoglobin 23 pg (27-31); Mean Corpuscular Volume 73 fL (80-94); Mean Platelet Volume 7.2 fL (7.4-10.4); Nucleated Red Blood Cells % 0.1; Platelet Count 178 10^3/uL (150-450); Red Blood Count 3.89 10^6 /uL (4.18-5.48); Red Cell Distribution Width 21 % (10-15); White Blood Count 4.7 10^3/uL (3.5-10.8)
[2021-08-07 05:53] LABS: Calcium 8.1 mg/dL (8.6-10.3); EGFR African American 110.9 (>60); EGFR Non-African American 91.6 (>60); Potassium 3.7 mmol/L (3.5-5.0)
[2021-08-07] MEDS: Potassium Chlor 20 meq TAB.ER PO SCH (08:30)
[2021-08-07] MEDS: Cholecalciferol (VIT D3) 400 units TAB PO SCH (08:31)
[2021-08-07] MEDS: Nicotine PATCH 21 MG/24 HR PATCH TRANSDERM SCH (08:32)
[2021-08-07] MEDS: Furosemide 100 mg/10 ml IV VIAL IV SCH (08:32)
[2021-08-07] MEDS ORDERED: Furosemide 100 mg/10 ml IV VIAL IV ONE (14:30)
[2021-08-07] MEDS: Enoxaparin 40 MG/0.4 ML SYR SUBCUT SCH (20:48)
[2021-08-08 05:25] LABS: ABS Basophils 0.1 10^3/ul (0-0.2); ABS Eosinophils 0.2 10^3/ul (0-0.6); ABS Lymphocytes 1.2 10^3/ul (1.0-4.8); ABS Monocytes 0.9 10^3/ul (0-0.8); ABS Neutrophils 3.5 10^3/ul (1.5-7.7); Eosinophil % 4.1 %; Hematocrit 30 % (42-52); Hemoglobin 9.2 g/dL (14.0-18.0); Lymphocyte % 20.4 %; Mean Corpuscular HGB Conc 31 g/dL (31-36); Mean Corpuscular Hemoglobin 23 pg (27-31); Mean Corpuscular Volume 74 fL (80-94); Platelet Count 182 10^3/uL (150-450); Red Cell Distribution Width 20 % (10-15); White Blood Count 5.9 10^3/uL (3.5-10.8)
[2021-08-08 05:34] LABS: Blood Urea Nitrogen 9 mg/dL (6-24); Calcium 8.2 mg/dL (8.6-10.3); Chloride 91 mmol/L (101-111); EGFR African American 112.4 (>60); EGFR Non-African American 92.9 (>60); Glucose 93 mg/dL (70-100); Magnesium 1.4 mg/dL (1.9-2.7); Potassium 3.7 mmol/L (3.5-5.0); Sodium 135 mmol/L (135-145)
[2021-08-08 05:40] LABS: Anion Gap 2 mmol/L (2-11); CO2 Carbon Dioxide 42 mmol/L (22-32)
[2021-08-08] MEDS ORDERED: Magnesium Sulf 4 GM/100 ML IV 4,000 MG/100 ML BAG IVPB ONE (05:43)
[2021-08-08] MEDS ORDERED: Potassium Chlor 20 meq TAB.ER PO ONE (05:43)
[2021-08-08 06:05] LABS: % Iron Saturation 4 % (15-55); Iron 21 ug/dL (50-212); Total Iron Binding Capacity 468 mcg/dL (250-450); Transferrin 334 mg/dL (203-362); Unsaturated Iron Binding < 453 ug/dL
[2021-08-08 06:29] LABS: Folate > 20.00 ng/mL (5.90-24.80)
[2021-08-08 06:30] LABS: Vitamin B12 > 1450 pg/mL (180-914)
[2021-08-08] MEDS ORDERED: Perflutren Lipid Microsphere 3 ML VIAL ONE (07:55)
[2021-08-08] MEDS ORDERED: Magnesium Sulfate IV 3 GM in NS 0.9% 100 ml BAG 100 ML IVPB ONE (08:38)
[2021-08-08] MEDS: Nicotine PATCH 21 MG/24 HR PATCH TRANSDERM SCH (09:45)
[2021-08-08] MEDS: Potassium Chlor 20 meq TAB.ER PO SCH (09:45)
[2021-08-08] MEDS: Cholecalciferol (VIT D3) 400 units TAB PO SCH (10:18)
[2021-08-08] MEDS: Furosemide 100 mg/10 ml IV VIAL IV SCH (12:13)
[2021-08-08] MEDS: Iron Sucrose 200 MG in NS 0.9% 100 ml BAG 100 ML IVPB SCH (12:14)
[2021-08-08] MEDS: Albuterol HFA INHALER 8 gm MDI INH PRN (15:35)
[2021-08-08] MEDS ORDERED: Furosemide 40 mg/4 ml IV VIAL IV ONE (15:57)
[2021-08-08] MEDS ORDERED: Iron Sucrose 200 MG in NS 0.9% 100 ml BAG 100 ML IVPB ONE (17:00)
[2021-08-08] MEDS ORDERED: Polyethylene Glycol 3350 17 GM PACKET PO SCH (19:00)
[2021-08-08] MEDS: Polyethylene Glycol 3350 17 GM PACKET PO SCH (19:09)
[2021-08-08] MEDS: Enoxaparin 40 MG/0.4 ML SYR SUBCUT SCH (21:40)
[2021-08-08] MEDS: Nicotine Lozenge mini 2 MG LOZNG.MINI MT PRN (21:41)
[2021-08-09] MEDS ORDERED: Furosemide 40 mg/4 ml IV VIAL IV SLOW PU ONE (04:34)
[2021-08-09] MEDS ORDERED: Furosemide 40 mg/4 ml IV VIAL ONE (04:35)
[2021-08-09 06:12] LABS: PO2 Arterial 71 mmHg (80-100)
[2021-08-09 06:20] LABS: PCO2 Arterial 81 mmHg (35-45)
[2021-08-09] MEDS ORDERED: Furosemide 40 mg/4 ml IV VIAL IV SCH (09:00)
[2021-08-09] MEDS: Furosemide 40 mg/4 ml IV VIAL IV SCH ×2 (10:01→15:00)
[2021-08-09] MEDS: Nicotine PATCH 21 MG/24 HR PATCH TRANSDERM SCH (10:03)
[2021-08-09] MEDS: Cholecalciferol (VIT D3) 400 units TAB PO SCH (10:06)
[2021-08-09] MEDS: Potassium Chlor 20 meq TAB.ER PO SCH (10:15)
[2021-08-09 10:19] LABS: Hematocrit 31 % (42-52); Hemoglobin 9.4 g/dL (14.0-18.0); Mean Corpuscular HGB Conc 30 g/dL (31-36); Mean Corpuscular Hemoglobin 23 pg (27-31); Mean Corpuscular Volume 75 fL (80-94); Mean Platelet Volume 6.9 fL (7.4-10.4); Platelet Count 181 10^3/uL (150-450); Red Blood Count 4.13 10^6 /uL (4.18-5.48); Red Cell Distribution Width 21 % (10-15); White Blood Count 5.5 10^3/uL (3.5-10.8)
[2021-08-09 10:33] LABS: Calcium 8.4 mg/dL (8.6-10.3); EGFR African American 117.2 (>60); EGFR Non-African American 96.9 (>60); Magnesium 1.7 mg/dL (1.9-2.7); Potassium 3.9 mmol/L (3.5-5.0)
[2021-08-09] MEDS ORDERED: Magnesium Sulfate 2 gm BAG 2 GM/50 ML BAG IVPB ONE (11:06)
[2021-08-09] MEDS: Iron Sucrose 200 MG in NS 0.9% 100 ml BAG 100 ML IVPB SCH (11:30)
[2021-08-09] MEDS: Albuterol HFA INHALER 8 gm MDI INH PRN (17:46)
[2021-08-09] MEDS: Polyethylene Glycol 3350 17 GM PACKET PO SCH (22:16)
[2021-08-09] MEDS: Enoxaparin 40 MG/0.4 ML SYR SUBCUT SCH (22:17)
[2021-08-09] MEDS: SPIRIVA Respimat (tiotropium) 2.5 mcg/inh Inhaler INH SCH (23:59)
[2021-08-10] MEDS: SPIRIVA Respimat (tiotropium) 2.5 mcg/inh Inhaler INH SCH (08:35)
[2021-08-10] MEDS: Nicotine PATCH 21 MG/24 HR PATCH TRANSDERM SCH (08:51)
[2021-08-10] MEDS: Potassium Chlor 20 meq TAB.ER PO SCH (09:12)
[2021-08-10] MEDS: Iron Sucrose 200 MG in NS 0.9% 100 ml BAG 100 ML IVPB SCH (09:12)
[2021-08-10] MEDS: Furosemide 40 mg/4 ml IV VIAL IV SCH ×2 (09:13→16:32)
[2021-08-10] MEDS: Cholecalciferol (VIT D3) 400 units TAB PO SCH (09:14)
[2021-08-10 09:26] LABS: Calcium 8.7 mg/dL (8.6-10.3); EGFR African American 99.9 (>60); EGFR Non-African American 82.6 (>60); Magnesium 1.8 mg/dL (1.9-2.7); Potassium 3.7 mmol/L (3.5-5.0)
[2021-08-10 11:27] LABS: PO2 Arterial 70 mmHg (80-100)
[2021-08-10 11:43] LABS: PCO2 Arterial 84 mmHg (35-45)
[2021-08-10] MEDS: Albuterol HFA INHALER 8 gm MDI INH PRN (17:42)
[2021-08-10] MEDS: Enoxaparin 40 MG/0.4 ML SYR SUBCUT SCH (22:02)
[2021-08-10] MEDS: Polyethylene Glycol 3350 17 GM PACKET PO SCH (22:02)
[2021-08-11] MEDS: Nicotine Lozenge mini 2 MG LOZNG.MINI MT PRN ×5 (06:20→23:29)
[2021-08-11] MEDS: SPIRIVA Respimat (tiotropium) 2.5 mcg/inh Inhaler INH SCH (07:38)
[2021-08-11] MEDS: Albuterol HFA INHALER 8 gm MDI INH PRN (07:39)
[2021-08-11] MEDS: Nicotine PATCH 21 MG/24 HR PATCH TRANSDERM SCH ×2 (08:48→10:10)
[2021-08-11] MEDS: Cholecalciferol (VIT D3) 400 units TAB PO SCH (08:48)
[2021-08-11] MEDS: Furosemide 40 mg/4 ml IV VIAL IV SCH (08:48)
[2021-08-11] MEDS: Potassium Chlor 20 meq TAB.ER PO SCH (08:48)
[2021-08-11] MEDS: Iron Sucrose 200 MG in NS 0.9% 100 ml BAG 100 ML IVPB SCH (10:04)
[2021-08-11 10:50] LABS: Hematocrit 32 % (42-52); Hemoglobin 9.7 g/dL (14.0-18.0); Mean Corpuscular HGB Conc 30 g/dL (31-36); Mean Corpuscular Hemoglobin 23 pg (27-31); Mean Corpuscular Volume 75 fL (80-94); Mean Platelet Volume 7.8 fL (7.4-10.4); Platelet Count 195 10^3/uL (150-450); Red Cell Distribution Width 21 % (10-15); White Blood Count 5.3 10^3/uL (3.5-10.8)
[2021-08-11 11:05] LABS: ALT 6 U/L (7-52); Albumin/Globulin Ratio 0.9 (1-3); Alkaline Phosphatase 86 U/L (35-149); Blood Urea Nitrogen 11 mg/dL (6-24); CO2 Carbon Dioxide 35 mmol/L (22-32); Calcium 8.5 mg/dL (8.6-10.3); Chloride 93 mmol/L (101-111); EGFR African American 107.9 (>60); EGFR Non-African American 89.2 (>60); Globulin 3.5 g/dL (2-4); Glucose 112 mg/dL (70-100); Sodium 134 mmol/L (135-145); Total Protein 6.5 g/dL (6.4-8.9)
[2021-08-11 12:28] LABS: Anion Gap 6 mmol/L (2-11)
[2021-08-11] MEDS: Furosemide 100 mg/10 ml IV VIAL IV SCH (16:00)
[2021-08-11 17:28] LABS: Magnesium 1.6 mg/dL (1.9-2.7); Potassium Redraw 3.3 mmol/L (3.5-5.0)
[2021-08-11] MEDS ORDERED: Magnesium Sulfate IV 3 GM in NS 0.9% 100 ml BAG 100 ML IVPB ONE (18:36)
[2021-08-11] MEDS ORDERED: Potassium Chlor 20 meq TAB.ER PO ONE (18:36)
[2021-08-11] MEDS: KCL 20 MEQ/100 ML IVPREMIX 20 MEQ/100 ML BAG IV SCH ×2 (20:00→23:25)
[2021-08-11] MEDS: Enoxaparin 40 MG/0.4 ML SYR SUBCUT SCH (21:50)
[2021-08-11] MEDS: Polyethylene Glycol 3350 17 GM PACKET PO SCH (22:07)
[2021-08-12 07:17] LABS: ABS Basophils 0.1 10^3/ul (0-0.2); ABS Eosinophils 0.4 10^3/ul (0-0.6); ABS Lymphocytes 1.3 10^3/ul (1.0-4.8); ABS Monocytes 0.7 10^3/ul (0-0.8); ABS Neutrophils 2.3 10^3/ul (1.5-7.7); Eosinophil % 8.7 %; Hematocrit 29 % (42-52); Hemoglobin 9.2 g/dL (14.0-18.0); Lymphocyte % 27.3 %; Mean Corpuscular HGB Conc 32 g/dL (31-36); Mean Corpuscular Hemoglobin 24 pg (27-31); Mean Corpuscular Volume 74 fL (80-94); Mean Platelet Volume 7.3 fL (7.4-10.4); Nucleated Red Blood Cells % 0.1; Platelet Count 155 10^3/uL (150-450); Red Blood Count 3.92 10^6 /uL (4.18-5.48); Red Cell Distribution Width 21 % (10-15); White Blood Count 4.8 10^3/uL (3.5-10.8)
[2021-08-12 07:18] VITALS: BP 93/46
[2021-08-12 07:26] LABS: Calcium 8.3 mg/dL (8.6-10.3); EGFR African American 110.9 (>60); EGFR Non-African American 91.6 (>60); Magnesium 1.9 mg/dL (1.9-2.7); Potassium 3.2 mmol/L (3.5-5.0)
[2021-08-12 08:07] LABS: Anisocytosis 2+; Hypochromasia 1+; Microcytosis 1+; Polychromasia 1+
[2021-08-12] MEDS ORDERED: Potassium Chlor 20 meq TAB.ER PO ONE (08:45)
[2021-08-12] MEDS: Nicotine Lozenge mini 2 MG LOZNG.MINI MT PRN (08:48)
[2021-08-12] MEDS: Furosemide 100 mg/10 ml IV VIAL IV SCH (08:49)
[2021-08-12] MEDS: Cholecalciferol (VIT D3) 400 units TAB PO SCH (08:49)
[2021-08-12] MEDS: Nicotine PATCH 21 MG/24 HR PATCH TRANSDERM SCH (08:50)
[2021-08-12] MEDS: Potassium Chlor 20 meq TAB.ER PO SCH (08:54)
[2021-08-12] MEDS: Iron Sucrose 200 MG in NS 0.9% 100 ml BAG 100 ML IVPB SCH (08:59)
[2021-08-12] MEDS ORDERED: KCL 20 MEQ/100 ML IVPREMIX 20 MEQ/100 ML BAG IV SCH (09:00)
[2021-08-12] MEDS: Albuterol HFA INHALER 8 gm MDI INH PRN (09:15)
[2021-08-12] MEDS: SPIRIVA Respimat (tiotropium) 2.5 mcg/inh Inhaler INH SCH (09:18)
== END 2021-08-12 11:45 | disposition home or self-care (01) | DRG 291 ==
LOC: ED 15:41 → SUATTDRO 22:06 → MEDTELE 22:06
PROVIDERS: ADMIT Hospitalist; ATTEND Internal Medicine